=== PATIENT | female | born 1940 | race Caucasian/White ===

== ENCOUNTER → 2016-07-03 | Outpatient (CLI) | payer BC ==
[~2016-07-03] MED LIST: ASCO500T16 PO; ASPI81TA28 PO; CALC-393 PO; CHOL1000 PO; MAGN250T22 PO; METO50TA16 PO; MULT-190 PO; MULT-506 PO; ONDA4TAB10 SL; POTA99TA PO
[2016-07-03 09:39] LABS: BASO % 0.5 %; BASO ABS # 0.03 K/uL (0-0.2); COMPLETE YES; EOS % 2.6 %; HEMATOCRIT 35.8 % (37-47); LYMPH % 28.2 %; MEAN CELL VOLUME 92.3 fL (80-100); MEAN CORPUSCULAR HGB CONC 34.6 g/dl (32-36); MEAN PLATELET VOLUME 9.6 fL (7.4-10.4); NEUT % 56.7 %; PLATELET COUNT 217 K/uL (130-400); RED BLOOD COUNT 3.88 M/uL (4.2-5.4); WHITE BLOOD COUNT 5.67 K/uL (4.8-10.8)
[2016-07-03 09:55] LABS: ALT/SGPT 18 U/L (12-78); BLOOD UREA NITROGEN 19 mg/dl (7-18); BUN/CREATININE RATIO 21.6 (10-20); CARBON DIOXIDE 29 mmol/L (21-32); CHLORIDE 104 mmol/L (98-107); CHOLESTEROL 183 mg/dl (0-200); GLUCOSE 96 mg/dl (70-99); POTASSIUM 3.8 mmol/L (3.5-5.1); SODIUM 140 mmol/L (136-145)
[2016-07-03 10:05] LABS: ALB/GLOB RATIO 1.3 (0.9-2); ALKALINE PHOSPHATASE 69 U/L (45-117); AST/SGOT 24 U/L (15-37); CHOLESTEROL/HDL RATIO 2.7; HDL CHOLESTEROL 67 mg/dl; LDL CHOLESTEROL CALCULATED 98 mg/dl; TRIGLYCERIDES 91 mg/dl (0-150); VERY LOW DENSITY LIPOPROT CALC 18 mg/dl
== END | disposition home or self-care (01) ==
LOC: C.LAB1850 07:59
PROVIDERS: ATTEND Internal Medicine Pulmonary Disease
DX: I35.0 Nonrheumatic aortic (valve) stenosis (principal); K63.5 Polyp of colon; M25.539 Pain in unspecified wrist; Z00.00 Encounter for general adult medical examination without abnormal findings; I47.1 Supraventricular tachycardia

== ENCOUNTER 2016-07-12 05:55 | Emergency (ER) | payer BC ==
[~2016-07-12] VITALS: Ht 165.1 cm; Wt 54.2 kg
[2016-07-12 06:06] VITALS: TEMP 36.8; Ht 165.1 cm; Wt 54.2 kg
[2016-07-12] MEDS ORDERED: ONDANSETRON INJ 2 MG/ML 2 ML VIAL IV STA (06:09)
[2016-07-12] MEDS ORDERED: MoRPHine SULFATE 4 MG/ML 1 ML CARP\\VIAL IV STA (06:09)
[2016-07-12] MEDS ORDERED: SODIUM CHLORIDE 0.9% 500ML 500 ML IV STA ×2 (06:09→06:39)
--- NOTE | 2016-07-12 06:11 | EMERGENCY ROOM VISIT NOTE ---
History Report prepared by Willam: Leda Sparks Under the Supervision of: Dr. Ashish Caban M.D. First contact with patient: 06:03 Stated Complaint: N,V,D, History of Present Illness The patient is a 75 year old female who presents to the Emergency Room with complaints of a persistent illness that began last evening. The patient states that last evening she developed nausea, vomiting, and diarrhea. She additionally associates weakness and abdominal pain with her symptoms. The patient denies any melena or hematochezia. She denies any chest pain, shortness of breath, or leg swelling. The patient denies any sick contacts. She notes a history of atrial fibrillation, but denies being atrial fibrillation at all times. The patient states that she takes Metoprolol for her atrial fibrillation. Per EMS they gave her 1 liter of fluid prior to arrival. Source of History: patient Onset: last evening Position: other (global) Quality: other (illness) Timing: other (persistent) Associated Symptoms: + abdominal pain, + diarrhea, + nausea, + vomiting, + weakness, No SOB, No chest pain, No hematochezia, No melena Review of Systems See HPI for pertinent positives & negatives. A total of 10 systems reviewed and were otherwise negative. Past Medical & Surgical Medical Problems: (1) Atrial fibrillation Family History No pertinent family history Social History Smokeless Tobacco Use: No Alcohol Use: occasionally Marital Status: Housing Status: lives with significant other Occupation Status: retired Current/Historical Medications Scheduled Ascorbic Acid (Ascorbic Acid), 500 MG PO DAILY Aspirin (Aspirin Ec), 81 MG PO DAILY Calcium Carbonate (Calcium), 600 MG PO DAILY Cholecalciferol (Vitamin D3), 1,000 UNITS PO DAILY Magnesium Oxide (Magnesium), 250 MG PO DAILY Metoprolol Tartrate (Lopressor) (Lopressor), 50 MG PO BID Multivitamin (Multivitamin), 1 TAB PO DAILY Ocuvite Preservision (Ocuvite Preservision), 1 TAB PO DAILY Potassium (Potassium), 99 MG PO DAILY Allergies Coded Allergies: BEE STING (Verified Allergy, Intermediate, 07/13/10) Physical Exam Vital Signs Date Time Temp Pulse Resp B/P Pulse Ox O2 Delivery O2 Flow Rate FiO2 07/12/16 07:29 103 121/63 90 Room Air 07/12/16 07:03 99 07/12/16 06:17 99 07/12/16 06:06 36.8 81 18 162/63 98 Room Air Physical Exam GENERAL: Patient is uncomfortable appearing and in moderate distress. HEENT: No acute trauma, normocephalic atraumatic, mucous membranes moist, no nasal congestion, no scleral icterus. NECK: No stridor, no adenopathy, no meningismus, trachea is midline. LUNGS: No dyspnea. Clear to auscultation and equal bilaterally. No wheeze, no rhonchi. HEART: Regular rate and rhythm. No murmurs, rubs, gallops appreciated. ABDOMEN: Hyperactive bowel sounds with vague periumbilical tenderness. Soft, nontender, no masses appreciated, no peritonitis. BACK: No midline tenderness, no CVA tenderness EXTREMITIES: Normal motion all extremities, no cyanosis, no edema. NEUROLOGIC: Alert and oriented, no acute motor or sensory deficits, no focal weakness, cranial nerves grossly intact. SKIN: No rash, no jaundice, no diaphoresis. Medical Decision & Procedures Laboratory Results 07/12/16 06:00 Red Blood Count 4.25, Mean Corpuscular Volume 90.4, Mean Corpuscular Hemoglobin 31.5, Mean Corpuscular Hemoglobin Concent 34.9, Mean Platelet Volume 9.4, Neutrophils (%) (Auto) 95.9, Lymphocytes (%) (Auto) 2.2, Monocytes (%) (Auto) 1.6, Eosinophils (%) (Auto) 0.1, Basophils (%) (Auto) 0.0, Neutrophils # (Auto) 15.36, Lymphocytes # (Auto) 0.35, Monocytes # (Auto) 0.25, Eosinophils # (Auto) 0.01, Basophils # (Auto) 0.00 07/12/16 06:00 Test 07/12/16 06:00 White Blood Count 16.01 K/uL (4.8-10.8) Red Blood Count 4.25 M/uL (4.2-5.4) Hemoglobin 13.4 g/dL (12.0-16.0) Hematocrit 38.4 % (37-47) Mean Corpuscular Volume 90.4 fL (80-100) Mean Corpuscular Hemoglobin 31.5 pg (25-34) Mean Corpuscular Hemoglobin Concent 34.9 g/dl (32-36) Platelet Count 214 K/uL (130-400) Mean Platelet Volume 9.4 fL (7.4-10.4) Neutrophils (%) (Auto) 95.9 % Lymphocytes (%) (Auto) 2.2 % Monocytes (%) (Auto) 1.6 % Eosinophils (%) (Auto) 0.1 % Basophils (%) (Auto) 0.0 % Neutrophils # (Auto) 15.36 K/uL (1.4-6.5) Lymphocytes # (Auto) 0.35 K/uL (1.2-3.4) Monocytes # (Auto) 0.25 K/uL (0.11-0.59) Eosinophils # (Auto) 0.01 K/uL (0-0.5) Basophils # (Auto) 0.00 K/uL (0-0.2) RDW Standard Deviation 40.7 fL (36.4-46.3) RDW Coefficient of Variation 12.3 % (11.5-14.5) Immature Granulocyte % (Auto) 0.2 % Immature Granulocyte # (Auto) 0.04 K/uL (0.00-0.02) Anion Gap 9.0 mmol/L (3-11) Est Creatinine Clear Calc Drug Dose 49.3 ml/min Estimated GFR () 79.4 Estimated GFR (Non- 68.5 BUN/Creatinine Ratio 36.2 (10-20) Calcium Level 9.2 mg/dl (8.5-10.1) Phosphorus Level 1.9 mg/dl (2.5-4.9) Magnesium Level 1.9 mg/dl (1.8-2.4) Total Bilirubin 0.5 mg/dl (0.2-1) Direct Bilirubin 0.1 mg/dl (0-0.2) Aspartate Amino Transf (AST/SGOT) 20 U/L (15-37) Alanine Aminotransferase (ALT/SGPT) 20 U/L (12-78) Alkaline Phosphatase 77 U/L (45-117) Troponin I < 0.015 ng/ml (0-0.045) Total Protein 7.5 gm/dl (6.4-8.2) Albumin 4.2 gm/dl (3.4-5.0) Lipase 480 U/L (73-393) Laboratory results as reviewed by me. Medications Administered Medications (Trade) Dose Ordered Sig/Winifred Route Start Time Stop Time Status Last Admin Dose Admin Morphine Sulfate (MoRPHine SULFATE INJ) 4 mg NOW STAT IV 07/12/16 06:09 07/12/16 06:10 DC 07/12/16 06:15 4 MG Ondansetron HCl 4 mg 4 mg NOW STAT IV 07/12/16 06:09 07/12/16 06:10 DC 07/12/16 06:15 4 MG Sodium Chloride 500 ml @ 999 mls/hr Q31M STAT IV 07/12/16 06:09 07/12/16 06:39 DC 07/12/16 06:09 999 MLS/HR Sodium Chloride (Nss 500ml) 500 ml @ 999 mls/hr Q31M STAT IV 07/12/16 06:39 07/12/16 07:09 DC 07/12/16 06:39 999 MLS/HR ECG Indication: vomiting Rate (beats per minute): 102 Rhythm: sinus tachycardia Findings: nonspecific-ST abn, no acute ischemic change, no ectopy, other ( likely lead reversal) Comparison ECG Date: 07/13/10 Change: EKG Change: When compared to EKG done on 07/13/10, ST segments are abnormal and there is more evidence that this is lead reversal. Repeat EKG: Sinus Tachycardia 102, mild lateral ST depression, new from previous EKG, no STEMI, no ectopy ED Course 0604: The patient was evaluated in room B9. A complete history and physical exam was performed. 0609: Ordered Sodium Chloride 500 ml @ 999 mls/hr IV, Zofran Inj 4 mg IV, Morphine Sulfate 4 mg IV. 0639: The patient is feeling better, but is still mildly tachycardic. Ordered Sodium Chloride 500 ml @ 999 mls/hr IV. Medical Decision Differential: Gastroenteritis, Food Borne, Esophageal Perforation, , Electrolyte Abnormality, Dehydration, Intraabdominal Infection, UTI/ Pyelonephritis, Bowel Obstruction, Biliary Pathology, amongst other pathology entertained. 75 yr old female arrives for evaluation of nausea, vomiting, diarrhea and vague diffuse abdominal pain. WBC is a bit elevated and given this with mild lipase elevation felt that CT abdo/pelv necessary. After 1.5L NSS still mildly tachycardic though in no further distress. EKG looks OK with some mild lateral depressions. Trop is negative thus I do not feel after multiple hours symptoms this is ACS. Mild hypoxia on RA likely secondary to being so tired from long night of being awake and then small dose of Morphine on arrival. Plan is to gentle hydrate over next few hours and if no further symptoms, awake and off O2 to go home. Signed out to Dr Cervantes. Impression Primary Impression: Gastroenteritis Additional Impression: Dehydration Scribe Attestation The scribe's documentation has been prepared under my direction and personally reviewed by me in its entirety. I confirm that the note above accurately reflects all work, treatment, procedures, and medical decision making performed by me. Departure Information Dispostion Home / Self-Care Referrals Martinez Holcomb M.D. (PCP) Patient Instructions ED Gastroenteritis Viral, [facility] Problem Qualifiers
[2016-07-12 06:21] LABS: COMPLETE YES; EOS % 0.1 %; HEMATOCRIT 38.4 % (37-47); IG% 0.2 %; LYMPH % 2.2 %; LYMPH ABS # 0.35 K/uL (1.2-3.4); MEAN CELL VOLUME 90.4 fL (80-100); MEAN CORPUSCULAR HEMOGLOBIN 31.5 pg (25-34); MEAN CORPUSCULAR HGB CONC 34.9 g/dl (32-36); MEAN PLATELET VOLUME 9.4 fL (7.4-10.4); MONO % 1.6 %; NEUT % 95.9 %; PLATELET COUNT 214 K/uL (130-400); RED BLOOD COUNT 4.25 M/uL (4.2-5.4); WHITE BLOOD COUNT 16.01 K/uL (4.8-10.8)
[2016-07-12 06:28] LABS: ALT/SGPT 20 U/L (12-78); AST/SGOT 20 U/L (15-37); BLOOD UREA NITROGEN 30 mg/dl (7-18); BUN/CREATININE RATIO 36.2 (10-20); CALCIUM 9.2 mg/dl (8.5-10.1); CARBON DIOXIDE 27 mmol/L (21-32); CHLORIDE 102 mmol/L (98-107); CREATININE 0.83 mg/dl (0.60-1.20); GLUCOSE 145 mg/dl (70-99); MAGNESIUM 1.9 mg/dl (1.8-2.4); POTASSIUM 3.6 mmol/L (3.5-5.1); SODIUM 138 mmol/L (136-145)
[2016-07-12 06:32] LABS: ALKALINE PHOSPHATASE 77 U/L (45-117); PHOSPHORUS 1.9 mg/dl (2.5-4.9)
[2016-07-12] MEDS ORDERED: OPTIRAY 320 IV PRN (06:45)
[2016-07-12] MEDS ORDERED: CALC-393 PO (06:52)
[2016-07-12] MEDS ORDERED: MULT-506 PO (06:54)
[2016-07-12] MEDS ORDERED: CHOL1000 PO (06:54)
[2016-07-12] MEDS ORDERED: ASCO500T16 PO (06:55)
[2016-07-12] MEDS ORDERED: MULT-190 PO (06:56)
[2016-07-12] MEDS ORDERED: ASPI81TA28 PO (06:58)
[2016-07-12] MEDS ORDERED: MAGN250T22 PO (06:58)
[2016-07-12] MEDS ORDERED: POTA99TA PO (07:00)
[2016-07-12] MEDS ORDERED: METO50TA16 PO (07:01)
[2016-07-12] MEDS ORDERED: SODIUM CHLORIDE 0.9% 1000ML 1,000 ML IV STA (07:36)
--- NOTE | 2016-07-12 07:47 | DIAGNOSTIC IMAGING REPORT ---
CT OF THE ABDOMEN AND PELVIS WITH CONTRAST CLINICAL HISTORY: Diffuse abdominal pain. Elevated white blood cell count and lipase level. COMPARISON STUDY: CT of the chest abdomen and pelvis July 13, 2010 TECHNIQUE: Following IV administration of 93 mL of Optiray-320, axial images of the abdomen and pelvis were obtained from the lung bases to the proximal femurs. Images were reviewed in the axial, sagittal, and coronal planes. IV contrast was administered without complication. CT DOSE: 342.09 mGycm FINDINGS: Visualized portions of the lower chest demonstrate a pectus excavatum deformity. There is moderate cardiomegaly. Groundglass and linear opacities favor atelectasis. No pneumatosis, free air or portal venous gas is present. There may be mild periportal edema. The spleen, adrenal glands, kidneys and pancreas are unremarkable. There is no hydronephrosis. There is no peripancreatic infiltration. There is no evidence for a bowel obstruction. The appendix is not visualized. No lymphadenopathy is present. No suspicious skeletal lesions are identified. Mild apparent wall thickening of the left colon is likely due to underdistention. There is mild distention of the bladder. Mild mesenteric infiltration is of doubtful significance. IMPRESSION: 1. No acute process within the abdomen or pelvis. 2. Moderate cardiomegaly. Electronically signed by: Dakota Dai M.D. 07/12/2016 7:45 AM Dictated Date/Time: 07/12/2016 7:38 AM
--- NOTE | 2016-07-12 09:18 | EMERGENCY ROOM VISIT NOTE ---
ED Visit Note Received patient in signout at change of shift. History and physical verified by me. Patient is awaiting fluids. She has done much better and is requesting to be discharged. She is going to follow-up with her primary care physician.
[2016-07-12] MEDS ORDERED: ONDA4TAB10 SL (09:20)
[2016-07-12 09:38] VITALS: BP 103/52; PULSE 82; O2SAT 92
== END 2016-07-12 09:40 | disposition home or self-care (01) ==
LOC: EDBD 05:55 → C.EDB 05:56
DX: K52.9 Noninfective gastroenteritis and colitis, unspecified (principal); E86.0 Dehydration; I48.91 Unspecified atrial fibrillation; Z79.899 Other long term (current) drug therapy; Z79.82 Long term (current) use of aspirin

== ENCOUNTER → 2016-07-23 | Outpatient (CLI) | payer BC ==
--- NOTE | 2016-07-23 16:18 | MAMMOGRAPHY REPORT ---
BILATERAL DIGITAL SCREENING MAMMOGRAM WITH CAD: 07/23/2016 CLINICAL HISTORY: Routine screening. Patient has no complaints. TECHNIQUE: Bilateral CC and MLO 2-D digital mammograms were obtained. Current study was also evalu ated with a Computer Aided Detection (CAD) system. COMPARISON: Comparison is made to exams dated: 07/21/2015 mammogram, 07/19/2013 mammogram, 07/20/2014 mammogram, 07/16/2012 mammogram, 07/16/2011 mammogram, and 07/13/2010 mammogram - [facility]. BREAST COMPOSITION: The tissue of both breasts is extremely dense, which lowers the sensitivity of mammography. FINDINGS: There is a possible 6 x 11 mm mass in the far superior, far posterior right breast, proje cting over the pectoralis muscle on the MLO view. Although this could represent normal overlapping fibroglandular tissue and possibly a lymph node, additional spot compression tomosynthesis, exaggera deisi lateral CC tomosynthesis views and possibly ultrasound are recommended. There are mild vascular calcifications, round microcalcifications and benign coarse calcifications i n the breasts. Stable nodularity in the superior right breast, near the fatglandular interface. No other suspicious mass, architectural distortion or cluster of microcalcifications is seen. IMPRESSION: ACR BI-RADS CATEGORY 0: INCOMPLETE EVALUATION: NEED ADDITIONAL IMAGING EVALUATION The possible 6 x 11 mm mass in the right superior, posterior breast needs additional evaluation. The patient will be called to schedule an appointment. Approximately 10% of breast cancers are not detected with mammography. A negative mammographic repor t should not delay biopsy if a clinically suggestive mass is present. Zulma Feldman M.D. ay/:07/23/2016 15:30:21 Wood Car Builder: Allie HERNANDEZ(Cornelia)(M), [facility] letter sent: Addl Imaging 0 BI-RADS Code: ACR BI-RADS Category 0: Incomplete Evaluation: Need Additional Imaging Evaluation
== END | disposition home or self-care (01) ==
LOC: C.MAMM 08:40
PROVIDERS: ATTEND Internal Medicine Pulmonary Disease
DX: Z12.31 Encounter for screening mammogram for malignant neoplasm of breast (principal); R92.8 Other abnormal and inconclusive findings on diagnostic imaging of breast

== ENCOUNTER → 2016-07-31 | Outpatient (CLI) | payer BC ==
--- NOTE | 2016-07-31 12:47 | MAMMOGRAPHY REPORT ---
UNILATERAL RIGHT DIGITAL DIAGNOSTIC MAMMOGRAM TOMOSYNTHESIS WITH CAD AND TARGETED RIGHT ULTRASOUND: 07/31/2016 CLINICAL HISTORY: 75 year old woman called back from screening mammography for a possible new 10 mm mass versus asymmetry in the far superior and posterior right breast, only seen on the MLO view. TECHNIQUE: Breast tomosynthesis in addition to standard 2D mammography was performed. Current study was also evaluated with a Computer Aided Detection (CAD) system. COMPARISON: Comparison is made to exams dated: 07/23/2016 mammogram, 07/21/2015 mammogram, 07/20/2014 mammogram, 07/19/2013 mammogram, 07/16/2012 mammogram, and 07/16/2011 mammogram - [facility]. BREAST COMPOSITION: The tissue of the right breast is extremely dense, which lowers the sensitivity of mammography. FINDINGS: Right XCCL tomosynthesis images and standard 2-D views and spot compression MLO tomosynthe sis and 2-D views of the superior posterior right breast were obtained. There is partial effacement of the questionable 10 mm mass in the superior far posterior breast on the spot compression MLO vie ws. There is a morphologically normal 7 mm lymph node in the expected prior location of the asymmet ry. No spiculated or irregular mass, architectural distortion or cluster of suspicious microcalcifi cations are seen. There are benign coarse calcifications within the right breast. Further evaluati on with ultrasound was performed. Real-time high-resolution ultrasound was performed in the superior right breast. There is a benign anechoic simple cyst in the 11:00 right breast, 4 cm from the nipple, measuring 8.4 x 5.7 x 5.9 mm. Several morphologically normal lymph nodes are seen in the right axillary tail, and right 9:[address], 8 cm from the nipple. No suspicious spiculated or solid mass is seen. IMPRESSION: ACR-BI-RADS CATEGORY 3: PROBABLY BENIGN, TARGETED ULTRASOUND ACR-BI-RADS CATEGORY 3: RI OBABLY BENIGN There is effacement of the question will 10 mm mass in the superior and posterior right breast on th e MLO view, with a few morphologically normal lymph nodes and a benign cyst seen on ultrasound. Alt mayur these findings most likely represent benign fibrocystic changes, a short interval follow-up ri ght mammogram including tomosynthesis images and possible repeat ultrasound is recommended to ensure stability in 6 months. These results and recommendations were discussed with the patient at the time of the exam. Approximately 10% of breast cancers are not detected with mammography. A negative mammographic repor t should not delay biopsy if a clinically suggestive mass is present. Zulma Feldman M.D. ay/:07/31/2016 12:27:07 Spray Dyer: Elvia HERNANDEZ(Cornelia)(M), [facility] letter sent: Follow Up Recommended 3 BI-RADS Code: ACR-BI-RADS Category 3: Probably Benign Ultrasound BI-RADS: ACR-BI-RADS Category 3: P robably Benign
== END | disposition home or self-care (01) ==
LOC: C.MAMM 08:00
PROVIDERS: ATTEND Internal Medicine Pulmonary Disease
DX: N63 Unspecified lump in breast (principal)

== ENCOUNTER → 2016-08-03 | Outpatient (CLI) | payer BC | END | disposition home or self-care (01) | LOC: C.LABSPEC 10:48 | PROVIDERS: ATTEND Internal Medicine Pulmonary Disease | DX: E04.1 Nontoxic single thyroid nodule (principal); I35.0 Nonrheumatic aortic (valve) stenosis; I47.1 Supraventricular tachycardia; Z00.00 Encounter for general adult medical examination without abnormal findings ==

== ENCOUNTER → 2017-01-29 | Outpatient (CLI) | payer BC ==
[~2017-01-29] MED LIST changes: -ONDA4TAB10 SL
--- NOTE | 2017-01-29 13:43 | MAMMOGRAPHY REPORT ---
UNILATERAL RIGHT DIGITAL DIAGNOSTIC MAMMOGRAM TOMOSYNTHESIS WITH CAD AND TARGETED RIGHT ULTRASOUND: CLINICAL HISTORY: 76-year-old woman presents for follow-up in the right breast for a nodular asymmetr y versus mass in the superior posterior right breast only seen on the MLO view. TECHNIQUE: Right breast tomosynthesis in addition to standard 2D mammography was performed. Current jasson godinez was also evaluated with a Computer Aided Detection (CAD) system. COMPARISON: Comparison is made to exams dated: 07/31/2016 mammogram, 07/31/2016 ultrasound, 07/23/2016 ma mmogram, 07/21/2015 mammogram, 07/20/2014 mammogram, and 07/19/2013 mammogram - [facility]. BREAST COMPOSITION: The tissue of the right breast is extremely dense, which lowers the sensitivity of mammography. FINDINGS: The previously observed 10 mm mass versus nodular asymmetry in the superior posterior right breast, projecting over the pectoralis muscle on the MLO view is no longer seen. There is stable no dular asymmetry in the superior middle one third of the right breast which appears similar to all lamberto ilable prior mammograms. There are scattered benign coarse calcifications, round microcalcifications and mild vascular calcification in the right breast. No obvious mass or focal area of architectural distortion is seen on the corresponding tomosynthesis images. Targeted ultrasound was performed throughout the superior right breast. In the 10:00 to 11:00 axis, 4-5 cm from the nipple, there is a circumscribed anechoic benign simple cyst measuring 6.9 x 5.0 x 6. 4 mm. This has decreased comparing to the prior ultrasound. A morphologically normal lymph node is seen in the inferior right axilla/axillary tail. No suspicious solid mass is identified. IMPRESSION: ACR BI-RADS CATEGORY 2: BENIGN, TARGETED ULTRASOUND ACR BI-RADS CATEGORY 2: BENIGN The 10 mm mass versus nodular asymmetry in the superior posterior right breast on the MLO view is no longer seen, confirming benignity. There is no mammographic or targeted sonographic evidence of demetrio gnancy. Return to annual mammogram screening schedule is recommended. The patient has been verbally notified of the results. Approximately 10% of breast cancers are not detected with mammography. A negative mammographic report should not delay biopsy if a clinically suggestive mass is present. Zulma Feldman M.D. ay/:01/29/2017 09:24:48 Plumbing Hardware Assembler: Elvia HERNANDEZ(Cornelia)(M), [facility] letter sent: Normal 1/2 BI-RADS Code: ACR BI-RADS Category 2: Benign Ultrasound BI-RADS: ACR BI-RADS Category 2: Benign
== END | disposition home or self-care (01) ==
LOC: C.MAMM 08:47
PROVIDERS: ATTEND Internal Medicine Pulmonary Disease
DX: N63 Unspecified lump in breast (principal); R92.2 Inconclusive mammogram

== ENCOUNTER → 2017-07-04 | Outpatient (CLI) | payer BC ==
[2017-07-04 09:37] LABS: BASO % 0.3 %; BASO ABS # 0.02 K/uL (0-0.2); EOS % 2.4 %; EOS ABS # 0.15 K/uL (0-0.5); HEMATOCRIT 37.7 % (37-47); HEMOGLOBIN 12.7 g/dL (12.0-16.0); IG# 0.01 K/uL (0.00-0.02); LYMPH % 20.6 %; LYMPH ABS # 1.27 K/uL (1.2-3.4); MEAN CELL VOLUME 94.5 fL (80-100); MEAN CORPUSCULAR HEMOGLOBIN 31.8 pg (25-34); MEAN CORPUSCULAR HGB CONC 33.7 g/dl (32-36); MEAN PLATELET VOLUME 9.7 fL (7.4-10.4); MONO % 11.4 %; NEUT % 65.1 %; NEUT ABS # 4.01 K/uL (1.4-6.5); PLATELET COUNT 211 K/uL (130-400); RED CELL DISTRIBUTION WIDTH CV 12.5 % (11.5-14.5); RED CELL DISTRIBUTION WIDTH SD 43.2 fL (36.4-46.3); WHITE BLOOD COUNT 6.16 K/uL (4.8-10.8)
[2017-07-04 10:17] LABS: ALBUMIN 3.7 gm/dl (3.4-5.0); ALT/SGPT 33 U/L (12-78); AST/SGOT 30 U/L (15-37); BLOOD UREA NITROGEN 23 mg/dl (7-18); CALCIUM 8.9 mg/dl (8.5-10.1); CARBON DIOXIDE 29 mmol/L (21-32); CREATININE 0.97 mg/dl (0.60-1.20); GLUCOSE 92 mg/dl (70-99); SODIUM 137 mmol/L (136-145)
[2017-07-04 10:28] LABS: ALKALINE PHOSPHATASE 72 U/L (45-117); CHOLESTEROL 174 mg/dl (0-200); LDL CHOLESTEROL CALCULATED 90 mg/dl; TOTAL PROTEIN 7.1 gm/dl (6.4-8.2)
== END | disposition home or self-care (01) ==
LOC: C.LAB1850 08:11
PROVIDERS: ATTEND Internal Medicine Pulmonary Disease
DX: E78.5 Hyperlipidemia, unspecified (principal); I35.9 Nonrheumatic aortic valve disorder, unspecified; I70.90 Unspecified atherosclerosis; E04.1 Nontoxic single thyroid nodule

== ENCOUNTER → 2017-07-25 | Outpatient (CLI) | payer BC ==
--- NOTE | 2017-07-28 15:51 | MAMMOGRAPHY REPORT ---
BILATERAL DIGITAL SCREENING MAMMOGRAM TOMOSYNTHESIS WITH CAD: 07/25/2017 CLINICAL HISTORY: Routine screening. TECHNIQUE: Breast tomosynthesis in addition to standard 2D mammography was performed. Current study was also evaluated with a Computer Aided Detection (CAD) system. COMPARISON: Comparison is made to exams dated: 01/29/2017 mammogram, 07/31/2016 mammogram, 07/23/2016 gautam mogram, 07/21/2015 mammogram, 07/20/2014 mammogram, and 07/19/2013 mammogram - [facility]. BREAST COMPOSITION: The tissue of both breasts is extremely dense, which lowers the sensitivity of m ammography. FINDINGS: No suspicious masses, calcifications, or areas of architectural distortion are noted in ei ther breast. There has been no significant interval change compared to prior exams. Scattered bilater al benign-appearing calcifications are not significantly changed. Bilateral asymmetries are stable. IMPRESSION: ACR BI-RADS CATEGORY 2: BENIGN There is no mammographic evidence of malignancy. A 1 year screening mammogram is recommended. The pa tient will receive written notification of the results. Approximately 10% of breast cancers are not detected with mammography. A negative mammographic report should not delay biopsy if a clinically suggestive mass is present. Flor Morrison M.D. ah/:07/25/2017 14:04:19 Medical Records Tech: Frantz HERNANDEZ(Cornelia)(M), [facility] letter sent: Normal 1/2 BI-RADS Code: ACR BI-RADS Category 2: Benign
== END | disposition home or self-care (01) ==
LOC: C.MAMM 08:31
PROVIDERS: ATTEND Internal Medicine Pulmonary Disease
DX: Z12.31 Encounter for screening mammogram for malignant neoplasm of breast (principal)

== ENCOUNTER → 2017-08-28 | Outpatient (CLI) | payer BC ==
[2017-08-28 12:13] LABS: BASO % 0.3 %; BASO ABS # 0.02 K/uL (0-0.2); EOS % 0.7 %; EOS ABS # 0.05 K/uL (0-0.5); HEMATOCRIT 38.1 % (37-47); IG# 0.01 K/uL (0.00-0.02); LYMPH ABS # 1.18 K/uL (1.2-3.4); MEAN CELL VOLUME 93.8 fL (80-100); MEAN CORPUSCULAR HGB CONC 34.1 g/dl (32-36); MEAN PLATELET VOLUME 9.4 fL (7.4-10.4); MONO % 10.1 %; NEUT % 71.8 %; NEUT ABS # 4.99 K/uL (1.4-6.5); PLATELET COUNT 217 K/uL (130-400); RED CELL DISTRIBUTION WIDTH CV 12.5 % (11.5-14.5); RED CELL DISTRIBUTION WIDTH SD 42.7 fL (36.4-46.3); WHITE BLOOD COUNT 6.95 K/uL (4.8-10.8)
[2017-08-28 12:23] LABS: PTT PATIENT 26.6 SECONDS (21.0-31.0)
[2017-08-28 13:33] LABS: BLOOD UREA NITROGEN 20 mg/dl (7-18); CALCIUM 9.2 mg/dl (8.5-10.1); CARBON DIOXIDE 29 mmol/L (21-32); CREATININE 0.92 mg/dl (0.60-1.20); GLUCOSE 82 mg/dl (70-99); SODIUM 135 mmol/L (136-145)
== END | disposition home or self-care (01) ==
LOC: C.LAB1850 11:04
PROVIDERS: ATTEND Physician Assistant Medical
DX: I35.0 Nonrheumatic aortic (valve) stenosis (principal)

== ENCOUNTER 2017-12-11 20:50 | Inpatient (IN) | payer BC, OTHER ==
[~2017-12-11] VITALS: Ht 162.6 cm; Wt 49.9 kg
[~2017-12-11 20:50] MED LIST changes: -ASPI81TA28 PO; -CALC-393 PO; -CHOL1000 PO; -MAGN250T22 PO; -METO50TA16 PO; -POTA99TA PO
[2017-12-11] MEDS ORDERED: SODIUM CHLORIDE 0.9% 1000ML 1,000 ML IV STA (21:24)
[2017-12-11] MEDS ORDERED: PROMETHAZINE HCL INJ 25 MG in SODIUM CHLORIDE 0.9% 50ML 50 ML IV STA (21:24)
--- NOTE | 2017-12-11 21:28 | EMERGENCY ROOM VISIT NOTE ---
History Report prepared by Willam: Roberto Carlos Mejia Under the Supervision of: Dr. Sean Matamoros M.D. First contact with patient: 21:12 Chief Complaint: VOMITING Stated Complaint: VOMITING History of Present Illness The patient is a 77 year old white female with a past medical history of brain CA, lung CA, and a-fib who presents to the ED with a cc of persistent nausea beginning today. The patient states that she was receiving radiation therapy for her present brain cancer today. She reports that since the radiation she has been persistently nauseous and dry heaving. The patient states her oncologist is Dr. Mccain. Positive diarrhea, dry heave. Negative abdominal pain, vomiting, chest pain, SOB. Source of History: patient Onset: today Quality: other (nausea) Timing: constant Associated Symptoms: + diarrhea, No chest pain, No SOB, No vomiting, No abdominal pain Note: Associated symptoms: dry heaving Review of Systems See HPI for pertinent positives and negatives. A total of ten systems were reviewed and were otherwise negative. Past Medical & Surgical Medical Problems: (1) Atrial fibrillation Family History No pertinent family history Social History Smoking Status: Never Smoker Alcohol Use: occasionally Marital Status: Housing Status: lives with significant other Occupation Status: retired Current/Historical Medications Scheduled Ascorbic Acid (Ascorbic Acid), 500 MG PO DAILY Aspirin (Aspirin Ec), 81 MG PO DAILY Atorvastatin (Lipitor), 10 MG PO DAILY Magnesium Oxide (Magnesium), 250 MG PO DAILY Metoprolol Succ (Toprol Xl) (Toprol-Xl ), 100 MG PO DAILY Multivitamin (Multivitamin), 1 TAB PO DAILY Ocuvite Preservision (Ocuvite Preservision), 1 TAB PO DAILY Potassium (Potassium), 99 MG PO DAILY Allergies Coded Allergies: BEE STING (Verified Allergy, Intermediate, 12/11/17) Physical Exam Vital Signs Date Time Temp Pulse Resp B/P (MAP) Pulse Ox O2 Delivery O2 Flow Rate FiO2 12/12/17 00:15 96 12/12/17 00:15 100 24 170/84 93 Nasal Cannula 1.0 12/11/17 22:25 92 Nasal Cannula 2.5 12/11/17 21:04 36.7 81 25 170/83 97 Room Air 12/11/17 20:59 87 Physical Exam GENERAL: Awake, alert, obvious discomfort, tearful. HENT: Normocephalic, atraumatic. EYES: Normal conjunctiva. Sclera non-icteric. PERRL. No anisocoria. NECK: Supple. No nuchal rigidity. FROM. RESPIRATORY: CTAB, no rhonchi, wheezing, crackles CARDIAC: RRR, no MRG ABDOMEN: Soft, ND, mild epigastric discomfort, BS+. MSK: No chest wall TTP, no LE edema NEURO: GCS 15, CN 2-12 intact, moves all 4s on command SKIN: No rash or jaundice noted. Medical Decision & Procedures Laboratory Results 12/11/17 20:17 Red Blood Count 3.84, Mean Corpuscular Volume 91.4, Mean Corpuscular Hemoglobin 31.3, Mean Corpuscular Hemoglobin Concent 34.2, Mean Platelet Volume 8.9, Neutrophils (%) (Auto) 88.6, Lymphocytes (%) (Auto) 8.0, Monocytes (%) (Auto) 2.8, Eosinophils (%) (Auto) 0.2, Basophils (%) (Auto) 0.2, Neutrophils # (Auto) 10.70, Lymphocytes # (Auto) 0.97, Monocytes # (Auto) 0.34, Eosinophils # (Auto) 0.02, Basophils # (Auto) 0.02 12/11/17 20:17 Test 12/11/17 20:17 White Blood Count 12.08 K/uL (4.8-10.8) Red Blood Count 3.84 M/uL (4.2-5.4) Hemoglobin 12.0 g/dL (12.0-16.0) Hematocrit 35.1 % (37-47) Mean Corpuscular Volume 91.4 fL (80-100) Mean Corpuscular Hemoglobin 31.3 pg (25-34) Mean Corpuscular Hemoglobin Concent 34.2 g/dl (32-36) Platelet Count 261 K/uL (130-400) Mean Platelet Volume 8.9 fL (7.4-10.4) Neutrophils (%) (Auto) 88.6 % Lymphocytes (%) (Auto) 8.0 % Monocytes (%) (Auto) 2.8 % Eosinophils (%) (Auto) 0.2 % Basophils (%) (Auto) 0.2 % Neutrophils # (Auto) 10.70 K/uL (1.4-6.5) Lymphocytes # (Auto) 0.97 K/uL (1.2-3.4) Monocytes # (Auto) 0.34 K/uL (0.11-0.59) Eosinophils # (Auto) 0.02 K/uL (0-0.5) Basophils # (Auto) 0.02 K/uL (0-0.2) RDW Standard Deviation 41.8 fL (36.4-46.3) RDW Coefficient of Variation 12.5 % (11.5-14.5) Immature Granulocyte % (Auto) 0.2 % Immature Granulocyte # (Auto) 0.03 K/uL (0.00-0.02) Anion Gap 9.0 mmol/L (3-11) Est Creatinine Clear Calc Drug Dose 40.2 ml/min Estimated GFR () 71.0 Estimated GFR (Non- 61.2 BUN/Creatinine Ratio 20.8 (10-20) Calcium Level 9.1 mg/dl (8.5-10.1) Magnesium Level 2.1 mg/dl (1.8-2.4) Total Bilirubin 0.6 mg/dl (0.2-1) Direct Bilirubin 0.2 mg/dl (0-0.2) Aspartate Amino Transf (AST/SGOT) 36 U/L (15-37) Alanine Aminotransferase (ALT/SGPT) 22 U/L (12-78) Alkaline Phosphatase 96 U/L (45-117) Troponin I < 0.015 ng/ml (0-0.045) Total Protein 7.4 gm/dl (6.4-8.2) Albumin 3.8 gm/dl (3.4-5.0) Lipase 306 U/L (73-393) Laboratory results reviewed by me Medications Administered Medications (Trade) Dose Ordered Sig/Winifred Route Start Time Stop Time Status Last Admin Dose Admin Promethazine HCl 25 mg/Sodium Chloride 51 ml @ 204 mls/hr NOW STAT IV 12/11/17 21:24 12/11/17 21:38 DC 12/11/17 22:01 204 MLS/HR Sodium Chloride 1,000 ml @ 999 mls/hr Q1H1M STAT IV 12/11/17 21:24 12/11/17 22:24 DC 12/11/17 21:38 999 MLS/HR Metoclopramide HCl (Reglan Inj) 10 mg NOW STAT IV 12/11/17 23:52 12/11/17 23:53 DC 12/12/17 00:13 10 MG ECG Per My Interpretation Indication: nausea Rate (beats per minute): 100 Rhythm: normal sinus Findings: T-wave inversion (High Lateral), other (Normal intervals, Normal axis , lateral and high lateral T wave depressions) Comparison ECG Date: 07/12/16 Change: no significant change ED Course 2116: The patient was evaluated in room A02. A complete history and physical exam was performed. 2207: I reevaluated the patient and she is comfortably sleeping. 2254: I reevaluated the patient and she is able to take small sips. 0: Upon reexamination, the patient was resting comfortably. I discussed the test results and treatment plan with her. The patient will be evaluated for further management. 0018: I discussed the patients case with Dr. Easton, [facility] Hospitalist. He understands the patients condition and agrees to accept the patient. The patient will be further evaluated. Medical Decision Nursing notes reviewed. Ancillary studies and prior records reviewed. The patient is a 77 year old white female with a past medical history of brain CA, lung CA, and a-fib who presents to the ED with a cc of persistent nausea beginning today. The patient's presentation and history were concerning for etiologies such as gastroenteritis, food borne illness, infections, appendicitis, diverticulitis, inflammatory bowel disease, obstruction, GI bleed, biliary pathology, as well as others were entertained. Patient was seen and evaluated the bedside. Patient does have a history of primary line with brain metastases initially A. fib but is only on aspirin. The patient does take Toprol. Patient was complaining of nausea. The patient did receive radiation treatment today. Patient denies any chemotherapy. The patient has a nonfocal neurologic exam the patient does not complain of any headache chest pain or shortness of breath the patient just complains of nausea and some mild epigastric discomfort. Patient denies any fevers or chills. Patient did have blood work completed along with IV fluids and antiemetics. Upon reassessment the patient was mildly hypoxic so she was placed on oxygen. I believe this is likely related to the Phenergan. Upon reassessment thereafter the patient was not feeling improved was more awake and was not requiring oxygen. The patient had some hyponatremia. Otherwise unremarkable blood work. Patient did not have a CT scan of the brain as the patient was not complaining of any headache or neurologic symptoms and the patient had a nonfocal neurologic exam. Of note the patient did have an MRI completed of the brain approximately 1 week prior. This did show her metastatic lesions. The patient is not on steroids per med rec. The patient was given an additional antiemetic with this patient was still having nausea with vomiting. Given her hyponatremia and severe symptoms I did add a troponin and EKG. Patient's EKG does show some subtle depressions in the lateral as well as T-wave inversions in the high lateral leads. These do appear chronic. Troponin is not elevated. Less likely ACS or atypical chest pain. I did speak with the medicine service who agreed to further evaluate treat the patient. Medication Reconcilliation Current Medication List: was personally reviewed by me Blood Pressure Screening Patient's blood pressure: Elevated blood pressure Referred to Hospitalist Consults Time Called: 0018 Consulting Physician: Dr. Easton, [facility] Hospitalist Returned Call: 0018 I discussed the patients case with Dr. Easton, [facility] Hospitalist. He understands the patients condition and agrees to accept the patient. The patient will be further evaluated. Impression Primary Impression: Hyponatremia Additional Impressions: Nausea Vomiting Scribe Attestation The scribe's documentation has been prepared under my direction and personally reviewed by me in its entirety. I confirm that the note above accurately reflects all work, treatment, procedures, and medical decision making performed by me. Departure Information Dispostion Being Evaluated By Hospitalist Referrals Martinez Holcomb M.D. 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
[2017-12-11 21:36] LABS: BASO % 0.2 %; BASO ABS # 0.02 K/uL (0-0.2); EOS % 0.2 %; EOS ABS # 0.02 K/uL (0-0.5); HEMATOCRIT 35.1 % (37-47); IG# 0.03 K/uL (0.00-0.02); LYMPH ABS # 0.97 K/uL (1.2-3.4); MEAN CELL VOLUME 91.4 fL (80-100); MEAN CORPUSCULAR HEMOGLOBIN 31.3 pg (25-34); MEAN CORPUSCULAR HGB CONC 34.2 g/dl (32-36); MEAN PLATELET VOLUME 8.9 fL (7.4-10.4); MONO % 2.8 %; MONO ABS # 0.34 K/uL (0.11-0.59); NEUT % 88.6 %; PLATELET COUNT 261 K/uL (130-400); RED CELL DISTRIBUTION WIDTH CV 12.5 % (11.5-14.5); RED CELL DISTRIBUTION WIDTH SD 41.8 fL (36.4-46.3); WHITE BLOOD COUNT 12.08 K/uL (4.8-10.8)
[2017-12-11 21:46] LABS: ALBUMIN 3.8 gm/dl (3.4-5.0); ALKALINE PHOSPHATASE 96 U/L (45-117); ALT/SGPT 22 U/L (12-78); AST/SGOT 36 U/L (15-37); BLOOD UREA NITROGEN 19 mg/dl (7-18); CALCIUM 9.1 mg/dl (8.5-10.1); CARBON DIOXIDE 26 mmol/L (21-32); GLUCOSE 156 mg/dl (70-99); LIPASE 306 U/L (73-393); SODIUM 129 mmol/L (136-145); TOTAL PROTEIN 7.4 gm/dl (6.4-8.2)
[2017-12-11] MEDS ORDERED: ATOR10TA82 PO (21:52)
[2017-12-11] MEDS ORDERED: METOCLOPRAMIDE HCL INJ 5 MG/ML 2 ML VIAL IV STA (23:52)
[2017-12-12] MEDS ORDERED: ONDANSETRON INJ 2 MG/ML 2 ML VIAL IV STA (00:56)
[2017-12-12] MEDS ORDERED: SODIUM CHLORIDE 0.9% 1000ML 1,000 ML IV STA (00:56)
[2017-12-12] MEDS ORDERED: DEXAMETHASONE **PF** INJ 10 MG/ML VIAL IV ONE (01:00)
[2017-12-12] MEDS ORDERED: ONDANSETRON HOME PACK 4MG OD TAB PO ONE (02:15)
[2017-12-12] MEDS ORDERED: DXM/4 PO (02:17)
[2017-12-12] MEDS ORDERED: PANTOprazole INJ 40 MG in SYRINGE 0 ML IV ONE (02:30)
--- NOTE | 2017-12-12 03:04 | History and Physical ---
History & Physical Date & Time of Service: Dec 12, 2017 at 02:25 Chief Complaint: Vomiting Primary Care Physician: Martinez Holcomb M.D. History of Present Illness Source: patient, family 77F with a PMhx of brain CA, lung CA, severe , and A fib that presents to the ER with persistent vomiting. The vomit is non bilious and non bloody. It' s progressed to dry heaving. Patient is currently receiving radiation treatment for brain CA. Her oncologist is Dr. Mccain. Pt is scheduled to for another radiation treatment tomorrow. Patient on admission denies having a cough but she was found to be hypoxic and was given 2LNC. In the ER patient received promethazine, reglan and zofran and a 1L NSS bolus of fluids. This did not alleviate her nausea. She continued to require 2L. At this point Dr. Matamoros paged for admission and advised to give the patient IV Dexamethasone and we would reasses. Pt received 10mg IV of Dexamethasone at 2am and was assessed by hospitalist team at 2:15am and reported marked improvement in her symptoms. A second 1L bolus was hung at the time of assessment. Pt was not coughing but still required 2LNC. A chest portable was ordered. Chest showed diffuse fluffy infiltrates, no recent portables to compared it to, patient developed a severe cough around 2:45AM and ended up saturating in the low 70s. 40mg IV Lasix was ordered for concern for pulmonary edema with a superimposed HCAP. The decision to admit for acute hypoxic resp failure was made. PMHX: - Mild to moderate non-obstructive coronary artery disease - Severe aortic stenosis - Moderate mitral stenosis - Preserved cardiac output. Normal intracardiac filling pressures - Normal pulmonary arterial pressures - A fib. - Lung Ca with Mets to Brain. Family History No pertinent family history Social History Smoking Status: Never Smoker Smokeless Tobacco Use: No Alcohol Use: none Drug Use: none Marital Status: Housing status: lives with family Occupational Status: retired Immunizations History of Influenza Vaccine: Unknown History of Tetanus Vaccine?: Unknown History of Pneumococcal: Unknown History of Hepatitis B Vaccine: Unknown Allergies Coded Allergies: BEE STING (Verified Allergy, Intermediate, 12/11/17) Home Medications Scheduled Ascorbic Acid (Ascorbic Acid), 500 MG PO DAILY Aspirin (Aspirin Ec), 81 MG PO DAILY Atorvastatin (Lipitor), 10 MG PO DAILY Magnesium Oxide (Magnesium), 250 MG PO DAILY Metoprolol Succ (Toprol Xl) (Toprol-Xl ), 100 MG PO DAILY Multivitamin (Multivitamin), 1 TAB PO DAILY Ocuvite Preservision (Ocuvite Preservision), 1 TAB PO DAILY Potassium (Potassium), 99 MG PO DAILY Review of Systems Constitutional: + chills, No fever ENT: No hearing loss Respiratory: + cough, + shortness of breath, + dyspnea on exertion, No sputum, No wheezing Abdomen: + nausea, + vomiting, No pain, No diarrhea, No constipation Musculoskeletal: No joint pain Genitourinary - Female: No dysuria Integumentary: No rash Physical Exam Vital Signs Date Time Temp Pulse Resp B/P (MAP) Pulse Ox O2 Delivery O2 Flow Rate FiO2 12/12/17 02:15 86 23 148/58 93 12/12/17 02:10 86 24 92 12/12/17 02:05 85 21 88 12/12/17 02:00 85 21 88 12/12/17 01:55 86 20 90 12/12/17 01:50 88 21 88 12/12/17 01:45 85 22 91 12/12/17 01:40 86 22 90 12/12/17 01:35 86 20 90 12/12/17 01:30 87 22 94 12/12/17 01:25 85 33 95 12/12/17 01:20 90 21 93 12/12/17 00:50 91 19 95 12/12/17 00:20 101 19 93 12/12/17 00:15 96 12/12/17 00:15 100 24 170/84 93 Nasal Cannula 1.0 12/12/17 00:07 170/84 12/11/17 23:59 159/145 12/11/17 23:20 90 22 91 12/11/17 22:50 79 19 92 12/11/17 22:25 92 Nasal Cannula 2.5 12/11/17 22:20 82 18 87 12/11/17 21:50 78 19 96 12/11/17 21:20 83 21 96 12/11/17 21:04 36.7 81 25 170/83 97 Room Air 12/11/17 20:59 87 12/11/17 20:57 170/83 General Appearance: WD/WN, no apparent distress Head: normocephalic, atraumatic Eyes: normal inspection, PERRL ENT: normal ENT inspection, hearing grossly normal, TMs normal, pharynx normal Neck: supple Respiratory/Chest: + pertinent finding (rhonchorous lung sounds in ALL lung tapia posteriorly and anteriorly. 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, no motor/sensory deficits, alert, normal mood/affect, normal reflexes, oriented x 3 Skin: normal color Diagnostics Laboratory Results Results Past 24 Hours Test 12/11/17 20:17 Range/Units White Blood Count 12.08 4.8-10.8 K/uL Red Blood Count 3.84 4.2-5.4 M/uL Hemoglobin 12.0 12.0-16.0 g/dL Hematocrit 35.1 37-47 % Mean Corpuscular Volume 91.4 80-100 fL Mean Corpuscular Hemoglobin 31.3 25-34 pg Mean Corpuscular Hemoglobin Concent 34.2 32-36 g/dl Platelet Count 261 130-400 K/uL Mean Platelet Volume 8.9 7.4-10.4 fL Neutrophils (%) (Auto) 88.6 % Lymphocytes (%) (Auto) 8.0 % Monocytes (%) (Auto) 2.8 % Eosinophils (%) (Auto) 0.2 % Basophils (%) (Auto) 0.2 % Neutrophils # (Auto) 10.70 1.4-6.5 K/uL Lymphocytes # (Auto) 0.97 1.2-3.4 K/uL Monocytes # (Auto) 0.34 0.11-0.59 K/uL Eosinophils # (Auto) 0.02 0-0.5 K/uL Basophils # (Auto) 0.02 0-0.2 K/uL RDW Standard Deviation 41.8 36.4-46.3 fL RDW Coefficient of Variation 12.5 11.5-14.5 % Immature Granulocyte % (Auto) 0.2 % Immature Granulocyte # (Auto) 0.03 0.00-0.02 K/uL Sodium Level 129 136-145 mmol/L Potassium Level 4.0 3.5-5.1 mmol/L Chloride Level 94 98-107 mmol/L Carbon Dioxide Level 26 21-32 mmol/L Anion Gap 9.0 3-11 mmol/L Blood Urea Nitrogen 19 7-18 mg/dl Creatinine 0.90 0.60-1.20 mg/dl Est Creatinine Clear Calc Drug Dose 40.2 ml/min Estimated GFR () 71.0 Estimated GFR (Non- 61.2 BUN/Creatinine Ratio 20.8 10-20 Random Glucose 156 70-99 mg/dl Calcium Level 9.1 8.5-10.1 mg/dl Magnesium Level 2.1 1.8-2.4 mg/dl Total Bilirubin 0.6 0.2-1 mg/dl Direct Bilirubin 0.2 0-0.2 mg/dl Aspartate Amino Transf (AST/SGOT) 36 15-37 U/L Alanine Aminotransferase (ALT/SGPT) 22 12-78 U/L Alkaline Phosphatase 96 45-117 U/L Troponin I < 0.015 0-0.045 ng/ml Total Protein 7.4 6.4-8.2 gm/dl Albumin 3.8 3.4-5.0 gm/dl Lipase 306 73-393 U/L Diagnostic Radiology X-ray - diffuse pulm infiltrates account development representative of pulm vascular congestion. EKG Normal sinus rhythm Left atrial enlargement Anterior infarct (cited on or before 13-JUL-2010) ST & T wave abnormality, consider lateral ischemia Abnormal ECG When compared with ECG of 12-JUL-2016 06:41, No significant change was found Impression Assessment and Plan 77F with a PMhx of brain CA, lung CA, severe , and A fib that presents to the ER with persistent vomiting. The vomit is non bilious and non bloody. It' s progressed to dry heaving. Patient is currently receiving radiation treatment for brain CA. Acute Hypoxic Respiratory Failure 2/2 Pulm Edema vs HCAP in setting of severe and moderate MS. Came in hypoxic, got worse after 2L of fluid, given 40mg IV lasix in the ER. There may be an element of chronic pulm change due to underlying lung CA - unclear what pt's baseline is. (not on O2 at home) Per cardiology note in August 2017, severe and moderate MR in Jun. No echo in chart, will get echo to see if underlying MR or has worsened. ( discussed with Attending) Appreciate cardiology input. Reassess fluid status in AM and consider PO Lasix as needed thereafter. After discussing with Dr. Mckeon, we cannot exclude a preceding infectious process, will order a Procalcitonin, if positive, consider adding Vanc and Zosyn for HCAP. Chest Portable in the AM. HLD c/w Lipitor h/o AFib c/w Metoprolol 100mg daily c/w ASA daily N/V (resolved) If recurs Zofran PRN. Consider another dose of Dexamethasone PO/IV if zofran refractory. Lung CA with Brain Mets Scheduled for Radiation treatment today, will consult Dr. Mccain . Hyponatremia (129) No signs of AMS, will get BNP to rule out failure. She got 2L NSS in the ER, will recheck sodium level. DVT Proph: Hep SQ BID Diet: Heart Healthy. Dispo: Admit, tele. consider PT and OT - my thought is patient would like to go home, performs most ADLs with . FULL CODE Attending addendum: I have physically seen this patient, have supervised the medical residents activities, and agree with the H&P unless as otherwise noted. Assessment and Plan: Acute respiratory failure with hypoxia/pulmonary edema/pneumonia/lung cancer/ brain cancer /severe and moderate MS-- The patient presented to the emergency department with hypoxia, nausea and vomiting, presently receiving radiation therapy for brain cancer. She did receive a total lead II liters of normal saline for fluid resuscitation. Give Lasix 40 mg IV 1 in the ER now. She underwent cardiac catheterization in August 2017, which revealed severe aortic stenosis, moderate mitral stenosis, and need for valve replacement. Follow serial chest x-rays. Place on Lasix 40 mg IV every morning. Titrate oxygen to keep pulse ox greater than or equal to 92%. She was noted to be 68% on room air at the time of institution of diuresis in the ED. Consult Dr. Blanchard. Atrial fibrillation-- Continue metoprolol succinate 100 mg p.o. daily with hold parameters, and aspirin 81 mg daily. Nausea and vomiting associated with radiation therapy for brain cancer-- Continue with Decadron/Zofran combination. Consult Dr. Francis. Hyponatremia-- Sodium was 129 upon admission, likely associated with pre-existing volume overload. Follow BMP and magnesium levels in the a.m. Advanced Directives Existing Advance Directive: No Existing Living Will: No Existing Power of Movie Theater Usher: No Resuscitation Status VTE Prophylaxis Will order VTE Prophylaxis: Yes Social Service Consult Cancer Patient Under [place] Resident Involvement: Resident Care Provided Care Provided: Adult Hospital Medicine
[2017-12-12] MEDS ORDERED: FUROSEMIDE 40 MG/4 ML VIAL ONE (03:11)
[2017-12-12] MEDS ORDERED: FUROSEMIDE INJ 40 MG in SYRINGE 0 ML IV ONE ×2 (03:15→15:30)
[2017-12-12] MEDS ORDERED: ZOLPIDEM TARTRATE 5 MG TAB PO PRN (03:30)
[2017-12-12] MEDS ORDERED: ALUMINUM/MAGNESIUM/SIMETH (MAALOX MAX) 30 ML UDC PO PRN (03:30)
[2017-12-12] MEDS ORDERED: POLYETHYLENE (MIRALAX) 17 GM PACK PO PRN (03:30)
[2017-12-12] MEDS ORDERED: MAGNESIUM HYDROXIDE SUSP 30 ML UDC PO PRN (03:30)
[2017-12-12] MEDS ORDERED: ACETAMINOPHEN 325 MG TAB PO PRN (03:30)
[2017-12-12] MEDS ORDERED: ONDANSETRON INJ 2 MG/ML 2 ML VIAL IV PRN (03:30)
[2017-12-12 04:55] VITALS: BP 146/77; PULSE 86; TEMP 36.5; O2SAT 93; Ht 162.6 cm; Wt 49.9 kg
[2017-12-12 05:35] LABS: BASO % 0.1 %; BASO ABS # 0.01 K/uL (0-0.2); HEMATOCRIT 35.4 % (37-47); HEMOGLOBIN 12.4 g/dL (12.0-16.0); IG# 0.02 K/uL (0.00-0.02); LYMPH % 4.9 %; LYMPH ABS # 0.58 K/uL (1.2-3.4); MEAN CELL VOLUME 90.3 fL (80-100); MEAN CORPUSCULAR HEMOGLOBIN 31.6 pg (25-34); MEAN PLATELET VOLUME 8.4 fL (7.4-10.4); MONO % 0.8 %; MONO ABS # 0.09 K/uL (0.11-0.59); NEUT ABS # 11.14 K/uL (1.4-6.5); PLATELET COUNT 243 K/uL (130-400); RED CELL DISTRIBUTION WIDTH CV 12.5 % (11.5-14.5); RED CELL DISTRIBUTION WIDTH SD 40.9 fL (36.4-46.3); WHITE BLOOD COUNT 11.84 K/uL (4.8-10.8)
[2017-12-12 06:18] LABS: CALCIUM 8.1 mg/dl (8.5-10.1); CREATININE 0.87 mg/dl (0.60-1.20); POTASSIUM 3.4 mmol/L (3.5-5.1)
--- NOTE | 2017-12-12 06:50 | DIAGNOSTIC IMAGING REPORT ---
CHEST ONE VIEW PORTABLE HISTORY: 77 years-old Female hypoxia acute hypoxia COMPARISON: Chest CT 10/21/2017, PET CT 10/28/2017 TECHNIQUE: Portable AP view of the chest FINDINGS: Cardiac silhouette is mildly enlarged. There is biapical pleural-parenchymal scarring. Focal masslike opacity of the right upper lobe measures 2.6 x 3.4 cm. There is atherosclerosis of the aorta. There are bilateral mixed interstitial and alveolar opacities with trace effusions. Mild right hemidiaphragmatic elevation. Pulmonary vascular congestion. No pneumothorax. The lungs are hyperinflated. Degenerative changes about the shoulders and spine. IMPRESSION: 1. Cardiomegaly with bilateral mixed interstitial and alveolar opacities suggesting pulmonary edema with trace bilateral pleural effusions. 2. Focal masslike opacity of the right upper lobe measuring up to 3.4 cm likely correlates with hypermetabolic lesion seen on comparison PET CT. The above report was generated using voice recognition software. It may contain grammatical, syntax or spelling errors. Electronically signed by: Neville Meraz M.D. 12/12/2017 6:49 AM Dictated Date/Time: 12/12/2017 6:46 AM
--- NOTE | 2017-12-12 06:52 | DIAGNOSTIC IMAGING REPORT ---
KUB HISTORY: Acute nausea and vomiting nausea/ vomiting COMPARISON: PET CT 10/28/2017. FINDINGS: Mild right hemidiaphragmatic elevation. Enlargement of the cardiac silhouette. The bowel gas pattern is non-obstructive. There is no organomegaly. Calcifications of the pelvis suggest phleboliths. No renal calculi. No ureteral calculi. No pneumoperitoneum or pneumatosis. No fracture. Mild convex right curvature of the lumbar spine. IMPRESSION: Nonobstructive bowel gas pattern. Electronically signed by: Neville Meraz M.D. 12/12/2017 6:51 AM Dictated Date/Time: 12/12/2017 6:49 AM
[2017-12-12 07:05] VITALS: BP 130/69; PULSE 81; TEMP 36.3; O2SAT 95
--- NOTE | 2017-12-12 07:22 | DIAGNOSTIC IMAGING REPORT ---
CHEST ONE VIEW PORTABLE HISTORY: 77 years-old Female eval for pulm edema and vasc congestion. Acute shortness of breath COMPARISON: Chest radiograph of same day at 2:23 AM TECHNIQUE: Portable AP view of the chest FINDINGS: Cardiac silhouette is mildly enlarged. There is biapical pleural-parenchymal scarring. Focal masslike opacity of the right upper lobe measures 2.6 x 3.4 cm. There is atherosclerosis of the aorta. Lungs are hyperinflated. There is improved aeration about the bilateral lungs with mildly vascular congestion. No overt pulmonary edema. Trace bilateral pleural effusions with subsegmental bibasilar opacities. Degenerative changes about the shoulders and spine. IMPRESSION: 1. Cardiomegaly and pulmonary vascular congestion with improved aeration of the bilateral lungs. 2. Trace bilateral pleural effusions with subsegmental bibasilar opacities suggesting atelectasis. 3. Masslike opacity of the right upper lobe redemonstrated. The above report was generated using voice recognition software. It may contain grammatical, syntax or spelling errors. Electronically signed by: Neville Meraz M.D. 12/12/2017 7:20 AM Dictated Date/Time: 12/12/2017 7:18 AM
[2017-12-12] MEDS ORDERED: POTASSIUM CHLORIDE 20 MEQ TABCR PO STA (07:42)
--- NOTE | 2017-12-12 08:03 | Cardioversion ---
Electricial Cardioversion Rpt Date of Service: 12/12/2017 Electrical Cardioversion Rprt Procedure: Direct current cardioversion Indication: Atrial fibrillation Consent: Informed written consent was obtained. Sedation: Sedation was provided by anesthesiology, Dr. Michelle Johnson. Time-out: Time-out was performed. Procedural details: In a synchronized fashion, 150 joules were used to successfully convert atrial fibrillation to sinus rhythm. She was mildly hypotensive prior to the procedure, which is her baseline. She was more profoundly hypotensive following the procedure with systolic blood pressure in the 80s. Her heart rate was initially in the 30s but then increased to the 50s. ECG demonstrated sinus bradycardia. She was able to move all 4 extremities. There were no known complications. For hypotension, IV fluid was administrated. 5 mg of ephedrine was also given by Dr. Johnson for bradycardia and hypotension. Plan: 1. Discontinue metoprolol. 2. Continue amiodarone. 3. Continue anticoagulation therapy without interruption, especially for the next 4 weeks following cardioversion. Lifelong anticoagulation is indicated. This pt did not undergo the above procedure. This was documented under the incorrect chart.
[2017-12-12] MEDS: HEPARIN SOD 5000 UNIT/0.5 ML CARP SQ SCH ×2 (09:13→21:00)
--- NOTE | 2017-12-12 10:37 | ONCOLOGY CONSULTATION ---
DATE OF CONSULTATION: 12/12/2017 MEDICAL ONCOLOGY CONSULTATION REASON FOR CONSULTATION: Metastatic nonsmall cell lung cancer. HISTORY OF PRESENT ILLNESS: Belem Mathur is a pleasant unfortunate 77-year-old female well known to [facility], currently under Dr. Joseph Francis's care for recently diagnosed metastatic nonsmall cell lung cancer. Belem unfortunately recently developed multiple brain metastases and was beginning whole brain radiation. She received her first fraction yesterday about 1:00 p.m. and shortly thereafter developed profuse nausea and vomiting. Two days prior to admission, the patient had experienced frequent diarrhea. However, symptoms progressed post-radiation therapy to a nonbilious nausea and vomiting as well as persistent diarrhea. The patient was also found to be mildly hypoxic and is currently receiving oxygen via rebreather. Earlier this spring, Ms. Mathur was diagnosed with aortic and mitral valvulopathies and subsequently planning for replacement. Preop chest x-ray revealed a right upper lobe nodule. Subsequent CT scan performed in late September confirmed a mass in the right upper lobe with associated satellite nodules as well as a suspicious hepatic mass. PET redemonstrated all these lesions in addition to FDG avid left adrenal and bone metastatic disease. Belem subsequently underwent MRI of the brain on December 05 revealing 6 enhancing cerebral masses, the largest located in the right occipital lobe measuring 11 mm. Hence, the rationale to begin whole brain radiation. Belem was supposed to meet with Dr. Francis today to discuss salvage treatment options. I have also placed a call to radiation oncology alerting them to Belem's admission. PAST MEDICAL HISTORY: Again, significant for metastatic nonsmall cell lung cancer, aortic valve disease, osteoporosis, psoriasis, rosacea and a thyroid nodule. PAST SURGICAL HISTORY: Includes hysterectomy, tonsillectomy and appendectomy as well as cataract removal. MEDICATIONS: Prior to admission include vitamin C 500 mg p.o. daily, aspirin 81 mg p.o. daily, Lipitor 10 mg p.o. daily, mag oxide 250 mg p.o. daily, Toprol-XL 100 mg p.o. daily, multivitamin 1 p.o. daily, Ocuvite 1 tablet p.o. daily, potassium dose unclear. ALLERGIES: TO BEE STINGS. SOCIAL HISTORY: The patient is , lives with her family, is retired. She is a nonsmoker, nondrinker. FAMILY HISTORY: Noncontributory. REVIEW OF SYSTEMS: As per HPI most notably for nausea, vomiting and diarrhea. She does not report a fever; however, claims to have experienced a chill. She is not currently anorexic. SKIN: No rashes or lesions. No history of dermatosis. HEENT: No current headache, no lightheadedness or dizziness per se. No visual or hearing deficits. No sinus symptoms, sore throat or dysphagia presently. HEART: Positive for valvulopathy. No current angina or palpitations. PULMONARY: She is not short of breath, dyspneic or orthopneic. She was found to be hypoxic. No cough or hemoptysis reported. GASTROINTESTINAL: Positive for nausea, vomiting, and diarrhea. No abdominal pain. No hematochezia or melena reported. GENITOURINARY: No hematuria, dysuria, urinary incontinence. PSYCHIATRIC: Negative for anxiety, depression or psychosis. ENDOCRINE: Negative for thyroid disease or diabetes mellitus. NEUROLOGIC: Again, recent diagnosis of brain metastatic disease. No history of seizure disorder or migraine headaches otherwise. HEMATOLOGIC: Negative for anemia, thrombophilia or bleeding diathesis. PHYSICAL EXAMINATION: GENERAL: A very pleasant 77-year-old female patient in no acute distress. VITAL SIGNS: Temperature 36.3, pulse 81, respiratory rate 20, blood pressure 130/69. SKIN: Warm, dry, noncyanotic without petechia, rash or ecchymosis. HEAD: Atraumatic, normocephalic. EYES: PERRLA, EOMI. Nares are patent without rhinorrhea or discharge. Throat is clear. Tongue is midline. No buccal lesions or ulcerations. NECK: Supple. HEART: Regular rate and rhythm. Holosystolic murmur heard in the left precordium, quite loud, 3/6. PULMONARY: Lungs are clear to auscultation bilaterally. ABDOMEN: Soft, nontender, nondistended. Bowel sounds are hypoactive. No rigidity or guarding. No palpable hepatosplenomegaly. EXTREMITIES: Pulses and strength are equal in all 4 quadrants. NEUROLOGICAL: She is awake, alert and oriented. Cranial nerves are grossly intact. LABORATORY DATA: WBC count 11,840, hemoglobin 12.4, platelet count 243,000. Sodium 131, potassium 3.4, chloride 97, carbon dioxide 25, BUN 16, creatinine 0.87. BNP 5724. RADIOGRAPHIC DATA: Chest x-ray: Cardiomegaly, pulmonary vascular congestion with improved aeration of bilateral lungs, trace pleural effusions are noted as well. KUB, nonobstructive normal gas pattern. IMPRESSION: 1. Nausea and vomiting. 2. Intractable diarrhea. 3. Recent diagnosis of intracerebral brain metastatic disease. 4. Metastatic nonsmall cell lung cancer. PLAN: Belem was seen and examined at bedside today. She started whole brain radiation yesterday after the diagnosis of multiple brain metastatic lesions. The patient was to meet up with Dr. Francis today to discuss salvage treatment options. I will advise Dr. Francis of the patient's admission to hospital. From a medical standpoint, she is receiving IV fluids and antiemetics at this time. I briefly spoke to Dr. Winters from radiation oncology and he would like a consultation placed to continue care in Belem's regard. I agree with current medical management. I will continue to follow her periodically during hospital stay. We will make arrangements for Ms. Mathur to meet with Dr. Francis in the near future post-discharge. Thank you very much for allowing us to participate in her care. If you have any questions or concerns, feel free to consult us or contact us at any time.
[2017-12-12 11:01] VITALS: BP 149/67; PULSE 83; TEMP 36.5; O2SAT 93
--- NOTE | 2017-12-12 14:08 | Cardiology Consultation ---
Cardiology Consultation Date of Consultation: Dec 12, 2017. Attending Physician: Diandra Reason for Consultation: Valvular heart disease History of Present Illness Mrs. Mathur is a 77-year-old woman with severe aortic stenosis/moderate aortic regurgitation, moderate mitral stenosis, preserved LV function, mild nonobstructive coronary disease known to me from the outpatient setting and from recent cardiac catheterization recently diagnosed with metastatic, stage IV non-small cell lung cancer admitted with diarrhea and profuse vomiting beginning after 1st whole brain radiation treatment for metastatic lesions. Overnight patient became dyspneic/hypoxic after 2 liters of IV fluid. Chest x- ray confirmed pulmonary congestion. Received 1 dose of IV Lasix overnight with improved symptoms, chest x-ray findings this a.m.. Denies any associated chest pain, palpitations or presyncope. GI symptoms improved this morning after antiemetics, steroids and PPI. Past Medical/Surgical History 1. Severe aortic stenosis 2. Moderate aortic regurgitation 3. Moderate mitral stenosis, mild mitral regurgitation. 4. Stage IV metastatic non-small cell lung cancer 5. Paroxysmal SVT Family History No pertinent family history Social History Smoking Status: Never Smoker History of Alcohol Use: No Review of Systems 10 point review of systems was completed and was otherwise negative unless stated in HPI Allergies Coded Allergies: BEE STING (Verified Allergy, Intermediate, 12/11/17) Medications Current Inpatient Medications Medications (Trade) Dose Ordered Sig/Winifred Route Start Time Stop Time Status Last Admin Dose Admin Heparin Sodium (Porcine) (Heparin Sq 5000 Unit/0.5ml) 5,000 unit Q12 SQ 12/12/17 09:00 01/11/18 08:59 12/12/17 09:13 5,000 UNIT Acetaminophen (Tylenol Tab) 650 mg Q4H PRN PO 12/12/17 03:30 01/11/18 03:29 Al Hydrox/Mg Hydrox/Simethicone (Maalox Max Susp) 15 ml Q4H PRN PO 12/12/17 03:30 01/11/18 03:29 Magnesium Hydroxide (Milk Of Magnesia Susp) 30 ml Q12H PRN PO 12/12/17 03:30 01/11/18 03:29 Zolpidem Tartrate (Ambien Tab) 5 mg HSZ PRN PO 12/12/17 03:30 01/11/18 03:29 Ondansetron HCl (Zofran Inj) 4 mg Q6H PRN IV 6/15/18 03:30 01/11/18 03:29 Polyethylene (Miralax Powder Packet) 17 gm DAILY PRN PO 12/12/17 03:30 01/11/18 03:29 Physical Exam Vital Signs Past 12 Hours Date Time Temp Pulse Resp B/P (MAP) Pulse Ox O2 Delivery O2 Flow Rate FiO2 12/12/17 11:01 36.5 83 18 149/67 (94) 93 4.0 12/12/17 07:05 36.3 81 20 130/69 (89) 95 Oxymask 4.0 12/12/17 04:55 36.5 86 146/77 93 Mask 4.0 12/12/17 03:51 36.7 84 24 124/68 93 12/12/17 03:14 24 93 Oxymask 4.0 12/12/17 02:57 91 Nasal Cannula 4.0 12/12/17 02:53 113 24 148/58 68 Room Air 12/12/17 02:15 86 23 148/58 93 12/12/17 02:10 86 24 92 12/12/17 02:05 85 21 88 12/12/17 02:00 85 21 88 12/12/17 01:55 86 20 90 12/12/17 01:50 88 21 88 12/12/17 01:45 85 22 91 12/12/17 01:40 86 22 90 12/12/17 01:35 86 20 90 12/12/17 01:30 87 22 94 12/12/17 01:25 85 33 95 12/12/17 01:20 90 21 93 12/12/17 00:50 91 19 95 General: Comfortable, no acute distress Eyes: Sclerae anicteric, extraocular movements intact HENT: Oropharynx clear mucous membranes moist Neck: Normal carotid upstrokes, no bruits. No JVD. Lungs: Clear to auscultation bilaterally, few scant crackles at bases Cardiac: Regular rate and rhythm, 3/6 systolic ejection murmur heard best at the right upper sternal border, no rubs or gallops. Vascular: 2+ radial, DP and PT pulses. No varicosities. Abdomen: Soft, nontender, nondistended, positive bowel sounds. Extremities: Well perfused, no peripheral edema Skin: No rashes or lesions. Neuro: Nonfocal Psych: Alert orient x3, normal affect and mood Data Laboratory Results: Last 24 Hours Test 12/11/17 20:17 12/12/17 03:40 12/12/17 05:20 White Blood Count 12.08 K/uL 11.84 K/uL Red Blood Count 3.84 M/uL 3.92 M/uL Hemoglobin 12.0 g/dL 12.4 g/dL Hematocrit 35.1 % 35.4 % Mean Corpuscular Volume 91.4 fL 90.3 fL Mean Corpuscular Hemoglobin 31.3 pg 31.6 pg Mean Corpuscular Hemoglobin Concent 34.2 g/dl 35.0 g/dl Platelet Count 261 K/uL 243 K/uL Mean Platelet Volume 8.9 fL 8.4 fL Neutrophils (%) (Auto) 88.6 % 94.0 % Lymphocytes (%) (Auto) 8.0 % 4.9 % Monocytes (%) (Auto) 2.8 % 0.8 % Eosinophils (%) (Auto) 0.2 % 0.0 % Basophils (%) (Auto) 0.2 % 0.1 % Neutrophils # (Auto) 10.70 K/uL 11.14 K/uL Lymphocytes # (Auto) 0.97 K/uL 0.58 K/uL Monocytes # (Auto) 0.34 K/uL 0.09 K/uL Eosinophils # (Auto) 0.02 K/uL 0.00 K/uL Basophils # (Auto) 0.02 K/uL 0.01 K/uL RDW Standard Deviation 41.8 fL 40.9 fL RDW Coefficient of Variation 12.5 % 12.5 % Immature Granulocyte % (Auto) 0.2 % 0.2 % Immature Granulocyte # (Auto) 0.03 K/uL 0.02 K/uL Sodium Level 129 mmol/L 131 mmol/L Potassium Level 4.0 mmol/L 3.4 mmol/L Chloride Level 94 mmol/L 97 mmol/L Carbon Dioxide Level 26 mmol/L 25 mmol/L Anion Gap 9.0 mmol/L 9.0 mmol/L Blood Urea Nitrogen 19 mg/dl 16 mg/dl Creatinine 0.90 mg/dl 0.87 mg/dl Est Creatinine Clear Calc Drug Dose 40.2 ml/min 44.8 ml/min Estimated GFR () 71.0 74.0 Estimated GFR (Non- 61.2 63.8 BUN/Creatinine Ratio 20.8 17.8 Random Glucose 156 mg/dl 168 mg/dl Calcium Level 9.1 mg/dl 8.1 mg/dl Magnesium Level 2.1 mg/dl Total Bilirubin 0.6 mg/dl Direct Bilirubin 0.2 mg/dl Aspartate Amino Transf (AST/SGOT) 36 U/L Alanine Aminotransferase (ALT/SGPT) 22 U/L Alkaline Phosphatase 96 U/L Troponin I < 0.015 ng/ml Total Protein 7.4 gm/dl Albumin 3.8 gm/dl Lipase 306 U/L Bedside Glucose 174 mg/dl Prothrombin Time 10.5 SECONDS Prothromb Time International Ratio 1.0 Pro-B-Type Natriuretic Peptide 5724 pg/ml Procalcitonin < 0.05 ng/ml EKG:Sinus rhythm, ventricular rate of 100, lateral Twave depressions, unchanged from prior. Telemetry reviewed: Sinus rhythm, no arrhythmia CATHETERIZATION on 09/08/2017 which showed the following: -- LMCA -- Angiographically normal. -- LAD -- Tortuous vessel, Angiographically normal. -- LCx -- 20% to 30% Midvessel stenosis, luminal irregularities distally. -- RCA -- Dominant vessel. 30% to 40% Midvessel stenosis. No other disease. -- RA -- 3. -- RV -- 35 / 6. -- PA -- 36 / 10 (Mean 22). -- PAWP -- 12. -- LV -- 187 / 12. -- PA O2 Saturation -- 61%. -- Aortic O2 Saturation -- 86%. -- Jeb CO / CI = 4.5 / 2.8. -- Thermodilution CO / CI = 3.0 / 1.9. -- MV Mean Gradient = 11.7 mmHg, MVA = 1.41 cm2. -- AV Mean Gradient = 51.1 mmHg, TENZIN = 0.58 cm2. ECHOCARDIOGRAM (03/2016): Moderate LVH, normal LV function, EF 70%, severe aortic stenosis (mean gradient 47, calculated aortic valve area 0.9 cm2), moderate aortic insufficiency, mild mitral stenosis, mild mitral regurgitation Assessment & Plan 1. Perfuse vomiting, diarrhea 2. Stage IV non-small cell lung cancer post 1st treatment of whole-brain radiation 3. Acute diastolic heart failure 4. Severe valvular heart disease 5. Paroxysmal SVT Patient admitted with refractory GI symptoms improved with antiemetics, steroids overnight. In the setting of administered IV fluids developed pulmonary edema which responded appropriately to 1 dose of IV diuretics. This morning appears comfortable with minimal residual congestion. Patient not a cardiac surgery candidate at this time and with patient's symptomatic severe valvular heart disease will remain fluid sensitive. Recommend cautious/slow fluid repletion as needed to manage chemotherapy adverse effects. For now appears reasonably compensated on exam. P.r.n. additional diuretics as needed for dyspnea/hypoxia. Do not feel will need long-term maintenance diuretics. Resume home metoprolol as BP allows. Will continue to follow in the periphery. Please contact as new issues arise.
[2017-12-12 14:52] VITALS: BP 129/54; PULSE 86; TEMP 36.5; O2SAT 96
[2017-12-12] MEDS ORDERED: FUROSEMIDE INJ 80 MG in SYRINGE 0 ML IV ONE (15:45)
--- NOTE | 2017-12-12 15:46 | Family Medicine Progress Note ---
Progress Note Date of Service Dec 12, 2017. Subjective Pt evaluation today including: conversation w/ patient, conversation w/ family , physical exam, chart review, lab review Patient is breathing better this morning. No complaints, no acute events. Constitutional: No fever, No chills, No sweats, No weight loss Respiratory: + dyspnea on exertion, No cough, No sputum, No wheezing, No shortness of breath Cardiovascular: No chest pain, No palpitations Abdomen: No pain, No nausea, No vomiting, No diarrhea Medications Current Inpatient Medications Medications (Trade) Dose Ordered Sig/Winifred Route Start Time Stop Time Status Last Admin Dose Admin Heparin Sodium (Porcine) (Heparin Sq 5000 Unit/0.5ml) 5,000 unit Q12 SQ 12/12/17 09:00 01/11/18 08:59 12/12/17 09:13 5,000 UNIT Acetaminophen (Tylenol Tab) 650 mg Q4H PRN PO 12/12/17 03:30 01/11/18 03:29 Al Hydrox/Mg Hydrox/Simethicone (Maalox Max Susp) 15 ml Q4H PRN PO 12/12/17 03:30 01/11/18 03:29 Magnesium Hydroxide (Milk Of Magnesia Susp) 30 ml Q12H PRN PO 12/12/17 03:30 01/11/18 03:29 Zolpidem Tartrate (Ambien Tab) 5 mg HSZ PRN PO 12/12/17 03:30 01/11/18 03:29 Ondansetron HCl (Zofran Inj) 4 mg Q6H PRN IV 12/12/17 03:30 01/11/18 03:29 Polyethylene (Miralax Powder Packet) 17 gm DAILY PRN PO 12/12/17 03:30 01/11/18 03:29 Furosemide 80 mg/ Syringe 8 ml @ 4 mls/min ONE ONCE IV 12/12/17 15:30 12/12/17 15:31 UNV Objective Vital Signs Date Time Temp Pulse Resp B/P (MAP) Pulse Ox O2 Delivery O2 Flow Rate FiO2 12/12/17 14:52 36.5 86 20 129/54 (79) 96 Mask 4.0 12/12/17 11:01 36.5 83 18 149/67 (94) 93 4.0 12/12/17 07:05 36.3 81 20 130/69 (89) 95 Oxymask 4.0 12/12/17 04:55 36.5 86 146/77 93 Mask 4.0 12/12/17 03:51 36.7 84 24 124/68 93 12/12/17 03:14 24 93 Oxymask 4.0 12/12/17 02:57 91 Nasal Cannula 4.0 12/12/17 02:53 113 24 148/58 68 Room Air 12/12/17 02:15 86 23 148/58 93 12/12/17 02:10 86 24 92 12/12/17 02:05 85 21 88 12/12/17 02:00 85 21 88 12/12/17 01:55 86 20 90 12/12/17 01:50 88 21 88 12/12/17 01:45 85 22 91 12/12/17 01:40 86 22 90 12/12/17 01:35 86 20 90 12/12/17 01:30 87 22 94 12/12/17 01:25 85 33 95 12/12/17 01:20 90 21 93 12/12/17 00:50 91 19 95 12/12/17 00:20 101 19 93 12/12/17 00:15 96 12/12/17 00:15 100 24 170/84 93 Nasal Cannula 1.0 12/12/17 00:07 170/84 12/11/17 23:59 159/145 12/11/17 23:20 90 22 91 12/11/17 22:50 79 19 92 12/11/17 22:25 92 Nasal Cannula 2.5 12/11/17 22:20 82 18 87 12/11/17 21:50 78 19 96 12/11/17 21:20 83 21 96 12/11/17 21:04 36.7 81 25 170/83 97 Room Air 12/11/17 20:59 87 12/11/17 20:57 170/83 Physical Exam General Appearance: WD/WN, no apparent distress Neck: supple, no adenopathy, trachea midline Respiratory/Chest: normal breath sounds, no respiratory distress, no accessory muscle use, + rales (bilateral in the bases ) Cardiovascular: regular rate, rhythm, no edema, + systolic murmur Abdomen: non tender, soft, no organomegaly Extremities: non-tender, normal inspection, no calf tenderness Neurologic/Psychiatric: alert, normal mood/affect, oriented x 3 Skin: normal color, warm/dry, no rash Laboratory Results 12/12/17 05:20 Red Blood Count 3.92, Mean Corpuscular Volume 90.3, Mean Corpuscular Hemoglobin 31.6, Mean Corpuscular Hemoglobin Concent 35.0, Mean Platelet Volume 8.4, Neutrophils (%) (Auto) 94.0, Lymphocytes (%) (Auto) 4.9, Monocytes (%) (Auto) 0.8, Eosinophils (%) (Auto) 0.0, Basophils (%) (Auto) 0.1, Neutrophils # (Auto) 11.14, Lymphocytes # (Auto) 0.58, Monocytes # (Auto) 0.09, Eosinophils # (Auto) 0.00, Basophils # (Auto) 0.01 12/12/17 05:20 Test 12/11/17 20:17 12/12/17 03:40 12/12/17 05:20 Magnesium Level 2.1 mg/dl (1.8-2.4) Total Bilirubin 0.6 mg/dl (0.2-1) Direct Bilirubin 0.2 mg/dl (0-0.2) Aspartate Amino Transf (AST/SGOT) 36 U/L (15-37) Alanine Aminotransferase (ALT/SGPT) 22 U/L (12-78) Alkaline Phosphatase 96 U/L (45-117) Troponin I < 0.015 ng/ml (0-0.045) Total Protein 7.4 gm/dl (6.4-8.2) Albumin 3.8 gm/dl (3.4-5.0) Lipase 306 U/L (73-393) Bedside Glucose 174 mg/dl (70-90) White Blood Count 11.84 K/uL (4.8-10.8) Red Blood Count 3.92 M/uL (4.2-5.4) Hemoglobin 12.4 g/dL (12.0-16.0) Hematocrit 35.4 % (37-47) Mean Corpuscular Volume 90.3 fL (80-100) Mean Corpuscular Hemoglobin 31.6 pg (25-34) Mean Corpuscular Hemoglobin Concent 35.0 g/dl (32-36) Platelet Count 243 K/uL (130-400) Mean Platelet Volume 8.4 fL (7.4-10.4) Neutrophils (%) (Auto) 94.0 % Lymphocytes (%) (Auto) 4.9 % Monocytes (%) (Auto) 0.8 % Eosinophils (%) (Auto) 0.0 % Basophils (%) (Auto) 0.1 % Neutrophils # (Auto) 11.14 K/uL (1.4-6.5) Lymphocytes # (Auto) 0.58 K/uL (1.2-3.4) Monocytes # (Auto) 0.09 K/uL (0.11-0.59) Eosinophils # (Auto) 0.00 K/uL (0-0.5) Basophils # (Auto) 0.01 K/uL (0-0.2) RDW Standard Deviation 40.9 fL (36.4-46.3) RDW Coefficient of Variation 12.5 % (11.5-14.5) Immature Granulocyte % (Auto) 0.2 % Immature Granulocyte # (Auto) 0.02 K/uL (0.00-0.02) Prothrombin Time 10.5 SECONDS (9.0-12.0) Prothromb Time International Ratio 1.0 (0.9-1.1) Anion Gap 9.0 mmol/L (3-11) Est Creatinine Clear Calc Drug Dose 44.8 ml/min Estimated GFR () 74.0 Estimated GFR (Non- 63.8 BUN/Creatinine Ratio 17.8 (10-20) Calcium Level 8.1 mg/dl (8.5-10.1) Pro-B-Type Natriuretic Peptide 5724 pg/ml (0-1800) Procalcitonin < 0.05 ng/ml (0-0.5) Assessment and Plan 77F with a h/o of metastatic lung cancer, severe , and A fib that presents to the ER with persistent vomiting. Patient became SOB following fluid resuscitation in the ED. Acute Hypoxic Respiratory Failure 2/2 Pulm Edema in setting of severe and moderate MS. - Patient -800 output this afternoon, reassessed in the afternoon, still requiring 4 L of O2 - Diuresis this afternoon, give Lasix 80 mg IV - Cardiology consulted--severe , no interventions at this time, manage with Lasix, will unlikely need outpatient Lasix - Holding Metoprolol during diuresis--reassess and restart as BP allows. HLD - c/w Lipitor h/o AFib - holding Metoprolol 100mg daily, will restart following diuresis - c/w ASA daily N/V (resolved) - Zofran PRN. - Consider another dose of Dexamethasone PO/IV if zofran refractory. Lung CA with Brain Mets - Oncology made aware, following Hyponatremia - Mild, 134 corrected for glucose - Follow BMP DVT Proph: Hep SQ BID FULL CODE Resident Physician Supervision Note: I interviewed and examined the patient. Discussed with Dr. Wilson and agree with findings and plan as documented in the note. Any exceptions or clarifications are listed here: None Documented By: Niko Jim feeling better still needing O2 vitals noted nad oxymask @ 4L faint rales to 1/3 lung field acute on chronic diastolic CHF - improving, additional diuresis nausea/vomiting/diarrhea - resolved. ?viral vs XRT (seems less likely) improving
[2017-12-12 19:30] VITALS: BP 120/64; PULSE 77; TEMP 36.6; O2SAT 96
[2017-12-12 20:00] VITALS: O2SAT 96
[2017-12-13] VITALS: BP 116/61; TEMP 36.6; O2SAT 96
[2017-12-13 03:47] VITALS: BP 153/76; PULSE 76; TEMP 36.5; O2SAT 97
[2017-12-13 04:00] VITALS: O2SAT 97
[2017-12-13 07:31] VITALS: BP 147/70; PULSE 81; TEMP 36.5; O2SAT 96
[2017-12-13 07:38] LABS: HEMOGLOBIN 12.4 g/dL (12.0-16.0); MEAN CELL VOLUME 91.6 fL (80-100); MEAN CORPUSCULAR HEMOGLOBIN 31.6 pg (25-34); MEAN CORPUSCULAR HGB CONC 34.4 g/dl (32-36); MEAN PLATELET VOLUME 8.9 fL (7.4-10.4); PLATELET COUNT 257 K/uL (130-400); RED CELL DISTRIBUTION WIDTH CV 12.5 % (11.5-14.5); RED CELL DISTRIBUTION WIDTH SD 42.3 fL (36.4-46.3); WHITE BLOOD COUNT 14.42 K/uL (4.8-10.8)
[2017-12-13 08:19] LABS: CALCIUM 8.6 mg/dl (8.5-10.1); CREATININE 0.9 mg/dl (0.60-1.20); POTASSIUM 3.4 mmol/L (3.5-5.1)
[2017-12-13] MEDS: HEPARIN SOD 5000 UNIT/0.5 ML CARP SQ SCH (08:23)
--- NOTE | 2017-12-13 09:34 | Discharge Instructions ---
Discharge Instructions Date of Service Dec 13, 2017. Admission Reason for Admission: Acute Respiratory Failure With Hypoxia Discharge Discharge Diagnosis / Problem: fluid backed up into lungs related to tight aortic valve - now resolved Discharge Goals Goal(s): Diagnostic testing, Therapeutic intervention Activity Recommendations Activity Limitations: resume your previous activity . Instructions / Follow-Up Instructions / Follow-Up Call your Primary Care doctor if any of the following symptoms or problems start or get worse: * Shortness of breath or difficulty breathing * Wake up at night short of breath * Chest pain * Cough * Swelling of your hands, feet, or legs * More fatigued or tired with your normal activity * Palpitations - sudden fast heart beats WEIGHT * Weigh yourself every morning after using the bathroom. * Use the same scale. * Wear the same amount of clothing. * Write your weight down on a chart. * Call your Primary Care doctor if you gain more than 2-3 pounds in 1-2 days. MEDICATIONS * Use this discharge instruction sheet for medication instructions. * Take your medications at the time your doctor ordered. * Do not skip a dose of your medicines. * If you miss a dose of medicine, take it as soon as possible, but DO NOT DOUBLE A DOSE. * Read your medicine information when you get home. * Know all of the side effects of your medicine. If in doubt, ask your pharmacist * Call your Primary Care doctor's office if you have any side effects. * Be sure all of your doctors know what medicine and herbs you take (including cold, flu, and herbal medicine). Take the following with you to your follow-up doctor appointments: * Weight Chart * Medication List * List of questions Do not drink excessive alcohol, beer or wine. Current Hospital Diet Patient's current hospital diet: AHA Diet (Heart Healthy) Discharge Diet Recommended Diet: Low Sodium Diet (2gm Na) Pending Studies Studies pending at discharge: no Medical Emergencies . Who to Call and When: Call 911 or go to the Emergency Room if: * If at any time you feel your situation is an emergency * You have tightness or pain in your chest that does not go away with rest or Nitroglycerin * You are very short of breath even with rest . Non-Emergent Contact Non-Emergency issues call your: Primary Care Provider . . "Provider Documentation" section prepared by Niko Jim. .
[2017-12-13 10:35] VITALS: BP 147/70; PULSE 81; TEMP 36.5; O2SAT 96
--- NOTE | 2017-12-13 17:32 | Discharge Summary ---
Discharge Summary Date of Service Dec 13, 2017. Discharge Summary Admission Date: Dec 12, 2017 at 03:20 Discharge Date: Dec 13, 2017 Discharge Disposition: Home Principal Diagnosis: acute diastolic CHF Immunizations: Have You Had Influenza Vaccine: Unknown History of Tetanus Vaccine?: Unknown History of Pneumococcal: Unknown History of Hepatitis B Vaccine: Unknown Consultations: cardiology heme/onc Medication Reconciliation Continued Medications: Ascorbic Acid (Ascorbic Acid) 500 Mg Tab 500 MG PO DAILY, TAB Aspirin (Aspirin Ec) 81 Mg Tab 81 MG PO DAILY Atorvastatin (Lipitor) 10 Mg Tab 10 MG PO DAILY, TAB Magnesium Oxide (Magnesium) 250 Mg Tab 250 MG PO DAILY Metoprolol Succ (Toprol Xl) (Toprol-Xl ) 100 Mg Tabcr 100 MG PO DAILY, TAB Multivitamin (Multivitamin) Tab 1 TAB PO DAILY, TAB Ocuvite Preservision (Ocuvite Preservision) 1 Tab Tab 1 TAB PO DAILY, TAB Potassium (Potassium) 99 Mg Tab 99 MG PO DAILY Discharge Exam Physical Exam: General Appearance: no apparent distress Eyes: EOMI ENT: hearing grossly normal Neck: trachea midline Respiratory/Chest: no respiratory distress, no accessory muscle use, + rales (maybe very faint rales bibasilar but overall clear and markedly better than yesterday), + pertinent finding (98% on RA at rest, 98% on RA after ~100ft ambulation) Neurologic/Psychiatric: personnel generalist manager II-XII nml as tested, alert, normal mood/affect Skin: normal color, warm/dry Hospital Course 77F with a h/o of metastatic lung cancer, severe , and A fib that presents to the ER with persistent vomiting. Patient became SOB following fluid resuscitation in the ED. Acute Hypoxic Respiratory Failure 2/2 Pulm Edema in setting of severe and moderate MS causing acute diastolic CHF. - improved w diuresis -stable for home HLD - c/w Lipitor h/o AFib - home meds N/V (resolved) - nonspecific - since it also included diarrhea ?viral instead of treatment side effects. d/w pt quite nonspecific, but in a reassuring way. stable for home Lung CA with Brain Mets - Oncology made aware, following up as outpt Hyponatremia - outpt f/u DVT Proph: Hep SQ BID FULL CODE Total Time Spent: Less than 30 minutes This includes examination of the patient, discharge planning, medication reconciliation, and communication with other providers. Discharge Instructions Please refer to the electronic Patient Visit Report (Discharge Instructions) for additional information. Additional Copies To Martinez Holcomb M.D.
[2017-12-13] MEDS ORDERED: TRMO2580 TOP (21:28)
[2017-12-13] MEDS ORDERED: VITACAP26 (21:28)
[2017-12-13] MEDS ORDERED: KETOCONAZOLE SHAMPOO (21:28)
[2017-12-16] MEDS ORDERED: ZNT150 PO (14:58)
[2017-12-16] MEDS ORDERED: DXM4 PO (14:58)
[2017-12-16] MEDS ORDERED: PROC10TA PO (14:58)
[2017-12-16] MEDS ORDERED: ONDA4TAB65 PO (14:58)
[2017-12-16] MEDS ORDERED: PANT1TAB3 PO (14:58)
[2017-12-16] MEDS ORDERED: DIAZ2TAB PO ×2 (14:58→15:43)
[2018-01-15] MEDS ORDERED: MAGN250T22 PO (06:58)
[2018-01-15] MEDS ORDERED: ASPI81TA28 PO (06:58)
[2018-01-15] MEDS ORDERED: POTA99TA PO (07:00)
[2018-01-15] MEDS ORDERED: METO100T44 PO (10:38)
[2018-01-15] MEDS ORDERED: RANI150T85 PO (21:20)
[2018-01-15] MEDS ORDERED: ROSU5TAB PO (21:20)
[2018-01-15] MEDS ORDERED: PANT40TA PO (21:20)
[2018-01-15] MEDS ORDERED: PROC10TA PO (21:20)
[2018-01-15] MEDS ORDERED: OSIM80TA PO (21:20)
[2018-01-15] MEDS ORDERED: ONDA4TAB46 PO (21:20)
[2018-01-15] MEDS ORDERED: MULTTAB PO (21:24)
[2018-01-15] MEDS ORDERED: MULTCAP33 PO (21:24)
[2018-01-15] MEDS ORDERED: CHOL1000 PO (21:28)
[2018-01-22] MEDS ORDERED: DOXY100C76 PO (14:56)
== END 2017-12-13 10:58 | disposition home or self-care (01) | DRG 291 ==
LOC: EDBD 20:50 → C.EDA 20:52 → C.2T 12-12 03:20 → EDBEDREQ 12-12 03:22 → ENRESERV 12-12 03:26
PROVIDERS: ADMIT Hospitalist; ATTEND Family Medicine
DX: I50.31 Acute diastolic (congestive) heart failure (principal); J96.01 Acute respiratory failure with hypoxia; C79.31 Secondary malignant neoplasm of brain; C34.90 Malignant neoplasm of unspecified part of unspecified bronchus or lung; E87.1 Hypo-osmolality and hyponatremia; I08.0 Rheumatic disorders of both mitral and aortic valves; R11.2 Nausea with vomiting, unspecified; R19.7 Diarrhea, unspecified; B34.9 Viral infection, unspecified; I48.91 Unspecified atrial fibrillation; I25.10 Atherosclerotic heart disease of native coronary artery without angina pectoris; Z51.81 Encounter for therapeutic drug level monitoring; Z79.899 Other long term (current) drug therapy; Z79.82 Long term (current) use of aspirin; Z91.030 Bee allergy status

== ENCOUNTER → 2018-01-15 | Outpatient (CLI) | payer BC ==
[~2018-01-15] MED LIST changes: +ASPI81TA28 PO; +ATOR10TA82 PO; +CHOL1000 PO; +DIAZ2TAB PO; +DOXY100C76 PO; +DXM4 PO; +KETOCONAZOLE SHAMPOO; +MAGN250T22 PO; +METO100T44 PO; +MULTCAP33 PO; +MULTTAB PO; +ONDA4TAB46 PO; +OSIM80TA PO; +PANT1TAB3 PO; +PANT40TA PO; +POTA99TA PO; +PROC10TA PO; +RANI150T85 PO; +ROSU5TAB PO; +TRMCR515 TOP; +TRMO2580 TOP; +VITACAP26; +ZNT150 PO
== END | disposition home or self-care (01) ==
LOC: C.CPL 14:24
PROVIDERS: ATTEND Internal Medicine Hematology & Oncology
DX: C34.11 Malignant neoplasm of upper lobe, right bronchus or lung (principal)

== ENCOUNTER → 2018-01-15 | Outpatient (CLI) | payer BC ==
--- NOTE | 2018-01-15 17:46 | ECHOCARDIOGRAM REPORT ---
*NOTICE TO RECEIVING LIBERTARIAN AGENCY This information is strictly Confidential and protected under [place] law. [place] law prohibits you from making any further disclosure of this information unless further disclosure is expressly permitted by the written consent of the person to whom it pertains or is authorized by law. A general authorization for the release of medical or other information is not sufficient for this purpose. Hospital accepts no responsibility if the information is made available to any other person, INCLUDING THE PATIENT. Interpretation Summary * Name: KYLEE MENA Study Date: 01/15/2018 02:48 PM BP: 170/80 mmHg * Patient Location: [facility] HR: 72 * : 1940 (M/d/yyyy) Gender: Female Height: 64 in * Age: 77 yrs Ethnicity: CA Weight: 110 lb * Performed By: Leda Martinez RDCS * * Reason For Study: LUNG CA * BSA: 1.5 m2 * -- Conclusions -- * 1. Normal LV size. Moderate concentric LVH. * 2. Hyperdynamic LV. LVEF > 70%. No regional wall motion abnormalities. * 3. Normal RV size and funciton. * 4. Severe aortic stenosis (PV 4.6 m/s, mean PG 48, TENZIN 1.0). Mild aortic regurgitation. * 5. Moderate mitral stenosis (mean PG 10 mmHg). Mild mitral regurgiation. * 6. Severe left atrial enlargement. * 7. Moderate pulmonary hypertension. Est PASP 55-60 mmHg. Normal CVP. * 7. Compared with prior study on 12/14/2017: No significant changes. Procedure Details * A complete two-dimensional transthoracic echocardiogram was performed (2D, M-mode, Doppler and color flow Doppler). Left Ventricle * The left ventricle is grossly normal size. * There is moderate concentric left ventricular hypertrophy. * Ejection Fraction = >70 %. Right Ventricle * The right ventricle is grossly normal size. * The right ventricular systolic function is normal as assessed by tricuspid annular plane systolic excursion (TAPSE) (normal >1.5 cm). Atria * The left atrium is severely dilated. * The right atrium is mildly dilated. * No ASD detected; PFO is not assessed. Mitral Valve * There is severe mitral annular calcification. * There is moderate mitral stenosis. * There is mild mitral regurgitation. Tricuspid Valve * There is moderate tricuspid regurgitation. * Right ventricular systolic pressure is elevated at 50-60mmHg. Aortic Valve * Calcified, thickned, restricted * Severe valvular aortic stenosis. * Mild aortic regurgitation. Pulmonic Valve * The pulmonary valve is inadequately visualized, but the Doppler data is adequate for interpretation. * There is no pulmonic valvular stenosis. * Mild pulmonic valvular regurgitation. Great Vessels * The aortic root and proximal ascending aorta are normal sized. Pericardium/Pleural * There is no pericardial effusion. Great Vessels * Normal inferior vena cava size and collapsability with sniff indicates a normal right atrial pressure of 3 mmHg MMode 2D Measurements and Calculations IVSd 1.4 cm IVSs 1.8 cm LVIDd 3.0 cm LVIDs 2.0 cm LVPWd 1.7 cm LVPWs 1.9 cm IVS/LVPW 0.82 FS 35.5 % EDV(Teich) 35.9 ml ESV(Teich) 12.0 ml EF(Teich) 66.5 % EDV(cubed) 27.9 ml ESV(cubed) 7.5 ml EF(cubed) 73.1 % % IVS thick 31.0 % % LVPW thick 10.9 % LV mass(C)d 164.9 grams LV mass(C)dI 108.7 grams/m\S\2 LV mass(C)s 142.0 grams LV mass(C)sI 93.6 grams/m\S\2 SV(Teich) 23.9 ml SI(Teich) 15.7 ml/m\S\2 SV(cubed) 20.4 ml SI(cubed) 13.4 ml/m\S\2 Ao root diam 2.8 cm Ao root area 6.0 cm\S\2 LA dimension 3.4 cm LA/Ao 1.2 LVOT diam 1.9 cm LVOT area 2.9 cm\S\2 LVAd ap4 18.5 cm\S\2 LVLd ap4 7.5 cm EDV(MOD-sp4) 37.6 ml EDV(sp4-el) 38.6 ml LVAs ap4 9.8 cm\S\2 LVLs ap4 6.2 cm ESV(MOD-sp4) 14.0 ml ESV(sp4-el) 13.2 ml EF(MOD-sp4) 62.7 % EF(sp4-el) 65.7 % LVAd ap2 16.5 cm\S\2 LVLd ap2 7.5 cm EDV(MOD-sp2) 30.4 ml EDV(sp2-el) 30.7 ml LVAs ap2 9.3 cm\S\2 LVLs ap2 6.4 cm ESV(MOD-sp2) 13.6 ml ESV(sp2-el) 11.6 ml EF(MOD-sp2) 55.4 % EF(sp2-el) 62.3 % LVLd %diff -0.28 % EDV(MOD-bp) 34.0 ml LVLs %diff 2.4 % ESV(MOD-bp) 13.7 ml EF(MOD-bp) 59.7 % SV(MOD-sp4) 23.6 ml SI(MOD-sp4) 15.5 ml/m\S\2 SV(MOD-sp2) 16.9 ml SI(MOD-sp2) 11.1 ml/m\S\2 SV(MOD-bp) 20.3 ml SI(MOD-bp) 13.4 ml/m\S\2 SV(sp4-el) 25.3 ml SI(sp4-el) 16.7 ml/m\S\2 SV(sp2-el) 19.1 ml SI(sp2-el) 12.6 ml/m\S\2 Doppler Measurements and Calculations MV E max slime 206.0 cm/sec MV A max slime 174.2 cm/sec MV E/A 1.2 MV P1/2t max slime 220.1 cm/sec MV P1/2t 106.0 msec MVA(P1/2t) 2.1 cm\S\2 MV dec slope 608.2 cm/sec\S\2 MV dec time 0.30 sec Ao V2 max 455.8 cm/sec Ao max PG 83.1 mmHg Ao max PG (full) 73.2 mmHg Ao V2 mean 320.0 cm/sec Ao mean PG 47.7 mmHg Ao mean PG (full) 42.3 mmHg Ao V2 VTI 105.6 cm TENZIN(I,A) 1.0 cm\S\2 TENZIN(I,D) 1.0 cm\S\2 TENZIN(V,A) 0.99 cm\S\2 TENZIN(V,D) 0.99 cm\S\2 AI max slime 421.6 cm/sec AI max PG 71.1 mmHg AI dec slope 294.5 cm/sec\S\2 AI P1/2t 419.3 msec LV V1 max PG 9.9 mmHg LV V1 mean PG 5.4 mmHg LV V1 max 157.5 cm/sec LV V1 mean 107.4 cm/sec LV V1 VTI 38.1 cm SV(Ao) 634.2 ml SI(Ao) 418.1 ml/m\S\2 SV(LVOT) 109.3 ml SI(LVOT) 72.0 ml/m\S\2 TR max slime 313.3 cm/sec
== END | disposition home or self-care (01) ==
LOC: C.CPL 15:19
PROVIDERS: ATTEND Internal Medicine Hematology & Oncology
DX: C34.11 Malignant neoplasm of upper lobe, right bronchus or lung (principal)

== ENCOUNTER → 2018-01-22 | Outpatient (CLI) | payer BC ==
[~2018-01-22] MED LIST changes: -ASCO500T16 PO; -ATOR10TA82 PO; -DIAZ2TAB PO; -DXM4 PO; -KETOCONAZOLE SHAMPOO; -MULT-190 PO; -MULT-506 PO; +ONDA4TAB65 PO; -PANT1TAB3 PO; -TRMO2580 TOP; -VITACAP26; -ZNT150 PO
[2018-01-22 14:42] VITALS: BP 113/61; PULSE 82; TEMP 36.7; O2SAT 94
--- NOTE | 2018-01-22 15:50 | Radiation Oncology Follow-Up ---
Radiation Oncology Follow-Up Date of Visit Jan 22, 2018. Reason For Visit One-month follow-up Radiation Completion Date finished 12-24-2017 Diagnosis (1) Lung cancer metastatic to brain Status: Acute Onset Date: 11/06/2017 Stage: IV Permanent Comment: Incidental finding of a right upper lobe lung mass on preoperative chest x-ray Staging evaluation and finding of liver, bone, and brain metastasis Status post liver biopsy November 06, 2017 Adenocarcinoma Referral for palliative brain radiation therapy Status post completion of palliative radiation therapy December 24, 2017. She received 3000 cGy. Last Edited By: Renetta Brooks on Jan 01, 2018 10:09 History of Present Illness We are seeing Ms. Mathur in consultation at the request of Dr. Francis. The patient's friend and was also present during the consultation. ECOG PS: 0 Ms. Mathur was being worked up for a surgical procedure and had a chest x-ray which revealed a right upper lobe nodule. 10/21/2017 --- CT of chest --- impression: Large lobulated/spiculated right upper lobe pulmonary nodule, concerning for pulmonary malignancy with new right hepatic lesion concerning for metastatic disease. Surrounding satellite nodules concerning for disease involvement. Asymmetric enlargement of the right hilum incompletely characterized without IV contrast but is suspicious for right hilar adenopathy 10/28/2017 --- PET/CT scan --- impression: Findings consistent with neoplasm involving intensely FDG avid right upper lobe lung mass, and multiple adjacent satellite lung nodules. Mild to moderate nonspecific FDG avidity and other small bilateral lung nodules, and moderate FDG avidity in small bilateral hilar lymph nodes. Additional foci of metastasis involving these regions cannot be excluded. Findings suggestive of intensely FDG avid hepatic metastasis, left adrenal metastasis, osseous metastasis involving right acetabulum and left ilium. 11/06/2017 --- CT-guided biopsy of liver --- liver, needle biopsy: Metastatic adenocarcinoma, moderately differentiated, consistent with pulmonary origin. 11/21/2017 --- medical oncology consultation with Dr. Joseph Francis --- Dr. Maritza Rosa recommended completion of the staging workup including an MRI of the brain. He has recommended consideration of either immunotherapy or systemic therapy pending completion of genetic marker analysis of the CT-guided biopsy of the liver. 12/05/2017 --- MRI brain --- there are 6 enhancing cerebral masses, the largest of which is located within the right occipital lobe measuring 11 mm. Given a history of lung carcinoma, the should be presumed to represent metastatic disease unless otherwise proven. We are now seeing the patient in urgent consultation given the new diagnosis of metastatic disease to the brain. Currently, the patient is doing relatively well overall. She is asymptomatic. She denies any headaches or focal neurologic deficits. 12/24/2017---status post completion of palliative radiation therapy to the brain. She received 3000 cGy. Treatment was completed December 24, 2017. Interim History Since completion of her treatment she has noted decreased hearing. This seems to be worse on the right than on the left. She states she has difficulty hearing the television. She has noticed some ear wax and some mild itching. She has seen some flaky wax. She states that it feels like there is water in her ear. She denies headaches. She has had no change in vision. There is been no change of strength of the upper and lower extremities. She did not have any issues with nausea or vomiting following discharge from the hospital. Allergies Coded Allergies: BEE STING (Verified Allergy, Intermediate, 01/24/18) Home Medications Scheduled Aspirin (Aspirin Ec), 81 MG PO DAILY Cholecalciferol (Vitamin D3), 1,000 INTER.UNIT PO DAILY Doxycycline Monohydrate (Monodox), 100 MG PO DAILY Magnesium Oxide (Magnesium), 250 MG PO DAILY Metoprolol Succ (Toprol Xl) (Toprol-Xl ), 100 MG PO DAILY Multiple Vitamins W/ Minerals (Preservision Areds), 1 CAP PO DAILY Multivitamins/Minerals (Mvi With Minerals), 1 TAB PO DAILY Osimertinib Mesylate (Tagrisso), 80 MG PO DAILY Potassium (Potassium), 99 MG PO DAILY Prochlorperazine Maleate (Compazine), 1 TAB PO Q6H Rosuvastatin Calcium (Crestor), 2.5 MG PO DAILY Scheduled PRN Ondansetron Hcl (Zofran), 4 MG PO Q4H PRN for Nausea Triamcinolone Acet (Triamcinolone Acetonide), 1 APPLN TOP UD PRN for RASH Review of Systems Gastrointestinal: Symptoms: Nausea GI Comments: occ nausea , occ diarrhea Oral: Symptoms: Scant Saliva/Dry Mouth Respiratory: Symptoms: Dry Cough Urinary: Symptoms: Nocturia Comments: nocturia times 3 Skin: Symptoms: No Problems Additional Notes: She completed a distress management report and answered "no" to all questions other than her concerned about her hearing. Physical Exam Vital Signs Date Time Temp Pulse Resp B/P (MAP) Pulse Ox O2 Delivery O2 Flow Rate FiO2 01/22/18 14:42 36.7 82 16 113/61 94 ECOG Performance Status: 1 General Appearance: no apparent distress Eyes: normal inspection, EOMI ENT: + pertinent finding (Examination of the auditory canal reveals cerumen bilaterally. This is mild and is greater on the right than on the left. The tympanic membranes are not injected. She does not feel relief of pressure with opening and closing the mouth.) Neck: no adenopathy, thyroid normal Respiratory/Chest: lungs clear, no respiratory distress, no accessory muscle use Cardiovascular: regular rate, rhythm, no gallop, no murmur Extremities: no pedal edema Neurologic/Psychiatric: lidder II-XII nml as tested, no motor/sensory deficits, alert, normal mood/affect Skin: warm/dry Pain Management Patient Reports Pain: No Side: Bilateral Patient Preferred Pain Scale: 0 - 10 Initial Pain Intensity: 0.0 Pain Management Plan She denies pain therefore requires no pain management. Laboratory Laboratory Results: not applicable Pathology Pathology Results: were reviewed, and pertinent findings noted in HPI Imaging Imaging Studies: not applicable Assessment & Plan Plan: She was seen and examined by Dr. Winters. We will schedule her for recheck MRI of the brain following SRS protocol in 2 months. She will be given a follow -up appointment afterward. We will refer her to ENT for evaluation of her hearing and removal of cerumen. This may also be in eustachian tube dysfunction. She may call our office if she has any questions or concerns in the interim. Assessment & Plan (Attending) I agree with note created by Renetta Brooks PA-C. I reviewed the patient's chart and information with her. I have examined and evaluated the patient. I reviewed relevant clinical information and answered the patient's and/or family' s questions. PARLOR CHAPERONE Total Time In Follow-Up I spent 20 minutes speaking to the patient in performing examination. I spent 15 minutes reviewing information and completing this note. AK Total Time (Attending) In Follow-Up I spent 15 minutes examining and counseling the patient. PARLOR CHAPERONE Copy To Selvin Concepcion MD; Jayden Blanchard MD; Joseph Francis MD; Sanjay Knapp M.D.; Martinez Holcomb M.D.
== END | disposition home or self-care (01) ==
LOC: C.ONC 14:33
PROVIDERS: ATTEND Physician Assistant Medical
DX: Z08 Encounter for follow-up examination after completed treatment for malignant neoplasm (principal); Z92.3 Personal history of irradiation; Z85.118 Personal history of other malignant neoplasm of bronchus and lung; Z85.841 Personal history of malignant neoplasm of brain

== ENCOUNTER 2018-01-24 12:50 | Emergency (ER) | payer BC ==
[~2018-01-24] VITALS: Ht 162.6 cm; Wt 51.4 kg
[~2018-01-24 12:50] MED LIST changes: +ASCO500T16 PO; +ATOR10TA82 PO; +DIAZ2TAB PO; +DXM4 PO; +KETOCONAZOLE SHAMPOO; +MULT-190 PO; +MULT-506 PO; -ONDA4TAB65 PO; +PANT1TAB3 PO; -TRMCR515 TOP; +TRMO2580 TOP; +VITACAP26; +ZNT150 PO
[2018-01-24 12:52] VITALS: TEMP 36.6; Ht 162.6 cm; Wt 51.4 kg
[2018-01-24] MEDS ORDERED: SODIUM CHLORIDE 0.9% 1000ML 1,000 ML IV STA (13:14)
[2018-01-24] MEDS ORDERED: ONDANSETRON INJ 2 MG/ML 2 ML VIAL IV STA (13:14)
--- NOTE | 2018-01-24 13:23 | EMERGENCY ROOM VISIT NOTE ---
ED Visit Note First contact with patient: 13:04 The patient was seen and examined with Gretta Padilla NP. I agree with the history, physical and findings. Please see the note for disposition and details. .
[2018-01-24 13:27] LABS: BASO % 0.3 %; BASO ABS # 0.02 K/uL (0-0.2); EOS % 0.8 %; EOS ABS # 0.05 K/uL (0-0.5); HEMATOCRIT 34.4 % (37-47); HEMOGLOBIN 11.9 g/dL (12.0-16.0); IG# 0.02 K/uL (0.00-0.02); LYMPH % 9.4 %; MEAN CORPUSCULAR HEMOGLOBIN 31.5 pg (25-34); MEAN CORPUSCULAR HGB CONC 34.6 g/dl (32-36); MEAN PLATELET VOLUME 9.1 fL (7.4-10.4); MONO % 9.1 %; MONO ABS # 0.58 K/uL (0.11-0.59); NEUT % 80.1 %; NEUT ABS # 5.13 K/uL (1.4-6.5); PLATELET COUNT 209 K/uL (130-400); RED CELL DISTRIBUTION WIDTH CV 12.7 % (11.5-14.5)
--- NOTE | 2018-01-24 13:28 | EMERGENCY ROOM VISIT NOTE ---
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 Patient states that she has had dry heaves, but denies any vomiting. She has also had associated loose stools, but denies watery diarrhea. She denies any bloody or black stools. She denies any fevers or chills. She denies any abdominal pain. She states that she has frequent bouts of severe nausea and loose stools, which she believes are associated with her cancer medications and have required her to come to the emergency department and be evaluated in the past. She states she has been taking her prescribed Zofran once a day, but this has not been helping. She takes a chemotherapy pill and is getting brain radiation for brain metastases. She denies any recent sick contacts, unusual or undercooked food, recent travel. She denies any headaches, vision changes, neck pain or stiffness, chest pain, shortness of breath, abdominal pain, back pain, urinary symptoms, or unusual rash. REVIEW OF SYSTEMS: A complete 10 point review of systems was reviewed with the patient with pertinent positives and negatives as per history of present illness. All else were negative. PAST MEDICAL HISTORY: Reviewed in chart, see problem list below. SOCIAL HISTORY: Lives at home with her . She denies tobacco use. ALLERGIES: No known medication allergies PHYSICAL EXAM: CONSTITUTIONAL: Pleasant and cooperative. No acute distress, but appears uncomfortable. Pale and mildly dehydrated. HEENT: Normocephalic, atraumatic. Pupils equal, round and reactive to light, EOMI. TMs normal. Pharynx normal. Tacky mucous membranes. NECK: Supple, full active range of motion without discomfort. No cervical adenopathy. RESPIRATORY: Clear to auscultation bilaterally with no wheezing, crackles, rhonchi or stridor. Equal expansion bilaterally. CARDIOVASCULAR: Regular rate and rhythm with no murmurs, rubs or gallops. Normal peripheral perfusion. No edema. GASTROINTESTINAL: Soft, nontender, nondistended. No palpable masses or HSM. Bowel sounds present in all quadrants. MUSCULOSKELETAL: Full range of motion of all joints without discomfort. INTEGUMENTARY: No rash or other significant dermatologic conditions noted. NEUROLOGIC: Alert and oriented X 4 with normal affect. Cranial nerves II-XII grossly intact, no facial droop. No pronator drift. No focal neurologic deficits noted. Normal strength and sensation in all 4 extremities. Normal speech. Normal gait observed. [id number] testing normal, negative Romberg. ED COURSE AND MEDICAL DECISION MAKING: CC: Patient presenting with complaint of intractable nausea DIFFERENTIAL DIAGNOSIS: Includes, but not limited to medication side effect, dehydration, electrolyte abnormality, anemia, gastroenteritis, gastritis, peptic ulcer disease, cholecystitis/cholelithiasis, pancreatitis, worsening metastatic disease, acute coronary syndrome, among others. INTERPRETATION OF LABS: No leukocytosis, no anemia, normal platelets, hyponatremia and hypochloremia (not significantly changed from baseline), no other significant electrolyte abnormalities, normal renal function, normal liver enzymes and lipase. Negative troponin. UA negative. EKG: Shows normal sinus rhythm with a rate of 64 bpm, left ventricular hypertrophy, T-wave inversion in V2, no other ST/T-wave abnormalities, no ectopy , no significant changes when compared to previous EKG of 01/15/2018 by my interpretation. MEDICATION RECONCILIATION: I attest that I have personally reviewed the patient 's current medication list. INITIAL VITAL SIGNS REVIEW: I reviewed the patient's initial vital signs and interpret them as follows: T: Afebrile; BP: Hypertensive; HR: Within normal limits; RR: Within normal limit; Pulse Ox: Within normal limits on room air. Blood pressure screening: The patient was found to have an elevated blood pressure and was referred to their primary doctor for recheck and further treatment. SUMMARY: Patient was evaluated at bedside, history and physical exam performed. Patient is alert and oriented, in no acute distress, but does appear uncomfortable, resting calmly in the stretcher. The abdomen is soft and nontender with normal bowel sounds. Patient does appear to be mildly dehydrated on exam. She is not tachycardic or febrile. Neurologic exam is completely normal with no focal deficits. Patient denies any headaches, vision changes, or balance issues. EKG reviewed at bedside, noting normal sinus rhythm with no acute ischemic changes. Orders were placed at bedside for labs, UA, IV fluids for hydration, IV Zofran for nausea. Patient discussed with Dr. Matamoros, who agrees with my assessment and plan. Labs reviewed as above, no acute abnormalities noted. Given the patient's history of similar symptoms related to her medication, and lack of headache or neurologic symptoms, I do not feel that CT imaging of her brain is necessary today. Patient reassessed multiple times throughout ED stay, she is remained stable, her nausea is resolved with IV Zofran, and she is now tolerating crackers and water. She states she feels much better after receiving IV fluids as well. Patient was updated on all results and plan for discharge, she was encouraged to follow closely with her PCP. Patient did request something additional for nausea at home, as the Zofran does not always seem to help. Rx for Compazine was sent to pharmacy as she has been on this before and tolerated it well, she was educated regarding this medication. Patient was also given strict return precautions should her symptoms worsen, she verbalized understanding. Patient was discharged home in stable condition and ambulatory. Problem List Medical Problems: (1) Atrial fibrillation Status: Resolved Current/Historical Medications Scheduled Aspirin (Aspirin Ec), 81 MG PO DAILY Cholecalciferol (Vitamin D3), 1,000 INTER.UNIT PO DAILY Doxycycline Monohydrate (Monodox), 100 MG PO DAILY Magnesium Oxide (Magnesium), 250 MG PO DAILY Metoprolol Succ (Toprol Xl) (Toprol-Xl ), 100 MG PO DAILY Multiple Vitamins W/ Minerals (Preservision Areds), 1 CAP PO DAILY Multivitamins/Minerals (Mvi With Minerals), 1 TAB PO DAILY Osimertinib Mesylate (Tagrisso), 80 MG PO DAILY Potassium (Potassium), 99 MG PO DAILY Prochlorperazine Maleate (Compazine), 1 TAB PO Q6H Rosuvastatin Calcium (Crestor), 2.5 MG PO DAILY Scheduled PRN Ondansetron Hcl (Zofran), 4 MG PO Q4H PRN for Nausea Triamcinolone Acet (Triamcinolone Acetonide), 1 APPLN TOP UD PRN for RASH Allergies Coded Allergies: BEE STING (Verified Allergy, Intermediate, 01/24/18) Vital Signs Date Time Temp Pulse Resp B/P (MAP) Pulse Ox O2 Delivery O2 Flow Rate FiO2 01/24/18 16:19 68 18 156/71 95 Room Air 01/24/18 15:12 68 18 158/60 94 Room Air 01/24/18 14:25 66 16 165/64 94 Room Air 01/24/18 13:31 64 18 163/65 91 Room Air 01/24/18 13:07 67 01/24/18 12:52 36.6 74 18 186/83 96 Room Air Laboratory Results 01/24/18 13:00 Red Blood Count 3.78, Mean Corpuscular Volume 91.0, Mean Corpuscular Hemoglobin 31.5, Mean Corpuscular Hemoglobin Concent 34.6, Mean Platelet Volume 9.1, Neutrophils (%) (Auto) 80.1, Lymphocytes (%) (Auto) 9.4, Monocytes (%) (Auto) 9.1, Eosinophils (%) (Auto) 0.8, Basophils (%) (Auto) 0.3, Neutrophils # (Auto) 5.13, Lymphocytes # (Auto) 0.60, Monocytes # (Auto) 0.58, Eosinophils # (Auto) 0.05, Basophils # (Auto) 0.02 01/24/18 13:00 Test 01/24/18 13:00 01/24/18 14:43 White Blood Count 6.40 K/uL (4.8-10.8) Red Blood Count 3.78 M/uL (4.2-5.4) Hemoglobin 11.9 g/dL (12.0-16.0) Hematocrit 34.4 % (37-47) Mean Corpuscular Volume 91.0 fL (80-100) Mean Corpuscular Hemoglobin 31.5 pg (25-34) Mean Corpuscular Hemoglobin Concent 34.6 g/dl (32-36) Platelet Count 209 K/uL (130-400) Mean Platelet Volume 9.1 fL (7.4-10.4) Neutrophils (%) (Auto) 80.1 % Lymphocytes (%) (Auto) 9.4 % Monocytes (%) (Auto) 9.1 % Eosinophils (%) (Auto) 0.8 % Basophils (%) (Auto) 0.3 % Neutrophils # (Auto) 5.13 K/uL (1.4-6.5) Lymphocytes # (Auto) 0.60 K/uL (1.2-3.4) Monocytes # (Auto) 0.58 K/uL (0.11-0.59) Eosinophils # (Auto) 0.05 K/uL (0-0.5) Basophils # (Auto) 0.02 K/uL (0-0.2) RDW Standard Deviation 42.0 fL (36.4-46.3) RDW Coefficient of Variation 12.7 % (11.5-14.5) Immature Granulocyte % (Auto) 0.3 % Immature Granulocyte # (Auto) 0.02 K/uL (0.00-0.02) Anion Gap 7.0 mmol/L (3-11) Est Creatinine Clear Calc Drug Dose 35.5 ml/min Estimated GFR () 58.2 Estimated GFR (Non- 50.3 BUN/Creatinine Ratio 14.2 (10-20) Calcium Level 8.2 mg/dl (8.5-10.1) Total Bilirubin 0.3 mg/dl (0.2-1) Direct Bilirubin 0.1 mg/dl (0-0.2) Aspartate Amino Transf (AST/SGOT) 18 U/L (15-37) Alanine Aminotransferase (ALT/SGPT) 20 U/L (12-78) Alkaline Phosphatase 78 U/L (45-117) Troponin I < 0.015 ng/ml (0-0.045) Total Protein 6.6 gm/dl (6.4-8.2) Albumin 3.2 gm/dl (3.4-5.0) Lipase 193 U/L (73-393) Urine Color YELLOW Urine Appearance CLEAR (CLEAR) Urine pH 8.0 (4.5-7.5) Urine Specific [place] 1.008 (1.000-1.030) Urine Protein NEG (NEG) Urine Glucose (UA) NEG (NEG) Urine Ketones NEG (NEG) Urine Occult Blood NEG (NEG) Urine Nitrite NEG (NEG) Urine Bilirubin NEG (NEG) Urine Urobilinogen NEG (NEG) Urine Leukocyte Esterase NEG (NEG) Medications Administered Medications (Trade) Dose Ordered Sig/Winifred Route Start Time Stop Time Status Last Admin Dose Admin Sodium Chloride 1,000 ml @ 999 mls/hr Q1H1M STAT IV 01/24/18 13:14 01/24/18 14:14 DC 01/24/18 13:14 999 MLS/HR Ondansetron HCl (Zofran Inj) 4 mg NOW STAT IV 01/24/18 13:14 01/24/18 13:16 DC 01/24/18 13:28 4 MG Departure Information Impression Primary Impression: Nausea Additional Impression: Dehydration with hyponatremia Dispostion Home / Self-Care Condition GOOD Prescriptions Prochlorperazine Maleate (COMPAZINE) 10 Mg Tab 1 TAB PO Q6H for Nausea or Vomiting for 7 Days, #6 TAB 0 Refills Prov: Gretta Padilla CRNP 01/24/18 Referrals Martinez Holcomb M.D. (PCP) Patient Instructions ED Dehydration, ED Diet [place], ED Nausea Vomiting, My [facility] Additional Instructions You have been treated in the Emergency Department today for your nausea and dehydration. Laboratory results have ruled out any emergent reasons for further evaluation or admission. Continue your prescribed Zofran (ondansetron) 1 tablet every 6-8 hours as needed for severe nausea and/or vomiting. It is ESSENTIAL that you maintain adequate hydration with oral fluids! Some suggestions include: - Water is the IDEAL replacement for lost fluids. You should initially sip at the water to help facilitate increased intestinal absorption rate and to decrease the possibility of nausea/vomiting. - Carbohydrate/Electrolyte-Containing Drinks (i.e. Gatorade, Powerade, Pedialyte). All of these are good choices, but it is important to remember that all of these drinks contain a high concentration of sugar. - Popsicles, ice chips, and fruit juices are all other options. - My FAVORITE dehydration remedy is to mix a 1:1 solution of bottled Gatorade with bottled water. This dilution allows for a palatable flavor with added benefit of a reduction in the amount of sugar consumption. Keep your scheduled appointment with your primary care provider on Friday for follow-up of your symptoms. Please return to the emergency department for any worsening symptoms, including severe worsening nausea or vomiting and unable to keep down fluids, abdominal pain, chest pain, difficulty breathing, severe dizziness or passing out, headaches, confusion, weakness, if you develop fevers or chills, or for any other concerns. Problem Qualifiers
[2018-01-24 13:40] LABS: ALBUMIN 3.2 gm/dl (3.4-5.0); ALKALINE PHOSPHATASE 78 U/L (45-117); ALT/SGPT 20 U/L (12-78); AST/SGOT 18 U/L (15-37); BLOOD UREA NITROGEN 15 mg/dl (7-18); CALCIUM 8.2 mg/dl (8.5-10.1); CARBON DIOXIDE 26 mmol/L (21-32); CREATININE 1.06 mg/dl (0.60-1.20); GLUCOSE 146 mg/dl (70-99); LIPASE 193 U/L (73-393); POTASSIUM 3.7 mmol/L (3.5-5.1); SODIUM 127 mmol/L (136-145); TOTAL PROTEIN 6.6 gm/dl (6.4-8.2)
[2018-01-24] MEDS ORDERED: TRMCR515 TOP (13:54)
[2018-01-24 16:19] VITALS: BP 156/71; PULSE 68; O2SAT 95
[2018-01-24] MEDS ORDERED: PROC10TA PO (16:22)
== END 2018-01-24 16:30 | disposition home or self-care (01) ==
LOC: C.EDB 12:50 → C.EDC 16:30
DX: R11.0 Nausea (principal); E86.0 Dehydration; E87.1 Hypo-osmolality and hyponatremia; C34.90 Malignant neoplasm of unspecified part of unspecified bronchus or lung; C79.31 Secondary malignant neoplasm of brain; C78.7 Secondary malignant neoplasm of liver and intrahepatic bile duct; I48.91 Unspecified atrial fibrillation; Z79.899 Other long term (current) drug therapy; Z79.82 Long term (current) use of aspirin; Z91.030 Bee allergy status

== ENCOUNTER 2018-02-02 17:31 | Emergency (ER) | payer BC ==
[~2018-02-02] VITALS: Ht 162.6 cm; Wt 52.8 kg
[~2018-02-02 17:31] MED LIST changes: -ASCO500T16 PO; -ATOR10TA82 PO; -DIAZ2TAB PO; -DXM4 PO; -KETOCONAZOLE SHAMPOO; -MULT-190 PO; -MULT-506 PO; -PANT1TAB3 PO; -PANT40TA PO; -RANI150T85 PO; +TRMCR515 TOP; -TRMO2580 TOP; -VITACAP26; -ZNT150 PO
[2018-02-02 17:33] VITALS: Ht 162.6 cm; Wt 52.8 kg
[2018-02-02] MEDS ORDERED: SODIUM CHLORIDE 0.9% 1000ML 2,000 ML IV STA (17:59)
[2018-02-02] MEDS ORDERED: ONDANSETRON INJ 2 MG/ML 2 ML VIAL IV STA (17:59)
[2018-02-02] MEDS ORDERED: OPTIRAY 320 IV PRN (18:15)
[2018-02-02 18:22] LABS: BASO % 0.9 %; BASO ABS # 0.06 K/uL (0-0.2); EOS % 1.5 %; HEMATOCRIT 33.7 % (37-47); HEMOGLOBIN 11.6 g/dL (12.0-16.0); IG# 0.01 K/uL (0.00-0.02); LYMPH % 12.1 %; LYMPH ABS # 0.81 K/uL (1.2-3.4); MEAN CELL VOLUME 92.3 fL (80-100); MEAN CORPUSCULAR HEMOGLOBIN 31.8 pg (25-34); MEAN CORPUSCULAR HGB CONC 34.4 g/dl (32-36); MEAN PLATELET VOLUME 9.4 fL (7.4-10.4); MONO % 8.8 %; MONO ABS # 0.59 K/uL (0.11-0.59); NEUT % 76.6 %; NEUT ABS # 5.13 K/uL (1.4-6.5); PLATELET COUNT 187 K/uL (130-400); RED CELL DISTRIBUTION WIDTH CV 12.9 % (11.5-14.5); RED CELL DISTRIBUTION WIDTH SD 43.9 fL (36.4-46.3)
[2018-02-02 18:44] LABS: ALBUMIN 3.5 gm/dl (3.4-5.0); CALCIUM 8.9 mg/dl (8.5-10.1); CREATININE 0.95 mg/dl (0.60-1.20); TOTAL PROTEIN 6.7 gm/dl (6.4-8.2)
[2018-02-02 19:10] VITALS: TEMP 36.8
[2018-02-02] MEDS ORDERED: LORAZEPAM 2 MG/ML 1 ML VIAL IV STA (19:18)
--- NOTE | 2018-02-02 20:04 | DIAGNOSTIC IMAGING REPORT ---
ABD/PELVIS IV CONTRAST ONLY CLINICAL HISTORY: 77 years-old Female presenting with abd pain, nausea, diarrhea, history of lung cancer. TECHNIQUE: Multidetector CT of the abdomen and pelvis was performed after the administration of intravenous contrast. IV contrast: 92 mL of Optiray 320. A dose lowering technique was used consistent with the principles of ALARA (as low as reasonably achievable). COMPARISON: 01/15/2018. CT DOSE (mGy.cm): The estimated cumulative dose is 246.75 mGy.cm. FINDINGS: X[employer] Machine Mechanic topogram: Unremarkable. Lung bases: Mosaic attenuation and bandlike opacities at the lung bases. Mild bronchial wall thickening. Dependent groundglass opacity. Volume loss in the right lower lobe secondary to passive atelectasis due to the small right pleural effusion. Biatrial enlargement of the heart. Aortic valve and mitral annular calcification. No pericardial effusion. Liver: Redemonstration of the suspicious hypodense mass in segment 8 measuring approximately 3 cm with ill-defined margins. This is grossly unchanged allowing for differences in technique. Focal hypodensity along the fissure for the falciform ligament (series 3 image 160), indeterminant but possibly perfusional variation or focal fat. Patent hepatic vasculature. Biliary: Mild intrahepatic biliary ductal prominence diffusely possibly with superimposed periportal edema. No extrahepatic biliary ductal dilatation. Normal gallbladder. Pancreas: Normal. Spleen: Normal. Adrenal glands: Normal. Kidneys and ureters: Normal. No hydronephrosis. Bladder: Normal. Pelvic organs: Uterus surgically absent. No adnexal masses. Bowel: Normal. No bowel obstruction. Peritoneal cavity: No free fluid or intraperitoneal gas. Lymph nodes: Scattered subcentimeter retroperitoneal lymph nodes unchanged from prior. Vasculature: Atherosclerosis of the normal caliber abdominal aorta. IVC patent. Abdominal wall: Normal. Musculoskeletal: Heterogeneous sclerosis in the left ilium is new since 2017 though unchanged since prior exams in 2018. This is nonspecific and may relate to degenerative change, developing Paget's disease, or an underlying osseous lesion. IMPRESSION: 1. No acute intra-abdominal pathology. 2. No change in the suspicious hepatic lesions compatible with a metastatic focus. No additional convincing evidence of metastases in the abdomen or pelvis. 3. Stable heterogeneous sclerosis in the left ilium, nonspecific and possibly related to degenerative change, developing Paget's disease, or an underlying osseous lesion. This is new since 2017. Attention on follow-up. 4. Small right pleural effusion with basilar atelectasis. 5. Biatrial enlargement of the heart. Electronically signed by: Reji Seth M.D. 02/02/2018 8:03 PM Dictated Date/Time: 02/02/2018 7:51 PM
[2018-02-02] MEDS ORDERED: PROC10TA PO (20:14)
[2018-02-02] MEDS ORDERED: ONDA4TAB65 PO (20:42)
[2018-02-02 20:50] VITALS: BP 151/71; PULSE 60; O2SAT 95
--- NOTE | 2018-02-03 00:09 | EMERGENCY ROOM VISIT NOTE ---
History Report prepared by Willam: Edelmira Nava Under the Supervision of: Dr. Niko Frye D.O. First contact with patient: 17:55 Chief Complaint: DIARRHEA Stated Complaint: NAUSEA DIARRHEA History of Present Illness The patient is a 77 year old female who presents to the Emergency Room with complaints of persistent diarrhea beginning this morning. She reports she has gone to the bathroom at least 8 times today, and that her stools have been very watery and loose. She notes she is nauseous. The patient reports she has lung cancer that has metastasized, and currently takes oral chemo medications. She denies any chest pain, shortness of breath, vomiting, pain with urination, and melena. The patient also denies any recent antibiotic use. She has no other complaints at this time. No exacerbating or remitting factors. Source of History: patient Onset: this morning Position: abdomen Quality: other (diarrhea) Timing: other (persistent) Associated Symptoms: + nausea, No chest pain, No SOB, No vomiting, No melena , No urinary symptoms Review of Systems See HPI for pertinent positives & negatives. A total of 10 systems reviewed and were otherwise negative. Past Medical & Surgical Medical Problems: (1) Acute respiratory failure with hypoxia (2) Atrial fibrillation (3) Brain cancer Family History No pertinent family history Social History Smoking Status: Never Smoker Alcohol Use: occasionally Drug Use: none Marital Status: Housing Status: lives with family Occupation Status: retired Current/Historical Medications Scheduled Aspirin (Aspirin Ec), 81 MG PO DAILY Cholecalciferol (Vitamin D3), 1,000 INTER.UNIT PO DAILY Doxycycline Monohydrate (Monodox), 100 MG PO DAILY Magnesium Oxide (Magnesium), 250 MG PO DAILY Metoprolol Succ (Toprol Xl) (Toprol-Xl ), 100 MG PO DAILY Multiple Vitamins W/ Minerals (Preservision Areds), 1 CAP PO DAILY Multivitamins/Minerals (Mvi With Minerals), 1 TAB PO DAILY Ondansetron Hcl (Zofran), 4 MG PO PRN Osimertinib Mesylate (Tagrisso), 80 MG PO DAILY Potassium (Potassium), 99 MG PO DAILY Rosuvastatin Calcium (Crestor), 2.5 MG PO DAILY Scheduled PRN Ondansetron Hcl (Zofran), 4 MG PO Q4H PRN for Nausea Prochlorperazine Maleate (Compazine), 10 MG PO Q6H PRN for Nausea or Vomiting Triamcinolone Acet (Triamcinolone Acetonide), 1 APPLN TOP UD PRN for RASH Allergies Coded Allergies: BEE STING (Verified Allergy, Intermediate, 02/02/18) Physical Exam Vital Signs Date Time Temp Pulse Resp B/P (MAP) Pulse Ox O2 Delivery O2 Flow Rate FiO2 02/02/18 20:50 60 18 151/71 95 02/02/18 19:10 36.8 69 18 197/75 97 Room Air 02/02/18 18:11 66 02/02/18 17:33 36.7 83 18 218/94 93 Room Air Physical Exam GENERAL: Sitting up in bed, alert, chronically ill-appearing, malnourished, disheveled. EYE EXAM: normal conjunctiva. OROPHARYNX: no exudate, no erythema, lips, buccal mucosa, and tongue normal and mucous membranes are dry. NECK: supple, no nuchal rigidity, no adenopathy, non-tender LUNGS: Clear to auscultation. Normal chest wall mechanics HEART: Systolic ejection murmur. S1 normal and S2 normal ABDOMEN: abdomen soft, non-tender, normo-active bowel sounds, no masses, no rebound or guarding. BACK: Back is symmetrical on inspection and there is no deformity, no midline tenderness, no CVA tenderness. SKIN: No rashes or bruising, UPPER EXTREMITIES: upper extremities are grossly normal. LOWER EXTREMITIES: No pitting edema. NEURO EXAM: Normal sensorium, cranial nerves II-XII grossly intact, normal speech, no gross weakness of arms, no gross weakness of legs. Medical Decision & Procedures ER Provider Diagnostic Interpretation: Radiology results as stated below per my review and the radiologist's interpretation: ABD/PELVIS IV CONTRAST ONLY CLINICAL HISTORY: 77 years-old Female presenting with abd pain, nausea, diarrhea, history of lung cancer. TECHNIQUE: Multidetector CT of the abdomen and pelvis was performed after the administration of intravenous contrast. IV contrast: 92 mL of Optiray 320. A dose lowering technique was used consistent with the principles of ALARA (as low as reasonably achievable). COMPARISON: 01/15/2018. CT DOSE (mGy.cm): The estimated cumulative dose is 246.75 mGy.cm. FINDINGS: Clinical Trials Systems Administrator topogram: Unremarkable. Lung bases: Mosaic attenuation and bandlike opacities at the lung bases. Mild bronchial wall thickening. Dependent groundglass opacity. Volume loss in the right lower lobe secondary to passive atelectasis due to the small right pleural effusion. Biatrial enlargement of the heart. Aortic valve and mitral annular calcification. No pericardial effusion. Liver: Redemonstration of the suspicious hypodense mass in segment 8 measuring approximately 3 cm with ill-defined margins. This is grossly unchanged allowing for differences in technique. Focal hypodensity along the fissure for the falciform ligament (series 3 image 160), indeterminant but possibly perfusional variation or focal fat. Patent hepatic vasculature. Biliary: Mild intrahepatic biliary ductal prominence diffusely possibly with superimposed periportal edema. No extrahepatic biliary ductal dilatation. Normal gallbladder. Pancreas: Normal. Spleen: Normal. Adrenal glands: Normal. Kidneys and ureters: Normal. No hydronephrosis. Bladder: Normal. Pelvic organs: Uterus surgically absent. No adnexal masses. Bowel: Normal. No bowel obstruction. Peritoneal cavity: No free fluid or intraperitoneal gas. Lymph nodes: Scattered subcentimeter retroperitoneal lymph nodes unchanged from prior. Vasculature: Atherosclerosis of the normal caliber abdominal aorta. IVC patent. Abdominal wall: Normal. Musculoskeletal: Heterogeneous sclerosis in the left ilium is new since 2017 though unchanged since prior exams in 2018. This is nonspecific and may relate to degenerative change, developing Paget's disease, or an underlying osseous lesion. IMPRESSION: 1. No acute intra-abdominal pathology. 2. No change in the suspicious hepatic lesions compatible with a metastatic focus. No additional convincing evidence of metastases in the abdomen or pelvis. 3. Stable heterogeneous sclerosis in the left ilium, nonspecific and possibly related to degenerative change, developing Paget's disease, or an underlying osseous lesion. This is new since 2017. Attention on follow-up. 4. Small right pleural effusion with basilar atelectasis. 5. Biatrial enlargement of the heart. Electronically signed by: Reji Seth M.D. 02/02/2018 8:03 PM Dictated Date/Time: 02/02/2018 7:51 PM Laboratory Results 02/02/18 18:05 Red Blood Count 3.65, Mean Corpuscular Volume 92.3, Mean Corpuscular Hemoglobin 31.8, Mean Corpuscular Hemoglobin Concent 34.4, Mean Platelet Volume 9.4, Neutrophils (%) (Auto) 76.6, Lymphocytes (%) (Auto) 12.1, Monocytes (%) (Auto) 8.8, Eosinophils (%) (Auto) 1.5, Basophils (%) (Auto) 0.9, Neutrophils # (Auto) 5.13, Lymphocytes # (Auto) 0.81, Monocytes # (Auto) 0.59, Eosinophils # (Auto) 0.10, Basophils # (Auto) 0.06 02/02/18 18:05 Test 02/02/18 18:05 02/02/18 18:30 White Blood Count 6.70 K/uL (4.8-10.8) Red Blood Count 3.65 M/uL (4.2-5.4) Hemoglobin 11.6 g/dL (12.0-16.0) Hematocrit 33.7 % (37-47) Mean Corpuscular Volume 92.3 fL (80-100) Mean Corpuscular Hemoglobin 31.8 pg (25-34) Mean Corpuscular Hemoglobin Concent 34.4 g/dl (32-36) Platelet Count 187 K/uL (130-400) Mean Platelet Volume 9.4 fL (7.4-10.4) Neutrophils (%) (Auto) 76.6 % Lymphocytes (%) (Auto) 12.1 % Monocytes (%) (Auto) 8.8 % Eosinophils (%) (Auto) 1.5 % Basophils (%) (Auto) 0.9 % Neutrophils # (Auto) 5.13 K/uL (1.4-6.5) Lymphocytes # (Auto) 0.81 K/uL (1.2-3.4) Monocytes # (Auto) 0.59 K/uL (0.11-0.59) Eosinophils # (Auto) 0.10 K/uL (0-0.5) Basophils # (Auto) 0.06 K/uL (0-0.2) RDW Standard Deviation 43.9 fL (36.4-46.3) RDW Coefficient of Variation 12.9 % (11.5-14.5) Immature Granulocyte % (Auto) 0.1 % Immature Granulocyte # (Auto) 0.01 K/uL (0.00-0.02) Anion Gap 7.0 mmol/L (3-11) Est Creatinine Clear Calc Drug Dose 40.7 ml/min Estimated GFR () 66.5 Estimated GFR (Non- 57.4 BUN/Creatinine Ratio 14.0 (10-20) Calcium Level 8.9 mg/dl (8.5-10.1) Total Bilirubin 0.4 mg/dl (0.2-1) Direct Bilirubin 0.1 mg/dl (0-0.2) Aspartate Amino Transf (AST/SGOT) 21 U/L (15-37) Alanine Aminotransferase (ALT/SGPT) 21 U/L (12-78) Alkaline Phosphatase 67 U/L (45-117) Total Protein 6.7 gm/dl (6.4-8.2) Albumin 3.5 gm/dl (3.4-5.0) Lipase 149 U/L (73-393) Urine Color YELLOW Urine Appearance CLEAR (CLEAR) Urine pH 8.0 (4.5-7.5) Urine Specific [place] 1.005 (1.000-1.030) Urine Protein NEG (NEG) Urine Glucose (UA) NEG (NEG) Urine Ketones NEG (NEG) Urine Occult Blood NEG (NEG) Urine Nitrite NEG (NEG) Urine Bilirubin NEG (NEG) Urine Urobilinogen NEG (NEG) Urine Leukocyte Esterase NEG (NEG) Urine WBC (Auto) 0 /hpf (0-5) Urine RBC (Auto) 0-4 /hpf (0-4) Urine Hyaline Casts (Auto) 0 /lpf (0-5) Urine Epithelial Cells (Auto) 0-5 /lpf (0-5) Urine Bacteria (Auto) NEG (NEG) Laboratory results per my review. Medications Administered Medications (Trade) Dose Ordered Sig/Winifred Route Start Time Stop Time Status Last Admin Dose Admin Sodium Chloride 2,000 ml @ 999 mls/hr Q2H1M STAT IV 02/02/18 17:59 02/02/18 19:59 DC 18 18:15 999 MLS/HR Ondansetron HCl (Zofran Inj) 4 mg NOW STAT IV 02/02/18 17:59 18 18:01 DC 18 18:15 4 MG Lorazepam (Ativan Inj) 0.25 mg NOW STAT IV 02/02/18 19:18 18 19:19 DC 02/02/18 19:34 0.25 MG ED Course ED COURSE: Vital signs were reviewed and showed hypertension. The patients medical record was reviewed The above diagnostic studies were performed and reviewed. ED treatments and interventions as stated above. 1754: The patient was evaluated in room A2. A complete history and physical examination was performed. 1758: Ordered Zofran Inj 4mg IV, Sodium Chloride 2000 ml @ 999 mls/hr IV. 1814: Ordered Ioversol 100 ml IV. 1826: I reevaluated and updated the patient. 1900: I reevaluated the patient. 1917: Ordered Ativan Inj 0.25mg IV. 2037: Upon reevaluation, the patient is resting. I discussed my findings with the patient and she understands and agrees with the treatment plan. Based on the patients age, coexisting illnesses, exam and lab findings the decision to treat as an outpatient was made. The patient remained stable while under my care. The patient appeared well at the time of discharge. Medical Decision Differential diagnoses includes but is not limited to gastritis, peptic ulcer disease, GERD, gallbladder disease, pancreatitis, small bowel obstruction, acute coronary syndrome, pericarditis, ischemic bowel, irritable bowel disease, irritable bowel syndrome, appendicitis, diverticulitis, malignancy, hernia, urinary tract infection, torsion, /ectopic (if female), perforation, trauma, infectious. Patient is a 77-year-old female with metastatic lung cancer that presents the ER for nausea associated with diarrhea. She has had the loose bowel movements today. No other complaints. Labs were obtained and CBC along with BMP was remarkable for a sodium of 129. Bilirubin, LFTs and lipase was normal. UA was negative. CT abdomen pelvis showed no acute pathology. Attempted to obtain stool cultures but was unsuccessful for over 3 hours as she did remain in the ER without a bowel movement. She was given fluids and did feel significantly better. Patient was given Zofran and was discharged follow-up with PCP as an outpatient for stool cultures if diarrhea continues. Discussed with Pt concerning signs and symptoms to watch out for. Pt was instructed to follow up with their PCP and discussed with the patient their option to return to the ED at anytime for persistent or worsening symptoms. The appropriate anticipatory guidance and out-patient management, including indications for return to the emergency department, were explained at length to the patient and understood. Medication Reconcilliation Current Medication List: was personally reviewed by me Blood Pressure Screening Patient's blood pressure: Elevated blood pressure Blood pressure disposition: Referred to PCP Impression Primary Impression: Diarrhea Additional Impressions: Hypertension Nausea Scribe Attestation The scribe's documentation has been prepared under my direction and personally reviewed by me in its entirety. I confirm that the note above accurately reflects all work, treatment, procedures, and medical decision making performed by me. Departure Information Dispostion Home / Self-Care Prescriptions Ondansetron Hcl (ZOFRAN) 4 Mg Tab 4 MG PO PRN for Nausea, #30 TAB Prov: Niko Frye, DO 02/02/18 Referrals Martinez Holcomb M.D. (PCP) Forms HOME CARE DOCUMENTATION FORM, IMPORTANT VISIT INFORMATION, WORK / SCHOOL INSTRUCTIONS Patient Instructions My [facility] Additional Instructions Please follow up with your primary care doctor with in the next 24 hours. Any worsening of your symptoms, please return to the ED immediately. This includes any fevers greater than 100.4, worsening pain, chest pain, shortness breath, persistent nausea, vomiting, unable to eat or drink, or any other concerning signs or symptoms from your standpoint. Please take Zofran as needed for nausea. Please try to remain as hydrated as possible. You will likely benefit from following up with your PCP or oncologist in obtaining a stool sample if the diarrhea continues. Problem Qualifiers Primary Impression: Diarrhea Diarrhea type: unspecified type Qualified Codes: R19.7 - Diarrhea, unspecified Additional Impressions: Hypertension Hypertension type: unspecified Qualified Codes: I10 - Essential (primary) hypertension
== END 2018-02-02 20:50 | disposition home or self-care (01) ==
LOC: C.EDB 17:32 → C.EDA 20:50
DX: R19.7 Diarrhea, unspecified (principal); I10 Essential (primary) hypertension; R11.0 Nausea; C34.90 Malignant neoplasm of unspecified part of unspecified bronchus or lung; C79.31 Secondary malignant neoplasm of brain; I48.91 Unspecified atrial fibrillation; Z79.82 Long term (current) use of aspirin; Z79.899 Other long term (current) drug therapy; Z91.030 Bee allergy status

== ENCOUNTER 2018-02-05 13:32 | Inpatient (IN) | payer BC, OTHER ==
[~2018-02-05] VITALS: Ht 162.6 cm; Wt 48.5 kg
[~2018-02-05 13:32] MED LIST changes: +ONDA4TAB65 PO
[2018-02-05] MEDS ORDERED: ONDANSETRON INJ 2 MG/ML 2 ML VIAL IV STA (13:55)
[2018-02-05] MEDS ORDERED: SODIUM CHLORIDE 0.9% 1000ML 1,000 ML IV STA (13:55)
[2018-02-05] MEDS ORDERED: HALOPERIDOL LACTATE 5 MG/ML 1 ML VIAL IV STA (13:57)
[2018-02-05 14:03] LABS: BASO % 0.1 %; BASO ABS # 0.01 K/uL (0-0.2); EOS % 0.1 %; EOS ABS # 0.01 K/uL (0-0.5); HEMATOCRIT 33.9 % (37-47); HEMOGLOBIN 11.9 g/dL (12.0-16.0); IG# 0.02 K/uL (0.00-0.02); LYMPH % 4.3 %; LYMPH ABS # 0.48 K/uL (1.2-3.4); MEAN CELL VOLUME 89.7 fL (80-100); MEAN CORPUSCULAR HEMOGLOBIN 31.5 pg (25-34); MEAN CORPUSCULAR HGB CONC 35.1 g/dl (32-36); MEAN PLATELET VOLUME 9.3 fL (7.4-10.4); MONO % 1.7 %; MONO ABS # 0.19 K/uL (0.11-0.59); NEUT % 93.6 %; NEUT ABS # 10.38 K/uL (1.4-6.5); PLATELET COUNT 212 K/uL (130-400); RED CELL DISTRIBUTION WIDTH CV 12.6 % (11.5-14.5); RED CELL DISTRIBUTION WIDTH SD 40.9 fL (36.4-46.3); WHITE BLOOD COUNT 11.09 K/uL (4.8-10.8)
--- NOTE | 2018-02-05 14:09 | EMERGENCY ROOM VISIT NOTE ---
History Report prepared by Willam: Zachary Box Under the Supervision of: Dr. Samson Yee D.O. First contact with patient: 13:45 Chief Complaint: VOMITING Stated Complaint: VOMITTING,WEAKNESS,UPSET STOMACH History of Present Illness The patient is a 77 year old female who presents to the Emergency Room with complaints of worsening nausea that began this morning after she took her chemo pill. Patient adds she has had been weak with intermittent shakes and vomiting. Patient has a history of lung cancer which she states has spread to her liver and brain. Patient states she was started on her chemo pill on the January 19. She adds she has received radiation as well. Patient states she is seen by Dr.O Susan Rosa who she states she has not talked to today. Patient adds she takes prochlorperazine and Zofran for her nausea. She adds she feels nauseas "20/01". Patient denies coming to the ER every time she takes her chemo pill. Patient adds she was prescribed Prednisone for "fluid in her ears" by [employer]. Patient denies fevers or headaches. Patient is present with her . Source of History: patient, spouse/significant other () Onset: This morning Position: head Timing: worsening Modifying Factors (Worsening): other (Chemo pill) Modifying Factors (Relieving): other (None) Associated Symptoms: + vomiting, + weakness, No fevers, No headache Note: Positive shakes. Review of Systems See HPI for pertinent positives & negatives. A total of 10 systems reviewed and were otherwise negative. Past Medical & Surgical Medical Problems: (1) Acute respiratory failure with hypoxia (2) Atrial fibrillation (3) Brain cancer Family History No pertinent family history Social History Smoking Status: Never Smoker Alcohol Use: occasionally Drug Use: none Marital Status: Housing Status: lives with family Occupation Status: retired Current/Historical Medications Scheduled Aspirin (Aspirin Ec), 81 MG PO DAILY Cholecalciferol (Vitamin D3), 1,000 INTER.UNIT PO DAILY Doxycycline Monohydrate (Monodox), 100 MG PO DAILY Magnesium Oxide (Magnesium), 250 MG PO DAILY Metoprolol Succ (Toprol Xl) (Toprol-Xl ), 100 MG PO DAILY Multiple Vitamins W/ Minerals (Preservision Areds), 1 CAP PO DAILY Multivitamins/Minerals (Mvi With Minerals), 1 TAB PO DAILY Osimertinib Mesylate (Tagrisso), 80 MG PO DAILY Potassium (Potassium), 99 MG PO DAILY Prednisone (Prednisone), 20 MG PO DAILY Rosuvastatin Calcium (Crestor), 2.5 MG PO DAILY Scheduled PRN Ondansetron Hcl (Zofran), 4 MG PO Q4H PRN for Nausea Prochlorperazine Maleate (Compazine), 10 MG PO Q6H PRN for Nausea or Vomiting Triamcinolone Acet (Triamcinolone Acetonide), 1 APPLN TOP UD PRN for RASH Allergies Coded Allergies: BEE STING (Verified Allergy, Intermediate, 02/05/18) Physical Exam Vital Signs Date Time Temp Pulse Resp B/P (MAP) Pulse Ox O2 Delivery O2 Flow Rate FiO2 02/05/18 17:12 82 19 94 02/05/18 16:56 94 Nasal Cannula 2.0 02/05/18 16:12 81 23 95 02/05/18 16:07 87 95 02/05/18 15:37 69 19 91 02/05/18 15:32 67 17 90 02/05/18 15:02 89 24 188/90 84 02/05/18 14:32 83 26 88 02/05/18 14:04 91 Nasal Cannula 2.0 02/05/18 14:04 90 Nasal Cannula 2.0 02/05/18 14:02 78 30 90 02/05/18 14:01 77 02/05/18 13:34 36.4 82 20 179/51 95 Room Air Physical Exam GENERAL: Patient is awake, listless, and in no acute distress. Patient is resting comfortably, responding to verbal commands, appears weak, and showing no signs of anxiety. EYES: The conjunctivae are clear. The pupils are round and reactive. EARS, NOSE, MOUTH AND THROAT: The nose is without any evidence of any deformity. Mucous membranes are dry. Tongue is midline NECK: The neck is nontender and supple. RESPIRATORY: Normal respiratory effort is noted. There is no evidence of wheezing rhonchi or rales to auscultation. CARDIOVASCULAR: Regular rate and rhythm noted to auscultation. Systolic murmur suggested. There are no rubs or gallops normal S1 normal S2 GASTROINTESTINAL: The abdomen is soft. Bowel sounds are present in all quadrants. Abdomen is nontender. MUSCULOSKELETAL/EXTREMITIES: There is no evidence of gross deformity. Full range of motion is noted in the hips and shoulders. SKIN: There is no obvious evidence of any rash. There are no petechiae, pallor or cyanosis noted. NEUROLOGIC: Patient is awake alert and oriented x3. Medical Decision & Procedures ER Provider Diagnostic Interpretation: Radiology results as stated below per my review and radiologist interpretation: CHEST ONE VIEW PORTABLE CLINICAL HISTORY: EVALUATE ALTERED MENTAL STATUS/WEAKNESS dyspnea COMPARISON STUDY: 12/13/2017 FINDINGS: Developing diffuse interstitial change versus early pulmonary edema. No focal infiltrates. Mild stable cardiomegaly. IMPRESSION: Findings consistent with developing pulmonary edema versus interstitial congestive failure The above report was generated using voice recognition software. It may contain grammatical, syntax or spelling errors. Electronically signed by: Mihir Oliveira M.D. 02/05/2018 2:24 PM Laboratory Results 02/05/18 13:48 Red Blood Count 3.78, Mean Corpuscular Volume 89.7, Mean Corpuscular Hemoglobin 31.5, Mean Corpuscular Hemoglobin Concent 35.1, Mean Platelet Volume 9.3, Neutrophils (%) (Auto) 93.6, Lymphocytes (%) (Auto) 4.3, Monocytes (%) (Auto) 1.7, Eosinophils (%) (Auto) 0.1, Basophils (%) (Auto) 0.1, Neutrophils # (Auto) 10.38, Lymphocytes # (Auto) 0.48, Monocytes # (Auto) 0.19, Eosinophils # (Auto) 0.01, Basophils # (Auto) 0.01 02/05/18 17:01 Test 02/05/18 13:48 02/05/18 14:15 02/05/18 17:01 White Blood Count 11.09 K/uL (4.8-10.8) Red Blood Count 3.78 M/uL (4.2-5.4) Hemoglobin 11.9 g/dL (12.0-16.0) Hematocrit 33.9 % (37-47) Mean Corpuscular Volume 89.7 fL (80-100) Mean Corpuscular Hemoglobin 31.5 pg (25-34) Mean Corpuscular Hemoglobin Concent 35.1 g/dl (32-36) Platelet Count 212 K/uL (130-400) Mean Platelet Volume 9.3 fL (7.4-10.4) Neutrophils (%) (Auto) 93.6 % Lymphocytes (%) (Auto) 4.3 % Monocytes (%) (Auto) 1.7 % Eosinophils (%) (Auto) 0.1 % Basophils (%) (Auto) 0.1 % Neutrophils # (Auto) 10.38 K/uL (1.4-6.5) Lymphocytes # (Auto) 0.48 K/uL (1.2-3.4) Monocytes # (Auto) 0.19 K/uL (0.11-0.59) Eosinophils # (Auto) 0.01 K/uL (0-0.5) Basophils # (Auto) 0.01 K/uL (0-0.2) RDW Standard Deviation 40.9 fL (36.4-46.3) RDW Coefficient of Variation 12.6 % (11.5-14.5) Immature Granulocyte % (Auto) 0.2 % Immature Granulocyte # (Auto) 0.02 K/uL (0.00-0.02) Prothrombin Time 10.9 SECONDS (9.0-12.0) Prothromb Time International Ratio 1.0 (0.9-1.1) Activated Partial Thromboplast Time 26.0 SECONDS (21.0-31.0) Partial Thromboplastin Ratio 1.0 Magnesium Level 2.1 mg/dl (1.8-2.4) Total Bilirubin 0.7 mg/dl (0.2-1) Direct Bilirubin 0.2 mg/dl (0-0.2) Aspartate Amino Transf (AST/SGOT) 33 U/L (15-37) Alanine Aminotransferase (ALT/SGPT) 30 U/L (12-78) Alkaline Phosphatase 71 U/L (45-117) Troponin I < 0.015 ng/ml (0-0.045) Total Protein 7.2 gm/dl (6.4-8.2) Albumin 3.7 gm/dl (3.4-5.0) Lipase 109 U/L (73-393) Thyroid Stimulating Hormone (TSH) 1.050 uIu/ml (0.300-4.500) Urine Color YELLOW Urine Appearance CLEAR (CLEAR) Urine pH 7.5 (4.5-7.5) Urine Specific [place] 1.008 (1.000-1.030) Urine Protein NEG (NEG) Urine Glucose (UA) NEG (NEG) Urine Ketones TRACE (NEG) Urine Occult Blood NEG (NEG) Urine Nitrite NEG (NEG) Urine Bilirubin NEG (NEG) Urine Urobilinogen NEG (NEG) Urine Leukocyte Esterase NEG (NEG) Anion Gap 11.0 mmol/L (3-11) Est Creatinine Clear Calc Drug Dose 40.4 ml/min Estimated GFR () 64.0 Estimated GFR (Non- 55.3 BUN/Creatinine Ratio 11.9 (10-20) Calcium Level 8.0 mg/dl (8.5-10.1) Laboratory results per my review. Medications Administered Medications (Trade) Dose Ordered Sig/Winifred Route Start Time Stop Time Status Last Admin Dose Admin Ondansetron HCl (Zofran Inj) 4 mg NOW STAT IV 02/05/18 13:55 02/05/18 13:57 DC 02/05/18 13:55 4 MG Sodium Chloride 1,000 ml @ 999 mls/hr Q1H1M STAT IV 02/05/18 13:55 02/05/18 14:55 DC 02/05/18 14:01 999 MLS/HR Haloperidol Lactate (Haldol Inj) 2.5 mg NOW STAT IV 02/05/18 13:57 02/05/18 13:59 DC 02/05/18 14:01 2.5 MG Diphenhydramine HCl (Benadryl Inj) 25 mg NOW STAT IV 02/05/18 14:59 02/05/18 15:00 DC 02/05/18 15:17 25 MG Furosemide (Lasix Inj) 40 mg NOW STAT IV 02/05/18 15:10 02/05/18 15:11 DC 02/05/18 15:17 40 MG ECG Per My Interpretation Indication: nausea Rate (beats per minute): 78 Rhythm: normal sinus Findings: no ectopy, other (Peaked T-waves noted; Lateral ST depression noted) Comparison ECG Date: 01/24/2018 Change: no significant change ED Course 1350: The patient was evaluated in room A10. A complete history and physical examination were performed. 1355: NSS 1,000 ml @ 999 mls/hr IV and Zofran Inj 4mg IV 1357: Haldol Inj 2.5mg IV 1459: Benadryl Inj 25mg IV 1504: I reevaluated the patient and updated her on her findings. 1510: Lasix Inj 40mg IV 1539: Upon reevaluation, the patient will be further evaluated. I discussed results and treatment plan with her. She verbalizes agreement and understanding. I spoke with Dr. Macias of the [facility]. The patient will be evaluated for further management and care. Medical Decision Prior records/ancillary studies reviewed and summarized above. Nursing notes reviewed. Differential diagnosis: Etiologies such as metabolic, infection, hypo/hyperglycemia, electrolyte abnormalities, cardiac sources, intracerebral event, toxicologic, neurologic, as well as others were entertained. The patient is a 77-year-old female who has a history of cancer who presented to the emergency department for an evaluation of nausea vomiting. The patient also had generalized weakness. She was treated with IV fluids. She was also treated with anti-medics. On subsequent reevaluation she was somewhat improved but started to have oxygen requirement. Repeat exam revealed some signs of pulmonary edema. The patient was treated with Lasix in the emergency department. I discussed patient's laboratory and radiographic studies with her. I also discussed her case with the on-call [facility] hospitalist group. They have agreed to evaluate patient in the emergency department for further management and disposition. Medication Reconcilliation Current Medication List: was personally reviewed by me Blood Pressure Screening Patient's blood pressure: Elevated blood pressure Referred to hospitalist. Consults Time Called: 1523 Consulting Physician: Dr. Macias - [facility] Returned Call: 1525 I discussed the patient's case with Dr. Macias. The patient will be evaluated for further management. Impression Primary Impression: Nausea Additional Impressions: Vomiting Weakness Hyponatremia Pulmonary edema Hypoxia Scribe Attestation The scribe's documentation has been prepared under my direction and personally reviewed by me in its entirety. I confirm that the note above accurately reflects all work, treatment, procedures, and medical decision making performed by me. Departure Information Dispostion Being Evaluated By Hospitalist Referrals Martinez Holcomb M.D. (PCP) Forms HOME CARE DOCUMENTATION FORM, IMPORTANT VISIT INFORMATION Patient Instructions My [facility] Health Problem Qualifiers Additional Impressions: Vomiting Vomiting type: unspecified Vomiting Intractability: non-intractable Nausea presence: with nausea Qualified Codes: R11.2 - Nausea with vomiting, unspecified Pulmonary edema Chronicity: acute Qualified Codes: J81.0 - Acute pulmonary edema
[2018-02-05] MEDS ORDERED: PRED20TA PO (14:22)
--- NOTE | 2018-02-05 14:25 | DIAGNOSTIC IMAGING REPORT ---
CHEST ONE VIEW PORTABLE CLINICAL HISTORY: EVALUATE ALTERED MENTAL STATUS/WEAKNESS dyspnea COMPARISON STUDY: 12/13/2017 FINDINGS: Developing diffuse interstitial change versus early pulmonary edema. No focal infiltrates. Mild stable cardiomegaly. IMPRESSION: Findings consistent with developing pulmonary edema versus interstitial congestive failure The above report was generated using voice recognition software. It may contain grammatical, syntax or spelling errors. Electronically signed by: Mihir Oliveira M.D. 02/05/2018 2:24 PM Dictated Date/Time: 02/05/2018 2:21 PM
[2018-02-05 14:55] LABS: ALBUMIN 3.7 gm/dl (3.4-5.0); ALKALINE PHOSPHATASE 71 U/L (45-117); ALT/SGPT 30 U/L (12-78); AST/SGOT 33 U/L (15-37); BLOOD UREA NITROGEN 14 mg/dl (7-18); CALCIUM 8.7 mg/dl (8.5-10.1); CARBON DIOXIDE 23 mmol/L (21-32); GLUCOSE 169 mg/dl (70-99); LIPASE 109 U/L (73-393); POTASSIUM 4.1 mmol/L (3.5-5.1); SODIUM 118 mmol/L (136-145); TOTAL PROTEIN 7.2 gm/dl (6.4-8.2)
[2018-02-05] MEDS ORDERED: DiphenhydrAMINE HCL 50 MG/ML VIAL IV STA (14:59)
[2018-02-05] MEDS ORDERED: FUROSEMIDE 40 MG/4 ML VIAL IV STA (15:10)
[2018-02-05] MEDS ORDERED: FUROSEMIDE 40 MG/4 ML VIAL ONE (15:10)
[2018-02-05 17:45] VITALS: O2SAT 94; Ht 162.6 cm; Wt 48.5 kg
[2018-02-05 17:55] LABS: CREATININE 0.98 mg/dl (0.60-1.20); POTASSIUM 3.7 mmol/L (3.5-5.1)
[2018-02-05] MEDS ORDERED: ALUMINUM/MAGNESIUM/SIMETH (MAALOX MAX) 30 ML UDC PO PRN (18:15)
[2018-02-05] MEDS ORDERED: POLYETHYLENE (MIRALAX) 17 GM PACK PO PRN (18:15)
[2018-02-05] MEDS ORDERED: ACETAMINOPHEN 325 MG TAB PO PRN (18:15)
[2018-02-05] MEDS ORDERED: ONDANSETRON INJ 2 MG/ML 2 ML VIAL IV SCH (18:15)
[2018-02-05] MEDS ORDERED: MAGNESIUM HYDROXIDE SUSP 30 ML UDC PO PRN (18:15)
[2018-02-05 18:44] VITALS: O2SAT 94
[2018-02-05 20:04] VITALS: BP 145/72; PULSE 82; TEMP 36.4; O2SAT 94
[2018-02-05] MEDS: ONDANSETRON INJ 8 MG in DEXTROSE 5% 50ML 50 ML IV SCH (20:04)
[2018-02-05] MEDS: RANITIDINE IV 50 MG in DEXTROSE 5% 100ML 100 ML IV SCH (20:04)
[2018-02-05] MEDS: ENOXAPARIN 40 MG/0.4 ML SYR SQ SCH ×2 (20:06→20:16)
--- NOTE | 2018-02-05 21:17 | History and Physical ---
History & Physical Date & Time of Service: Feb 05, 2018 at 20:59 Chief Complaint: Hyponatremia Primary Care Physician: Martinez Holcomb M.D. History of Present Illness Source: patient Belem Mathur is 77 year old woman with a past medical history significant for lung cancer with brain and liver metastases and severe aortic stenosis and mitral regurgitation. She presented today for extreme nausea. She states that since she started a new chemotherapy agent, Tagrisso, she has been experiencing more and more severe nausea and food aversion. She has not thrown up, but feels she might and has many protracted episodes of dry heaves. She says that life has been miserable and she just hit her breaking point today and came into the emergency department. She has no pain, shortness of breath, change in bowel or urination habits or any other complaints at the moment besides this severe nausea. Upon arrival to the emergency department she was discovered to have a sodium level of 118. She was given 1 liter of IV fluid but became fluid overloaded and had some mild pulmonary edema. She was then given lasix and O2 cannula. She has been admitted to medicine for correction of the hyponatremia. 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[employer] who lives with her at home in [place], [place] Smoking Status: Never Smoker Smokeless Tobacco Use: No Drug Use: none Marital Status: Housing status: lives with family Occupational Status: retired Immunizations History of Influenza Vaccine: Unknown History of Tetanus Vaccine?: Unknown History of Pneumococcal: Unknown History of Hepatitis B Vaccine: Unknown Allergies Coded Allergies: BEE STING (Verified Allergy, Intermediate, 02/05/18) Home Medications Scheduled Aspirin (Aspirin Ec), 81 MG PO DAILY Cholecalciferol (Vitamin D3), 1,000 INTER.UNIT PO DAILY Doxycycline Monohydrate (Monodox), 100 MG PO DAILY Magnesium Oxide (Magnesium), 250 MG PO DAILY Metoprolol Succ (Toprol Xl) (Toprol-Xl ), 100 MG PO DAILY Multiple Vitamins W/ Minerals (Preservision Areds), 1 CAP PO DAILY Multivitamins/Minerals (Mvi With Minerals), 1 TAB PO DAILY Osimertinib Mesylate (Tagrisso), 80 MG PO DAILY Potassium (Potassium), 99 MG PO DAILY Prednisone (Prednisone), 20 MG PO DAILY Ranitidine HCl (Ranitidine HCl), 150 MG PO BID Rosuvastatin Calcium (Crestor), 2.5 MG PO DAILY Scheduled PRN Ondansetron Hcl (Zofran), 8 MG PO BID PRN for Nausea Prochlorperazine Maleate (Compazine), 10 MG PO Q6H PRN for Nausea or Vomiting Triamcinolone Acet (Triamcinolone Acetonide), 1 APPLN TOP UD PRN for RASH Review of Systems Constitutional: + weakness, No fever, No chills, No sweats Respiratory: No cough, No sputum, No wheezing, No shortness of breath, No dyspnea on exertion, No dyspnea at rest, No hemoptysis Cardiovascular: + edema, No chest pain, No orthopnea Abdomen: + nausea, No pain, No vomiting Psychiatric: + depression symptoms (Feels hopeless) Physical Exam Vital Signs Date Time Temp Pulse Resp B/P (MAP) Pulse Ox O2 Delivery O2 Flow Rate FiO2 02/05/18 20:04 36.4 82 18 145/72 (96) 94 Nasal Cannula 2.0 02/05/18 18:44 36.4 82 19 155/86 94 02/05/18 17:45 94 Nasal Cannula 2.0 02/05/18 17:38 155/86 02/05/18 17:12 82 19 94 02/05/18 16:56 94 Nasal Cannula 2.0 02/05/18 16:12 81 23 95 02/05/18 16:07 87 95 02/05/18 15:37 69 19 91 02/05/18 15:32 67 17 90 02/05/18 15:02 89 24 188/90 84 02/05/18 14:32 83 26 88 02/05/18 14:04 91 Nasal Cannula 2.0 02/05/18 14:04 90 Nasal Cannula 2.0 02/05/18 14:02 78 30 90 02/05/18 14:01 77 02/05/18 13:34 36.4 82 20 179/51 95 Room Air General Appearance: + mild distress, + cachetic Neck: + JVD Respiratory/Chest: chest non-tender, lungs clear, normal breath sounds, no respiratory distress, no accessory muscle use Cardiovascular: no murmur, normal peripheral pulses Abdomen/GI: normal bowel sounds, non tender, soft, no organomegaly Extremities/Musculoskelatal: no calf tenderness, normal capillary refill, non- tender, + pedal edema Neurologic/Psych: no motor/sensory deficits, alert, oriented x 3, + depressed affect Diagnostics Laboratory Results Results Past 24 Hours Test 02/05/18 13:48 02/05/18 14:15 02/05/18 17:01 Range/Units White Blood Count 11.09 4.8-10.8 K/uL Red Blood Count 3.78 4.2-5.4 M/uL Hemoglobin 11.9 12.0-16.0 g/dL Hematocrit 33.9 37-47 % Mean Corpuscular Volume 89.7 80-100 fL Mean Corpuscular Hemoglobin 31.5 25-34 pg Mean Corpuscular Hemoglobin Concent 35.1 32-36 g/dl Platelet Count 212 130-400 K/uL Mean Platelet Volume 9.3 7.4-10.4 fL Neutrophils (%) (Auto) 93.6 % Lymphocytes (%) (Auto) 4.3 % Monocytes (%) (Auto) 1.7 % Eosinophils (%) (Auto) 0.1 % Basophils (%) (Auto) 0.1 % Neutrophils # (Auto) 10.38 1.4-6.5 K/uL Lymphocytes # (Auto) 0.48 1.2-3.4 K/uL Monocytes # (Auto) 0.19 0.11-0.59 K/uL Eosinophils # (Auto) 0.01 0-0.5 K/uL Basophils # (Auto) 0.01 0-0.2 K/uL RDW Standard Deviation 40.9 36.4-46.3 fL RDW Coefficient of Variation 12.6 11.5-14.5 % Immature Granulocyte % (Auto) 0.2 % Immature Granulocyte # (Auto) 0.02 0.00-0.02 K/uL Prothrombin Time 10.9 9.0-12.0 SECONDS Prothromb Time International Ratio 1.0 0.9-1.1 Activated Partial Thromboplast Time 26.0 21.0-31.0 SECONDS Partial Thromboplastin Ratio 1.0 Sodium Level 118 121 136-145 mmol/L Potassium Level 4.1 3.7 3.5-5.1 mmol/L Chloride Level 84 87 98-107 mmol/L Carbon Dioxide Level 23 23 21-32 mmol/L Anion Gap 11.0 11.0 3-11 mmol/L Blood Urea Nitrogen 14 12 7-18 mg/dl Creatinine 1.00 0.98 0.60-1.20 mg/dl Est Creatinine Clear Calc Drug Dose 39.6 40.4 ml/min Estimated GFR () 62.5 64.0 Estimated GFR (Non- 53.9 55.3 BUN/Creatinine Ratio 13.7 11.9 10-20 Random Glucose 169 164 70-99 mg/dl Calcium Level 8.7 8.0 8.5-10.1 mg/dl Magnesium Level 2.1 1.8-2.4 mg/dl Total Bilirubin 0.7 0.2-1 mg/dl Direct Bilirubin 0.2 0-0.2 mg/dl Aspartate Amino Transf (AST/SGOT) 33 15-37 U/L Alanine Aminotransferase (ALT/SGPT) 30 12-78 U/L Alkaline Phosphatase 71 45-117 U/L Troponin I < 0.015 0-0.045 ng/ml Total Protein 7.2 6.4-8.2 gm/dl Albumin 3.7 3.4-5.0 gm/dl Lipase 109 73-393 U/L Thyroid Stimulating Hormone (TSH) 1.050 0.300-4.500 uIu/ml Urine Color YELLOW Urine Appearance CLEAR CLEAR Urine pH 7.5 4.5-7.5 Urine Specific [place] 1.008 1.000-1.030 Urine Protein NEG NEG Urine Glucose (UA) NEG NEG Urine Ketones TRACE NEG Urine Occult Blood NEG NEG Urine Nitrite NEG NEG Urine Bilirubin NEG NEG Urine Urobilinogen NEG NEG Urine Leukocyte Esterase NEG NEG Diagnostic Radiology CHEST ONE VIEW PORTABLE CLINICAL HISTORY: EVALUATE ALTERED MENTAL STATUS/WEAKNESS dyspnea COMPARISON STUDY: 12/13/2017 FINDINGS: Developing diffuse interstitial change versus early pulmonary edema. No focal infiltrates. Mild stable cardiomegaly. IMPRESSION: Findings consistent with developing pulmonary edema versus interstitial congestive failure No change from prior EKG Impression Assessment and Plan Hyponatremia -Hypervolemic -Treating via fluid restriction to 1.5 L -Monitoring BMP's q4h looking for slow change <12 per day improvement or <2 per BMP Nausea -Trying zofran IV 8mg q6h -ranitidine 50mg q8h IV HTN -Continuing home dose of metoprolol xl -Hypertensive on admission DVT Ppx -Lovenox Resident Physician Supervision Note: I interviewed and examined the patient. Discussed with Dr. Lock and agree with findings and plan as documented in the note. Any exceptions or clarifications are listed here: None Documented By: Niko Jim intractable nausea/vomiting vitlas noted, fatigued, breathing unlabored. mucous membranes sl dry but (+) pulmonary edema earlier hyponatremia - likely mixed picture - definitely hypervolemia given that fluids precipitated acute pulmonary edema, but also appears has baseline (prob SiADH w cancer) and also poor solute intake intractable nausea/vomiting - zofran scheduled, IV H2, follow otherwise as above Advanced Directives Existing Living Will: No Existing Power of Assurance Senior Manager Insurance: No Resuscitation Status VTE Prophylaxis Will order VTE Prophylaxis: Yes Note Total Time: Critical Care 30 - 74 minutes Resident Tracking Resident Involvement: Resident Care Provided Care Provided: Adult Hospital Medicine
[2018-02-05 23:53] VITALS: BP 106/65; PULSE 72; TEMP 37; O2SAT 96
[2018-02-06 00:39] LABS: CALCIUM 8.2 mg/dl (8.5-10.1); CREATININE 0.93 mg/dl (0.60-1.20); POTASSIUM 3.5 mmol/L (3.5-5.1)
[2018-02-06] MEDS: ONDANSETRON INJ 8 MG in DEXTROSE 5% 50ML 50 ML IV SCH ×2 (02:48→08:00)
[2018-02-06] MEDS: RANITIDINE IV 50 MG in DEXTROSE 5% 100ML 100 ML IV SCH (02:53)
[2018-02-06 03:54] VITALS: BP 144/71; PULSE 74; TEMP 36.4; O2SAT 95
[2018-02-06 04:28] LABS: CREATININE 1.01 mg/dl (0.60-1.20); POTASSIUM 3.5 mmol/L (3.5-5.1)
[2018-02-06 07:25] VITALS: BP 147/71; PULSE 72; TEMP 36.2; O2SAT 96
--- NOTE | 2018-02-06 07:40 | Clinical Documentation Query ---
HE Loco : CLINICAL DOCUMENTATION QUERY ER provider documentation includes the following: "The patient is a 77-year-old female who has a history of cancer who presented to the emergency department for an evaluation of nausea vomiting. The patient also had generalized weakness. She was treated with IV fluids. She was also treated with anti-medics. On subsequent reevaluation she was somewhat improved but started to have oxygen requirement. Repeat exam revealed some signs of pulmonary edema. The patient was treated with Lasix in the emergency department". In your clinical opinion is this patient being managed for: ( x ) Acute pulmonary edema, treated with IV Lasix, resolved. ( ) Not Agree ( ) Other explanation of clinical findings (No explanation is considered a No Response) ( ) Unable to determine ( ) Need to Discuss (Phone CDS or qliq) (No discussion is considered a No Response) The medical record reflects the following clinical findings, treatment, and risk factors. Clinical Indicators: As above; oxygen requirement, chest radiograph findings, SOB, rales, BNP Treatment: IV Lasix, discontinuation of IVF Risk Factors: Age, severe , IVF Please clarify and document your clinical opinion in the progress notes and discharge summary. Terms such as "probable", "suspected", "likely", "questionable", "possible", or "still to be ruled out" are acceptable. IF IN AGREEMENT, YOU MUST DOCUMENT ABOVE DIAGNOSTIC STATEMENT IN DAILY PROGRESS NOTES AND DISCHARGE SUMMARY. This document is not part of the patient's record. Thank You, Tobin Chua RN [phone]
[2018-02-06] MEDS ORDERED: METOPROLOL SUCC 50MG EXT REL TAB PO SCH (08:00)
[2018-02-06 08:32] LABS: CALCIUM 8.6 mg/dl (8.5-10.1); CREATININE 1.04 mg/dl (0.60-1.20); POTASSIUM 3.5 mmol/L (3.5-5.1)
[2018-02-06] MEDS ORDERED: NURSING VERBAL MED ORDER ONE (10:45)
[2018-02-06 11:14] VITALS: BP 147/71; PULSE 72; TEMP 36.2; O2SAT 96
[2018-02-06 11:34] VITALS: BP 148/72; PULSE 75; TEMP 36.4; O2SAT 94
[2018-02-06 13:08] LABS: CALCIUM 8.8 mg/dl (8.5-10.1); CREATININE 1.13 mg/dl (0.60-1.20); POTASSIUM 3.8 mmol/L (3.5-5.1)
[2018-02-06] MEDS ORDERED: ZNT150 PO (13:09)
[2018-02-06] MEDS ORDERED: ONDA-170 PO (13:10)
--- NOTE | 2018-02-06 13:30 | Discharge Instructions ---
Discharge Instructions Date of Service Feb 06, 2018. Admission Reason for Admission: Hyponatremia Discharge Discharge Diagnosis / Problem: Hyponatremia and Nausea Discharge Goals Goal(s): Decrease discomfort Activity Recommendations Activity Limitations: resume your previous activity . Instructions / Follow-Up Instructions / Follow-Up alok Martinez are being discharged from your hospital stay for hyponatremia and nausea. Your hyponatremia has been corrected and your nausea seems much better controlled. There are two reasons I think this could be the case, we have increased your zofran to 8mg two times per day and added zantac, but we have also held your chemo pill for one day. I suggest attempting to resume your chemo while taking this new nausea regimen and if the nausea becomes too much to bear than I suggest holding off on the chemotherapy and urgently trying to meet with Dr. Francis as quickly as possible. I also suggest you speak to your primary care doctor about getting periodic ECG's to monitor the Q-T interval on this higher dose of zofran. If you have any palpitations or fainting /loss of consciousness seek medical help urgently. Current Hospital Diet Patient's current hospital diet: Regular Diet Discharge Diet Recommended Diet: Regular Diet Pending Studies Studies pending at discharge: no Medical Emergencies . Who to Call and When: Medical Emergencies: If at any time you feel your situation is an emergency, please call 911 immediately. . Non-Emergent Contact Non-Emergency issues call your: Primary Care Provider . Past History Medical & Surgical History: (1) Hyponatremia (2) Lung cancer metastatic to brain . "Provider Documentation" section prepared by Tan Lock. . Resident Tracking Resident Involvement: Resident Care Provided Care Provided: Adult Hospital Medicine
--- NOTE | 2018-02-06 17:05 | Discharge Summary ---
Discharge Summary Date of Service Feb 06, 2018. Discharge Summary Admission Date: Feb 05, 2018 at 17:30 Discharge Date: Feb 06, 2018 Discharge Disposition: Home Principal Diagnosis: hyponatremia, intractable nausea/vomiting Immunizations: Have You Had Influenza Vaccine: Unknown History of Tetanus Vaccine?: Unknown History of Pneumococcal: Unknown History of Hepatitis B Vaccine: Unknown Procedures: CHEST ONE VIEW PORTABLE CLINICAL HISTORY: EVALUATE ALTERED MENTAL STATUS/WEAKNESS dyspnea COMPARISON STUDY: 12/13/2017 FINDINGS: Developing diffuse interstitial change versus early pulmonary edema. No focal infiltrates. Mild stable cardiomegaly. IMPRESSION: Findings consistent with developing pulmonary edema versus interstitial congestive failure The above report was generated using voice recognition software. It may contain grammatical, syntax or spelling errors. Electronically signed by: Mihir Oliveira M.D. 02/05/2018 2:24 PM Last 24 Hours Test 02/05/18 17:01 02/05/18 23:49 02/06/18 03:55 02/06/18 07:42 Sodium Level 121 mmol/L 128 mmol/L 129 mmol/L 127 mmol/L Potassium Level 3.7 mmol/L 3.5 mmol/L 3.5 mmol/L 3.5 mmol/L Chloride Level 87 mmol/L 92 mmol/L 93 mmol/L 92 mmol/L Carbon Dioxide Level 23 mmol/L 29 mmol/L 28 mmol/L 29 mmol/L Anion Gap 11.0 mmol/L 7.0 mmol/L 8.0 mmol/L 7.0 mmol/L Blood Urea Nitrogen 12 mg/dl 12 mg/dl 12 mg/dl 13 mg/dl Creatinine 0.98 mg/dl 0.93 mg/dl 1.01 mg/dl 1.04 mg/dl Est Creatinine Clear Calc Drug Dose 40.4 ml/min 42.6 ml/min 39.2 ml/min 34.1 ml/min Estimated GFR () 64.0 68.2 61.7 59.6 Estimated GFR (Non- 55.3 58.9 53.3 51.4 BUN/Creatinine Ratio 11.9 13.2 11.8 12.5 Random Glucose 164 mg/dl 103 mg/dl 90 mg/dl 91 mg/dl Calcium Level 8.0 mg/dl 8.2 mg/dl 8.0 mg/dl 8.6 mg/dl Test 02/06/18 12:11 Sodium Level 128 mmol/L Potassium Level 3.8 mmol/L Chloride Level 91 mmol/L Carbon Dioxide Level 31 mmol/L Anion Gap 6.0 mmol/L Blood Urea Nitrogen 16 mg/dl Creatinine 1.13 mg/dl Est Creatinine Clear Calc Drug Dose 31.4 ml/min Estimated GFR () 53.9 Estimated GFR (Non- 46.5 BUN/Creatinine Ratio 13.9 Random Glucose 92 mg/dl Calcium Level 8.8 mg/dl Medication Reconciliation New Medications: Ondansetron Hcl (Zofran) 8 Mg Tab 8 MG PO BID PRN for Nausea for 30 Days, #60 TABS Ranitidine HCl (Ranitidine HCl) 150 Mg Tab 150 MG PO BID for 30 Days, #60 TAB Continued Medications: Aspirin (Aspirin Ec) 81 Mg Tab 81 MG PO DAILY Cholecalciferol (Vitamin D3) 1,000 Unit Tab 1000 INTER.UNIT PO DAILY, TAB Doxycycline Monohydrate (Monodox) 100 Mg Cap 100 MG PO DAILY, CAP Magnesium Oxide (Magnesium) 250 Mg Tab 250 MG PO DAILY Metoprolol Succ (Toprol Xl) (Toprol-Xl ) 100 Mg Tabcr 100 MG PO DAILY, TAB Multiple Vitamins W/ Minerals (Preservision Areds) 1 Cap Cap 1 CAP PO DAILY Multivitamins/Minerals (Mvi With Minerals) Tab 1 TAB PO DAILY, TAB Osimertinib Mesylate (Tagrisso) 80 Mg Tab 80 MG PO DAILY Potassium (Potassium) 99 Mg Tab 99 MG PO DAILY Prednisone (Prednisone) 20 Mg Tab 20 MG PO DAILY Prochlorperazine Maleate (Compazine) 10 Mg Tab 10 MG PO Q6H PRN for Nausea or Vomiting, TAB Rosuvastatin Calcium (Crestor) 5 Mg Tab 2.5 MG PO DAILY, TAB Triamcinolone Acet (Triamcinolone Acetonide) 45 Appln/15 Gm Cr 1 APPLN TOP UD PRN for RASH for 30 Days, #30 GM Discontinued Medications: Ondansetron Hcl (Zofran) 4 Mg Tab 4 MG PO Q4H PRN for Nausea, TAB Discharge Exam Physical Exam: General Appearance: no apparent distress Eyes: EOMI ENT: hearing grossly normal Neck: trachea midline Respiratory/Chest: no respiratory distress, no accessory muscle use Extremities: normal inspection Neurologic/Psychiatric: kaitara taraka II-XII nml as tested, alert, normal mood/affect Skin: normal color, warm/dry Hospital Course hyponatremia - resolved. probably mixed picture w hypervolemia (lasix, fluid restriction) and poor solute intake (nausea/vomiting) intractable nausea/vomiting - resolved w scheduled zofran and zantac. almost certainly chemo related. question is if increased med regimen will keep symptoms in line vs if resuming chemo will worsen again - for now assuming that zofran + zantac will help - to resume chemo as outpt. if nausea returns, hold, and call hematology on 02/09 for further instructions. -frankly discussed risks/benefits of scheduled zofran in regards to very small but real risk of long QT and it's implications (fatal arrhythmia) - she is understanding and accepting of this - f/u EKG as outpt periodically. stable for home Total Time Spent: Less than 30 minutes This includes examination of the patient, discharge planning, medication reconciliation, and communication with other providers. Discharge Instructions Please refer to the electronic Patient Visit Report (Discharge Instructions) for additional information. Additional Copies To Joseph Francis MD; Martinez Holcomb M.D.
[2018-02-06] MEDS ORDERED: ONDANSETRON INJ 8 MG in DEXTROSE 5% 50ML 50 ML IV PRN (20:00)
[2018-02-06] MEDS ORDERED: RANITIDINE HCL 150 MG TAB PO SCH (20:00)
[2018-02-06] MEDS ORDERED: HEPARIN SOD 5000 UNIT/0.5 ML CARP SQ SCH (21:00)
== END 2018-02-06 14:33 | disposition home or self-care (01) | DRG 640 ==
LOC: C.EDB 13:34 → C.4E 17:30 → ENRESERV 18:13
PROVIDERS: ADMIT Family Medicine; ATTEND Family Medicine
DX: E87.1 Hypo-osmolality and hyponatremia (principal); J81.0 Acute pulmonary edema; R11.2 Nausea with vomiting, unspecified; T45.1X5A Adverse effect of antineoplastic and immunosuppressive drugs, initial encounter; C34.90 Malignant neoplasm of unspecified part of unspecified bronchus or lung; C79.31 Secondary malignant neoplasm of brain; C78.7 Secondary malignant neoplasm of liver and intrahepatic bile duct; I10 Essential (primary) hypertension; I48.91 Unspecified atrial fibrillation; Y92.019 Unspecified place in single-family (private) house as the place of occurrence of the external cause

== ENCOUNTER 2018-02-12 18:00 | Inpatient (IN) | payer BC, OTHER ==
[~2018-02-12] VITALS: Ht 162.6 cm; Wt 49.3 kg
[~2018-02-12 18:00] MED LIST changes: -AMIO0.1T PO; -CHOL1000 PO; -ELQ25 PO; -MULTCAP33 PO; -MULTTAB PO; -OSIM80TA PO; -PROC10TA PO; -ROSU5TAB PO
[2018-02-12] MEDS ORDERED: DILTIAZEM HCL 5 MG/ML 5 ML VIAL IV STA (18:31)
[2018-02-12] MEDS ORDERED: SODIUM CHLORIDE 0.9% 500ML 500 ML IV STA (18:42)
--- NOTE | 2018-02-12 18:46 | DIAGNOSTIC IMAGING REPORT ---
SINGLE VIEW CHEST CLINICAL HISTORY: Fever. Sepsis. FINDINGS: An AP, portable, upright chest radiograph is compared to study dated 02/05/2018 and correlated with chest CT dated 07/13/2010. The examination is degraded by portable technique and patient rotation. The heart is enlarged and there is atherosclerotic calcification of the thoracic aorta. The pulmonary vasculature is noncongested. Chronic interstitial thickening is similar to previous. Bibasilar atelectasis is noted. There is no airspace consolidation or large pleural effusion. No pneumothorax is seen. The skeletal structures are osteopenic. The bony thorax is grossly intact. IMPRESSION: Cardiomegaly with no acute cardiopulmonary abnormality. Electronically signed by: Raheel Buckley M.D. 02/12/2018 6:45 PM Dictated Date/Time: 02/12/2018 6:43 PM
[2018-02-12 18:52] LABS: BASO % 0.1 %; BASO ABS # 0.01 K/uL (0-0.2); EOS % 0.1 %; EOS ABS # 0.01 K/uL (0-0.5); HEMATOCRIT 33.9 % (37-47); HEMOGLOBIN 11.7 g/dL (12.0-16.0); IG# 0.04 K/uL (0.00-0.02); LYMPH % 11.1 %; LYMPH ABS # 1.06 K/uL (1.2-3.4); MEAN CELL VOLUME 90.6 fL (80-100); MEAN CORPUSCULAR HEMOGLOBIN 31.3 pg (25-34); MEAN CORPUSCULAR HGB CONC 34.5 g/dl (32-36); MEAN PLATELET VOLUME 9.5 fL (7.4-10.4); MONO % 5.4 %; MONO ABS # 0.51 K/uL (0.11-0.59); NEUT % 82.9 %; NEUT ABS # 7.88 K/uL (1.4-6.5); PLATELET COUNT 261 K/uL (130-400); RED CELL DISTRIBUTION WIDTH CV 13.1 % (11.5-14.5); RED CELL DISTRIBUTION WIDTH SD 43.4 fL (36.4-46.3); WHITE BLOOD COUNT 9.51 K/uL (4.8-10.8)
[2018-02-12 19:04] LABS: INR 1.1 (0.9-1.1)
[2018-02-12 19:19] LABS: ALBUMIN 3.6 gm/dl (3.4-5.0); ALKALINE PHOSPHATASE 60 U/L (45-117); ALT/SGPT 41 U/L (12-78); AST/SGOT 38 U/L (15-37); BLOOD UREA NITROGEN 21 mg/dl (7-18); CALCIUM 8.6 mg/dl (8.5-10.1); CARBON DIOXIDE 26 mmol/L (21-32); CKMB 4.1 ng/ml (0.5-3.6); CREATININE 1.17 mg/dl (0.60-1.20); GLUCOSE 146 mg/dl (70-99); LIPASE 200 U/L (73-393); POTASSIUM 4.4 mmol/L (3.5-5.1); SODIUM 126 mmol/L (136-145); TOTAL PROTEIN 6.7 gm/dl (6.4-8.2)
[2018-02-12] MEDS ORDERED: METOPROLOL TARTRATE 1 MG/ML VIAL IV PRN (20:00)
[2018-02-12] MEDS ORDERED: ONDANSETRON INJ 2 MG/ML 2 ML VIAL IV PRN (20:00)
[2018-02-12] MEDS ORDERED: ACETAMINOPHEN 325 MG TAB PO PRN (20:00)
[2018-02-12] MEDS ORDERED: PROC10TA PO (20:14)
--- NOTE | 2018-02-12 20:23 | History and Physical ---
History & Physical Date & Time of Service: Feb 12, 2018 at 20:17 Chief Complaint: Irregular Heartbeat Primary Care Physician: Martinez Holcomb M.D. History of Present Illness Source: patient Mrs. 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 Patient states that she noticed an irregular heartbeat and palpitations at approximately 1500 today. She was having some GI distress at the time, gas/bloating and constipation. As she was using the restroom she noticed her palpitations. She denies chest pain , shortness of breath, dizziness or presyncope. No diaphoresis. Palpitations persisted throughout the day which prompted her to come to the ER. While in the ER she was found to have a heart rate of 163bpm. She was administered 20mg Diltiazem IV which improved her heart rate to 64bpm. She presently feels well with no complaints. ER Course: Diltiazem 20mg IV Past Medical/Surgical History Medical Problems: Paroxysmal SVT Non-small cell lung cancer - Stage IV - mets to brain and liver - s/p WBRT presently on Chemo with Tagrisso Anemia Severe Aortic regurgitation Mild MS Mild nonobstructive CAD GERD Hyponatremia Past Surgical History: Hysterectomy Tonsils Appendectomy Family History No pertinent family history Social History Smoking Status: Never Smoker Smokeless Tobacco Use: No Alcohol Use: none Drug Use: none Marital Status: Housing status: lives with family Occupational Status: retired Immunizations History of Influenza Vaccine: Unknown History of Tetanus Vaccine?: Unknown History of Pneumococcal: Unknown History of Hepatitis B Vaccine: Unknown Allergies Coded Allergies: BEE STING (Verified Allergy, Intermediate, 02/05/18) Home Medications Scheduled Aspirin (Aspirin Ec), 81 MG PO HS Cholecalciferol (Vitamin D3), 1,000 INTER.UNIT PO DAILY Magnesium Oxide (Magnesium), 250 MG PO DAILY Metoprolol Succ (Toprol Xl) (Toprol-Xl ), 100 MG PO DAILY Multiple Vitamins W/ Minerals (Preservision Areds), 1 CAP PO DAILY Multivitamins/Minerals (Mvi With Minerals), 1 TAB PO DAILY Osimertinib Mesylate (Tagrisso), 80 MG PO DAILY Potassium (Potassium), 99 MG PO DAILY Prednisone (Prednisone), 20 MG PO DAILY Ranitidine HCl (Ranitidine HCl), 150 MG PO BID Rosuvastatin Calcium (Crestor), 2.5 MG PO DAILY Scheduled PRN Ondansetron Hcl (Zofran), 8 MG PO BID PRN for Nausea Prochlorperazine Maleate (Compazine), 10 MG PO Q6H PRN for Nausea or Vomiting Triamcinolone Acet (Triamcinolone Acetonide), 1 APPLN TOP UD PRN for RASH Review of Systems Constitutional: No fever, No chills, No sweats, No fatigue Eyes: No worsening of vision ENT: + hearing loss, No sore throat Respiratory: No cough, No sputum, No wheezing, No shortness of breath, No dyspnea on exertion Cardiovascular: + palpitations, No chest pain, No orthopnea, No edema, No claudication Abdomen: + diarrhea, + constipation (reports diarrhea and constipation on occasion), No pain, No nausea, No vomiting Genitourinary - Female: No dysuria, No urinary frequency, No urinary urgency Neurologic: No paralysis, No weakness Psychiatric: No depression symptoms Endocrine: No fatigue Hematologic / Lymphatic: No abnormal bleeding/bruising, No clotting problems Integumentary: No rash Physical Exam Vital Signs Date Time Temp Pulse Resp B/P (MAP) Pulse Ox O2 Delivery O2 Flow Rate FiO2 02/12/18 19:30 85 21 122/70 97 02/12/18 19:15 76 30 97 02/12/18 19:00 64 29 96 02/12/18 18:45 70 21 95 02/12/18 18:42 163 19 101/79 94 Room Air 02/12/18 18:42 101/79 02/12/18 18:30 148 18 95 02/12/18 18:22 98 Room Air 02/12/18 18:15 156 15 02/12/18 18:13 145 02/12/18 18:09 98 Room Air 02/12/18 18:08 126/103 02/12/18 18:06 36.8 141 20 126/103 98 Room Air General: thin female, patient resting comfortably in bed, NAD, AA&O x 4 Skin: warm, dry, intact, no rashes or lesions HEENT: NC/AT, PERRL, EOMI, anicteric sclera, conjunctiva without injection, nares patent, moist mucus membranes, no oropharyngeal lesions, neck supple, trachea midline, no thyromegaly, no LAD Heart: +S1/S2, irregularly irregular, 3/6 IZAIAH at LSB with radiation across the precordium and to bilateral carotids, 2/6 diastolic murmur heart at LSB Lungs: equal air entry bilaterally, no rales/rhonchi/wheezes Abdomen: soft, NT/ND, no masses/organomegaly/ascites Extremities: warm, well perfused, no clubbing/cyanosis, trace pitting edema bilaterally, 2+ palpable pulses in UE/LE bilaterally Neuro: grossly nonfocal Diagnostics Laboratory Results Results Past 24 Hours Test 02/12/18 18:18 02/12/18 19:59 Range/Units White Blood Count 9.51 4.8-10.8 K/uL Red Blood Count 3.74 4.2-5.4 M/uL Hemoglobin 11.7 12.0-16.0 g/dL Hematocrit 33.9 37-47 % Mean Corpuscular Volume 90.6 80-100 fL Mean Corpuscular Hemoglobin 31.3 25-34 pg Mean Corpuscular Hemoglobin Concent 34.5 32-36 g/dl Platelet Count 261 130-400 K/uL Mean Platelet Volume 9.5 7.4-10.4 fL Neutrophils (%) (Auto) 82.9 % Lymphocytes (%) (Auto) 11.1 % Monocytes (%) (Auto) 5.4 % Eosinophils (%) (Auto) 0.1 % Basophils (%) (Auto) 0.1 % Neutrophils # (Auto) 7.88 1.4-6.5 K/uL Lymphocytes # (Auto) 1.06 1.2-3.4 K/uL Monocytes # (Auto) 0.51 0.11-0.59 K/uL Eosinophils # (Auto) 0.01 0-0.5 K/uL Basophils # (Auto) 0.01 0-0.2 K/uL RDW Standard Deviation 43.4 36.4-46.3 fL RDW Coefficient of Variation 13.1 11.5-14.5 % Immature Granulocyte % (Auto) 0.4 % Immature Granulocyte # (Auto) 0.04 0.00-0.02 K/uL Prothrombin Time 11.1 9.0-12.0 SECONDS Prothromb Time International Ratio 1.1 0.9-1.1 Activated Partial Thromboplast Time 24.0 21.0-31.0 SECONDS Partial Thromboplastin Ratio 0.9 Sodium Level 126 136-145 mmol/L Potassium Level 4.4 3.5-5.1 mmol/L Chloride Level 92 98-107 mmol/L Carbon Dioxide Level 26 21-32 mmol/L Anion Gap 8.0 3-11 mmol/L Blood Urea Nitrogen 21 7-18 mg/dl Creatinine 1.17 0.60-1.20 mg/dl Est Creatinine Clear Calc Drug Dose 32.2 ml/min Estimated GFR () 51.7 Estimated GFR (Non- 44.6 BUN/Creatinine Ratio 17.9 10-20 Random Glucose 146 70-99 mg/dl Calcium Level 8.6 8.5-10.1 mg/dl Total Bilirubin 0.3 0.2-1 mg/dl Direct Bilirubin 0.1 0-0.2 mg/dl Aspartate Amino Transf (AST/SGOT) 38 15-37 U/L Alanine Aminotransferase (ALT/SGPT) 41 12-78 U/L Alkaline Phosphatase 60 45-117 U/L Total Creatine Kinase 229 26-192 U/L Creatine Kinase MB 4.1 0.5-3.6 ng/ml Creatine Kinase MB Ratio 1.8 0-3.0 Troponin I < 0.015 0-0.045 ng/ml Total Protein 6.7 6.4-8.2 gm/dl Albumin 3.6 3.4-5.0 gm/dl Lipase 200 73-393 U/L Thyroid Stimulating Hormone (TSH) 1.030 0.300-4.500 uIu/ml Diagnostic Radiology SINGLE VIEW CHEST CLINICAL HISTORY: Fever. Sepsis. FINDINGS: An AP, portable, upright chest radiograph is compared to study dated 02/05/2018 and correlated with chest CT dated 07/13/2010. The examination is degraded by portable technique and patient rotation. The heart is enlarged and there is atherosclerotic calcification of the thoracic aorta. The pulmonary vasculature is noncongested. Chronic interstitial thickening is similar to previous. Bibasilar atelectasis is noted. There is no airspace consolidation or large pleural effusion. No pneumothorax is seen. The skeletal structures are osteopenic. The bony thorax is grossly intact. IMPRESSION: Cardiomegaly with no acute cardiopulmonary abnormality. EKG The study shows atrial fibrillation at 175bpm, left axis deviation, QRS=70, QtC= 491, no evidence of acute ischemia Impression Assessment and Plan 77yo female presenting in atrial fibrillation with rapid ventricular response 1. Atrial fibrillation with RVR - patient with history of paroxysmal SVT. She is on Toprol XL 100mg po daily. Patient's Chads2-Vasc score is 4 ( stroke risk of 4.8% per year, points for age > 75, female and history of vascular disease). HASBLED score is 2, associated with moderate risk for major bleeding (4.1% risk for bleeding, points for age >65 and patient on ASA) -Admit to telemetry -TSH WNL, check Mg and PO4 x 1 -Will increase Toprol XL to 150mg po daily for rate control -Metoprolol 5mg IV q 4 hours as needed for heart rate > 120bpm -Anticoagulation with Lovenox 1mg/kg BID for now, possible transition to NOAC for anticoagulation. Concern for bleeding risk given patient's age and concomitant ASA use in patient with brain metastases, will warrant further discussion with the patient -Cardiology consultation - patient is known to Dr. Blanchard 2. Metastatic lung CA - stage IV -Continue Tagrisso daily -Continue Prednisone 20mg po daily 3. CAD - patient without chest pain, no evidence of acute ischemia on EKG -Continue ASA -Continue Crestor 4. GERD - chronic -Continue Ranitidine 150mg po BID 5. F/E/N - Heplock. Monitor electrolytes and replete as needed. Hyponatremia chronic - patient is near baseline Na level. Continue PO magnesium supplement. AHA diet as tolerated 6. Ppx - Lovenox BID, Ranitidine BID 7. Code - DNR per discussion with patient 8. Dispo - admit to telemetry Resuscitation Status DNR VTE Prophylaxis Will order VTE Prophylaxis: Yes
--- NOTE | 2018-02-12 20:34 | EMERGENCY ROOM VISIT NOTE ---
History Report prepared by Willam: Brian Gross Under the Supervision of: Dr. Salty Peralta D.O. First contact with patient: 18:14 Chief Complaint: IRREGULAR HEARTBEAT Stated Complaint: IRREGULAR HEARTBEAT Nursing Triage Summary: Pt reports it feels like her heart is beating fast. History of this before but nothing diagnosed. Was on metoprolol. Currently getting chemo. History of Present Illness The patient is a 77 year old female who presents to the Emergency Room with complaints of an irregular heartbeat caused by intermittent pressure in her abdomen that started today at around 1600, 2 and a half hours ago. The patient states that the pressure started following eating ice cream and that pressure made her heart go out of rhythm. She reports that she has a history of irregular heartbeat spells like this, but they do not usually last this long. She notes that she could not move her bowels or burp until she drank a lot of fluids which allowed her to move her bowels. She was referred to come here from her PCP due to her history of atrial fibrillation spells, as well as liver, lung , and brain cancer. The patient denies taking any blood thinning medications. Source of History: patient Onset: 1600 today, 2.5 hours ago Position: chest Quality: pressure, other (Irregular heartbeat) Timing: intermittent Associated Symptoms: + abdominal pain Review of Systems See HPI for pertinent positives & negatives. A total of 10 systems reviewed and were otherwise negative. Past Medical & Surgical Medical Problems: (1) Acute respiratory failure with hypoxia (2) Atrial fibrillation (3) Atrial fibrillation (4) Brain cancer (5) GERD (gastroesophageal reflux disease) Family History No pertinent family history Social History Smoking Status: Never Smoker Alcohol Use: occasionally Drug Use: none Marital Status: Housing Status: lives with family Occupation Status: retired Current/Historical Medications Scheduled Aspirin (Aspirin Ec), 81 MG PO HS Cholecalciferol (Vitamin D3), 1,000 INTER.UNIT PO DAILY Magnesium Oxide (Magnesium), 250 MG PO DAILY Metoprolol Succ (Toprol Xl) (Toprol-Xl ), 100 MG PO DAILY Multiple Vitamins W/ Minerals (Preservision Areds), 1 CAP PO DAILY Multivitamins/Minerals (Mvi With Minerals), 1 TAB PO DAILY Osimertinib Mesylate (Tagrisso), 80 MG PO DAILY Potassium (Potassium), 99 MG PO DAILY Prednisone (Prednisone), 20 MG PO DAILY Ranitidine HCl (Ranitidine HCl), 150 MG PO BID Rosuvastatin Calcium (Crestor), 2.5 MG PO DAILY Scheduled PRN Ondansetron Hcl (Zofran), 8 MG PO BID PRN for Nausea Prochlorperazine Maleate (Compazine), 10 MG PO Q6H PRN for Nausea or Vomiting Triamcinolone Acet (Triamcinolone Acetonide), 1 APPLN TOP UD PRN for RASH Allergies Coded Allergies: BEE STING (Verified Allergy, Intermediate, 02/05/18) Physical Exam Vital Signs Date Time Temp Pulse Resp B/P (MAP) Pulse Ox O2 Delivery O2 Flow Rate FiO2 02/12/18 19:30 85 21 122/70 97 02/12/18 19:15 76 30 97 02/12/18 19:00 64 29 96 02/12/18 18:45 70 21 95 02/12/18 18:42 163 19 101/79 94 Room Air 02/12/18 18:42 101/79 02/12/18 18:30 148 18 95 02/12/18 18:22 98 Room Air 02/12/18 18:15 156 15 02/12/18 18:13 145 02/12/18 18:09 98 Room Air 02/12/18 18:08 126/103 02/12/18 18:06 36.8 141 20 126/103 98 Room Air Physical Exam CONSTITUTIONAL/VITAL SIGNS: Reviewed / noted above. GENERAL: Non-toxic in appearance. INTEGUMENTARY: Warm, dry, and Priddy. HEAD: Normocephalic. EYES: without scleral icterus or trauma. ENT/OROPHARYNX: clear and moist. LYMPHADENOPATHY/NECK: Is supple without lymphadenopathy or meningismus. RESPIRATORY: Lungs clear and equal. CARDIOVASCULAR: Rapid heart rate and irregular rhythm GI/ABDOMEN: Soft and nontender. No organomegaly or pulsatile mass. No rebound or guarding. Normal bowel sounds. EXTREMITIES: Warm and well perfused. BACK: No CVA tenderness. NEUROLOGICAL: Intact without focal deficits. PSYCHIATRIC: normal affect. MUSCULOSKELETAL: Normally developed with good muscle tone. Medical Decision & Procedures ER Provider Diagnostic Interpretation: Radiology results as stated below per my review and radiologist interpretation: SINGLE VIEW CHEST CLINICAL HISTORY: Fever. Sepsis. FINDINGS: An AP, portable, upright chest radiograph is compared to study dated 02/05/2018 and correlated with chest CT dated 07/13/2010. The examination is degraded by portable technique and patient rotation. The heart is enlarged and there is atherosclerotic calcification of the thoracic aorta. The pulmonary vasculature is noncongested. Chronic interstitial thickening is similar to previous. Bibasilar atelectasis is noted. There is no airspace consolidation or large pleural effusion. No pneumothorax is seen. The skeletal structures are osteopenic. The bony thorax is grossly intact. IMPRESSION: Cardiomegaly with no acute cardiopulmonary abnormality. Electronically signed by: Raheel Buckley M.D. 02/12/2018 6:45 PM Dictated Date/Time: 02/12/2018 6:43 PM Laboratory Results 02/12/18 18:18 Red Blood Count 3.74, Mean Corpuscular Volume 90.6, Mean Corpuscular Hemoglobin 31.3, Mean Corpuscular Hemoglobin Concent 34.5, Mean Platelet Volume 9.5, Neutrophils (%) (Auto) 82.9, Lymphocytes (%) (Auto) 11.1, Monocytes (%) (Auto) 5.4, Eosinophils (%) (Auto) 0.1, Basophils (%) (Auto) 0.1, Neutrophils # (Auto) 7.88, Lymphocytes # (Auto) 1.06, Monocytes # (Auto) 0.51, Eosinophils # (Auto) 0.01, Basophils # (Auto) 0.01 02/12/18 18:18 Test 02/12/18 18:18 02/12/18 19:59 White Blood Count 9.51 K/uL (4.8-10.8) Red Blood Count 3.74 M/uL (4.2-5.4) Hemoglobin 11.7 g/dL (12.0-16.0) Hematocrit 33.9 % (37-47) Mean Corpuscular Volume 90.6 fL (80-100) Mean Corpuscular Hemoglobin 31.3 pg (25-34) Mean Corpuscular Hemoglobin Concent 34.5 g/dl (32-36) Platelet Count 261 K/uL (130-400) Mean Platelet Volume 9.5 fL (7.4-10.4) Neutrophils (%) (Auto) 82.9 % Lymphocytes (%) (Auto) 11.1 % Monocytes (%) (Auto) 5.4 % Eosinophils (%) (Auto) 0.1 % Basophils (%) (Auto) 0.1 % Neutrophils # (Auto) 7.88 K/uL (1.4-6.5) Lymphocytes # (Auto) 1.06 K/uL (1.2-3.4) Monocytes # (Auto) 0.51 K/uL (0.11-0.59) Eosinophils # (Auto) 0.01 K/uL (0-0.5) Basophils # (Auto) 0.01 K/uL (0-0.2) RDW Standard Deviation 43.4 fL (36.4-46.3) RDW Coefficient of Variation 13.1 % (11.5-14.5) Immature Granulocyte % (Auto) 0.4 % Immature Granulocyte # (Auto) 0.04 K/uL (0.00-0.02) Prothrombin Time 11.1 SECONDS (9.0-12.0) Prothromb Time International Ratio 1.1 (0.9-1.1) Activated Partial Thromboplast Time 24.0 SECONDS (21.0-31.0) Partial Thromboplastin Ratio 0.9 Anion Gap 8.0 mmol/L (3-11) Est Creatinine Clear Calc Drug Dose 32.2 ml/min Estimated GFR () 51.7 Estimated GFR (Non- 44.6 BUN/Creatinine Ratio 17.9 (10-20) Calcium Level 8.6 mg/dl (8.5-10.1) Total Bilirubin 0.3 mg/dl (0.2-1) Direct Bilirubin 0.1 mg/dl (0-0.2) Aspartate Amino Transf (AST/SGOT) 38 U/L (15-37) Alanine Aminotransferase (ALT/SGPT) 41 U/L (12-78) Alkaline Phosphatase 60 U/L (45-117) Total Creatine Kinase 229 U/L (26-192) Creatine Kinase MB 4.1 ng/ml (0.5-3.6) Creatine Kinase MB Ratio 1.8 (0-3.0) Troponin I < 0.015 ng/ml (0-0.045) Total Protein 6.7 gm/dl (6.4-8.2) Albumin 3.6 gm/dl (3.4-5.0) Lipase 200 U/L (73-393) Thyroid Stimulating Hormone (TSH) 1.030 uIu/ml (0.300-4.500) Laboratory results as stated above per my review. Medications Administered Medications (Trade) Dose Ordered Sig/Winifred Route Start Time Stop Time Status Last Admin Dose Admin Diltiazem HCl (Cardizem Inj) 20 mg NOW STAT IV 02/12/18 18:31 02/12/18 18:33 DC 02/12/18 18:41 20 MG Sodium Chloride 500 ml @ 999 mls/hr Q31M STAT IV 02/12/18 18:42 02/12/18 19:12 DC 02/12/18 18:42 999 MLS/HR ECG Per My Interpretation Indication: other (Irregular Heartbeat) Rate (beats per minute): 175 Rhythm: atrial fibrillation Findings: no ectopy, other (No ST elevation) ED Course 1825: Previous medical records were reviewed. The patient was evaluated in room B10. A complete history and physical examination was performed. 1830: Cardizem 20mg IV 1841: Sodium Chloride 500ml @ 999mls/hr IV 1914: I spoke with Dr. Palma - [facility] Hospitalist and he is accepting the patient. 1934: On reevaluation, the patient is resting in bed. I discussed the results and findings with the patient. She verbalized agreement of the treatment plan. I spoke with Dr. Palma of the [facility] Hospitalist Service. The patient will be evaluated for further management and care. Medical Decision the differential was considered includes acute myocardial infarction, acute coronary syndrome, myocarditis, pericarditis, pericardial effusions /tamponad, esophageal perforation, thoracic aortic dissection, pulmonary embolism, pneumonia, pneumothorax, pancreatitis, shingles, acute cholecystitis, perforated abdominal viscus. This is a 69-year-old female who presents to the ED with a chief complaint of palpitations. The patient has a history of atrial fibrillation although she states that she normally is in a normal rhythm. She may have periodic episodes of A. fib that resolved within a minute or 2. Today she had onset of symptoms around 4:00. She states that the symptoms have persisted and she came in for evaluation. The patient does have a history of liver, lung and had cancer. She is currently taking chemotherapy medications for this. Her initial heart rate was elevated in the 150s-160s. She was found to be in A. fib with RVR. She had no ischemic changes. Her CBC is unremarkable, sodium is 126, chloride was 92. BUN and creatinine were unremarkable. Glucose is 146. Troponin TSH were normal. The patient was given IV Cardizem. Heart rate improved in the 70s. Because her A. fib persisted and she is not on anticoagulation, she will be seen by the hospitalist for further inpatient evaluation and care. Medication Reconcilliation Current Medication List: was personally reviewed by me Consults Time Called: 1912 Consulting Physician: Dr. Louie Bradford [facility] Hospitalist Returned Call: 1914 Discussed the patient's case with Dr. Louie Bradford [facility] Hospitalist . The patient will be evaluated for further treatment and disposition by her. Impression Primary Impression: Atrial fibrillation Additional Impression: Atrial fibrillation with RVR Scribe Attestation The scribe's documentation has been prepared under my direction and personally reviewed by me in its entirety. I confirm that the note above accurately reflects all work, treatment, procedures, and medical decision making performed by me. Departure Information Dispostion Being Evaluated By Hospitalist Referrals Martinez Holcomb M.D. (PCP) Patient Instructions My [facility] Problem Qualifiers
[2018-02-12 20:59] LABS: PHOSPHORUS 4.2 mg/dl (2.5-4.9)
[2018-02-12] MEDS ORDERED: OSIM80TA PO (21:20)
[2018-02-12] MEDS ORDERED: ROSU5TAB PO (21:20)
[2018-02-12] MEDS ORDERED: MULTCAP33 PO (21:24)
[2018-02-12] MEDS ORDERED: MULTTAB PO (21:24)
[2018-02-12] MEDS ORDERED: CHOL1000 PO (21:28)
[2018-02-12 21:30] VITALS: BP 112/72; PULSE 120; TEMP 36.7; O2SAT 96; BMI 18.8
[2018-02-12] MEDS ORDERED: DIAZEPAM 2MG TAB PO PRN (21:30)
[2018-02-12] MEDS ORDERED: METOPROLOL TARTRATE 1 MG/ML VIAL ONE (21:34)
[2018-02-12 23:09] VITALS: BP 96/66; PULSE 89; TEMP 36.5; O2SAT 96
[2018-02-12] MEDS: RANITIDINE HCL 150 MG TAB PO SCH (23:09)
[2018-02-12] MEDS: ASPIRIN 81 MG ECTAB PO SCH (23:10)
[2018-02-12] MEDS: ENOXAPARIN 60 MG/0.6 ML SYR SQ SCH (23:11)
[2018-02-12 23:59] VITALS: O2SAT 96
[2018-02-13] VITALS (13 sets, daily range): BP systolic 112–138; BP diastolic 51–87; PULSE 67–108; TEMP 36.3–37; O2SAT 94–96; Ht 162.6 cm; Wt 49.3 kg
[2018-02-13 07:00] LABS: BASO % 0.4 %; BASO ABS # 0.03 K/uL (0-0.2); EOS % 1.5 %; EOS ABS # 0.11 K/uL (0-0.5); HEMOGLOBIN 10.8 g/dL (12.0-16.0); IG# 0.02 K/uL (0.00-0.02); LYMPH ABS # 1.05 K/uL (1.2-3.4); MEAN CELL VOLUME 91.7 fL (80-100); MEAN CORPUSCULAR HEMOGLOBIN 30.9 pg (25-34); MEAN CORPUSCULAR HGB CONC 33.8 g/dl (32-36); MEAN PLATELET VOLUME 9.4 fL (7.4-10.4); MONO % 14.4 %; MONO ABS # 1.08 K/uL (0.11-0.59); NEUT % 69.4 %; PLATELET COUNT 238 K/uL (130-400); RED CELL DISTRIBUTION WIDTH CV 13.3 % (11.5-14.5); RED CELL DISTRIBUTION WIDTH SD 44.3 fL (36.4-46.3); WHITE BLOOD COUNT 7.49 K/uL (4.8-10.8)
[2018-02-13 07:07] LABS: INR 1.1 (0.9-1.1)
[2018-02-13 07:37] LABS: CKMB 1.8 ng/ml (0.5-3.6)
[2018-02-13] MEDS: METOPROLOL SUCC 50MG EXT REL TAB PO SCH (07:57)
[2018-02-13] MEDS: ROSUVASTATIN CALCIUM 5 MG TAB PO SCH (07:57)
[2018-02-13] MEDS: RANITIDINE HCL 150 MG TAB PO SCH ×3 (07:58→21:00)
[2018-02-13] MEDS: MAGNESIUM OXIDE 400 MG TAB PO SCH (07:58)
[2018-02-13] MEDS ORDERED: DOXYCYCLINE HYCLATE 100 MG CAP PO SCH (09:00)
[2018-02-13] MEDS ORDERED: NURSING VERBAL MED ORDER ONE ×2 (11:15→17:45)
[2018-02-13] MEDS: ENOXAPARIN 60 MG/0.6 ML SYR SQ SCH ×2 (11:35→21:19)
[2018-02-13] MEDS: ONDANSETRON 8 MG TAB PO SCH ×3 (12:11→21:17)
[2018-02-13] MEDS ORDERED: AMIODARONE IV BOLUS / DRIP IV STA (13:20)
--- NOTE | 2018-02-13 13:20 | Cardiology Consultation ---
Cardiology Consultation Date of Consultation: Feb 13, 2018. Requesting Physician: Leda Palma Reason for Consultation: Atrial fibrillation Pt evaluation today including: conversation w/ patient, physical exam, lab review, review of studies, review of inpatient medication list History of Present Illness This is a very pleasant 77-year-old woman who has a history of metastatic lung cancer as well as a long history of progressive aortic stenosis and mitral stenosis. She also has a history of arrhythmias starting in 2013 when she developed palpitations, on September 09, 2013 she developed a fluttering sensation in her chest on a trip to [place]. An emergency room visit at [facility] reported atrial fibrillation, however on review of those records I did not see clear evidence of atrial fibrillation. 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 We discontinue the amiodarone and started diltiazem, that was fairly effective although we did have to increase the dose for recurrent symptoms. She also required metoprolol but on a combination of metoprolol and diltiazem she had good control of this arrhythmia. She presented to the hospital on February 12, 2018 with an irregular heart rate and palpitations starting at around 3 PM. She was having difficulty with her bowels as well as some eating difficulty and felt that this was related. She notes that this feels quite different than the episode she had in the past which we felt were due to reentrant SVT. In the emergency room she was noted to be in atrial fibrillation with a rapid heart rate, intravenous diltiazem was administered with improvement in her heart rate. She is clear that this episode started at around 3 PM yesterday. She does not recall a feeling quite like this before. Past Medical/Surgical History (1) Lung cancer metastatic to brain Family History No pertinent family history Social History Smoking Status: Never Smoker History of Alcohol Use: No Review of Systems Constitutional: No fever, No weight loss, No weakness Respiratory: + dyspnea on exertion Cardiac: + see HPI, + palpitations, No chest pain, No orthopnea, No PND, No edema Abdomen: No pain, No nausea, No vomiting, No diarrhea, No GI bleeding Female : No problem reported Neurologic: No paralysis, No weakness, No numbness/tingling, No balance problems Heme: No abnormal bleeding/bruising, No clotting problems Endo: No fatigue Skin: No problem reported All Other Systems: Reviewed and Negative Allergies Coded Allergies: BEE STING (Verified Allergy, Intermediate, 02/05/18) Medications Current Inpatient Medications Medications (Trade) Dose Ordered Sig/Winifred Route Start Time Stop Time Status Last Admin Dose Admin Acetaminophen (Tylenol Tab) 650 mg Q4H PRN PO 02/12/18 20:00 03/14/18 19:59 Ondansetron HCl (Zofran Inj) 4 mg Q6H PRN IV 02/12/18 20:00 03/14/18 19:59 Enoxaparin Sodium (Lovenox Inj) 50 mg Q12H SQ 02/12/18 22:00 03/14/18 21:59 02/13/18 11:35 50 MG Aspirin (Ecotrin Tab) 81 mg HS PO 02/12/18 21:00 03/14/18 20:59 02/12/18 23:10 81 MG Metoprolol Succinate (Toprol Xl Tab) 150 mg DAILY PO 02/13/18 09:00 03/15/18 08:59 02/13/18 07:57 150 MG Ranitidine HCl (zANTac TAB) 150 mg BID PO 02/12/18 21:00 03/14/18 20:59 02/12/18 23:09 150 MG Rosuvastatin Calcium (Crestor Tab) 2.5 mg DAILY PO 02/13/18 09:00 03/15/18 08:59 02/13/18 07:57 2.5 MG Magnesium Oxide (Mag-Ox Tab) 400 mg DAILY PO 02/13/18 09:00 03/15/18 08:59 02/13/18 07:58 400 MG Metoprolol Tartrate (Lopressor Iv) 5 mg Q4 PRN IV 02/12/18 20:00 03/14/18 19:59 Diazepam (Valium Tab) 2 mg BID PRN PO 02/12/18 21:30 03/14/18 21:29 Ondansetron HCl (Zofran Tab) 8 mg Q4HWA PO 02/13/18 12:00 03/15/18 11:59 02/13/18 12:11 8 MG Osimertinib (Tagrisso) 80 mg DAILY PO 02/14/18 09:00 03/16/18 08:59 Physical Exam Vital Signs Past 12 Hours Date Time Temp Pulse Resp B/P (MAP) Pulse Ox O2 Delivery O2 Flow Rate FiO2 02/13/18 11:14 36.3 108 16 127/73 (91) 94 Room Air 02/13/18 08:00 Room Air 02/13/18 06:51 36.3 85 22 127/73 (91) 96 Room Air 02/13/18 03:31 36.6 94 18 128/51 (76) 95 Room Air Constitutional: General Apperance: heathly-appearing Level of Distress: NAD Psychiatric: Mental Status: active & alert Head: normocephalic Eyes: EOM: EOMI ENMT: normal ENT inspection, hearing grossly normal Neck: supple, no masses Lungs: Respiratory effort: no dyspnea, good air movement Auscultation: breath sounds normal, no wheezing Cardiovascular: Heart Auscultation: no rubs, no gallops, II/ IZAIAH, irregular rate rhythm Peripheral Pulses: Bruits: none appreciated Abdomen: Bowel Sounds: normal Inspection & Palpation: soft, no tenderness, guarding & rebound, no masses Musculoskeletal: normal strength (5/5 throughout) Extremities: no edema Neurologic: Cranial Nerves: grossly intact Sensation: grossly intact Data Laboratory Results: Last 24 Hours Test 02/12/18 18:18 02/13/18 06:34 White Blood Count 9.51 K/uL 7.49 K/uL Red Blood Count 3.74 M/uL 3.49 M/uL Hemoglobin 11.7 g/dL 10.8 g/dL Hematocrit 33.9 % 32.0 % Mean Corpuscular Volume 90.6 fL 91.7 fL Mean Corpuscular Hemoglobin 31.3 pg 30.9 pg Mean Corpuscular Hemoglobin Concent 34.5 g/dl 33.8 g/dl Platelet Count 261 K/uL 238 K/uL Mean Platelet Volume 9.5 fL 9.4 fL Neutrophils (%) (Auto) 82.9 % 69.4 % Lymphocytes (%) (Auto) 11.1 % 14.0 % Monocytes (%) (Auto) 5.4 % 14.4 % Eosinophils (%) (Auto) 0.1 % 1.5 % Basophils (%) (Auto) 0.1 % 0.4 % Neutrophils # (Auto) 7.88 K/uL 5.20 K/uL Lymphocytes # (Auto) 1.06 K/uL 1.05 K/uL Monocytes # (Auto) 0.51 K/uL 1.08 K/uL Eosinophils # (Auto) 0.01 K/uL 0.11 K/uL Basophils # (Auto) 0.01 K/uL 0.03 K/uL RDW Standard Deviation 43.4 fL 44.3 fL RDW Coefficient of Variation 13.1 % 13.3 % Immature Granulocyte % (Auto) 0.4 % 0.3 % Immature Granulocyte # (Auto) 0.04 K/uL 0.02 K/uL Prothrombin Time 11.1 SECONDS 11.8 SECONDS Prothromb Time International Ratio 1.1 1.1 Activated Partial Thromboplast Time 24.0 SECONDS Partial Thromboplastin Ratio 0.9 Sodium Level 126 mmol/L Potassium Level 4.4 mmol/L Chloride Level 92 mmol/L Carbon Dioxide Level 26 mmol/L Anion Gap 8.0 mmol/L Blood Urea Nitrogen 21 mg/dl Creatinine 1.17 mg/dl Est Creatinine Clear Calc Drug Dose 32.2 ml/min Estimated GFR () 51.7 Estimated GFR (Non- 44.6 BUN/Creatinine Ratio 17.9 Random Glucose 146 mg/dl Calcium Level 8.6 mg/dl Phosphorus Level 4.2 mg/dl Magnesium Level 2.6 mg/dl Total Bilirubin 0.3 mg/dl Direct Bilirubin 0.1 mg/dl Aspartate Amino Transf (AST/SGOT) 38 U/L Alanine Aminotransferase (ALT/SGPT) 41 U/L Alkaline Phosphatase 60 U/L Total Creatine Kinase 229 U/L 101 U/L Creatine Kinase MB 4.1 ng/ml 1.8 ng/ml Creatine Kinase MB Ratio 1.8 1.8 Troponin I < 0.015 ng/ml < 0.015 ng/ml Total Protein 6.7 gm/dl Albumin 3.6 gm/dl Lipase 200 U/L Thyroid Stimulating Hormone (TSH) 1.030 uIu/ml Imaging: Chest x-ray is generally unremarkable EKG: Her admission electrocardiogram shows atrial fibrillation with a heart rate of what is reported as 175 bpm, I believe it is more like 150 however. Left ventricular hypertrophy with ST-T abnormalities. Telemetry reviewed: She has remained in atrial fibrillation, initially her heart rate was very rapid but with treatment with intravenous diltiazem her heart rate dropped to below 100. He has remained so. Assessment & Plan 1. Atrial fibrillation: She seems to have new onset atrial fibrillation, in the past she has been reported as having atrial fibrillation but we could never find documentation of it and she does not seem to recall having symptoms similar to this. We did find recordings of SVT which appear to be reentrant in the past, possibly that could initiate atrial fibrillation but this seems as though it is a new arrhythmia. Unless there is a contraindication I would add anticoagulation. I think it would be worth trying to get her out of this rhythm since it recently started and I am going to start her on intravenous amiodarone. I think we should get an echocardiogram to make sure she does not have metastatic spread to her pericardium before we start anticoagulation. 2. SVT: Historically she had SVT however has not had much difficulty with it lately on medical therapy. She was on metoprolol succinate based on her admission medication list, however in the past we have had her on both metoprolol succinate and diltiazem. Currently she received diltiazem for control of her atrial fibrillation I am going to start that as well although the amiodarone may help control her heart rate and she may not need all 3. 3. Aortic stenosis: She has known progressive aortic stenosis but decision has been made in the past not to pursue further treatment. This does not appear to be symptomatic at the moment. Thank you for allowing me to participate in her care.
[2018-02-13] MEDS ORDERED: 0.2 MICRON FILTER SET 1 EA IV SCH (13:30)
[2018-02-13] MEDS ORDERED: AMIODARONE / D5W 100 ML IV SCH (13:30)
[2018-02-13] MEDS ORDERED: AMIODARONE / D5W 200 ML IV SCH (13:40)
--- NOTE | 2018-02-13 16:04 | ECHOCARDIOGRAM REPORT ---
*NOTICE TO RECEIVING DEMOCRAT AGENCY This information is strictly Confidential and protected under [place] law. [place] law prohibits you from making any further disclosure of this information unless further disclosure is expressly permitted by the written consent of the person to whom it pertains or is authorized by law. A general authorization for the release of medical or other information is not sufficient for this purpose. Hospital accepts no responsibility if the information is made available to any other person, INCLUDING THE PATIENT. Interpretation Summary * Name: KYLEE MENA Study Date: 02/13/2018 02:50 PM BP: 127/73 mmHg * Patient Location: C.2T\S\S240\S\2 HR: 90 * : 1940 (M/d/yyyy) Gender: Female Height: 64 in * Age: 77 yrs Ethnicity: CA Weight: 110 lb * Ordering Physician: Dru Singh * Referring Physician: Self, Referred * Performed By: Osman Moran RCS * * Reason For Study: A-FIB, Eval for Pericardial Effusion \T\ Mass * BSA: 1.5 m2 * -- Conclusions -- * 1. Normal LV size, moderate concentric LVH. * 2. LVEF 65-70%. No regional wall motion abnormalities. * 3. Normal RV size and function. * 4. Calcified, thickened, restricted aortic valve. * 5. Severe left atrial enlargement. * 6. No pericardial effusion or maasses noted. * 7. Compared with prior study on 01/15/2018: No significant changes. Procedure Details * A two-dimensional transthoracic echocardiogram was performed. Left Ventricle * The left ventricle is grossly normal size. * There is moderate concentric left ventricular hypertrophy. * Ejection Fraction = 65-70%. * No regional wall motion abnormalities noted. Right Ventricle * The right ventricle is grossly normal size. * The right ventricular systolic function is normal as assessed by tricuspid annular plane systolic excursion (TAPSE) (normal >1.5 cm). Atria * The left atrium is severely dilated. * The right atrium is moderate to severely dilated. * No ASD detected; PFO is not assessed. Mitral Valve * There is severe mitral annular calcification. Aortic Valve * Calcified, thickened, restricted * Severe valvular aortic stenosis. Pulmonic Valve * The pulmonic valve is not well visualized. Great Vessels * The aortic root and proximal ascending aorta are normal sized. Pericardium/Pleural * There is no pericardial effusion. Great Vessels * Normal inferior vena cava size and collapsability with sniff indicates a normal right atrial pressure of 3 mmHg
[2018-02-13] MEDS ORDERED: OSIMERTINIB MESYLATE 80 MG PO SCH (17:00)
[2018-02-13] MEDS: AMIODARONE / D5W 200 ML IV SCH (19:48)
[2018-02-13] MEDS: ASPIRIN 81 MG ECTAB PO SCH (21:17)
--- NOTE | 2018-02-13 22:46 | Progress Note ---
Subjective Date of Service: Feb 13, 2018. Subjective Pt evaluation today including: conversation w/ patient, physical exam 77 yo female reports feeling well. She reports no chest pain, nausea, vomiting. Problem List Medical Problems: (1) Anemia Status: Acute (2) Atrial fibrillation with RVR Status: Acute (3) Dehydration Status: Acute (4) Dehydration with hyponatremia Status: Acute (5) Diarrhea Status: Acute (6) Diarrhea Status: Acute (7) Gastroenteritis Status: Acute (8) Hypertension Status: Acute (9) Hyponatremia Status: Acute (10) Hyponatremia Status: Acute (11) Hypoxia Status: Acute (12) Nausea Status: Acute (13) Nausea Status: Acute (14) Nausea Status: Acute (15) Nausea Status: Acute (16) Pulmonary edema Status: Acute (17) Vomiting Status: Acute (18) Vomiting Status: Acute (19) Vomiting Status: Acute (20) Weakness Status: Acute Review of Systems Constitutional: No fever, No chills, No sweats, No fatigue Eyes: No worsening of vision ENT: + hearing loss, No sore throat Respiratory: No cough, No sputum, No wheezing, No shortness of breath, No dyspnea on exertion Cardiovascular: + palpitations, No chest pain, No orthopnea, No edema, No claudication Abdomen: + diarrhea, + constipation (reports diarrhea and constipation on occasion), No pain, No nausea, No vomiting Genitourinary - Female: No dysuria, No urinary frequency, No urinary urgency Neurologic: No paralysis, No weakness Psychiatric: No depression symptoms Endocrine: No fatigue Hematologic / Lymphatic: No abnormal bleeding/bruising, No clotting problems Integumentary: No rash Objective Vital Signs Date Time Temp Pulse Resp B/P (MAP) Pulse Ox O2 Delivery O2 Flow Rate FiO2 02/13/18 20:30 Room Air 02/13/18 19:33 36.4 78 18 127/87 (100) 96 Nasal Cannula 02/13/18 16:15 76 114/68 (83) 02/13/18 16:01 37.0 88 18 127/74 (91) 95 02/13/18 15:30 67 118/77 (91) 02/13/18 14:45 69 134/71 (92) 02/13/18 14:29 77 115/70 (85) 02/13/18 14:23 75 112/66 (81) 02/13/18 14:18 80 121/65 (83) 02/13/18 14:13 71 138/76 (96) 02/13/18 11:14 36.3 108 16 127/73 (91) 94 Room Air 02/13/18 08:00 Room Air 02/13/18 06:51 36.3 85 22 127/73 (91) 96 Room Air 02/13/18 03:31 36.6 94 18 128/51 (76) 95 Room Air 02/12/18 23:59 96 Room Air 02/12/18 23:09 36.5 89 96/66 (76) 96 Room Air Physical Exam General Appearance: WD/WN, no apparent distress, + pertinent finding (thin female) Eyes: normal inspection ENT: normal ENT inspection Neck: supple, no adenopathy Respiratory/Chest: chest non-tender, lungs clear, normal breath sounds Cardiovascular: no gallop, + irregularly irregular (Heart: +S1/S2, irregularly irregular, 3/6 IZAIAH at LSB with radiation across the precordium and to bilateral carotids, 2/6 diastolic murmur heart at LSB) Abdomen: normal bowel sounds, non tender Extremities: normal range of motion Neurologic/Psychiatric: alert, oriented x 3 Skin: normal color Lymphatic: no adenopathy Laboratory Results Last 24 Hours Test 02/13/18 06:34 White Blood Count 7.49 K/uL Red Blood Count 3.49 M/uL Hemoglobin 10.8 g/dL Hematocrit 32.0 % Mean Corpuscular Volume 91.7 fL Mean Corpuscular Hemoglobin 30.9 pg Mean Corpuscular Hemoglobin Concent 33.8 g/dl Platelet Count 238 K/uL Mean Platelet Volume 9.4 fL Neutrophils (%) (Auto) 69.4 % Lymphocytes (%) (Auto) 14.0 % Monocytes (%) (Auto) 14.4 % Eosinophils (%) (Auto) 1.5 % Basophils (%) (Auto) 0.4 % Neutrophils # (Auto) 5.20 K/uL Lymphocytes # (Auto) 1.05 K/uL Monocytes # (Auto) 1.08 K/uL Eosinophils # (Auto) 0.11 K/uL Basophils # (Auto) 0.03 K/uL RDW Standard Deviation 44.3 fL RDW Coefficient of Variation 13.3 % Immature Granulocyte % (Auto) 0.3 % Immature Granulocyte # (Auto) 0.02 K/uL Prothrombin Time 11.8 SECONDS Prothromb Time International Ratio 1.1 Total Creatine Kinase 101 U/L Creatine Kinase MB 1.8 ng/ml Creatine Kinase MB Ratio 1.8 Troponin I < 0.015 ng/ml Assessment and Plan 77yo female presenting in atrial fibrillation with rapid ventricular response 1. Atrial fibrillation with RVR - patient with history of paroxysmal SVT. She is on Toprol XL 100mg po daily. Patient's Chads2-Vasc score is 4 ( stroke risk of 4.8% per year, points for age > 75, female and history of vascular disease). HASBLED score is 2, associated with moderate risk for major bleeding (4.1% risk for bleeding, points for age >65 and patient on ASA) -Admitted to telemetry -TSH WNL, check Mg and PO4 x 1 -On Toprol XL to 150mg po daily for rate control -Metoprolol 5mg IV q 4 hours as needed for heart rate > 120bpm -Added amiodarone drip. -rate is now better controlled. -Anticoagulation with Lovenox 1mg/kg BID for now, possible transition to NOAC for anticoagulation. Concern for bleeding risk given patient's age and concomitant ASA use in patient with brain metastases, will warrant further discussion with the patient -Cardiology consultation - patient is known to Dr. Blanchard 2. Metastatic lung CA - stage IV -Continue Tagrisso daily -Continue Prednisone 20mg po daily 3. CAD - patient without chest pain, no evidence of acute ischemia on EKG -Continue ASA -Continue Crestor 4. GERD - chronic -Continue Ranitidine 150mg po BID 5. F/E/N - Heplock. Monitor electrolytes and replete as needed. Hyponatremia chronic - patient is near baseline Na level. Continue PO magnesium supplement. AHA diet as tolerated 6. Ppx - Lovenox BID, Ranitidine BID 7. Code - DNR per discussion with patient spent 35 minutes manageing patient, chart review, and discussing with consultants.
[2018-02-14 03:41] VITALS: BP 122/62; PULSE 100; TEMP 36.6; O2SAT 98
[2018-02-14 06:39] LABS: BASO % 0.4 %; BASO ABS # 0.03 K/uL (0-0.2); EOS % 1.3 %; EOS ABS # 0.11 K/uL (0-0.5); HEMATOCRIT 32.3 % (37-47); HEMOGLOBIN 11.1 g/dL (12.0-16.0); IG# 0.01 K/uL (0.00-0.02); LYMPH % 16.2 %; LYMPH ABS # 1.32 K/uL (1.2-3.4); MEAN CELL VOLUME 90.5 fL (80-100); MEAN CORPUSCULAR HEMOGLOBIN 31.1 pg (25-34); MEAN CORPUSCULAR HGB CONC 34.4 g/dl (32-36); MEAN PLATELET VOLUME 9.2 fL (7.4-10.4); MONO % 11.7 %; MONO ABS # 0.95 K/uL (0.11-0.59); NEUT % 70.3 %; NEUT ABS # 5.73 K/uL (1.4-6.5); PLATELET COUNT 236 K/uL (130-400); RED CELL DISTRIBUTION WIDTH SD 43.1 fL (36.4-46.3); WHITE BLOOD COUNT 8.15 K/uL (4.8-10.8)
[2018-02-14 06:50] LABS: INR 1.1 (0.9-1.1)
[2018-02-14 06:59] VITALS: BP 122/85; PULSE 99; TEMP 36.7; O2SAT 95
[2018-02-14] MEDS: AMIODARONE / D5W 200 ML IV SCH (07:36)
[2018-02-14] MEDS: ONDANSETRON 8 MG TAB PO SCH ×2 (07:38→12:11)
[2018-02-14] MEDS: METOPROLOL SUCC 50MG EXT REL TAB PO SCH (07:38)
[2018-02-14] MEDS: RANITIDINE HCL 150 MG TAB PO SCH (07:39)
[2018-02-14] MEDS: MAGNESIUM OXIDE 400 MG TAB PO SCH (07:39)
[2018-02-14] MEDS: ROSUVASTATIN CALCIUM 5 MG TAB PO SCH (07:39)
[2018-02-14] MEDS ORDERED: OSIMERTINIB MESYLATE 80 MG PO SCH (09:00)
[2018-02-14] MEDS: ENOXAPARIN 60 MG/0.6 ML SYR SQ SCH (10:00)
[2018-02-14] MEDS ORDERED: APIXABAN 2.5 MG TAB PO ONE (10:07)
[2018-02-14] MEDS ORDERED: AMIODARONE 200 MG TAB PO ONE (10:30)
[2018-02-14] MEDS ORDERED: ELQ25 PO (10:38)
[2018-02-14] MEDS ORDERED: AMIO0.1T PO (10:43)
--- NOTE | 2018-02-14 10:44 | Discharge Instructions ---
Discharge Instructions Date of Service Feb 14, 2018. Admission Reason for Admission: Atrial Fibrillation Discharge Discharge Diagnosis / Problem: Atrial Fibrillation Discharge Goals Goal(s): Decrease discomfort, Improve function Activity Recommendations Activity Limitations: resume your previous activity . Instructions / Follow-Up Instructions / Follow-Up Followup with Cardiology in 1-2 weeks Followup with PCP in 1-2 weeks Current Hospital Diet Patient's current hospital diet: Regular Diet Discharge Diet Recommended Diet: Regular Diet Pending Studies Studies pending at discharge: no Medical Emergencies . Who to Call and When: Medical Emergencies: If at any time you feel your situation is an emergency, please call 911 immediately. . Non-Emergent Contact Non-Emergency issues call your: Primary Care Provider Call Non-Emergent contact if: you have any medication questions . . "Provider Documentation" section prepared by Du Edwards. .
--- NOTE | 2018-02-14 10:52 | Discharge Summary ---
Discharge Summary Date of Service Feb 14, 2018. Discharge Summary Admission Date: Feb 12, 2018 at 20:14 Discharge Date: Feb 14, 2018 Immunizations: Have You Had Influenza Vaccine: Unknown History of Tetanus Vaccine?: Unknown History of Pneumococcal: Unknown History of Hepatitis B Vaccine: Unknown Hospital Course 77yo female presenting in atrial fibrillation with rapid ventricular response 1. Atrial fibrillation with RVR - patient with history of paroxysmal SVT. She is on Toprol XL 100mg po daily. Patient's Chads2-Vasc score is 4 ( stroke risk of 4.8% per year, points for age > 75, female and history of vascular disease). HASBLED score is 2, associated with moderate risk for major bleeding (4.1% risk for bleeding, points for age >65 and patient on ASA) -Admitted to telemetry -TSH WNL, check Mg and PO4 x 1 -On Toprol XL to 150mg po daily for rate control -Metoprolol 5mg IV q 4 hours as needed for heart rate > 120bpm -Added amiodarone drip. -rate is now better controlled. -Anticoagulation with Lovenox 1mg/kg BID for now, possible transition to NOAC for anticoagulation. Concern for bleeding risk given patient's age and concomitant ASA use in patient with brain metastases, will warrant further discussion with the patient -Cardiology consultation - patient is known to Dr. Blanchard 2. Metastatic lung CA - stage IV -Continue Tagrisso daily -Continue Prednisone 20mg po daily 3. CAD - patient without chest pain, no evidence of acute ischemia on EKG -Continue ASA -Continue Crestor 4. GERD - chronic -Continue Ranitidine 150mg po BID 5. F/E/N - Heplock. Monitor electrolytes and replete as needed. Hyponatremia chronic - patient is near baseline Na level. Continue PO magnesium supplement. AHA diet as tolerated 6. Ppx - Lovenox BID, Ranitidine BID 7. Code - DNR per discussion with patient spent 35 minutes manageing patient, chart review, and discussing with consultants. This includes examination of the patient, discharge planning, medication reconciliation, and communication with other providers. Discharge Instructions Please refer to the electronic Patient Visit Report (Discharge Instructions) for additional information.
[2018-02-14 10:55] VITALS: BP 153/75; PULSE 69; TEMP 36.7; O2SAT 99
[2018-02-14 13:09] VITALS: BP 153/75; PULSE 69; TEMP 36.7; O2SAT 99
[2018-02-14] MEDS ORDERED: APIXABAN 2.5 MG TAB PO SCH (21:00)
[2018-02-20] MEDS ORDERED: RANI150T85 PO (10:12)
== END 2018-02-14 14:17 | disposition home or self-care (01) | DRG 309 ==
LOC: C.EDB 18:01 → C.2T 20:14 → EEVIPCON 20:14 → ENRESERV 20:28
PROVIDERS: ADMIT Internal Medicine; ATTEND Internal Medicine Sports Medicine
DX: I48.91 Unspecified atrial fibrillation (principal); C79.31 Secondary malignant neoplasm of brain; C34.90 Malignant neoplasm of unspecified part of unspecified bronchus or lung; E87.1 Hypo-osmolality and hyponatremia; I47.1 Supraventricular tachycardia; K21.9 Gastro-esophageal reflux disease without esophagitis; I08.0 Rheumatic disorders of both mitral and aortic valves; I25.10 Atherosclerotic heart disease of native coronary artery without angina pectoris

== ENCOUNTER → 2018-02-12 | Outpatient (CLI) | payer BC ==
[~2018-02-12] MED LIST changes: +AMIO0.1T PO; +ELQ25 PO; +ONDA-170 PO; -ONDA4TAB46 PO; -ONDA4TAB65 PO; +PRED20TA PO; +ZNT150 PO
[2018-02-12 16:50] LABS: BLOOD UREA NITROGEN 21 mg/dl (7-18); CALCIUM 8.9 mg/dl (8.5-10.1); CARBON DIOXIDE 26 mmol/L (21-32); CREATININE 1.22 mg/dl (0.60-1.20); GLUCOSE 120 mg/dl (70-99); POTASSIUM 4.6 mmol/L (3.5-5.1); SODIUM 127 mmol/L (136-145)
== END | disposition home or self-care (01) ==
LOC: C.LAB1850 14:08
PROVIDERS: ATTEND Physician Assistant Medical
DX: E87.1 Hypo-osmolality and hyponatremia (principal)

== ENCOUNTER 2019-05-28 10:36 | Inpatient (IN) ==
[2019-05-28 11:42] LABS: Basophils # (auto) 0.02 K/uL (0-0.2); Basophils % (auto) 0.2 %; Eosinophils # (auto) 0.25 K/uL (0-0.5); Eosinophils % (auto) 2.2 %; Hematocrit (blood only) 28.1 % (37-47); Hemoglobin 9.6 g/dL (12.0-16.0); Immature Granulocytes # (auto) 0.02 K/uL (0.00-0.02); Immature Granulocytes % (auto) 0.2 %; Lymphocytes # (auto) 0.49 K/uL (1.2-3.4); Lymphocytes % (auto) 4.4 %; Mean Corpuscular Hemoglobin 31.5 pg (25-34); Mean Corpuscular Hgb Conc 34.2 g/dL (32-36); Mean Corpuscular Volume 92.1 fL (80-100); Mean Platelet Volume 8.6 fL (7.4-10.4); Monocytes % (auto) 11.6 %; Neutrophils # (auto) 9.13 K/uL (1.4-6.5); Neutrophils % (auto) 81.4 %; Platelet Count 236 K/uL (130-400); RDW Coefficient of Variation 13.5 % (11.5-14.5); Red Blood Count 3.05 M/uL (4.2-5.4); White Blood Count 11.21 K/uL (4.8-10.8)
[2019-05-28 11:56] LABS: Albumin Level 2.8 gm/dl (3.4-5.0); BUN Creatinine Ratio 28.3 (10-20); Calcium 8.5 mg/dl (8.5-10.1); Est GFR (African American) 90.8; Est GFR (Non-African American) 78.3; Potassium 3.8 mmol/L (3.5-5.1)
[2019-05-28 11:58] LABS: INR 1.2 (0.9-1.1); Partial Thromboplastin Ratio 1.3
[2019-05-28 12:01] LABS: Albumin Globulin Ratio 0.8 (0.9-2); Bilirubin,Total 0.7 mg/dl (0.2-1); Globulin 3.4 gm/dl (2.5-4.0); Total Protein 6.2 gm/dl (6.4-8.2)
--- NOTE | 2019-05-28 12:48 | XRay Report ---
XR chest 1V portable CLINICAL HISTORY: Sepsis dyspnea COMPARISON STUDY: 04/04/2018 FINDINGS: Interval development of pulmonary edema versus diffuse bilateral parenchymal infiltrative c hange. Mild cardiomegaly. Prominent pulmonary vasculature. IMPRESSION: Pulmonary edema versus diffuse bibasilar parenchymal infiltrates. The above report was generated using voice recognition software. It may contain grammatical, syntax or spelling errors. Electronically signed by: Mihir Oliveira M.D. 05/28/2019 12:46 PM
[2019-05-28] MEDS ORDERED: CEFEPIME 2,000 MG/20 ML VIAL IV STA (13:16)
[2019-05-28] MEDS ORDERED: FUROSEMIDE 40 MG/4 ML VIAL IV STA (13:24)
[2019-05-28 13:53] LABS: Troponin I < 0.015 ng/ml (0-0.045)
--- NOTE | 2019-05-28 14:14 | Emergency Department Note ---
Entered by Asha Brown acting as a scribe for Tobin Rolle MD History of Present Illness General Chief complaint: Shortness of Breath/Dyspnea Time Seen by Provider: 05/28/19 11:21 Source: patient and family (son) History of Present Illness Provider complaint: cough Onset (ago): day(s) 2 Location: chest Severity: similar to prior episodes Quality: + other (shortness of breath) Associated symptoms: + other (Negative black stool; Negative bloody stool; Negative trauma); no chest pain, no cough (no production) and no fever/chills The patient, who is a 78 year old female with a medical history of osteoarthritis, hyperlipidemia, osteoporosis, presents to the Emergency Room with complaints of shortness of breath that started 2 days ago. The patient's son states that the patient has had this cough until she is out of breath. The patient denies fever, chest pain, black stool, bloody stool, diarrhea, weakness or recent trauma. The patient notes that her cancer has traveled to her liver and head. The patient state that she has had no recent transfusions but she is scheduled for head radiation in three days. The patient states that this radiation is due to multiple spots that were seen on her scans. The patient's son states that last month the patient was on a 5-day bus trip and when she returned she had fluid in her lungs. The patient's son reports that the patient had steroids and improved after treatment. The patient denies that she is on blood thinners. The patient verbally confirms DNR status. Home Medications Home Medications Medication Instructions Recorded Confirmed Type cholecalciferol (vitamin D3) 1,000 unit PO DAILY 04/11/18 05/28/19 History [Vitamin D3] metoprolol succinate 100 mg PO DAILY 04/11/18 05/28/19 History mirtazapine 7.5 mg PO HS 04/11/18 05/28/19 History multivitamin 1 tab PO DAILY 04/11/18 05/28/19 History sodium chloride 1,000 mg PO BID 04/11/18 05/28/19 History ascorbate calcium (vitamin C) 500 500 mg PO DAILY 11/04/18 05/28/19 History mg tablet amiodarone 200 mg tablet 100 mg PO DAILY tab 02/17/19 05/28/19 History apixaban 2.5 mg tablet 2.5 mg PO BID #60 tab 03/29/19 05/28/19 Rx rosuvastatin 5 mg tablet 2.5 mg PO DAILY tab 05/04/19 05/28/19 History vit C-vit Y-npshdz-crol ox-lutein 1 cap PO DAILY cap 05/04/19 05/28/19 History 226 mg-200 unit-5 mg-0.8 mg capsule ipratropium bromide 0.03 % nasal 2 sprays INTNAS DAILY ml 05/07/19 05/28/19 History spray ondansetron 8 mg disintegrating 8 mg PO Q8H 05/24/19 05/28/19 History tablet osimertinib 40 mg tablet 40 mg PO DAILY 05/24/19 05/28/19 History Allergies Allergy/AdvReac Type Severity Reaction Status Date / Time bee venom protein (honey bee) Allergy Intermediate Verified 05/28/19 12:25 latex Allergy Unknown Verified 05/28/19 12:25 No Known Drug Allergies Allergy Verified 05/28/19 12:25 adhesive tape AdvReac Intermediate Verified 05/28/19 12:25 Past Med/Surg History Medical History Atrial fibrillation DX 2012 - ORAL MEDS ONLY - FOLLOWS W/ DR. NEWTON AND DR. HOLDER AV reentrant tachycardia Chronic otitis media with effusion, bilateral (Resolved) Surgical History History of appendectomy (Resolved) History of cardiac cath (Resolved) 09/2017 - WENT TO [facility] ER W/ RAPID HR - NO STENTS/ANGIOPLASTY - FOLLOWS W/ DR. NEWTON AND DR. HOLDER History of cataract surgery (Resolved) History of colonoscopy (Resolved) History of placement of ear tubes History of total abdominal hysterectomy and bilateral salpingo-oophorectomy (Resolved) Hx of tonsillectomy (Resolved) Family History Unknown Sinusitis Valvular heart disease Other No family history of bleeding disorder Social History Preferred Language: Serbian Communication Ability: Effective Press Tender Smoke Signal Required: No Beliefs That Will Affect Care: None marital status: current occupational status: retired Feels Safe at Home: Yes Smoking Status: Never smoker Second Hand Exposure: No ; Hx Alcohol Use: No Hx Substance Use: No Review of Systems See HPI for pertinent positives & negatives. and A total of 10 systems reviewed and were otherwise negative Physical Exam Vital Signs Vital Signs - 24 hr 05/28/19 11:01 05/28/19 11:12 05/28/19 11:17 Temperature 36.4 C L Temperature Source Oral Pulse Rate 79 76 Pulse Rate [Left] Respiratory Rate 20 22 Respiratory Effort / Characteristics Labored Respiratory Depth Normal Respiratory Pattern Regular Blood Pressure 180/76 H Blood Pressure [Left Arm] Blood Pressure Mean 110 Blood Pressure Mean [Left Arm] Blood Pressure Position Sitting Blood Pressure Position [Left Arm] Pulse Oximetry 87 L 85 L Oxygen Delivery Method Room Air Room Air Room Air Oxygen Flow Rate 3 Sepsis Recent Fever Within 48 Hours No Sepsis Action Taken by Nursing No Action Required 05/28/19 12:36 05/28/19 13:47 05/28/19 14:45 Temperature Temperature Source Pulse Rate 69 Pulse Rate [Left] 68 68 65 Respiratory Rate 20 20 22 Respiratory Effort / Characteristics Spontaneous Spontaneous Spontaneous Respiratory Depth Respiratory Pattern Blood Pressure Blood Pressure [Left Arm] 182/68 H 163/69 H 165/72 H Blood Pressure Mean Blood Pressure Mean [Left Arm] 106 100 103 Blood Pressure Position Blood Pressure Position [Left Arm] Lying Lying Lying Pulse Oximetry 94 94 94 Oxygen Delivery Method Nasal Cannula Nasal Cannula Nasal Cannula Oxygen Flow Rate 3 3 3 Sepsis Recent Fever Within 48 Hours Sepsis Action Taken by Nursing General: Chronically-ill appearing pale older female in no acute distress. HEENT: Normal cephalic atraumatic. Pupils are equal round and reactive to light. Extraocular movements are intact. Oropharynx is pink with moist mucous membranes. No swelling of the mouth lips or tongue. Neck: Supple with a midline trachea. No meningeal signs or stiffness, no JVD or bruits. No Stridor. Chest: Clear to auscultation bilaterally. No wheezes or rhonchi. No increased work of breathing. Heart: regular rate and rhythm. Abdomen: Soft nontender, nondistended without rebound guarding or rigidity. Extremities: No cyanosis clubbing or edema. No calf tenderness or asymmetry Spine/Back. Non tender to palpation. No CVA tenderness Skin: Good turgor without rashes. Neurologic exam: Cranial nerves two through 12 are intact. Motor and sensation are intact and symmetrical throughout. Course Course 1123: Past medical records reviewed. The patient was evaluated in room C2. A complete history and physical exam was performed. 1204: I reassessed the patient who is resting comfortably 1321: I reassessed the patient and ordered antibiotics to be administered. I have determined that the patient needs to come in for further evaluation. 1322: I reviewed the patient's case with Dr. Francis, Oncologist. He agrees to antibiotic treatments and thinks it is mostly relate to her heart. 1329: I reviewed the patient's case with Dr. Preston, [facility] Hospitalist. He will evaluate the patient for further management. Consultations Consultation #1: I reviewed the patient's case with Dr. Francis, Oncologist. He agrees to antibiotic treatments and thinks it is mostly relate to her heart. Time: 13:22 Consultation #2: I reviewed the patient's case with Dr. Preston, [facility] Hospitalist. He will evaluate the patient for further management. Time: 13:29 Administered Medications Discontinued Medications Furosemide (Lasix) 20 mg IV NOW STA Stop: 05/28/19 13:25 Last Admin: 05/28/19 14:47 Dose: Not Given Documented by: [id number] Cefepime HCl (Maxipime) 2,000 mg in 20 mls @ 5 mls/min IV NOW STA Stop: 05/28/19 13:19 Last Admin: 05/28/19 13:26 Dose: 5 mls/min Documented by: [id number] Critical Care Time Critical Care Time: Yes Total Critical Care Time: 35 I have personally spent greater than 35 minutes of critical care time in the direct management of this patient. This includes bedside care, interpretation of diagnostic studies, and testing, discussion with consultants, patient, and family members, and other required patient management activities. This 35 minutes is in excess of all separately billable procedures. Medical Decision Making Differential Diagnosis Differential diagnosis includes: congestive heart failure, sepsis, chronic obstructive pulmonary disease, cancer compliations, cardiac disease, as well as others were entertained. Medical Records Attestation: I reviewed the patient's medical records. Home Medications Current Medication List: was personally reviewed by me Laboratory Data Attestation: I reviewed the patient's lab results. Result diagrams: 05/28/19 11:23 05/28/19 11:23 Lab Results 11/05/28/19 05/28/19 Range/Units 11:23 11:23 11:23 WBC 11.21 H (4.8-10.8) K/uL RBC 3.05 L (4.2-5.4) M/uL Hgb 9.6 L (12.0-16.0) g/dL Hct 28.1 L (37-47) % MCV 92.1 (80-100) fL MCH 31.5 (25-34) pg MCHC 34.2 (32-36) g/dL RDW Std Deviation 45.0 (36.4-46.3) fL RDW Coeff of Andreas 13.5 (11.5-14.5) % Plt Count 236 (130-400) K/uL MPV 8.6 (7.4-10.4) fL Immature Gran % (Auto) 0.2 % Neut % (Auto) 81.4 % Lymph % (Auto) 4.4 % [place] % (Auto) 11.6 % Eos % (Auto) 2.2 % Baso % (Auto) 0.2 % Immature Gran # (Auto) 0.02 (0.00-0.02) K/uL Neut # (Auto) 9.13 H (1.4-6.5) K/uL Lymph # (Auto) 0.49 L (1.2-3.4) K/uL [place] # (Auto) 1.30 H (0.11-0.59) K/uL Eos # (Auto) 0.25 (0-0.5) K/uL Baso # (Auto) 0.02 (0-0.2) K/uL PT 12.0 (9.0-12.0) Seconds INR 1.2 H (0.9-1.1) APTT 34.0 H (21.0-31.0) Seconds PTT Ratio 1.3 Sodium 126 L (136-145) mmol/L Potassium 3.8 (3.5-5.1) mmol/L Chloride 94 L (98-107) mmol/L Carbon Dioxide 24 (21-32) mmol/L Anion Gap 8.0 (3-11) BUN 21 H (7-18) mg/dl Creatinine 0.73 (0.6-1.2) mg/dl Est Cr Clr Drug Dosing 54.0 ml/min Est GFR ( Amer) 90.8 Est GFR (Non-Af Amer) 78.3 BUN/Creatinine Ratio 28.3 H (10-20) Glucose 95 (70-99) mg/dl Lactate (0.4-2.0) mmol/L Calcium 8.5 (8.5-10.1) mg/dl Total Bilirubin 0.7 (0.2-1) mg/dl AST 24 (15-37) U/L ALT 27 (12-78) U/L Alkaline Phosphatase 79 (45-117) U/L Troponin I (0-0.045) ng/ml NT-Pro-B Natriuret Pep 8833 H (0-1800) pg/ml Total Protein 6.2 L (6.4-8.2) gm/dl Albumin 2.8 L (3.4-5.0) gm/dl Globulin 3.4 (2.5-4.0) gm/dl Albumin/Globulin Ratio 0.8 L (0.9-2) Blood Type Antibody Screen 05/28/19 05/28/19 05/28/19 Range/Units 11:23 12:01 12:01 WBC (4.8-10.8) K/uL RBC (4.2-5.4) M/uL Hgb (12.0-16.0) g/dL Hct (37-47) % MCV (80-100) fL MCH (25-34) pg MCHC (32-36) g/dL RDW Std Deviation (36.4-46.3) fL RDW Coeff of Andreas (11.5-14.5) % Plt Count (130-400) K/uL MPV (7.4-10.4) fL Immature Gran % (Auto) % Neut % (Auto) % Lymph % (Auto) % [place] % (Auto) % Eos % (Auto) % Baso % (Auto) % Immature Gran # (Auto) (0.00-0.02) K/uL Neut # (Auto) (1.4-6.5) K/uL Lymph # (Auto) (1.2-3.4) K/uL [place] # (Auto) (0.11-0.59) K/uL Eos # (Auto) (0-0.5) K/uL Baso # (Auto) (0-0.2) K/uL PT (9.0-12.0) Seconds INR (0.9-1.1) APTT (21.0-31.0) Seconds PTT Ratio Sodium (136-145) mmol/L Potassium (3.5-5.1) mmol/L Chloride (98-107) mmol/L Carbon Dioxide (21-32) mmol/L Anion Gap (3-11) BUN (7-18) mg/dl Creatinine (0.6-1.2) mg/dl Est Cr Clr Drug Dosing ml/min Est GFR ( Amer) Est GFR (Non-Af Amer) BUN/Creatinine Ratio (10-20) Glucose (70-99) mg/dl Lactate 0.6 (0.4-2.0) mmol/L Calcium (8.5-10.1) mg/dl Total Bilirubin (0.2-1) mg/dl AST (15-37) U/L ALT (12-78) U/L Alkaline Phosphatase (45-117) U/L Troponin I < 0.015 (0-0.045) ng/ml NT-Pro-B Natriuret Pep (0-1800) pg/ml Total Protein (6.4-8.2) gm/dl Albumin (3.4-5.0) gm/dl Globulin (2.5-4.0) gm/dl Albumin/Globulin Ratio (0.9-2) Blood Type A Positive Antibody Screen NEGATIVE Imaging Data Radiologist's Impression: Radiology results as stated below per my review and the radiologist's interpretation: XR chest 1V portable CLINICAL HISTORY: Sepsis dyspnea COMPARISON STUDY: 04/04/2018 FINDINGS: Interval development of pulmonary edema versus diffuse bilateral parenchymal infiltrative change. Mild cardiomegaly. Prominent pulmonary vasculature. IMPRESSION: Pulmonary edema versus diffuse bibasilar parenchymal infiltrates. The above report was generated using voice recognition software. It may contain grammatical, syntax or spelling errors. Electronically signed by: Mihir Oliveira M.D. 05/28/2019 12:46 PM ECG Data Attestation: I personally reviewed and interpreted this ECG as follows: Indication: + SOB/dyspnea Rate (beats per minute): 76 Rhythm: + normal sinus ECG ST segments: + Normal ST segments (Non-specific ST abnormality) Comparison ECG Date: from (04/11/2018) Change: no significant change Blood Pressure Blood Pressure Findings: Elevated blood pressure Blood Pressure Disposition: further management by hospitalist MDM Narrative This patient comes in as described above. She was placed in room C2. she is having shortness of breath. She was significantly hypoxemic in triage with an O2 sat of 85%. She was placed on oxygen and now she appears comfortable in the low to mid 90s. Her lungs sound crackly bilaterally. She does have history of aortic stenosis and valvular heart disease. This is also complicated by the fact that she has lung cancer and is also on a chemotherapeutic agent.she had a similar episode about a month ago and had stopped her chemo and it was restarted about a week ago. The working diagnosis is this is most likely related to her heart. It could also be related to infection and she was covered with IV cefepime 2 g. Her lactic acid is not elevated and white count is not significantly elevated. Her chest x-ray does show bilateral infiltrates which is congestive heart failure versus pneumonia versus inflammatory. I did discuss the case with her oncologist who feels is most likely related to heart rather than side effect from the medication. I do think she needs to be admitted/observe for further inpatient treatment and evaluation she may need diuresis or further evaluation from a cardiac standpoint. I did consult Dr. Gipson to see her in the ER for these measures. Impression & Plan Hypoxemia, Congestive heart failure (CHF), Lung cancer, SOB (shortness of breath) Discharge Plan Visit Data Chief Complaint: Shortness of Breath/Dyspnea ED Provider: Tobin Rolle Discharge Problem: Hypoxemia, Congestive heart failure (CHF), Lung cancer, SOB (shortness of breath) Patient Disposition: Being Evaluated by Hospitalist Forms Stand Alone Forms: My [facility], Important Visit Information Prescriptions Prescriptions: No Action ascorbate calcium (vitamin C) 500 mg tablet 500 mg PO DAILY RF: 0 amiodarone 200 mg tablet 100 mg PO DAILY RF: 0 Eliquis 2.5 mg tablet 2.5 mg PO BID Qty: 60 RF: 5 Tagrisso 40 mg tablet 40 mg PO DAILY RF: 0 ondansetron 8 mg tablet,disintegrating 8 mg PO Q8H RF: 0 ipratropium bromide 0.03 % spray,non-aerosol 2 sprays INTNAS DAILY RF: 0 rosuvastatin 5 mg tablet 2.5 mg PO DAILY RF: 0 multivitamin Tablet 1 tab PO DAILY RF: 0 metoprolol succinate 100 mg tablet extended release 24 hr 100 mg PO DAILY RF: 0 sodium chloride 1 gram Tablet 1,000 mg PO BID RF: 0 mirtazapine 15 mg Tablet 7.5 mg PO HS RF: 0 cholecalciferol (vitamin D3) [Vitamin D3] 1,000 unit Tablet 1,000 unit PO DAILY RF: 0 PreserVision Lutein 226 mg-200 unit -5 mg-0.8 mg capsule 1 cap PO DAILY RF: 0 Referrals Referrals: Martinez Holcomb MD [Primary Care Provider] - Discharge Problem: Congestive heart failure (CHF) Qualifiers: Heart failure type: unspecified Heart failure chronicity: unspecified Qualified Code(s): I50.9 - Heart failure, unspecified Lung cancer Qualifiers: Laterality: unspecified laterality Lung location: unspecified part of lung Qualified Code(s): C34.90 - Malignant neoplasm of unspecified part of unspecified bronchus or lung The scribe's documentation has been prepared under my direction and personally reviewed by me in its entirety. I confirm that the note above accurately reflects all work, treatment, procedures, and medical decision making performed by me.
--- NOTE | 2019-05-28 15:01 | History & Physical Report ---
Date of Service May 28, 2019 Assessment & Plan (1) Acute respiratory failure: Admit to PCU on telemetry Vital signs every 4 hours Continue cefepime 2 g IV every 12 hours and added doxycycline 100 mg IV every 12 hours empirically. For pulmonary edema patient is started on furosemide 20 mg IV twice daily. For high blood pressure started hydralazine 10 mg p.o. 4 times daily as needed. Continue with apixaban 2.5 mg p.o. twice daily for A. fib's and DVT prophylaxis. Started no DuoNeb every 4 hours as needed for shortness of breath. Started Symbicort 2 puffs twice daily. Patient is a DNR/DNI Present on Admission?: Yes (2) Hypoxemia: As discussed above Present on Admission?: Yes (3) Congestive heart failure (CHF): TTE pending Patient has pulmonary edema Started furosemide 20 mg IV twice daily. Monitor strict in and out Daily weight We water restriction p.o. to 1200 cc daily. Present on Admission?: Yes (4) Lung cancer: Consult Dr. Lezama oncologist. Present on Admission?: Yes (5) Atrial fibrillation: Continue apixaban 2.5 mg p.o. Present on Admission?: Yes (6) Aortic diastolic murmur: Stable, patient supposed to have a procedure for the valve replacement in 2018, but exactly at that time when she was preoperative it was discovered that patient has a lung cancer so procedure was aborted. Present on Admission?: Yes (7) CAD (coronary artery disease): Stable, continue home medicine: Amiodarone 200 mg p.o. daily, apixaban 2.5 p.o. twice daily, metoprolol succinate 100 mg p.o. daily. Present on Admission?: Yes (8) Hyponatremia: Sodium is 126, continue monitoring, continue sodium chloride 1 g p.o. twice daily. Present on Admission?: Yes (9) Lung cancer metastatic to brain: Continue osimertinib 40 mg p.o. daily. Patient supposed to have radiation therapy of her brain for brain metastases in 3 days. If patient condition improves she should be able to attend the procedure. Please discuss with Dr. Michael Rosa and Dr. Winters. Present on Admission?: Yes (10) Hypertension: Continue home medicine: Amiodarone 200 mg p.o. daily, apixaban 2.5 mg p.o. twice daily, metoprolol succinate 100 mg p.o. daily, apixaban 2.5 mg p.o. daily. 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 nightly. Present on Admission?: Yes History of Present Illness Chief Complaint: Shortness of breath Primary Care Provider: Martinez Holcomb MD Patient is a 78 years old female with a past medical history of hypertension, congestive heart failure, coronary artery disease, aortic stenosis, hyponatremia, SVTs, hearing loss, osteoporosis, on anticoagulation, mitral stenosis, hyperlipidemia, aortic diastolic murmur, atrial fibrillation, metastatic lung ridyav-ljz-favkt cell carcinoma. Who was brought to the emergency room by her son with a complaint of shortness of breath that started 2 days ago. Patient son who is next at the bedside states that patient had persistent cough and she is out of breath. Patient reports that she has metastasis of the cancer to the liver and her head. She is followed by Dr. Francis who is her legal operations manager oncologist. Patient is on a apixaban 2.5 mg p.o. twice daily for anticoagulation for A. fib's and she also takes osimertinib 40 mg p.o. daily (Tagrisso)for metastatic lung cancer. Patient was off of medicine from March 31 to May 12 and then she was restarted again after the May 12. She is scheduled to have continuation of radiation therapy in 3 days. Her last radiation therapy was completed on December 24, 2017. Patient has a cancer since September 2017. Patient did have MRI of the brain completed on 05/10/2019 with a new lesion involving the right temporal lobe. Patient is asymptomatic in regards of lesions in her brain. Patient denies fever, chills, headache, chest pain, abdominal pain, frequency, urgency. Labs are reviewed: WBCs 11.21, hemoglobin 9.6, hematocrit 28.1, platelets 236, PT 12, INR 1.2, APTT 34. Sodium 126, potassium 3.8, chloride 94, BUN 21, GFR 78.3, lactate 0.6, AST 24, ALT 27, BNP 8833, troponin 0 0.015 neg, TSH 2.36. Chest x-ray show pulmonary edema versus diffuse bibasilar parenchymal infiltrates. Mild cardiomegaly. Prominent pulmonary vasculature. Decision was made to admit patient to PCU on telemetry for pulmonary edema and metastatic lung cancernon- small cell carcinoma and possibly pneumonia. In the emergency room patient needed supplemental oxygen, which she usually does not use at home. In the ER she was given cefepime 2 g stat. Allergies Allergy/AdvReac Type Severity Reaction Status Date / Time bee venom protein (honey bee) Allergy Intermediate Verified 05/28/19 12:25 latex Allergy Unknown Verified 05/28/19 12:25 No Known Drug Allergies Allergy Verified 05/28/19 12:25 adhesive tape AdvReac Intermediate Verified 05/28/19 12:25 Home Medications Home Medications Medication Instructions Recorded Confirmed Type cholecalciferol (vitamin D3) 1,000 unit PO DAILY 04/11/18 05/28/19 History [Vitamin D3] metoprolol succinate 100 mg PO DAILY 04/11/18 05/28/19 History mirtazapine 7.5 mg PO HS 04/11/18 05/28/19 History multivitamin 1 tab PO DAILY 04/11/18 05/28/19 History sodium chloride 1,000 mg PO BID 04/11/18 05/28/19 History ascorbate calcium (vitamin C) 500 500 mg PO DAILY 11/04/18 05/28/19 History mg tablet amiodarone 200 mg tablet 100 mg PO DAILY tab 02/17/19 05/28/19 History apixaban 2.5 mg tablet 2.5 mg PO BID #60 tab 03/29/19 05/28/19 Rx rosuvastatin 5 mg tablet 2.5 mg PO DAILY tab 05/04/19 05/28/19 History vit C-vit P-jaknep-krgb ox-lutein 1 cap PO DAILY cap 05/04/19 05/28/19 History 226 mg-200 unit-5 mg-0.8 mg capsule ipratropium bromide 0.03 % nasal 2 sprays INTNAS DAILY ml 05/07/19 05/28/19 History spray ondansetron 8 mg disintegrating 8 mg PO Q8H 05/24/19 05/28/19 History tablet osimertinib 40 mg tablet 40 mg PO DAILY 05/24/19 05/28/19 History Past Med/Surg History Medical History Atrial fibrillation DX 2012 - ORAL MEDS ONLY - FOLLOWS W/ DR. NEWTON AND DR. HOLDER AV reentrant tachycardia Chronic otitis media with effusion, bilateral (Resolved) Surgical History History of appendectomy (Resolved) History of cardiac cath (Resolved) 09/2017 - WENT TO [facility] ER W/ RAPID HR - NO STENTS/ANGIOPLASTY - FOLLOWS W/ DR. NEWTON AND DR. HOLDER History of cataract surgery (Resolved) History of colonoscopy (Resolved) History of placement of ear tubes History of total abdominal hysterectomy and bilateral salpingo-oophorectomy (Resolved) Hx of tonsillectomy (Resolved) Family History Unknown Sinusitis Valvular heart disease Other No family history of bleeding disorder Social History Preferred Language: Tamazight Communication Ability: Effective Book Author Required: No Beliefs That Will Affect Care: None marital status: Current Living Situation: Alone current occupational status: retired Other Information That Helps Us Care for You: No Feels Safe at Home: Yes Safety Concerns: Feels Safe At This Time Smoking Status: Never smoker Second Hand Exposure: No ; Hx Alcohol Use: No Hx Substance Use: Yes substance use type: does not use Review of Systems Review of Systems: All systems reviewed & are unremarkable except as noted in HPI & below Physical Exam Constitutional: WD/WN, vitals as above well developed and + cachectic Eyes: PERRL, conjunctivae normal, anicteric sclerae ENMT: external ear and nose normal, oropharynx normal Neck: trachea midline, no thyromegaly Respiratory: + respiratory distress Auscultation: + wheezes, + bronchovesicular breath sounds and + egophony Cardiovascular: Heart Sounds: normal S1, normal S2 and + murmur Palpation: + palpable S3 Vessels: dorsalis pedis pulses present Extremities: + pedal edema Musculoskeletal: no cyanosis or clubbing, extremities motor strength 5/5 Skin: no rashes, warm and dry Neurologic: patellar DTR's 2+ bilat, sensation intact Psychiatric: A+Ox3, euthymic affect Lymphatic: no cervical or axillary lymphadenopathy Results & Data Vital Signs (Past 12 Hours) Vital Signs Temp Pulse Pulse Resp BP BP Pulse Ox 05/28/19 14:45 65 22 165/72 H 94 05/28/19 13:47 68 20 163/69 H 94 05/28/19 12:36 69 68 20 182/68 H 94 05/28/19 11:12 76 22 85 L 05/28/19 11:01 36.4 C L 79 20 180/76 H 87 L Code Status & VTE Plan Code Status Full code VTE Prophylaxis Plan VTE Prophylaxis will be ordered: Yes PG Care Time/CCT Total # of Minutes Spent Total Time Spent with Patient: Total time spent is greater than 50% in coordination of care (as documented) at patient's floor/unit and/or counseling patient: (1) Congestive heart failure (CHF) Heart failure chronicity: unspecified Heart failure type: unspecified Qualified Code(s): I50.9 - Heart failure, unspecified (2) Lung cancer Laterality: unspecified laterality Lung location: unspecified part of lung Qualified Code(s): C34.90 - Malignant neoplasm of unspecified part of unspecified bronchus or lung
[2019-05-28] MEDS ORDERED: MAGNESIUM HYDROXIDE SUSP 30 ML UDC PO PRN (15:59)
[2019-05-28] MEDS ORDERED: ACETAMINOPHEN 325 MG TAB PO PRN (15:59)
[2019-05-28] MEDS ORDERED: ALUMINUM/MAGNESIUM SUSP 30 ML UDC PO PRN (15:59)
[2019-05-28] MEDS ORDERED: ALBUT/IPRATROP 3MG/0.5MG NEB 3 ML VIAL NEB PRN (15:59)
[2019-05-28] MEDS ORDERED: ZOLPIDEM TARTRATE 5 MG TAB PO PRN (15:59)
[2019-05-28] MEDS ORDERED: ONDANSETRON 8MG OD TAB PO PRN (15:59)
[2019-05-28] MEDS ORDERED: ONDANSETRON INJ 2 MG/ML 2 ML VIAL IV PRN (15:59)
[2019-05-28] MEDS ORDERED: POLYETHYLENE (MIRALAX) 17 GM PACK PO PRN (15:59)
[2019-05-28] MEDS: DOXYCYCLINE HYCLATE 100 MG in DEXTROSE 5% 100 ML IV SCH (18:18)
[2019-05-28] MEDS ORDERED: Nursing to Pharmacy Communication ONE (19:03)
[2019-05-28] MEDS ORDERED: FUROSEMIDE 40 MG/4 ML VIAL IV ONE (20:17)
[2019-05-28] MEDS: FUROSEMIDE 20 MG in SYRINGE 0 ML IV SCH (20:29)
[2019-05-28] MEDS: MIRTAZAPINE TAB 15 MG TAB PO SCH (20:29)
[2019-05-28] MEDS: APIXABAN 2.5 MG TAB PO SCH (20:30)
[2019-05-28] MEDS: SODIUM CHLORIDE 1 GM TABLET PO SCH (20:30)
[2019-05-28] MEDS ORDERED: HydrALAZINE 10 MG TAB PO PRN (21:00)
[2019-05-28] MEDS ORDERED: HydrALAZINE 10 MG TAB PO SCH (21:00)
[2019-05-29] MEDS: BUDESONIDE/FORMOTEROL FUMARATE 160/4.5 60 PUFFS/INHALER INH SCH ×3 (00:09→21:12)
[2019-05-29] MEDS: CEFEPIME 2,000 MG in SYRINGE 7.5 ML IV SCH ×2 (00:09→12:21)
[2019-05-29] MEDS ORDERED: FUROSEMIDE 20 MG in SYRINGE 0 ML IV ONE ×2 (03:57→11:30)
[2019-05-29] MEDS: DOXYCYCLINE HYCLATE 100 MG in DEXTROSE 5% 100 ML IV SCH ×2 (05:19→17:17)
[2019-05-29 06:18] LABS: Basophils # (auto) 0.03 K/uL (0-0.2); Basophils % (auto) 0.3 %; Eosinophils # (auto) 0.44 K/uL (0-0.5); Eosinophils % (auto) 4.4 %; Hematocrit (blood only) 29.2 % (37-47); Hemoglobin 10.2 g/dL (12.0-16.0); Immature Granulocytes # (auto) 0.01 K/uL (0.00-0.02); Immature Granulocytes % (auto) 0.1 %; Lymphocytes # (auto) 0.45 K/uL (1.2-3.4); Lymphocytes % (auto) 4.5 %; Mean Corpuscular Hemoglobin 31.8 pg (25-34); Mean Corpuscular Hgb Conc 34.9 g/dL (32-36); Mean Platelet Volume 8.6 fL (7.4-10.4); Monocytes % (auto) 9.9 %; Neutrophils # (auto) 8.16 K/uL (1.4-6.5); Neutrophils % (auto) 80.8 %; Platelet Count 235 K/uL (130-400); RDW Coefficient of Variation 13.3 % (11.5-14.5); Red Blood Count 3.21 M/uL (4.2-5.4); White Blood Count 10.09 K/uL (4.8-10.8)
[2019-05-29 07:11] LABS: Albumin Globulin Ratio 0.8 (0.9-2); Albumin Level 2.8 gm/dl (3.4-5.0); BUN Creatinine Ratio 19.5 (10-20); Calcium 8.6 mg/dl (8.5-10.1); Creatinine Clr Calc Pharmacy 42.5 ml/min; Est GFR (African American) 80.1; Est GFR (Non-African American) 69.1; Globulin 3.4 gm/dl (2.5-4.0); Potassium 3.1 mmol/L (3.5-5.1); Total Protein 6.2 gm/dl (6.4-8.2)
[2019-05-29 07:30] LABS: Estimated Average Glucose 103 mg/dl; Hemoglobin A1C 5.2 % (4.5-5.6)
[2019-05-29] MEDS ORDERED: POTASSIUM CHLORIDE 20 MEQ TABCR PO STA ×2 (07:33→07:38)
[2019-05-29] MEDS: FUROSEMIDE 20 MG in SYRINGE 0 ML IV SCH (07:52)
[2019-05-29] MEDS: ASCORBIC ACID 500 MG TAB PO SCH (07:53)
[2019-05-29] MEDS: CHOLECALCIFEROL 1,000 UNITS TAB PO SCH (07:53)
[2019-05-29] MEDS: METOPROLOL SUCC 50MG EXT REL TAB PO SCH (07:53)
[2019-05-29] MEDS: AMIODARONE 200 MG TAB PO SCH (07:53)
[2019-05-29] MEDS: MULTIVITAMIN TAB PO SCH (07:53)
[2019-05-29] MEDS: ROSUVASTATIN CALCIUM 5 MG TAB PO SCH (07:54)
[2019-05-29] MEDS: APIXABAN 2.5 MG TAB PO SCH ×2 (07:54→21:12)
[2019-05-29] MEDS: CEROVITE ADV FORMULA TAB PO SCH (07:54)
[2019-05-29] MEDS: SODIUM CHLORIDE 1 GM TABLET PO SCH ×2 (07:54→21:12)
--- NOTE | 2019-05-29 07:59 | Hospitalist Progress Note ---
Date of Service May 29, 2019 Assessment & Plan (1) Acute respiratory failure: Pt is a 78yo with a PMHx significant for metastatic lung cancer, chronic hyponatremia, aortic stenosis, atrial fibrillation (on Amiodarone and low dose apixaban), HTN, HLD who presented in acute hypoxic respiratory failure. Acute hypoxic Respiratory failure -Pt presented with hypoxia, O2 sats in the high 80s. -No home oxygen requirement, however requiring oxymask at 5L -Chest XR- shows more likely pleural effusions vs. pneumonitis -BNP elevated >9000, mildly elevated WBC, procal negative, no systemic symptoms -consistent with a CHF exacerbation picture secondary to recent thanksgiving meal and Hx of severe aortic stenosis vs. chemotherapy sideeffect -continue IV Lasix at 40mg BID; additional 1 time IV Lasix 20mg dose given. -MRSA nares pending -continue abx-will transition to narrower drug regimen to start in the AM to cover for possible infection -continue scheduled symbicort, PRN duonebs -will continue to monitor Chronic Hyponatremia -Pt with hyponatremia, takes home sodium -will continue home sodium 1g BID despite concern for fluid overload as above Metastatic lung cancer -Hx of metastatic non-small cell carcinoma -discontinue home chemotherapy osimertinib 40mg -there was some concern of a possible cause of chronic cough and CHF presentation -consult placed to Dr. Francis while hospitalized-appreciate recs -continue home calcium, Vit D, multivitamin -zofran as needed Aortic Stenosis -severe, stable -Follows with cardiology Atrial Fibrillation -EKG 05/28 with NSR; qtc 470 -continue amiodarone -continue Apixaban 2.5mg BID HTN -continue home metoprolol succ 100mg HLD -continue home rosuvastatin 2.5mg daily Insomnia -continue home remeron Diet: Low sodium, Heart healthy DVT prophylaxis: Home Eliquis CODE STATUS: DNR/DNI Dispo: D/c pending improvement in dyspnea Supervising Physician Co-Signing Physician Notes I personally examined the patient and verified all mott points of history and exam, discussed case, and agree with decision making with Dr Courtney. Feeling better and breathing better. Less short of breath. No fevers chills sweats or body aches. Cough was nonproductive. Maybe gained a pound or 2. Did feel significantly worse over the last day or so (after ). In general she is awake and alert pleasant no distress. HEENT normocephalic atraumatic mucous membranes are moist. Lungs show diffuse rales throughout no rhonchi no wheezes good effort no accessory muscle use. Vitals noted. Hypoxiaseems to be predominantly due to CHF (see below) also question of und erlying infection, but certainly carries a very low risk for nosocomial pathogens and will de-escalate antibiotics today, with a low threshold to discontinue entirely. Acute on chronic diastolic CHF mediated by severe aortic stenosisstart clear how much physiologic stress from any type of respiratory infection may have played a role, as well as how much if any her chemotherapy played a role, but certainly with common things being common in An being right around whenever she suddenly started to worsen, it appears that sodium intake above her normal level did play a role. Hyponatremiaacute seems to be due to volume overload, chronic less clear. She does note that she is on salt tabs routinely, which obviously would be somewhat concerning with her CHF, except for the fact that she is been on them for quite a while without any fluid overload related specifically to that. Otherwise as above Subjective Ms. Mathur seen this AM. States she feels better from yesterday. Denies any SOB currently but has oxymask on. States she has some swelling in her ankles that is chronic. No official dx of CHF per patient but significant aortic stenosis. Denies any headache, changes to vision, dizziness, weakness, chest pain, palpitations, abdominal pain, diarrhea or constipation or numbness or tingling anywhere. Review of Systems Review of Systems: All systems reviewed & are unremarkable except as noted in HPI & below Physical Exam Physical Exam: General: Alert, oriented. No acute distress, sitting up in bed. Skin: No noted rashes or bruises Psych: Appropriate mood and affect Neuro: No gross deficits HEENT: NC/AT Chest: Nontender to palpation. CV: regular rate and rhythm. BLOWING murmur appreciated Resp: Breath sounds with diffuse rales. Abdomen: Soft, nontender, nondistended. No guarding. No organomegaly appreciated. Extremities: Trace edema in lower extremities bilaterally. Results & Data Vital Signs (Past 12 Hours) Vital Signs Temp Pulse Pulse Resp BP BP Pulse Ox 05/29/19 06:57 36.7 C 67 19 163/69 H 95 05/29/19 04:10 28 H 94 05/29/19 03:15 92 05/29/19 03:08 36.7 C 77 18 155/63 H 88 L 05/29/19 00:00 72 05/28/19 23:03 36.6 C 79 20 124/62 91 05/28/19 20:15 169/71 H Laboratory Results Laboratory Results - last 24 hr 05/28/19 05/28/19 05/29/19 11:23 12:01 05:34 WBC 10.09 RBC 3.21 L Hgb 10.2 L Hct 29.2 L MCV 91.0 MCH 31.8 MCHC 34.9 RDW Std Deviation 44.0 RDW Coeff of Andreas 13.3 Plt Count 235 MPV 8.6 Immature Gran % (Auto) 0.1 Neut % (Auto) 80.8 Lymph % (Auto) 4.5 Monona % (Auto) 9.9 Eos % (Auto) 4.4 Baso % (Auto) 0.3 Immature Gran # (Auto) 0.01 Neut # (Auto) 8.16 H Lymph # (Auto) 0.45 L Monona # (Auto) 1.00 H Eos # (Auto) 0.44 Baso # (Auto) 0.03 Sodium Potassium Chloride Carbon Dioxide Anion Gap BUN Creatinine Est Cr Clr Drug Dosing Est GFR ( Amer) Est GFR (Non-Af Amer) BUN/Creatinine Ratio Glucose Estimat Average Glucose Hemoglobin A1c Calcium Total Bilirubin AST ALT Alkaline Phosphatase Troponin I < 0.015 C-Reactive Protein NT-Pro-B Natriuret Pep Total Protein Albumin Globulin Albumin/Globulin Ratio Triglycerides Cholesterol LDL Cholesterol, Calc VLDL Cholesterol, Calc HDL Cholesterol Cholesterol/HDL Ratio Procalcitonin TSH 2.360 Nasal Screen MRSA (PCR) Blood Type A Positive Antibody Screen NEGATIVE 05/29/19 05/29/19 05/29/19 05:34 05:34 08:26 WBC RBC Hgb Hct MCV MCH MCHC RDW Std Deviation RDW Coeff of Andreas Plt Count MPV Immature Gran % (Auto) Neut % (Auto) Lymph % (Auto) Monona % (Auto) Eos % (Auto) Baso % (Auto) Immature Gran # (Auto) Neut # (Auto) Lymph # (Auto) Monona # (Auto) Eos # (Auto) Baso # (Auto) Sodium 127 L Potassium 3.1 L D Chloride 90 L Carbon Dioxide 27 Anion Gap 9.0 BUN 16 Creatinine 0.81 Est Cr Clr Drug Dosing 42.5 Est GFR ( Amer) 80.1 Est GFR (Non-Af Amer) 69.1 BUN/Creatinine Ratio 19.5 Glucose 95 Estimat Average Glucose 103 Hemoglobin A1c 5.2 Calcium 8.6 Total Bilirubin 1.0 AST 22 ALT 22 Alkaline Phosphatase 77 Troponin I C-Reactive Protein 10.10 H NT-Pro-B Natriuret Pep 9868 H Total Protein 6.2 L Albumin 2.8 L Globulin 3.4 Albumin/Globulin Ratio 0.8 L Triglycerides 58 Cholesterol 125 LDL Cholesterol, Calc 66 VLDL Cholesterol, Calc 12 HDL Cholesterol 47 Cholesterol/HDL Ratio 3 Procalcitonin TSH Nasal Screen MRSA (PCR) Blood Type Antibody Screen 05/29/19 05/29/19 08:26 12:10 WBC RBC Hgb Hct MCV MCH MCHC RDW Std Deviation RDW Coeff of Andreas Plt Count MPV Immature Gran % (Auto) Neut % (Auto) Lymph % (Auto) Monona % (Auto) Eos % (Auto) Baso % (Auto) Immature Gran # (Auto) Neut # (Auto) Lymph # (Auto) Monona # (Auto) Eos # (Auto) Baso # (Auto) Sodium Potassium Chloride Carbon Dioxide Anion Gap BUN Creatinine Est Cr Clr Drug Dosing Est GFR ( Amer) Est GFR (Non-Af Amer) BUN/Creatinine Ratio Glucose Estimat Average Glucose Hemoglobin A1c Calcium Total Bilirubin AST ALT Alkaline Phosphatase Troponin I C-Reactive Protein NT-Pro-B Natriuret Pep Total Protein Albumin Globulin Albumin/Globulin Ratio Triglycerides Cholesterol LDL Cholesterol, Calc VLDL Cholesterol, Calc HDL Cholesterol Cholesterol/HDL Ratio Procalcitonin 0.12 TSH Nasal Screen MRSA (PCR) Pending Blood Type Antibody Screen Medications Administered Home Medications cholecalciferol (vitamin D3) [Vitamin D3] 1,000 unit PO DAILY 04/11/18 [History Confirmed 05/28/19] metoprolol succinate 100 mg PO DAILY 04/11/18 [History Confirmed 05/28/19] mirtazapine 7.5 mg PO HS 04/11/18 [History Confirmed 05/28/19] multivitamin 1 tab PO DAILY 04/11/18 [History Confirmed 05/28/19] sodium chloride 1,000 mg PO BID 04/11/18 [History Confirmed 05/28/19] ascorbate calcium (vitamin C) 500 mg tablet 500 mg PO DAILY 11/04/18 [History Confirmed 05/28/19] amiodarone 200 mg tablet 100 mg PO DAILY tab 02/17/19 [History Confirmed 05/28/19] apixaban 2.5 mg tablet 2.5 mg PO BID #60 tab 03/29/19 [Rx Confirmed 05/28/19] rosuvastatin 5 mg tablet 2.5 mg PO DAILY tab 05/04/19 [History Confirmed 05/28/19] vit C-vit H-ayhucj-ehet ox-lutein 226 mg-200 unit-5 mg-0.8 mg capsule 1 cap PO DAILY cap 05/04/19 [History Confirmed 05/28/19] ipratropium bromide 0.03 % nasal spray 2 sprays INTNAS DAILY ml 05/07/19 [History Confirmed 05/28/19] ondansetron 8 mg disintegrating tablet 8 mg PO Q8H 05/24/19 [History Confirmed 05/28/19] osimertinib 40 mg tablet 40 mg PO DAILY 05/24/19 [History Confirmed 05/28/19] Active Medications Acetaminophen (Tylenol) 650 mg PO Q4H PRN PRN Reason: Pain or Fever Stop: 06/27/19 15:58 Al Hydrox/Mg Hydrox/Simethicone (Maalox) 15 ml PO Q4H PRN PRN Reason: Dyspepsia Stop: 06/27/19 15:58 Albuterol (Duoneb) 3 ml NEB Q4R PRN PRN Reason: shortness of breath Stop: 06/27/19 15:58 Amiodarone HCl (Cordarone) 100 mg PO DAILY [facility] Stop: 06/28/19 08:59 Last Admin: 05/29/19 07:53 Dose: 100 mg Documented by: Apixaban (Eliquis) 2.5 mg PO BID SONIDO Stop: 06/27/19 20:59 Last Admin: 05/29/19 07:54 Dose: 2.5 mg Documented by: Ascorbic Acid (Vitamin C) 500 mg PO DAILY SONIDO Stop: 06/28/19 08:59 Last Admin: 05/29/19 07:53 Dose: 500 mg Documented by: Budesonide/Formoterol Fumarate (Symbicort 160mcg/4.5mcg) 2 puffs INH BID SONIDO Stop: 06/27/19 23:14 Last Admin: 05/29/19 07:52 Dose: 2 puffs Documented by: Hydralazine HCl (Apresoline) 10 mg PO QID PRN PRN Reason: HYPERTENSION Stop: 06/27/19 20:59 Cefepime HCl 2,000 mg/ Syringe 20 mls @ 5.5 mls/min IV Q12H SONIDO; Protocol Stop: 06/05/19 00:59 Last Admin: 05/29/19 12:21 Dose: 5.5 mls/min Documented by: Doxycycline Hyclate 100 mg/ (Dextrose) 110 mls @ 50 mls/hr IV Q12H SONIDO Stop: 06/04/19 20:59 Last Infusion: 05/29/19 07:35 Dose: Infused Documented by: Furosemide 40 mg/ Syringe 4 mls @ 4 mls/min IV [id number] SONIDO Stop: 06/28/19 16:59 Magnesium Hydroxide (Milk Of Magnesia) 30 ml PO Q12H PRN PRN Reason: Constipation Stop: 06/27/19 15:58 Metoprolol Succinate (Toprol Xl) 100 mg PO DAILY SONIDO Stop: 06/28/19 08:59 Last Admin: 05/29/19 07:53 Dose: 100 mg Documented by: Mirtazapine (Remeron) 7.5 mg PO HS SONIDO Stop: 06/27/19 20:59 Last Admin: 05/28/19 20:29 Dose: 7.5 mg Documented by: Miscellaneous (Order Awaiting Action) 1 ea N/A QS SONIDO Stop: 06/28/19 00:00 Last Admin: 05/29/19 07:54 Dose: Not Given Documented by: Miscellaneous (Order Awaiting Action) 1 ea N/A QS SONIDO Stop: 06/28/19 00:00 Multivitamins (Multivitamin Tab) 1 tab PO DAILY SONIDO Stop: 06/28/19 08:59 Last Admin: 05/29/19 07:53 Dose: 1 tab Documented by: Multivitamins/Minerals (Multivitamin W/ Minerals Tab) 1 tab PO DAILY SONIDO Stop: 06/28/19 08:59 Last Admin: 05/29/19 07:54 Dose: 1 tab Documented by: Ondansetron HCl (Zofran Odt) 8 mg PO Q8H PRN PRN Reason: NAUSEA/VOMITTING Stop: 06/27/19 15:58 Ondansetron HCl (Zofran) 4 mg IV Q6H PRN PRN Reason: Nausea Stop: 06/27/19 15:58 Polyethylene Glycol (Miralax Powder Packet) 17 gm PO DAILY PRN PRN Reason: Constipation Stop: 06/27/19 15:58 Potassium Chloride (Klor-Con M20) 20 meq PO BID SONIDO Stop: 06/28/19 08:59 Last Admin: 05/29/19 08:08 Dose: 20 meq Documented by: Rosuvastatin Calcium (Crestor) 2.5 mg PO DAILY SONIDO Stop: 06/28/19 08:59 Last Admin: 05/29/19 07:54 Dose: 2.5 mg Documented by: Sodium Chloride (Sodium Chloride) 1 gm PO BID SONIDO Stop: 06/27/19 20:59 Last Admin: 05/29/19 07:54 Dose: 1 gm Documented by: Vitamin D (Vitamin D3) 1,000 units PO DAILY SONIDO Stop: 06/28/19 08:59 Last Admin: 05/29/19 07:53 Dose: 1,000 units Documented by: Zolpidem Tartrate (Ambien) 2.5 mg PO HS PRN PRN Reason: Sleep Stop: 06/27/19 15:58 Resident Activity Tracking Resident Involvement: Resident Care Provided Care Provided: Adult Hospital Medicine
[2019-05-29] MEDS: POTASSIUM CHLORIDE 20 MEQ TABCR PO SCH ×2 (08:08→21:12)
--- NOTE | 2019-05-29 13:31 | Oncology Consultation ---
Date of Consultation May 29, 2019 Assessment & Plan (1) SOB (shortness of breath): She appears to be experiencing pulmonary edema. She has and in conversation with her cardiologists, this is likely at least part of the issue. Tagrisso can cause cardiac complications and may be exacerbating the problem, particularly given the timing of this bout. For now, I would continue to hold the Tagrisso. I would consult cardiology or else discuss with her outpatient weight loss consultant any further intervention that might be necessary for her valvular disease. Tagrisso can cause a drug-induced pneumonitis, but the clinical pattern here, particularly the dramatic symptomatic improvement with diuresis both times, argues against pneumonitis. She also does not appear to be infected. Present on Admission?: Yes (2) Lung cancer: As noted above, we will hold her Tagrisso for now. She also had a questionable new PROFESSOR OF BIOLOGY lesion. Radiation Oncology is planning to treat this site. If she is still here on Friday, I would at least contact their office to discuss when they were thinking of starting her RT. Present on Admission?: Yes History of Present Illness Reason for Consultation: Non-small cell lung cancer Shortness of breath Attending Physician: Niko Jim, DO History of Present Illness Ms. Mathur is a 78 year old woman with a history of paroxysmal SVT, , mitral stenosis, and metastatic non-small cell lung cancer with an EGFR mutation. She has been on treatment with Tagrisso, an anti-EGFR TKI since December of 2017. CTs in mid-March revealed bilateral airspace opacities concerning for pulmonary edema versus pneumonitis, along with some questionable disease progression. We held her Tagrisso, which can cause cardiac events and rarely pneumonitis, and referred her to her weight loss consultant. They obtained an echo and felt her changes were likely related to CHF from her severe . Her symptoms improved with diuresis and in consultation with Dr. Holder, we agreed to another trial of the Tagrisso, which she started about a week ago. She presented yesterday with worsening shortness of breath and cough. She had a chest x-ray that revealed pulmonary edema versus diffuse bibasilar parenchymal infiltrates with prominent pulmonary vasculature. She also had a proBNP of >8000. She was hypoxic in the ER so was started on high-flow O2 by facemask. She was diuresed overnight and is already feeling better this morning. She denies any chest pain, fevers, purulent sputum, or pedal edema. She also denies any new back or bone pain, nausea, diarrhea, abnormal bleeding, or urinary changes. Allergies Allergy/AdvReac Type Severity Reaction Status Date / Time bee venom protein (honey bee) Allergy Intermediate Verified 05/28/19 12:25 latex Allergy Unknown Verified 05/28/19 12:25 No Known Drug Allergies Allergy Verified 05/28/19 12:25 adhesive tape AdvReac Intermediate Verified 05/28/19 12:25 Home Medications Home Medications Medication Instructions Recorded Confirmed Type cholecalciferol (vitamin D3) 1,000 unit PO DAILY 04/11/18 05/28/19 History [Vitamin D3] metoprolol succinate 100 mg PO DAILY 04/11/18 05/28/19 History mirtazapine 7.5 mg PO HS 04/11/18 05/28/19 History multivitamin 1 tab PO DAILY 04/11/18 05/28/19 History sodium chloride 1,000 mg PO BID 04/11/18 05/28/19 History ascorbate calcium (vitamin C) 500 500 mg PO DAILY 11/04/18 05/28/19 History mg tablet amiodarone 200 mg tablet 100 mg PO DAILY tab 02/17/19 05/28/19 History apixaban 2.5 mg tablet 2.5 mg PO BID #60 tab 03/29/19 05/28/19 Rx rosuvastatin 5 mg tablet 2.5 mg PO DAILY tab 05/04/19 05/28/19 History vit C-vit P-hqovpk-gkym ox-lutein 1 cap PO DAILY cap 05/04/19 05/28/19 History 226 mg-200 unit-5 mg-0.8 mg capsule ipratropium bromide 0.03 % nasal 2 sprays INTNAS DAILY ml 05/07/19 05/28/19 History spray ondansetron 8 mg disintegrating 8 mg PO Q8H 05/24/19 05/28/19 History tablet osimertinib 40 mg tablet 40 mg PO DAILY 05/24/19 05/28/19 History Patient History Medical History Atrial fibrillation DX 2012 - ORAL MEDS ONLY - FOLLOWS W/ DR. NEWTON AND DR. HOLDER AV reentrant tachycardia Chronic otitis media with effusion, bilateral (Resolved) Surgical History History of appendectomy (Resolved) History of cardiac cath (Resolved) 09/2017 - WENT TO [facility] ER W/ RAPID HR - NO STENTS/ANGIOPLASTY - FOLLOWS W/ DR. NEWTON AND DR. HOLDER History of cataract surgery (Resolved) History of colonoscopy (Resolved) History of placement of ear tubes History of total abdominal hysterectomy and bilateral salpingo-oophorectomy (Resolved) Hx of tonsillectomy (Resolved) Family History Unknown Sinusitis Valvular heart disease Other No family history of bleeding disorder Social History Preferred Language: [place] Communication Ability: Effective Vamp Throater Required: No Beliefs That Will Affect Care: None marital status: Current Living Situation: Alone current occupational status: retired Other Information That Helps Us Care for You: No Feels Safe at Home: Yes Safety Concerns: Feels Safe At This Time Smoking Status: Never smoker Second Hand Exposure: No ; Hx Alcohol Use: No Hx Substance Use: Yes substance use type: does not use Review of Systems Review of Systems: All systems reviewed & are unremarkable except as noted in HPI & below Physical Exam Constitutional: + ill appearing (chronically) and comfortable; no acute distress ENMT: external ear and nose normal, oropharynx normal Respiratory: normal respiratory effort Auscultation: + rales (in all tapia) Cardiovascular: Rate/Rhythm: regular rate Heart Sounds: + murmur Extremities: no edema Gastrointestinal (Abdomen): Inspection/Auscultation: normal bowel sounds; abdomen not distended Percussion/Palpation: abdomen soft; abdomen nontender Psychiatric: A+Ox3, euthymic affect Lymphatic: no cervical or axillary lymphadenopathy Results & Data Vital Signs (Past 12 Hours) Vital Signs Temp Pulse Resp BP Pulse Ox 05/29/19 11:52 36.7 C 73 19 128/72 98 05/29/19 06:57 36.7 C 67 19 163/69 H 95 05/29/19 04:10 28 H 94 05/29/19 03:15 92 05/29/19 03:08 36.7 C 77 18 155/63 H 88 L Laboratory Results Abnormal lab results 05/29/19 05/29/19 05/29/19 Range/Units 05:34 05:34 08:26 RBC 3.21 L (4.2-5.4) M/uL Hgb 10.2 L (12.0-16.0) g/dL Hct 29.2 L (37-47) % Neut # (Auto) 8.16 H (1.4-6.5) K/uL Lymph # (Auto) 0.45 L (1.2-3.4) K/uL [place] # (Auto) 1.00 H (0.11-0.59) K/uL Sodium 127 L (136-145) mmol/L Potassium 3.1 L D (3.5-5.1) mmol/L Chloride 90 L (98-107) mmol/L C-Reactive Protein 10.10 H (0-0.29) mg/dl NT-Pro-B Natriuret Pep 9868 H (0-1800) pg/ml Total Protein 6.2 L (6.4-8.2) gm/dl Albumin 2.8 L (3.4-5.0) gm/dl Albumin/Globulin Ratio 0.8 L (0.9-2) (1) Lung cancer Laterality: unspecified laterality Lung location: unspecified part of lung Qualified Code(s): C34.90 - Malignant neoplasm of unspecified part of unspecified bronchus or lung
--- NOTE | 2019-05-29 16:21 | Billing Data ---
Coding Level of Care Code 44996 Subseq Hosp Care Lvl 3
[2019-05-29] MEDS: FUROSEMIDE 40 MG in SYRINGE 0 ML IV SCH (17:15)
[2019-05-29] MEDS: MIRTAZAPINE TAB 15 MG TAB PO SCH (21:12)
[2019-05-30] MEDS: CEFEPIME 2,000 MG in SYRINGE 7.5 ML IV SCH (00:05)
[2019-05-30] MEDS: DOXYCYCLINE HYCLATE 100 MG in DEXTROSE 5% 100 ML IV SCH (05:06)
--- NOTE | 2019-05-30 06:45 | Discharge Summary ---
Date of Service May 30, 2019 Admission HPI Per Admitting Provider Patient is a 78 years old female with a past medical history of hypertension, congestive heart failure, coronary artery disease, aortic stenosis, hyponatremia, SVTs, hearing loss, osteoporosis, on anticoagulation, mitral stenosis, hyperlipidemia, aortic diastolic murmur, atrial fibrillation, metastatic lung orjxkg-zag-ltumh cell carcinoma. Who was brought to the emergency room by her son with a complaint of shortness of breath that started 2 days ago. Patient son who is next at the bedside states that patient had persistent cough and she is out of breath. Patient reports that she has metastasis of the cancer to the liver and her head. She is followed by Dr. Francis who is her shift superintendent oncologist. Patient is on a apixaban 2.5 mg p.o. twice daily for anticoagulation for A. fib's and she also takes osimertinib 40 mg p.o. daily (Tagrisso)for metastatic lung cancer. Patient was off of medicine from March 31 to May 12 and then she was restarted again after the May 12. She is scheduled to have continuation of radiation therapy in 3 days. Her last radiation therapy was completed on December 24, 2017. Patient has a cancer since September 2017. Patient did have MRI of the brain completed on 05/10/2019 with a new lesion involving the right temporal lobe. Patient is asymptomatic in regards of lesions in her brain. Patient denies fever, chills, headache, chest pain, abdominal pain, frequency, urgency. Labs are reviewed: WBCs 11.21, hemoglobin 9.6, hematocrit 28.1, platelets 236, PT 12, INR 1.2, APTT 34. Sodium 126, potassium 3.8, chloride 94, BUN 21, GFR 78.3, lactate 0.6, AST 24, ALT 27, BNP 8833, troponin 0 0.015 neg, TSH 2.36. Chest x-ray show pulmonary edema versus diffuse bibasilar parenchymal infiltrates. Mild cardiomegaly. Prominent pulmonary vasculature. Decision was made to admit patient to PCU on telemetry for pulmonary edema and metastatic lung cancernon- small cell carcinoma and possibly pneumonia. In the emergency room patient needed supplemental oxygen, which she usually does not use at home. In the ER she was given cefepime 2 g stat. Admission Exam Per Admitting Provider Constitutional: WD/WN, vitals as above well developed and + cachectic Eyes: PERRL, conjunctivae normal, anicteric sclerae ENMT: external ear and nose normal, oropharynx normal Neck: trachea midline, no thyromegaly Respiratory: + respiratory distress Auscultation: + wheezes, + bronchovesicular breath sounds and + egophony Cardiovascular: Heart Sounds: normal S1, normal S2 and + murmur Palpation: + palpable S3 Vessels: dorsalis pedis pulses present Extremities: + pedal edema Musculoskeletal: no cyanosis or clubbing, extremities motor strength 5/5 Skin: no rashes, warm and dry Neurologic: patellar DTR's 2+ bilat, sensation intact Psychiatric: A+Ox3, euthymic affect Lymphatic: no cervical or axillary lymphadenopathy Principal Diagnosis CHF Exacerbation Discharge Exam General: Alert, oriented. No acute distress, sitting up in bed. Skin: No noted rashes or bruises Psych: Appropriate mood and affect Neuro: No gross deficits HEENT: NC/AT, No oxygen on face Chest: Nontender to palpation. CV: regular rate and rhythm. BLOWING murmur appreciated Resp: Breath sounds with diffuse rales. Abdomen: Soft, nontender, nondistended. No guarding. No organomegaly appreciated. Extremities: Trace edema in lower extremities bilaterally. Discharge Data Allergies Allergy/AdvReac Type Severity Reaction Status Date / Time bee venom protein (honey bee) Allergy Intermediate Verified 05/28/19 12:25 latex Allergy Unknown Verified 05/28/19 12:25 No Known Drug Allergies Allergy Verified 05/28/19 12:25 adhesive tape AdvReac Intermediate Verified 05/28/19 12:25 Consultations 05/28/19 13:25 ED Decision to Admit Stat 05/28/19 23:03 Consult Oncology Routine Hospital Course (1) Acute respiratory failure: Pt is a 78yo with a PMHx significant for metastatic lung cancer, chronic hyponatremia, aortic stenosis, atrial fibrillation (on Amiodarone and low dose apixaban), HTN, HLD who presented in acute hypoxic respiratory failure. Pt was admitted on May 28 and discharged on May 30, 2019. Acute hypoxic Respiratory failure -Pt presented with hypoxia, O2 sats in the high 80s. -No home oxygen requirement, however requiring oxymask at 5L at highest. -On day of discharge was >92 on room air, did not qualify for home oxygen. -Chest XR on admission, showed more likely pleural effusions vs. pneumonitis, repeat on day of discharge showed significant improvement of pulmonary edema. -BNP elevated >9000, mildly elevated WBC, procal negative, no systemic symptoms on admission -Overall picture consistent with a CHF exacerbation likely secondary to recent thanksgiving meal and Hx of severe aortic stenosis vs. chemotherapy sideeffect (osimertinib discontinued during hospitalization per recs of her oncologist) -Treated with IV Lasix at 40mg BID; additional 1 time IV Lasix 20mg dose given. Discharged with PO Lasix 40mg daily, with script for BMP to be drawn on FriJun 02 after discharge for continued potassium and kidney function monitoring. -MRSA nares negative- empiric doxycycline and cefepime discontinued after 2 days when clinical picture more consistent with CHF exacerbation vs pneumonia/ -pcp followup recommended Chronic Hyponatremia -Pt with hyponatremia, takes home sodium -continue home sodium 1g BID despite concern for fluid overload as above Metastatic lung cancer -Hx of metastatic non-small cell carcinoma -discontinued home chemotherapy osimertinib 40mg as potential cause of fluid overload -consult placed to Dr. Francis while hospitalized-recommended discontinuing. -continue home calcium, Vit D, multivitamin -zofran as needed Aortic Stenosis -severe, stable -Follows with cardiology Atrial Fibrillation -EKG 05/28 with NSR; qtc 470 -continue amiodarone -continue low dose Apixaban 2.5mg BID HTN -continue home metoprolol succ 100mg HLD -continue home rosuvastatin 2.5mg daily Insomnia -continue home remeron Total Time Total Time Spent Total Time Spent (In Minutes): >30 Discharge Plan Discharge Items Patient Disposition: Home - Self-Care Reason For Visit: PULMONARY EDEMA,METASTATIC LUNG CANCER Discharge Diagnosis: Congestive Heart Failure Activity: Per Instructions section Non-emergency contact: Primary Care Provider, Biodiesel Processing Technician and Oncologist Call non-emergency contact if: your symptoms worsen and you have a fever Follow-up/Referrals: Martinez Holcomb MD [Primary Care Provider] - Diet: Heart Healthy and Low Sodium (2gm) Addtl Attending Provider Instructions: Congestive Heart Failure: Discharge Instructions Congestive Heart Failure essentially means your heart is able to have a "traffic jam" of fluid that backs up into your lungs. Fluid in lungs then blocks up breathing space making you feel short of breath. In the hospital, our job is to get the fluid off so that you are able to breathe better, and then get you back on track with medication and lifestyle adjustments to keep the traffic jam from happening again. Salt (Sodium) The vast majority of people admitted to the hospital with fluid back up into the lungs get there because of too much salt in their diet. The way our kidneys work: when you take a small amount of sodium, your kidneys hold onto a small amount of water. When you take a large amount of sodium, your kidneys hold onto a large amount of water. When this happens, your blood vessels get flooded, your heart gets overfilled, and the fluid backs up into your lungs. Most people know to avoid the salt shaker, but sodium is in almost anything prepackaged/prepared, as a preservative or as a flavoring agent. Most of the people we take care of who are here with congestive heart failure caused by too much sodium do not use a salt shaker at all. Get into the habit of looking at food labels, so you can see how much sodium is in the foods you eat. The most important number to look at is how much sodium is in each serving. But also notice the size of a serving. [employer] will frequently make a serving size so tiny that it does not look like there is much sodium per serving, but a normal person might eat 3 or 4 servings of the food and take in a lot more sodium than they realized. Keep a "budget" of how much sodium you take in in each day. Most people stay out of trouble and stay out of the hospital as long as they stay "under budget". The majority of congestive heart failure patients do well if they take less than 2000 mg of sodium a day. Because our kidneys retain water based on how much sodium they are seeing in any given moment, it is also important to stay at less than about 500 mg in any given meal. This is because even if you stayed at less than 2000 mg of sodium, but ate it all at once, your kidneys would retain fluid at a rate as though you are taking in much more sodium than you actually are. Occasionally your doctor may specifically recommend restricting even further (such as less than 1500mg per day) so if you have been told to be even stricter with sodium, please follow that advice. -Following How You Are Doing (Wet Versus Dry) Because managing congestive heart failure is an ongoing process, it is very important to learn how to follow your signs and symptoms and track how you are doing at home. This will allow you to catch problems before they become a big deal. In general, as your health care team, we look at managing congestive heart failure chronically as a balance of being "wet" (flooded with fluid) ve rsus being "dry" (dehydrated from treatment). Wet - signs of fluid retention that would warrant further evaluation: Check your weight daily. If your weight goes up by more than 2 pounds in 1 day, it is almost certainly fluid related. This should warrant further thought, and/or a call to your doctor Follow your breathingmost of the time, early on when fluid backs up into your lungs, you will first start to notice shortness of breath when walking, or when lying flat. If you notice either of these, this should warrant further thought, and/or a call to your doctor If you notice both an increase in weight and worsening breathing, that definitely warrants getting seen as soon as possible "Dry"while the goal of managing the disease is to keep you from getting "wet, the medications can sometimes cause a degree of dehydration. Most people with congestive heart failure need frequent lab work (basic metabolic panel). Generally when there has been a change in diuretic dosing (a change in the water pill) or any other major changes, lab work should be followed closely and more frequently afterwards. This is because lab work will frequently show early signs of dehydration before you start to feel bad. Frequent symptoms of being dehydrated include: feeling weak and lightheaded, having lower blood pressures, making less urine than usual, or having a very dry mouth. If you notice any of these signs/symptoms, and you are not due for lab work, it would be quite reasonable to call your doctor to see if lab work or a visit could be arranged. Heart Failure Management Checklist: Limit Salt (Sodium) Intake to 2000mg (2g) per day and 500mg (0.5g) per meal Check weight daily (in same clothes, without shoes) every morning Use the provided chart to enter your weight and salt intake for the day Are you too wet? If you gained 2lb or more - make sure to take your water pill If your breathing is not good (you are more short of breath than usual) call your doctor regardless of weight change If you gained 2lb or more and you are short of breath, see your doctor or come to the emergency room Are you too dry? If you feel weak or lightheaded, have lower blood pressures, make less urine than usual, or have a very dry mouth. Call your doctor Addtl Collection Manager Provider Instructions: Also, -continue taking the water pill furosemide 40mg once a day to help with keeping you "dry" -continue taking the potassium pills we prescribed as when you are on the water pill, your potassium can be low. -Please have some bloodwork done on May 03 to check your kidney function and potassium levels. -STOP taking your chemotherapy medication as told by Dr. Francis as he felt it might have contributed to your congestive heart failure. He will decide when you can start back on it again. -If your symptoms return or worsen, please go to the nearest emergency room once more. It was a pleasure taking care of you during your stay here! Pending Studies at Discharge: No Stand-Alone Forms: My [facility] [employer], Smoking Cessation Medications and DC Order Prescriptions: New potassium chloride [Klor-Con M20] 20 mEq Tablet,Er Particles/Crystals 20 meq PO BID Qty: 60 RF: 0 furosemide 40 mg tablet 40 mg PO DAILY Qty: 30 RF: 0 Continued ascorbate calcium (vitamin C) 500 mg tablet 500 mg PO DAILY RF: 0 amiodarone 200 mg tablet 100 mg PO DAILY RF: 0 Eliquis 2.5 mg tablet 2.5 mg PO BID Qty: 60 RF: 5 ondansetron 8 mg tablet,disintegrating 8 mg PO Q8H RF: 0 ipratropium bromide 0.03 % spray,non-aerosol 2 sprays INTNAS DAILY RF: 0 rosuvastatin 5 mg tablet 2.5 mg PO DAILY RF: 0 multivitamin Tablet 1 tab PO DAILY RF: 0 metoprolol succinate 100 mg tablet extended release 24 hr 100 mg PO DAILY RF: 0 sodium chloride 1 gram Tablet 1,000 mg PO BID RF: 0 mirtazapine 15 mg Tablet 7.5 mg PO HS RF: 0 cholecalciferol (vitamin D3) [Vitamin D3] 1,000 unit Tablet 1,000 unit PO DAILY RF: 0 PreserVision Lutein 226 mg-200 unit -5 mg-0.8 mg capsule 1 cap PO DAILY RF: 0 Discontinued Tagrisso 40 mg tablet 40 mg PO DAILY RF: 0 Discharge Orders: Discharge Order (Routine); Ordered 05/30/19 Ordered By: Kat Emerson/Other Patient Handouts: Edema Pulmonary Admission Data Admit Date/Time: 05/28/19 14:56 Attending Provider: Niko Jim Admit Provider: Reanna Preston Primary Care Provider: Martinez Holcomb Other Providers: Reanna Preston ; Joseph Francis Other Interventions: Discharge Summary Assessment (RN) Last Done: 05/30/19 13:45 DC Date/Time DO NOT enter until pt leaves facility: 05/30/19 14:17 Supervising Physician Co-Signing Physician Notes I personally examined the patient and verified all mott points of history and exam, discussed case, and agree with decision making with Dr Courtney. overall feeling better and would like to go home. no problems walking w FACTORY EXPERT - and fortunately actually did not need home O2. extensive discussions on self- management, close f/u and monitoring, as well as meds. all questions answered to the best of my ability. Hypoxiaseems to be predominantly due to CHF (see below) - iniitally question of concomitant pneumonia, but low procal, CXR clearing c/w CHF both reassuring (small area on LLL noted on current film, but seems clinically far more c/w atelectasis given no SIRS/improved so quickly, low procal, nondescript elevation of CRP, etc) Acute on chronic diastolic CHF mediated by severe aortic stenosisimproved on lasix. home on lasix, BMP this coming week. educated on self management/monitoring and Na restriction Hyponatremiaacute seems to be due to volume overload, chronic less clear. She does note that she is on salt tabs routinely, which obviously would be somewhat concerning with her CHF, except for the fact that she is been on them for quite a while without any fluid overload related specifically to that - therefore suspect current flare up more likely related to sodium from thanksgiving/diet preceding, and maybe possibly effects from cancer treatments. Otherwise as above Resident Activity Tracking Resident Involvement: Resident Care Provided Care Provided: Adult Hospital Medicine
[2019-05-30 07:02] LABS: Basophils # (auto) 0.02 K/uL (0-0.2); Basophils % (auto) 0.3 %; Eosinophils # (auto) 0.56 K/uL (0-0.5); Hematocrit (blood only) 30.3 % (37-47); Hemoglobin 10.6 g/dL (12.0-16.0); Immature Granulocytes # (auto) 0.01 K/uL (0.00-0.02); Immature Granulocytes % (auto) 0.1 %; Lymphocytes # (auto) 0.37 K/uL (1.2-3.4); Lymphocytes % (auto) 4.6 %; Mean Corpuscular Hemoglobin 31.7 pg (25-34); Mean Corpuscular Volume 90.7 fL (80-100); Mean Platelet Volume 8.6 fL (7.4-10.4); Monocytes # (auto) 1.02 K/uL (0.11-0.59); Monocytes % (auto) 12.8 %; Neutrophils # (auto) 5.98 K/uL (1.4-6.5); Neutrophils % (auto) 75.2 %; Platelet Count 223 K/uL (130-400); RDW Coefficient of Variation 13.2 % (11.5-14.5); RDW Standard Deviation 43.4 fL (36.4-46.3); Red Blood Count 3.34 M/uL (4.2-5.4); White Blood Count 7.96 K/uL (4.8-10.8)
[2019-05-30 07:09] VITALS: TEMP 97.9
[2019-05-30 07:31] LABS: BUN Creatinine Ratio 25.5 (10-20); Calcium 8.6 mg/dl (8.5-10.1); Creatinine Clr Calc Pharmacy 35.6 ml/min; Est GFR (African American) 66.9; Est GFR (Non-African American) 57.7; Potassium 3.8 mmol/L (3.5-5.1)
[2019-05-30] MEDS: CEROVITE ADV FORMULA TAB PO SCH (08:13)
[2019-05-30] MEDS: CHOLECALCIFEROL 1,000 UNITS TAB PO SCH (08:13)
[2019-05-30] MEDS: METOPROLOL SUCC 50MG EXT REL TAB PO SCH (08:13)
[2019-05-30] MEDS: AMIODARONE 200 MG TAB PO SCH (08:13)
[2019-05-30] MEDS: POTASSIUM CHLORIDE 20 MEQ TABCR PO SCH (08:14)
[2019-05-30] MEDS: ROSUVASTATIN CALCIUM 5 MG TAB PO SCH (08:14)
[2019-05-30] MEDS: SODIUM CHLORIDE 1 GM TABLET PO SCH (08:14)
[2019-05-30] MEDS: BUDESONIDE/FORMOTEROL FUMARATE 160/4.5 60 PUFFS/INHALER INH SCH (08:14)
[2019-05-30] MEDS: APIXABAN 2.5 MG TAB PO SCH (08:14)
[2019-05-30] MEDS: ASCORBIC ACID 500 MG TAB PO SCH (08:14)
[2019-05-30] MEDS: MULTIVITAMIN TAB PO SCH (08:15)
[2019-05-30] MEDS: FUROSEMIDE 40 MG in SYRINGE 0 ML IV SCH (08:15)
--- NOTE | 2019-05-30 11:13 | XRay Report ---
XR chest 2V PA/lateral CLINICAL HISTORY: dyspnea, congestive heart failure COMPARISON STUDY: 05/28/2019 FINDINGS: The patient is hyperinflated. There is resolving congestive failure. There are persistent b ilateral pleural effusions. There is left lower lobe atelectasis/consolidation with air bronchograms. There is a nonspecific parenchymal opacity within the right middle lung apex. This is visualized on the prior CT scan dated 04/19/2019. IMPRESSION: 1. Resolving congestive failure 2. Bilateral pleural effusions 3. Left lower lobe atelectasis/consolidation with air bronchograms Electronically signed by: Paul Redd M.D. 05/30/2019 11:12 AM
[2019-05-30 13:49] VITALS: BP 124/62; PULSE 79; O2SAT 96
--- NOTE | 2019-05-30 16:37 | Billing Data ---
Coding Level of Care Code D/C Day Management >30 mins
== END 2019-05-30 14:17 | disposition home or self-care (01) | DRG 189 ==
LOC: ED 10:36 → 2S 14:56 → SUATTDRO 14:56 → 2S 15:16
DX: E87.1 Hypo-osmolality and hyponatremia; I11.0 Hypertensive heart disease with heart failure; I47.1 Supraventricular tachycardia; G47.00 Insomnia, unspecified; E78.5 Hyperlipidemia, unspecified; J96.01 Acute respiratory failure with hypoxia; C79.31 Secondary malignant neoplasm of brain; I50.9 Heart failure, unspecified; I48.91 Unspecified atrial fibrillation; C34.90 Malignant neoplasm of unspecified part of unspecified bronchus or lung

== ENCOUNTER 2020-04-16 10:30 | Inpatient (IN) ==
--- NOTE | 2020-04-16 10:37 | Emergency Department Note ---
Impression & Plan Acute respiratory failure with hypoxemia, CHF (congestive heart failure), Bony metastasis, Bony pelvic pain ED Provider Note NAME: KYLEE MENA AGE: 79 SEX: F : 1940 ARRIVES VIA: Ambulance INFORMANT: Patient, ED PROVIDER(S): Sean Matamoros MD Chief Complaint: Leg pain HPI: Upon presentation to the room nursing administrator did state the patient had dropped to 80% on room air. Patient does not wear oxygen at home and does not complain of shortness of breath or chest pains. 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 The patient is on Eliquis and amiodarone for history of A. fib. Patient states that she primarily complains of some left-sided pubic bone pain. Patient states it is sharp and worse with movement or standing as well as with ambulation. Patient is not taking anything for pain at home exception of some Tylenol. Patient denies any narcotics use prior to arrival. Patient denies fevers, chills. Patient has had some associated diarrhea and nausea but without vomiting. The patient has had decreased p.o. intake. Patient's primary concern for presenting today is for her leg pain and associated diarrheal symptoms. The patient denies any antibiotic use, stream or well water, or change in diet other than not eating or drinking as much. No recent falls. ROS: See HPI for pertinent positives and negatives. A total of 10 systems were reviewed and otherwise negative. Past medical history: See below Surgical history: See below Social history: See below Physical Exam: GENERAL: Mildly ill in appearance, wearing glasses, oxy-mask in place. EYE EXAM: Normal conjunctiva. PERRL, no anisocoria and EOM's grossly intact w/o pain. OROPHARYNX: Dry mucous membranes. Grossly normal dentition. NECK: Supple, no nuchal rigidity, no adenopathy, non-tender. No signs of meningismus. LUNGS: Clear to auscultation. Normal chest wall mechanics. HEART: Tachycardic and regular, no MRG. ABDOMEN: Abdomen soft, non-tender, normo-active bowel sounds, no masses, no rebound or guarding. BACK: No CVA TTP. SKIN: No rashes and no bruising. UPPER EXTREMITIES: Upper extremities are grossly normal. LOWER EXTREMITIES: 2-3+ symmetrical bilateral lower extremity edema without calf pain or erythema. Reproducible left-sided pubic bone pain without obvious deformity. NEURO EXAM: A&O x3, cranial nerves II-XII grossly intact, normal speech, moves all 4 extremities on command w/o issue. Differential diagnoses: Reactive airway disease, pneumonia, pneumothorax, COPD, CHF, infections, cardiac ischemia, pulmonary embolism, musculoskeletal, gastrointestinal, as well as other pathologies. Fracture, subluxation, dislocation, contusion, ligamentous injury, neurovascular, compartment syndrome, rhabdomyolysis, as well as other pathologies. Course: Patient was seen and evaluated the bedside. Full history physical exam was performed. EKG: Indication: Hypoxia, history of A. fib Normal sinus rhythm, rate of 61, normal intervals, normal axis, T wave inversion in aVL slight depressions in the lateral leads. No significant change from comparison EKG May 28, 2019. Imaging Studies: Radiology results as stated below per my review in the radiologist's interpretation: SINGLE VIEW PELVIS; 2 VIEWS LEFT HIP CLINICAL HISTORY: Left hip pain. Metastatic bone disease. FINDINGS: An AP view of the pelvis with AP and frog-leg views of the left hip are compared to study dated 04/03/2020. Correlation is made with PET/CT dated 12/20/2019. The skeletal structures are osteopenic. No fracture is seen involving the hips or bony pelvis. A large sclerotic metastasis in the left ilium is unchanged. Mild degenerative joint space narrowing is seen in both hips, right greater than left. There is degenerative sclerosis of the sacroiliac joints. Lumbosacral spondylosis is partially imaged. Mild soft tissue edema overlies the left hip. Atherosclerotic calcification is present in the femoral arteries. IMPRESSION: 1. No acute bony abnormality is seen involving the hips or pelvis. 2. A large sclerotic metastasis is again seen in the left ilium. 3. Soft tissue edema overlies the left hip. Electronically signed by: Raheel Buckley M.D. 04/16/2020 11:14 AM Dictated: 04/16/20 1111 Transcribed: 04/16/20 1111 SINGLE VIEW CHEST CLINICAL HISTORY: Dyspnea. FINDINGS: An AP, portable, upright chest radiograph is compared to study dated 02/23/2020 and correlated with chest CT dated 11/26/2019. The heart is enlarged noting atherosclerotic calcification of the thoracic aorta. There is pulmonary vascular congestion. Emphysema and chronic interstitial thickening is similar to previous. There are small pleural effusions with bibasilar consolidation. Fluid is noted along the fissures. Pulmonary nodules were better assessed on prior chest CT scans. No pneumothorax is seen. The skeletal structures are osteopenic. The bony thorax is grossly intact. IMPRESSION: 1. Cardiomegaly and emphysema with evidence of congestive failure. 2. Small pleural effusions with bibasilar consolidation ACT 112: Negative or not required by law. Electronically signed by: Raheel Buckley M.D. 04/16/2020 11:17 AM Dictated: 04/16/20 1115 Transcribed: 04/16/[address] ANGIOGRAM OF THE CHEST CLINICAL HISTORY: Dyspnea. COMPARISON STUDY: Chest x-ray dated 04/16/2020. Chest CT scans dated 11/26/2019 and 04/09/2018. TECHNIQUE: Following the IV administration of 120 cc of Optiray 320, CT angiogram of the chest was performed from the upper abdomen to the thoracic inlet utilizing the pulmonary embolus protocol. Images are reviewed in the axial, sagittal, and coronal planes. 3-D MIPS images are created and assessed. IV contrast was administered without complication. A dose lowering technique was utilized adhering to the principles of ALARA. The examination is significantly compromised by motion artifact. CT DOSE: 245.85 mGy.cm FINDINGS: Thyroid: Imaged portions of the thyroid gland are normal in size and attenuation. 1.7 cm low-attenuation nodule is again seen in the right lobe. Thoracic aorta: There is atherosclerotic calcification of the thoracic aorta. There is mild ectasia of the ascending thoracic aorta which measures up to 3.6 cm in diameter. The remainder of the thoracic aorta Is normal in caliber and the arch demonstrates standard 3-vessel anatomy. The thoracic aorta is not well opacified. Pulmonary vasculature: The main pulmonary arteries are dilated suggesting pulmonary artery hypertension. There are no filling defects identified in main, lobar, or proximal segmental pulmonary branches to suggest pulmonary embolus. Evaluation of the segmental and subsegmental branches is significantly degraded by motion artifact. Heart: The heart is enlarged and without pericardial effusion. The coronary efe adele and mitral annulus are densely calcified. Lungs and pleural spaces: Evaluation of the lung parenchyma is compromised by motion artifact. A 1.3 cm nodule at the left lung base has increased in size as compared to 11/26/2019 (previously measuring 0.9 cm). A 0.7 cm adjacent nodule seen on image #40 is new from previous. There are also likely additional new pulmonary lesion as compared to previous. A 2.6 cm nodular opacity at the right apex on image #225 is similar to previous. There is right apical scarring and calcification. There are small left and moderate right pleural effusions with associated bibasilar consolidation. The trachea and central airways are clear. Intralobular septal thickening is suggested. Lower neck: There is supraclavicular lymphadenopathy. A right supraclavicular node on image #270 measures 2.3 x 1.6 cm. Mediastinum: There are enlarged superior mediastinal lymph nodes. A michael aggregate in the left superior mediastinal image #259 measures 1.9 x 1.9 cm. Leticia: There is bilateral hilar adenopathy. A left hilar node on image #190 measures 2.4 x 2.0 cm. Axillae: There is no axillary lymphadenopathy. Upper abdomen: Partially visualized upper abdominal viscera is within normal limits. Skeletal structures: The skeletal structures are osteopenic. Degenerative change is noted in the shoulders and thoracic spine. No lytic or blastic bony lesions are seen. IMPRESSION: 1. Motion compromised examination. 2. There is no evidence of central pulmonary embolus in the main, lobar, or proximal segmental pulmonary arteries. Evaluation of the segmental and subs egmental branches is severely compromised by motion artifact. 3. Cardiomegaly with evidence of congestive failure. 4. Moderate right and small left pleural effusions with associated bibasilar consolidation. This could represent atelectasis and/or pneumonia and clinical correlation will be required. 5. There is progressive mediastinal, hilar, and right supraclavicular adenopathy as compared to 11/26/2019. 6. A left lower lobe pulmonary lesion has increased in size from 11/26/2019. There are also new pulmonary metastases as compared to previous. 7. A right apical nodule has not appreciably changed from previous. 8. Additional findings as above. ACT 112: Negative or not required by law. Electronically signed by: Raheel Buckley M.D. 04/16/2020 12:26 PM Dictated: 04/16/20 1214 Transcribed: 04/16/20 121 Cardiac monitoring: An order was placed for continuous cardiac monitoring. The monitor shows a rate of 122 with irregularly irregular rhythm. MDM: Patient did present with concern for leg pain and diarrheal symptoms. The patient was ordered some IV fluids in addition to pain medication blood work chest x-ray VBG given associated hypoxia along with a CT angiography of the chest. Patient's blood work normal white count mild anemia at 8. Platelet count is normal. VBG is normal. Patient does have a an elevated troponin and BNP with associated hyponatremia likely secondary to volume overload. Initially given the patient's diarrheal symptoms the patient was ordered some IV fluids but given the elevated BNP congestion seen on chest x-ray and confirmed on CT an giography of the chest and oxygen requirement the patient was admitted to the medicine service and IV Lasix was ordered. The patient was maintained on oxygen. Blood gas does not show evidence of hypercarbia or CO2 retention. I did speak with the on-call hospitalist Dr. Cuca MD and the patient was admitted to the medicine service. Critical Care: I have personally spent 77 minutes of critical care time in direct management of this patient. This includes bedside care, interpretation of diagnostic studies, and testing, discussion with consultants, patient, and family members, and other require inpatient management activities. This 77 minutes is in excess of all separately billable procedures. Past Med/Surg History Medical History Atrial fibrillation DX 2012 - [facility] ONLY - FOLLOWS W/ DR. NEWTON AND DR. HOLDER AV reentrant tachycardia Basal cell carcinoma (BCC) Chronic otitis media with effusion, bilateral Mixed hearing loss, bilateral Surgical History History of appendectomy History of cardiac cath 09/2017 - WENT TO [facility] ER W/ RAPID HR - NO STENTS/ANGIOPLASTY - FOLLOWS W/ DR. NEWTON AND DR. HOLDER History of cataract surgery History of colonoscopy (~2011) History of placement of ear tubes History of total abdominal hysterectomy and bilateral salpingo-oophorectomy Hx of tonsillectomy Family History Unknown Sinusitis Valvular heart disease Other No family history of bleeding disorder Social History Smoking Status: Never smoker Second Hand Exposure: No; Hx Alcohol Use: No Hx Substance Use: Yes Preferred Language: Yoruba Communication Ability: Effective Visitor Information Assistant Required: No Beliefs That Will Affect Care: None marital status: / Current Living Situation: Alone current occupational status: retired Feels Safe at Home: Yes Assistive Devices: None Allergies Allergies Allergy/AdvReac Type Severity Reaction Status Date / Time bee venom protein (honey bee) Allergy Intermediate Verified 04/16/20 13:22 latex Allergy Unknown Verified 04/16/20 13:22 No Known Drug Allergies Allergy Verified 04/16/20 13:22 adhesive tape AdvReac Intermediate Verified 04/16/20 13:22 Home Meds Home Medications Medication Instructions Recorded Confirmed cholecalciferol (vitamin D3) 1,000 unit PO DAILY 04/11/18 04/16/20 [Vitamin D3] multivitamin 1 tab PO DAILY 04/11/18 04/16/20 ipratropium bromide 0.03 % nasal 1 sprays INTNAS DAILY ml 06/09/19 04/16/20 spray ondansetron HCl 8 mg tablet 8 mg PO DAILY PRN tab 08/11/19 04/16/20 osimertinib 40 mg tablet 40 mg PO DAILY 08/11/19 04/16/20 vitamin A-vit C-vit E-zinc-Cu 2 tab PO BID 04/14/20 04/16/20 tablet duloxetine [Cymbalta] 30 mg PO DIRECTED 04/16/20 04/16/20 mirtazapine 15 mg PO DIRECTED 04/16/20 04/16/20 ropinirole 0.5 mg PO DIRECTED 04/16/20 04/16/20 tapentadol [Nucynta] 50 mg PO Q4 04/16/20 04/16/20 Previous Rx's Medication Instructions Recorded potassium chloride [Klor-Con M20] 20 meq PO BID #60 tab 05/30/19 furosemide 40 mg tablet 40 mg PO DAILY #45 tab 06/29/19 rosuvastatin 5 mg tablet 2.5 mg PO DAILY #30 tab 06/29/19 apixaban 2.5 mg tablet 2.5 mg PO BID #180 tab 10/04/19 metoprolol succinate 100 mg 100 mg PO DAILY #90 tab 11/24/19 tablet,extended release 24 hr amiodarone 200 mg tablet 100 mg PO DAILY #90 tab 12/06/19 Results & Data (ED) Vital Signs Vital Signs - 24 hr 04/16/20 10:37 04/16/20 10:40 04/16/20 10:49 Temperature 36.8 C Temperature Source Oral Pulse Rate 127 H 126 H 61 Pulse Rate from SpO2 Sensor 64 Respiratory Rate 29 H 32 H 32 H Blood Pressure 103/69 103/69 Blood Pressure Mean 93 80 Pulse Oximetry 80 L 80 L Oxygen Delivery Method Room Air Oxygen Flow Rate Sepsis Recent Fever Within 48 Hours No Sepsis New/Unexplained Change in Mental Status N/A Sepsis Action Taken by Nursing No Action Required 04/16/20 10:54 04/16/20 11:00 04/16/20 11:01 Temperature Temperature Source Pulse Rate 61 62 Pulse Rate from SpO2 Sensor 61 61 Respiratory Rate 28 H 25 H Blood Pressure 128/69 Blood Pressure Mean 91 Pulse Oximetry 95 96 95 Oxygen Delivery Method Oxymask Oxymask Oxygen Flow Rate 4 4 Sepsis Recent Fever Within 48 Hours Sepsis New/Unexplained Change in Mental Status Sepsis Action Taken by Nursing 04/16/20 12:00 04/16/20 12:30 04/16/20 13:01 Temperature Temperature Source Pulse Rate 66 65 67 Pulse Rate from SpO2 Sensor 65 65 67 Respiratory Rate 27 H 24 30 H Blood Pressure 142/55 H 123/65 156/54 H Blood Pressure Mean 61 78 72 Pulse Oximetry 89 L 90 94 Oxygen Delivery Method Oxymask Oxymask Oxymask Oxygen Flow Rate 4 4 4 Sepsis Recent Fever Within 48 Hours Sepsis New/Unexplained Change in Mental Status Sepsis Action Taken by Nursing 04/16/20 13:31 04/16/20 13:40 04/16/20 14:00 Temperature Temperature Source Pulse Rate 65 62 Pulse Rate from SpO2 Sensor 65 63 Respiratory Rate 28 H 24 Blood Pressure 145/61 H 157/53 H Blood Pressure Mean 79 86 Pulse Oximetry 95 93 96 Oxygen Delivery Method Oxymask Oxymask Oxygen Flow Rate 4 4 Sepsis Recent Fever Within 48 Hours Sepsis New/Unexplained Change in Mental Status Sepsis Action Taken by Nursing 04/16/20 14:31 Temperature Temperature Source Pulse Rate 65 Pulse Rate from SpO2 Sensor 64 Respiratory Rate 27 H Blood Pressure 144/41 H Blood Pressure Mean 76 Pulse Oximetry 94 Oxygen Delivery Method Oxygen Flow Rate Sepsis Recent Fever Within 48 Hours Sepsis New/Unexplained Change in Mental Status Sepsis Action Taken by Long Term Medications Current Medication List: was personally reviewed by ok Laboratory Data Attestation: I reviewed the patient's lab results. Result diagrams: 04/16/20 11:00 04/16/20 11:00 Lab Results 04/16/20 04/16/20 04/16/20 Range/Units 11:00 11:00 11:00 WBC 10.52 (4.8-10.8) K/uL RBC 2.81 L (4.2-5.4) M/uL Hgb 8.0 L (12.0-16.0) g/dL Hct 24.4 L (37-47) % MCV 86.8 (80-100) fL MCH 28.5 (25-34) pg MCHC 32.8 (32-36) g/dL RDW Std Deviation 48.8 H (36.4-46.3) fL RDW Coeff of Andreas 15.6 H (11.5-14.5) % Plt Count 142 (130-400) K/uL MPV 9.0 (7.4-10.4) fL Immature Gran % (Auto) 0.2 % Neut % (Auto) 91.1 % Lymph % (Auto) 4.8 % Glynn % (Auto) 3.6 % Eos % (Auto) 0.2 % Baso % (Auto) 0.1 % Neut # (Auto) 9.58 H (1.4-6.5) K/uL Lymph # (Auto) 0.51 L (1.2-3.4) K/uL Glynn # (Auto) 0.38 (0.11-0.59) K/uL Eos # (Auto) 0.02 (0-0.5) K/uL Baso # (Auto) 0.01 (0-0.2) K/uL Immature Gran # (Auto) 0.02 (0.00-0.02) K/uL PT 13.4 H (9.0-12.0) Seconds INR 1.3 H (0.9-1.1) APTT 34.2 H (21.0-31.0) Seconds PTT Ratio 1.2 VBG pH (7.36-7.41) VBG pCO2 (38-50) mmHg VBG pO2 mmHg VBG HCO3 mmol/L VBG O2 Saturation % VBG Base Excess mEq/L Barometric Pressure mm/Hg Sodium 127 L (136-145) mmol/L Potassium 4.3 (3.5-5.1) mmol/L Chloride 89 L (98-107) mmol/L Carbon Dioxide 29 (21-32) mmol/L Anion Gap 9.0 (3-11) BUN 23 H (7-18) mg/dl Creatinine 1.09 (0.6-1.2) mg/dl Est Cr Clr Drug Dosing 34.3 ml/min Est GFR ( Amer) 55.5 Est GFR (Non-Af Amer) 47.9 BUN/Creatinine Ratio 21.3 H (10-20) Glucose 108 H (70-99) mg/dl Calcium 8.7 (8.5-10.1) mg/dl Total Bilirubin 0.6 (0.2-1) mg/dl AST 35 (15-37) U/L ALT 17 (12-78) U/L Alkaline Phosphatase 90 (45-117) U/L Troponin I 0.048 H* (0-0.045) ng/ml NT-Pro-B Natriuret Pep 8759 H (0-1800) pg/ml Total Protein 6.1 L (6.4-8.2) gm/dl Albumin 2.9 L (3.4-5.0) gm/dl Globulin 3.2 (2.5-4.0) gm/dl Albumin/Globulin Ratio 0.9 (0.9-2) COVID-19 Eval Order COVID-19 PCR (Negative) 04/16/20 04/16/20 04/16/20 Range/Units 11:27 13:40 13:40 WBC (4.8-10.8) K/uL RBC (4.2-5.4) M/uL Hgb (12.0-16.0) g/dL Hct (37-47) % MCV (80-100) fL MCH (25-34) pg MCHC (32-36) g/dL RDW Std Deviation (36.4-46.3) fL RDW Coeff of Andreas (11.5-14.5) % Plt Count (130-400) K/uL MPV (7.4-10.4) fL Immature Gran % (Auto) % Neut % (Auto) % Lymph % (Auto) % Glynn % (Auto) % Eos % (Auto) % Baso % (Auto) % Neut # (Auto) (1.4-6.5) K/uL Lymph # (Auto) (1.2-3.4) K/uL Glynn # (Auto) (0.11-0.59) K/uL Eos # (Auto) (0-0.5) K/uL Baso # (Auto) (0-0.2) K/uL Immature Gran # (Auto) (0.00-0.02) K/uL PT (9.0-12.0) Seconds INR (0.9-1.1) APTT (21.0-31.0) Seconds PTT Ratio VBG pH 7.44 H (7.36-7.41) VBG pCO2 44 (38-50) mmHg VBG pO2 26 mmHg VBG HCO3 29 mmol/L VBG O2 Saturation < 60.0 % VBG Base Excess 4.7 mEq/L Barometric Pressure 740.8 mm/Hg Sodium (136-145) mmol/L Potassium (3.5-5.1) mmol/L Chloride (98-107) mmol/L Carbon Dioxide (21-32) mmol/L Anion Gap (3-11) BUN (7-18) mg/dl Creatinine (0.6-1.2) mg/dl Est Cr Clr Drug Dosing ml/min Est GFR ( Amer) Est GFR (Non-Af Amer) BUN/Creatinine Ratio (10-20) Glucose (70-99) mg/dl Calcium (8.5-10.1) mg/dl Total Bilirubin (0.2-1) mg/dl AST (15-37) U/L ALT (12-78) U/L Alkaline Phosphatase (45-117) U/L Troponin I (0-0.045) ng/ml NT-Pro-B Natriuret Pep (0-1800) pg/ml Total Protein (6.4-8.2) gm/dl Albumin (3.4-5.0) gm/dl Globulin (2.5-4.0) gm/dl Albumin/Globulin Ratio (0.9-2) COVID-19 Eval Order Covid19 Done at [facility] COVID-19 PCR NEGATIVE (Negative) Administered Medications Discontinued Medications Fentanyl Citrate (Fentanyl Citrate 100 Mcg/2 Ml Vial) 25 mcg IV NOW STA Stop: 04/16/20 10:45 Last Admin: 04/16/20 11:12 Dose: 25 mcg Documented by: [id number] Furosemide (Furosemide 40 Mg/4 Ml Vial) 40 mg IV NOW STA Stop: 04/16/20 12:31 Last Admin: 04/16/20 12:50 Dose: 40 mg Documented by: [id number] Sodium Chloride (Nss) 500 mls @ 999 mls/hr IV .Q31M SONIDO Stop: 04/16/20 11:15 Last Infusion: 04/16/20 11:58 Dose: 0 mls/hr Documented by: [id number] Admin: 04/16/20 11:12 Dose: 999 mls/hr Documented by: [id number] Ioversol (Optiray 320 125ml) 120 ml IV ONCE ONE Stop: 04/16/20 11:38 Last Admin: 04/16/20 11:38 Dose: 120 ml Documented by: [id number] Discharge Plan Visit Data Chief Complaint: Lower Extremity Injury/Pain ED Provider: Sean Matamoros Discharge Problem: Acute respiratory failure with hypoxemia, CHF (congestive heart failure), Bony metastasis, Bony pelvic pain Forms Stand Alone Forms: [facility] Prescriptions Prescriptions: No Action vitamin A-vit C-vit E-zinc-Cu Tablet 2 tab PO BID RF: 0 Eliquis 2.5 mg tablet 2.5 mg PO BID Qty: 180 RF: 3 metoprolol succinate 100 mg tablet extended release 24 hr 100 mg PO DAILY Qty: 90 RF: 3 amiodarone 200 mg tablet 100 mg PO DAILY Qty: 90 RF: 3 rosuvastatin 5 mg tablet 2.5 mg PO DAILY Qty: 30 RF: 11 furosemide 40 mg tablet 40 mg PO DAILY Qty: 45 RF: 11 ipratropium bromide 0.03 % spray,non-aerosol 1 sprays INTNAS DAILY RF: 0 Tagrisso 40 mg tablet 40 mg PO DAILY RF: 0 ondansetron HCl 8 mg tablet 8 mg PO DAILY PRN (Reason: Nausea) RF: 0 Nucynta 50 mg tablet 50 mg PO Q4 RF: 0 ropinirole 0.5 mg tablet 0.5 mg PO DIRECTED RF: 0 mirtazapine 15 mg tablet 15 mg PO DIRECTED RF: 0 duloxetine [Cymbalta] 30 mg capsule,delayed release(DR/EC) 30 mg PO DIRECTED RF: 0 multivitamin Tablet 1 tab PO DAILY RF: 0 cholecalciferol (vitamin D3) [Vitamin D3] 1,000 unit Tablet 1,000 unit PO DAILY RF: 0 potassium chloride [Klor-Con M20] 20 mEq Tablet,Er Particles/Crystals 20 meq PO BID Qty: 60 RF: 0 Discharge Problem: CHF (congestive heart failure) Qualifiers: Heart failure type: unspecified Heart failure chronicity: acute on chronic Qualified Code(s): I50.9 - Heart failure, unspecified
[2020-04-16] MEDS ORDERED: fentaNYL citrate 100 MCG/2 ML VIAL IV STA (10:44)
[2020-04-16] MEDS ORDERED: SODIUM CHLORIDE 0.9% 500 ML IV SCH (10:45)
[2020-04-16 11:09] LABS: Basophils # (auto) 0.01 K/uL (0-0.2); Basophils % (auto) 0.1 %; Eosinophils # (auto) 0.02 K/uL (0-0.5); Eosinophils % (auto) 0.2 %; Hematocrit (blood only) 24.4 % (37-47); Immature Granulocytes # (auto) 0.02 K/uL (0.00-0.02); Immature Granulocytes % (auto) 0.2 %; Lymphocytes # (auto) 0.51 K/uL (1.2-3.4); Lymphocytes % (auto) 4.8 %; Mean Corpuscular Hemoglobin 28.5 pg (25-34); Mean Corpuscular Hgb Conc 32.8 g/dL (32-36); Mean Corpuscular Volume 86.8 fL (80-100); Monocytes # (auto) 0.38 K/uL (0.11-0.59); Monocytes % (auto) 3.6 %; Neutrophils # (auto) 9.58 K/uL (1.4-6.5); Neutrophils % (auto) 91.1 %; Platelet Count 142 K/uL (130-400); RDW Coefficient of Variation 15.6 % (11.5-14.5); RDW Standard Deviation 48.8 fL (36.4-46.3); Red Blood Count 2.81 M/uL (4.2-5.4); White Blood Count 10.52 K/uL (4.8-10.8)
--- NOTE | 2020-04-16 11:16 | XRay Report ---
SINGLE VIEW PELVIS; 2 VIEWS LEFT HIP CLINICAL HISTORY: Left hip pain. Metastatic bone disease. FINDINGS: An AP view of the pelvis with AP and frog-leg views of the left hip are compared to study d ated 04/03/2020. Correlation is made with PET/CT dated 12/20/2019. The skeletal structures are osteopen ic. No fracture is seen involving the hips or bony pelvis. A large sclerotic metastasis in the left i lium is unchanged. Mild degenerative joint space narrowing is seen in both hips, right greater than l eft. There is degenerative sclerosis of the sacroiliac joints. Lumbosacral spondylosis is partially i vannessa. Mild soft tissue edema overlies the left hip. Atherosclerotic calcification is present in the femoral arteries. IMPRESSION: 1. No acute bony abnormality is seen involving the hips or pelvis. 2. A large sclerotic metastasis is again seen in the left ilium. 3. Soft tissue edema overlies the left hip. Electronically signed by: Raheel Buckley M.D. 04/16/2020 11:14 AM
--- NOTE | 2020-04-16 11:18 | XRay Report ---
SINGLE VIEW CHEST CLINICAL HISTORY: Dyspnea. FINDINGS: An AP, portable, upright chest radiograph is compared to study dated 02/23/2020 and correlat ed with chest CT dated 11/26/2019. The heart is enlarged noting atherosclerotic calcification of the t horacic aorta. There is pulmonary vascular congestion. Emphysema and chronic interstitial thickening is similar to previous. There are small pleural effusions with bibasilar consolidation. Fluid is note d along the fissures. Pulmonary nodules were better assessed on prior chest CT scans. No pneumothorax is seen. The skeletal structures are osteopenic. The bony thorax is grossly intact. IMPRESSION: 1. Cardiomegaly and emphysema with evidence of congestive failure. 2. Small pleural effusions with bibasilar consolidation ACT 112: Negative or not required by law. Electronically signed by: Raheel Buckley M.D. 04/16/2020 11:17 AM
[2020-04-16 11:26] LABS: Albumin Level 2.9 gm/dl (3.4-5.0); BUN Creatinine Ratio 21.3 (10-20); Calcium 8.7 mg/dl (8.5-10.1); Creatinine Clr Calc Pharmacy 34.3 ml/min; Est GFR (African American) 55.5; Est GFR (Non-African American) 47.9; Potassium 4.3 mmol/L (3.5-5.1)
[2020-04-16 11:31] LABS: INR 1.3 (0.9-1.1); Partial Thromboplastin Ratio 1.2; Partial Thromboplastin Time 34.2 Seconds (21.0-31.0); Prothrombin Time 13.4 Seconds (9.0-12.0)
[2020-04-16] MEDS ORDERED: OPTIRAY 320 125ml IV ONE (11:37)
[2020-04-16 11:39] LABS: Base Excess VBG 4.7 mEq/L; HCO3 VBG 29 mmol/L; PCO2 VBG 44 mmHg (38-50); PO2 VBG 26 mmHg; pH VBG 7.44 (7.36-7.41)
[2020-04-16 11:40] LABS: Oxygen Saturation VBG < 60.0 %
[2020-04-16 11:54] LABS: Albumin Globulin Ratio 0.9 (0.9-2); Bilirubin,Total 0.6 mg/dl (0.2-1); Globulin 3.2 gm/dl (2.5-4.0); Total Protein 6.1 gm/dl (6.4-8.2); Troponin I 0.048 ng/ml (0-0.045)
--- NOTE | 2020-04-16 12:28 | CT Scan Report ---
CT ANGIOGRAM OF THE CHEST CLINICAL HISTORY: Dyspnea. COMPARISON STUDY: Chest x-ray dated 04/16/2020. Chest CT scans dated 11/26/2019 and 04/09/2018. TECHNIQUE: Following the IV administration of 120 cc of Optiray 320, CT angiogram of the chest was pe rformed from the upper abdomen to the thoracic inlet utilizing the pulmonary embolus protocol. Images are reviewed in the axial, sagittal, and coronal planes. 3-D MIPS images are created and assessed. I V contrast was administered without complication. A dose lowering technique was utilized adhering to the principles of ALARA. The examination is significantly compromised by motion artifact. CT DOSE: 245.85 mGy.cm FINDINGS: Thyroid: Imaged portions of the thyroid gland are normal in size and attenuation. 1.7 cm low-attenuat ion nodule is again seen in the right lobe. Thoracic aorta: There is atherosclerotic calcification of the thoracic aorta. There is mild ectasia o f the ascending thoracic aorta which measures up to 3.6 cm in diameter. The remainder of the thoracic aorta Is normal in caliber and the arch demonstrates standard 3-vessel anatomy. The thoracic aorta i s not well opacified. Pulmonary vasculature: The main pulmonary arteries are dilated suggesting pulmonary artery hypertensi on. There are no filling defects identified in main, lobar, or proximal segmental pulmonary branches to suggest pulmonary embolus. Evaluation of the segmental and subsegmental branches is significantly degraded by motion artifact. Heart: The heart is enlarged and without pericardial effusion. The coronary arteries and mitral annul us are densely calcified. Lungs and pleural spaces: Evaluation of the lung parenchyma is compromised by motion artifact. A 1.3 cm nodule at the left lung base has increased in size as compared to 11/26/2019 (previously measuring 0.9 cm). A 0.7 cm adjacent nodule seen on image #40 is new from previous. There are also likely addit ional new pulmonary lesion as compared to previous. A 2.6 cm nodular opacity at the right apex on [place] ge #225 is similar to previous. There is right apical scarring and calcification. There are small lef t and moderate right pleural effusions with associated bibasilar consolidation. The trachea and centr al airways are clear. Intralobular septal thickening is suggested. Lower neck: There is supraclavicular lymphadenopathy. A right supraclavicular node on image #270 christina ures 2.3 x 1.6 cm. Mediastinum: There are enlarged superior mediastinal lymph nodes. A michael aggregate in the left super ior mediastinal image #259 measures 1.9 x 1.9 cm. Leticia: There is bilateral hilar adenopathy. A left hilar node on image #190 measures 2.4 x 2.0 cm. Axillae: There is no axillary lymphadenopathy. Upper abdomen: Partially visualized upper abdominal viscera is within normal limits. Skeletal structures: The skeletal structures are osteopenic. Degenerative change is noted in the shou lders and thoracic spine. No lytic or blastic bony lesions are seen. IMPRESSION: 1. Motion compromised examination. 2. There is no evidence of central pulmonary embolus in the main, lobar, or proximal segmental pulmon jose f arteries. Evaluation of the segmental and subsegmental branches is severely compromised by motion artifact. 3. Cardiomegaly with evidence of congestive failure. 4. Moderate right and small left pleural effusions with associated bibasilar consolidation. This coul d represent atelectasis and/or pneumonia and clinical correlation will be required. 5. There is progressive mediastinal, hilar, and right supraclavicular adenopathy as compared to 2019. 6. A left lower lobe pulmonary lesion has increased in size from 11/26/2019. There are also new pulmon jose f metastases as compared to previous. 7. A right apical nodule has not appreciably changed from previous. 8. Additional findings as above. ACT 112: Negative or not required by law. Electronically signed by: Raheel Buckley M.D. 04/16/2020 12:26 PM
[2020-04-16] MEDS ORDERED: FUROSEMIDE 40 MG/4 ML VIAL IV STA (12:30)
--- NOTE | 2020-04-16 14:29 | History & Physical Report ---
Date of Service April 16, 2020 Assessment & Plan (1) Goals of care, counseling/discussion: Long discussion regarding goals of care with the patient and her son at bedside. Very poor prognosis with limited interventions due to stage IV lung carcinoma, pain from bone metastases, severe aortic stenosis, current acute congestive heart failure, bilateral pleural effusions Her main goal is to be able to get home. Unfortunately with her oxygen requirement she was unable to be discharged from the emergency room. She is DNR/DNI, declines vasopressors, palliative thoracocentesis. She is amenable to a blood transfusion if necessary to get her home. If she is to progressively decline overnight and needing increased oxygen requirements we will transition to comfort care. Hold rosuvastatin. (2) Acute respiratory failure with hypoxemia: Multifactorial but most acutely in congestive heart failure. Aim O2 sats > 94%. (3) Acute exacerbation of CHF (congestive heart failure): Unfortunately I suspect she is both intravascularly deplete given dry mucous membranes, history of diarrhea NSS 500 mL bolus and Lasix 40 mg IV given in ER. I suspect she has limited interventions we can perform to help with this. (4) Hyponatremia: Suspect secondary to hypervolemic state. Should improve with diuresis. Serial BMP. (5) Aortic stenosis: Severe aortic stenosis with late opening murmur on exam. Suspect is the cause of the congestive heart failure. It was work up for this surgery which incidentally lead to cancer diagnosis and she never had the surgery. (6) Anemia: Hgb 8.0 from 9.4 in January. Diarrhea but no melena or abdominal pain per patient. Will trend H&H. Pantoprazole 40mg IV now. (7) Left hip pain: Main reason patient came to the ER. Nucynta and cymbalta not working. Already received radiation therapy without help. (8) Pain from bone metastases: (9) Bony metastasis: (10) Nausea: ?Secondary to starting Cymbalta however difficult to delineate. Hold Cymbalta. (11) Lung cancer metastatic to brain: Hold Osimertinib as patient elected to go more palliative. (12) Paroxysmal atrial fibrillation: Currently in NSR. Continue rhythm control with amiodarone. Anticoagulation on hold due to acute anemia r/o GI bleed. (13) Hypertension: Continue metoprolol with hold parameters. (14) DVT prophylaxis: Hold apixaban due to anemia as above. Need to r/o GI bleed prior to restarting. 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 She was seen by pain management 2 days ago for same pain. Previous treatments include ice, heat, tramadol, oxycodone. Tramadol and oxycodone for his drowsiness. Patient is currently on Tagrisso for chemotherapy. She finished radiation therapy to the left pelvis on 04/03/2020 which did not decrease the pelvic pain. She feels like her legs are weak from decreased mobility. She has a multitude of additional concerns of which it is difficult to establish her acute versus chronic problems. She has nausea today with a lot of dry heaving. No hematemesis. She reports an episode of diarrhea this morning around 4am and 2 days ago. No melena or bright red blood in stool. She also reports these diarrheal episodes have been coming and going for months with her chemotherapy treatment. She blames these symptoms acutely on starting the Cymbalta and Nucynta however. She also notes increased shortness of breath and leg swelling over the last week. Increased orthopnea. No PND. Occasional presyncope but no syncope. While in the ER she was noted to be hypoxic. Due to the diarrhea history she was initially given 500ml bolus of IV fluids but on further discussion she has been having worsening leg edema and shortness of breath for the last week. She became rapidly more short of breath and was given IV lasix 40mg and placed on oxymask. She removed the mask briefly to sip water and desaturated again and needed to sit up in bed. BiPAP was discussed with the ER physician and elected to trial this. Allergies Allergy/AdvReac Type Severity Reaction Status Date / Time bee venom protein (honey bee) Allergy Intermediate Verified 04/16/20 13:22 latex Allergy Unknown Verified 04/16/20 13:22 No Known Drug Allergies Allergy Verified 04/16/20 13:22 adhesive tape AdvReac Intermediate Verified 04/16/20 13:22 Home Medications Home Medications Medication Instructions Recorded Confirmed Type cholecalciferol (vitamin D3) 1,000 unit PO DAILY 04/11/18 04/16/20 History [Vitamin D3] multivitamin 1 tab PO DAILY 04/11/18 04/16/20 History potassium chloride [Klor-Con M20] 20 meq PO BID #60 tab 05/30/19 04/16/20 Rx ipratropium bromide 0.03 % nasal 1 sprays INTNAS DAILY ml 06/09/19 04/16/20 Hi story spray furosemide 40 mg tablet 40 mg PO DAILY #45 tab 06/29/19 04/16/20 Rx rosuvastatin 5 mg tablet 2.5 mg PO DAILY #30 tab 06/29/19 04/16/20 Rx ondansetron HCl 8 mg tablet 8 mg PO DAILY PRN tab 08/11/19 04/16/20 History osimertinib 40 mg tablet 40 mg PO DAILY 08/11/19 04/16/20 History apixaban 2.5 mg tablet 2.5 mg PO BID #180 tab 10/04/19 04/16/20 Rx metoprolol succinate 100 mg 100 mg PO DAILY #90 tab 11/24/19 04/16/20 Rx tablet,extended release 24 hr amiodarone 200 mg tablet 100 mg PO DAILY #90 tab 12/06/19 04/16/20 Rx vitamin A-vit C-vit E-zinc-Cu 2 tab PO BID 04/14/20 04/16/20 History tablet duloxetine [Cymbalta] 30 mg PO DIRECTED 04/16/20 04/16/20 History mirtazapine 15 mg PO DIRECTED 04/16/20 04/16/20 History ropinirole 0.5 mg PO DIRECTED 04/16/20 04/16/20 History tapentadol [Nucynta] 50 mg PO Q4 04/16/20 04/16/20 History Past Med/Surg History Medical History Atrial fibrillation DX 2012 - ORAL MEDS ONLY - FOLLOWS W/ DR. NEWTON AND DR. HOLDER AV reentrant tachycardia Basal cell carcinoma (BCC) Chronic otitis media with effusion, bilateral Mixed hearing loss, bilateral Surgical History History of appendectomy History of cardiac cath 09/2017 - WENT TO [facility] ER W/ RAPID HR - NO STENTS/ANGIOPLASTY - FOLLOWS W/ DR. NEWTON AND DR. 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 Beliefs That Will Affect Care: None marital status: / Current Living Situation: Alone current occupational status: retired Other Information That Helps Us Care for You: No Feels Safe at Home: Yes Safety Concerns: Feels Safe At This Time Assistive Devices: Cane, Denture - Upper, Denture - Lower, Glasses and Walker Review of Systems Review of Systems: All systems reviewed & are unremarkable except as noted in HPI & below Constitutional: + chills, + fatigue and + weakness; no fever Eyes: no problem reported Ear, Nose, Mouth, Throat: dry mouth Respiratory: + dyspnea and + dyspnea on exertion; no cough, no chest congestion, no hemoptysis and no pain on inspiration Cardiovascular: + orthopnea and + lightheadedness; no chest pain, no palpitations and no syncope Gastrointestinal: + nausea and + diarrhea/loose stools; no abdominal pain, no heartburn, no vomiting, no coffee ground emesis, no hematemesis, no constipation, no blood in stools and no melena Genitourinary: no problem reported Musculoskeletal: + joint pain (left hip); no radicular pain Integumentary: no problem reported Psychiatric: + depression and + anxiety Endocrine: + fatigue Physical Exam Constitutional: + acute distress (short of breath), + cachectic and + frail appearing; + not well nourished Eyes: PERRL, conjunctivae normal, anicteric sclerae ENMT: Ears: no external ear abnormality Nose: no external nose abnormality Mouth: + dry oral mucous membranes Neck: trachea midline; no tracheal deviation Respiratory: Auscultation: + diminished lung sounds (bibasal) and + crackles (to mid zone on back) Cardiovascular: Rate/Rhythm: regular rate and regular rhythm Heart Sounds: + murmur (LUSB ejection, late opening) Vessels: + JVD Extremities: normal capillary refill and + pedal edema; no calf tenderness Musculoskeletal: Head/Neck/Chest: normocephalic and head atraumatic Generalized b/l muscle wasting Skin: no rashes, warm and dry Neurologic: moves all extremities, awake and + confused Psychiatric: Orientation: alert and oriented x 3 Affect: + anxious affect Genitourinary: no CVA tenderness Results & Data Results & Data ([facility]) Vital Signs (Past 12 Hours) Vital Signs Temp Pulse Resp BP Pulse Ox 04/16/20 13:40 93 04/16/20 13:31 65 28 H 145/61 H 95 04/16/20 13:01 67 30 H 156/54 H 94 04/16/20 12:30 65 24 123/65 90 04/16/20 12:00 66 27 H 142/55 H 89 L 04/16/20 11:01 62 25 H 95 04/16/20 11:00 61 28 H 128/69 96 04/16/20 10:54 95 04/16/20 10:49 36.8 C 61 32 H 103/69 80 L 04/16/20 10:40 126 H 32 H 04/16/20 10:37 127 H 29 H 103/69 80 L Diagnostic Findings SINGLE VIEW CHEST IMPRESSION: 1. Cardiomegaly and emphysema with evidence of congestive failure. 2. Small pleural effusions with bibasilar consolidation CT ANGIOGRAM OF THE CHEST IMPRESSION: 1. Motion compromised examination. 2. There is no evidence of central pulmonary embolus in the main, lobar, or proximal segmental pulmonary arteries. Evaluation of the segmental and subsegm ental branches is severely compromised by motion artifact. 3. Cardiomegaly with evidence of congestive failure. 4. Moderate right and small left pleural effusions with associated bibasilar consolidation. This could represent atelectasis and/or pneumonia and clinical correlation will be required. 5. There is progressive mediastinal, hilar, and right supraclavicular adenopathy as compared to 11/26/2019. 6. A left lower lobe pulmonary lesion has increased in size from 11/26/2019. There are also new pulmonary metastases as compared to previous. 7. A right apical nodule has not appreciably changed from previous. 8. Additional findings as above. SINGLE VIEW PELVIS; 2 VIEWS LEFT HIP IMPRESSION: 1. No acute bony abnormality is seen involving the hips or pelvis. 2. A large sclerotic metastasis is again seen in the left ilium. 3. Soft tissue edema overlies the left hip. ECG Indication: other (Hypoxia) Rate (beats per minute): 61 Rhythm: normal sinus Findings: no acute ischemic change Comparison ECG Date: from (May 28, 2019) Change: no significant change Code Status & VTE Plan Code Status DNR/DNI VTE Prophylaxis Plan VTE Prophylaxis will be ordered: No Reason for no VTE drug order: Contraindicated PG Care Time/CCT Total # of Minutes Spent Total Time Spent with Patient: Total time spent is greater than 50% in coord ination of care (as documented) at patient's floor/unit and/or counseling patient: Coding Level of Care Code 19373 Initial Inpt Care Lvl 3 Diagnoses Goals of care, counseling/discussion Z71.89 Acute respiratory failure with hypoxemia J96.01 Acute exacerbation of CHF (congestive heart failure) I50.9 Hyponatremia E87.1 Aortic stenosis I35.0 Cardiac valve disease etiology: etiology unspecified Anemia D64.9 Left hip pain M25.552 Pain from bone metastases G89.3; C79.51 Bony metastasis C79.51 Nausea R11.0 Lung cancer metastatic to brain C34.90; C79.31 Paroxysmal atrial fibrillation I48.0 Hypertension I10 DVT prophylaxis Z29.9 (1) Aortic stenosis Cardiac valve disease etiology: etiology unspecified Qualified Code(s): I35.0 - Nonrheumatic aortic (valve) stenosis
[2020-04-16] MEDS ORDERED: PANTOprazole 40 MG in SYRINGE 0 ML IV STA (15:05)
--- NOTE | 2020-04-16 16:13 | XRay Report ---
SINGLE VIEW CHEST CLINICAL HISTORY: Hypoxia. FINDINGS: An AP, portable, upright chest radiograph is compared to chest x-ray and chest CT performed earlier the same day 04/16/2020. The heart is enlarged noting atherosclerotic calcification of the t horacic aorta. There is pulmonary vascular congestion. Emphysema and chronic interstitial thickening is similar to previous. There are small pleural effusions with bibasilar consolidation. There are inc reasing bilateral airspace opacities, most confluent in the left midlung. Pulmonary nodules were bett er assessed on prior chest CT scans. No pneumothorax is seen. The skeletal structures are osteopenic. The bony thorax is grossly intact. IMPRESSION: 1. Cardiomegaly and emphysema with evidence of worsening congestive failure. 2. There are worsening bilateral airspace opacities, most confluent in the left lung. This likely rep resents progressive interstitial edema. Correlate clinically for evidence of a superimposed infectiou s/inflammatory pneumonitis. 3. Small pleural effusions with bibasilar consolidation ACT 112: Negative or not required by law. Electronically signed by: Raheel Buckley M.D. 04/16/2020 4:12 PM
[2020-04-16] MEDS ORDERED: FUROSEMIDE 40 MG/4 ML VIAL IV ONE (18:40)
[2020-04-16] MEDS ORDERED: LORazepam 0.5 MG/1 ML VIAL IV STA (18:55)
[2020-04-16] MEDS ORDERED: FUROSEMIDE 40 MG in SYRINGE 0 ML IV ONE (19:00)
[2020-04-16 19:09] LABS: Hematocrit (blood only) 26.9 % (37-47); Hemoglobin 8.6 g/dL (12.0-16.0)
[2020-04-16 19:29] LABS: BUN Creatinine Ratio 23.1 (10-20); Calcium 8.6 mg/dl (8.5-10.1); Est GFR (African American) 60.9; Est GFR (Non-African American) 52.5; Potassium 4.1 mmol/L (3.5-5.1)
[2020-04-16 19:33] LABS: Troponin I 0.04 ng/ml (0-0.045)
[2020-04-16] MEDS: HYDROmorphone INJ 0.5 MG/0.5 ML SYR IV PRN (19:33)
[2020-04-16 19:42] LABS: Appearance Urine Clear (Clear); Bacteria Urine Automated 4+ (Negative); Bilirubin Urine Negative (Negative); Blood Urine Negative (Negative); Color Urine Yellow; Glucose Urine UA Negative (Negative); Ketones Urine Trace (Negative); Leukocyte Esterase Urine Trace (Negative); Nitrite Urine Positive (Negative); Protein Urine Trace (Negative); RBC Urine Automated 0-4 /hpf (0-4); Specific Gravity Urine > 1.045 (1.000-1.030); Urobilinogen Urine Negative (Negative); WBC Urine Automated >30 /hpf (0-5); pH Urine 5.5 (4.5-7.5)
[2020-04-16] MEDS: POTASSIUM CHLORIDE 20 MEQ TABCR PO SCH (19:59)
[2020-04-16] MEDS: AMIODARONE 200 MG TAB PO SCH (19:59)
[2020-04-16] MEDS: rOPINIRole HCL 0.25 MG TABLET PO SCH (20:00)
[2020-04-16] MEDS: MIRTAZAPINE TAB 15 MG TAB PO SCH (20:00)
[2020-04-16] MEDS ORDERED: APIXABAN 2.5 MG TAB PO SCH ×2 (21:00)
[2020-04-16] MEDS ORDERED: hydrALAZINE HCL 20 MG/ML VIAL IV PRN (21:14)
[2020-04-17 05:47] LABS: Basophils # (auto) 0.01 K/uL (0-0.2); Basophils % (auto) 0.1 %; Eosinophils # (auto) 0.02 K/uL (0-0.5); Eosinophils % (auto) 0.1 %; Hematocrit (blood only) 22.4 % (37-47); Hemoglobin 7.3 g/dL (12.0-16.0); Immature Granulocytes # (auto) 0.02 K/uL (0.00-0.02); Immature Granulocytes % (auto) 0.1 %; Lymphocytes # (auto) 0.57 K/uL (1.2-3.4); Mean Corpuscular Hemoglobin 28.3 pg (25-34); Mean Corpuscular Hgb Conc 32.6 g/dL (32-36); Mean Corpuscular Volume 86.8 fL (80-100); Mean Platelet Volume 9.3 fL (7.4-10.4); Monocytes # (auto) 0.69 K/uL (0.11-0.59); Monocytes % (auto) 4.9 %; Neutrophils % (auto) 90.8 %; Platelet Count 130 K/uL (130-400); RDW Coefficient of Variation 15.6 % (11.5-14.5); RDW Standard Deviation 49.6 fL (36.4-46.3); Red Blood Count 2.58 M/uL (4.2-5.4); White Blood Count 14.21 K/uL (4.8-10.8)
[2020-04-17 06:05] LABS: Ovalocytes 1+
[2020-04-17 06:12] LABS: Calcium 8.2 mg/dl (8.5-10.1); Creatinine Clr Calc Pharmacy 38.2 ml/min; Est GFR (African American) 63.1; Est GFR (Non-African American) 54.5; Potassium 3.6 mmol/L (3.5-5.1)
[2020-04-17] MEDS: ALBUMIN 25% 50 ML IV SCH ×2 (06:31→07:22)
[2020-04-17] MEDS: POTASSIUM CHLORIDE 20 MEQ TABCR PO SCH ×2 (08:11→21:22)
[2020-04-17] MEDS: AMIODARONE 200 MG TAB PO SCH (08:12)
[2020-04-17] MEDS ORDERED: PANTOPRAZOLE BOLUS/DRIP 1 EA IV STA (08:41)
[2020-04-17] MEDS ORDERED: PIPERACILL/TAZOBAC CONSULT ACTIVE PRN (08:42)
[2020-04-17] MEDS ORDERED: SODIUM CHLORIDE 0.9% 250 ML IV PRN (08:43)
[2020-04-17] MEDS ORDERED: GENTAMICIN CONSULT ACTIVE PRN (08:46)
--- NOTE | 2020-04-17 08:59 | Consultation Report ---
DATE OF CONSULTATION: 04/17/2020 REASON FOR CONSULTATION: An 79-year-old female with history of metastatic nonsmall cell lung cancer, currently under [facility] care. HISTORY OF PRESENT ILLNESS: The patient is a pleasant 79-year-old with stage IV nonsmall cell lung cancer with brain mets presents to the Emergency Room complaining of subacute onset lower extremity pain. The patient apparently has a relationship with pain management service and had seen them a couple of days prior. She is currently on oxycodone and tramadol with ice and heat application as necessary. She completed radiation therapy to the left pelvis on 04/03/2020 which did not result in decrease in pain. This lady was previously under Dr. Francis's care and more recently seen by our physician carton forming machine adjuster's and a wojciech valiente. She is presently on Tagrisso and clearly there is building radiographic evidence she is progressing despite our efforts. I have been asked to render opinion on where we are both clinically and therapeutically. PAST MEDICAL HISTORY: Significant for atrial fibrillation, basal cell carcinoma, metastatic nonsmall cell lung cancer, chronic otitis media and conductive hearing loss. PAST SURGICAL HISTORY: Includes cardiac catheterization, cataract surgery, colonoscopy, myringotomies, total abdominal hysterectomy, bilateral salpingo-oophorectomy and appendectomy. CURRENT MEDICATIONS: Nucynta 50 mg p.o. q. 4 hours, ropinirole 0.5 mg as directed, mirtazapine 15 mg p.o. as directed, Cymbalta 30 mg p.o. daily, multivitamin 2 tablets p.o. b.i.d., amiodarone 100 mg p.o. daily, metoprolol 100 mg p.o. daily, apixaban 2.5 mg p.o. b.i.d., Tagrisso 40 mg p.o. daily, Zofran 8 mg p.o. q. 8 hours p.r.n., Rosuvastatin 2.5 mg p.o. daily, furosemide 40 mg p.o. daily, ipratropium 1 spray inhaled daily, potassium chloride 20 mEq p.o. b.i.d., multivitamin 1 tablet p.o. daily, cholecalciferol 1000 units p.o. daily. ALLERGIES: BEE VENOM, LATEX AND ADHESIVE TAPE. FAMILY HISTORY: Noncontributory. SOCIAL HISTORY: The patient is a . She lives alone. She is a nonsmoker, nondrinker. REVIEW OF SYSTEMS: CONSTITUTIONAL: Most notably for intractable skeletal pain. She denies anorexia or weight loss. No fevers, chills or sweats. SKIN: No history of dermatosis. HEENT: Negative for headaches, lightheadedness or dizziness. No visual deficits Positive for hearing deficits, which are chronic. No dysphagia or sore throat. LYMPH: No history of lymphoproliferative disease. CARDIAC: No current angina or palpitations. PULMONARY: Positive for bilateral effusions. She utilizes BiPAP. She is not acutely dyspneic or short of breath. GASTROINTESTINAL: Negative for abdominal pain, nausea, vomiting, diarrhea or constipation. MUSCULOSKELETAL: Positive again for lower extremity skeletal pain. ENDOCRINE: Negative for diabetes or thyroid disease. NEUROLOGIC: Negative for seizure, stroke, or migraine headache. HEMATOLOGIC: Positive for leukocytosis and anemia, borderline thrombocytopenia. PHYSICAL EXAMINATION: GENERAL: Very pleasant 79-year-old female, awake, alert and appropriate, in no acute distress. VITAL SIGNS: Temperature 37.5, pulse 84, respiratory rate 20, blood pressure 90/38. SKIN: Warm, dry, noncyanotic without petechia, rash or ecchymosis. HEENT: Head is atraumatic, normocephalic. Eyes: PERRLA, EOMI. Sclerae nonicteric. Nares patent without rhinorrhea or discharge. Throat clear. Tongue dry. No buccal lesions or ulcerations. NECK: Supple. HEART: Regular rate and rhythm. LUNGS: Scattered rhonchi, diminished breath sounds in the right posterior base. ABDOMEN: Soft, nontender, nondistended, without palpable hepatosplenomegaly. EXTREMITIES: Musculoskeletal strength and pulses are equal in all 4 quadrants. No clubbing, cyanosis or edema. NEUROLOGICAL: The patient is awake, alert and oriented x3. Cranial nerves are grossly intact. LABORATORY DATA: WBC count 14,210, hemoglobin 7.3, platelet count 130,000. PT 13.4 seconds, PTT 34.2 seconds. Sodium 129, potassium 3.6, chloride 91, carbon dioxide 29, creatinine 0.98, BUN 23. BNP 8759. Albumin 2.9. IMPRESSION: 1. Acute respiratory failure with hypoxia. 2. Acute exacerbation of congestive heart failure. 3. Metastatic nonsmall cell lung cancer. 4. Hyponatremia. 5. Aortic stenosis. 6. Anemia, attributable to treatment. PLAN: I have been asked to render opinion in patient's case regarding prognosis and further therapeutics. Clearly, this lady has been heavily pretreated and is currently on Tagrisso, which she has been on for several months. Reviewed JAEL Kamara's note back in November, which also revealed mild progression. Nonetheless, the patient maintained therapy, but it would appear she is rapidly declining clinically. I am not overly familiar with the patient and will discuss further with Lay Pearl. The patient had also seen one of our locums who is no longer with us. Thus before engaging in discussion regarding care going forward like to have a better sense on where she is clinically. It would appear that she recently received palliative radiation therapy to the pelvis, which was modestly helpful. Would adjust her opioids as appropriate in house and again a serious discussion regarding hospice care moving forward needs to take place. We will continue to follow her periodically during her stay. Thank you again for allowing me to participate in her care.
[2020-04-17] MEDS ORDERED: PANTOprazole 80 MG in DEXTROSE 5% 100 ML IV ONE (09:00)
[2020-04-17] MEDS ORDERED: PIPERACILLIN/TAZOBACTAM 4.5 GM in DEXTROSE 5% 100 ML IV ONE (09:00)
[2020-04-17] MEDS ORDERED: IPRATROPIUM BROMIDE NASAL SPRAY 0.06% 15ML NAE SCH (09:00)
[2020-04-17 09:29] LABS: Reticulocyte % 2.9 % (0.5-2.0); Reticulocytes # 0.08 10^6/uL (0.02-0.10)
[2020-04-17] MEDS: PANTOprazole 40 MG in DEXTROSE 5% 100 ML IV SCH ×3 (09:42→19:52)
[2020-04-17 09:52] LABS: Ferritin 43.1 ng/ml (8-388)
[2020-04-17 10:00] LABS: Folate (Folic Acid) 16.84 ng/ml (>5.38); Vitamin B12 > 2000 pg/ml (211-911)
[2020-04-17] MEDS ORDERED: GENTAMICIN SULFATE 360 MG in DEXTROSE 5% 100 ML IV SCH (10:00)
[2020-04-17] MEDS ORDERED: FUROSEMIDE 20 MG in SYRINGE 0 ML IV ONE (12:30)
--- NOTE | 2020-04-17 12:31 | Electrocardiogram Report ---
Test Reason : Blood Pressure : / mmHG Vent. Rate : 061 BPM Atrial Rate : 061 BPM P-R Int : 190 ms QRS Dur : 082 ms QT Int : 462 ms P-R-T Axes : 066 -14 070 degrees QTc Int : 465 ms Normal sinus rhythm Left atrial enlargement Nonspecific ST abnormality Lateral leads Poor R wave progression, consider anterior KS vs. lead placement vs. LVH Abnormal ECG When compared with ECG of 28-MAY-2019 11:17, No significant change was found Confirmed by Raffy Ruiz ([id number]) on 04/17/2020 12:31:13 PM Referred By: REFERRED SELF Confirmed By:Raffy Ruiz
--- NOTE | 2020-04-17 12:37 | Pharmacy Report ---
Pharmacy Abx Initial Consult - Date of Service April 17, 2020 - Pharmacy Dosing Scope Date of Consult: 04/17 Consultation requested by: Dr. Thurman Pharmacy is consulted to initiate gentamicin and zosyn IV dosing therapy, order appropriate labs and adjust drug dose/frequency. - Subjective The patient is a 79 year old F admitted on 04/16/20 15:08. - Objective Height: 5 ft 5 in Weight: 52.4 kg Vital Signs (Past 12hrs): Vital Signs Temp Pulse Pulse Resp BP BP Pulse Ox 04/17/20 12:18 84 32 H 90 04/17/20 11:38 36.6 C 82 18 121/65 92 04/17/20 11:23 36.8 C 90 18 100/48 L 91 04/17/20 11:06 37.2 C 86 18 90/37 L 04/17/20 07:42 76 04/17/20 07:35 37.9 C H 80 16 95/34 L 97 04/17/20 07:11 84 20 97 04/17/20 04:00 37.5 C 78 20 90/38 L 97 04/17/20 03:10 74 20 98 04/17/20 00:40 70 Lab Results (24hrs): Laboratory Tests (24 Hours) 04/17/20 04/17/20 04/16/20 05:21 05:21 19:01 WBC 14.21 H Neut # (Auto) 12.90 H Creatinine 0.98 1.01 Est Cr Clr Drug Dosing 38.2 37.0 Procalcitonin 04/16/20 11:00 WBC Neut # (Auto) Creatinine Est Cr Clr Drug Dosing Procalcitonin < 0.05 Micro Results: 04/17/20 08:56 Aerobic Blood Culture - Pending Blood Anaerobic Blood Culture - Pending 04/17/20 09:03 Aerobic Blood Culture - Pending Blood Anaerobic Blood Culture - Pending - Risk Factors for Resistance * Immunocompromised (chronic steroid therapy, chemotherapy, immunomodulators) - Assessment & Plan Assessment 79 year old F admitted acute CHF exacerbation, increased oxygen requirements. Patient has history of stage IV lung carcinoma with mets, a fib, CHF. Urine culture currently growing gram negative bacilli, blood cultures pending, leukocytosis, currently afebrile, Procal <0.05. Starting zosyn + gentamicin for double pseudomonal coverage. Did discuss possible monotherapy with zosyn alone for now, provider would like to proceed with at least one dose of gentamicin until cultures result. Plan Piperacillin/tazobactam * 4.5 g bolus administered over 30 minutes, then 4.5 g IV extended infusion every 8 hours for CrCl greater than 20 mL/min . * Aggressive dosing selected due to critically ill status Gentamicin * Patient meets criteria for extended-interval aminoglycoside dosing per the Lisa nomogram * Dose: 360 mg IV every 48 hours * Dosage based on actual body weight * Random level ordered for 6-14 hours after the start of the infusion to ensure dosing interval is appropriate. Pharmacy will continue to follow and will adjust dose/frequency as necessary. Thank you.
--- NOTE | 2020-04-17 12:42 | XRay Report ---
XR chest 1V portable CLINICAL HISTORY: Shortness of breath, hypoxia COMPARISON STUDY: Chest CT and chest radiograph April 16, 2020. FINDINGS: The lung lesions shown on prior chest CT are not well depicted on this exam due to techniqu e. Bilateral pleural effusions are noted. Extensive interstitial thickening and bilateral opacities h ave progressed. There is no pneumothorax. Cardiomediastinal silhouette is stable. IMPRESSION: 1. Progression of interstitial thickening and bilateral opacities. The findings favor pulmonary edema . Superimposed pneumonia is considered less likely but cannot be excluded. 2. Persistent bilateral pleural effusions. ACT 112: Negative or not required by law. Electronically signed by: Dakota Dai M.D. 04/17/2020 12:41 PM
[2020-04-17] MEDS: ONDANSETRON INJ 2 MG/ML 2 ML VIAL IV PRN (13:17)
[2020-04-17] MEDS ORDERED: PIPERACILLIN/TAZOBACTAM 4.5 GM in DEXTROSE 5% 100 ML IV SCH (14:00)
[2020-04-17] MEDS ORDERED: ALBUMIN 25% 50 ML with FUROSEMIDE 40 MG IV ONE (16:00)
--- NOTE | 2020-04-17 17:47 | Hospitalist Progress Note ---
Date of Service April 17, 2020 Assessment & Plan (1) Goals of care, counseling/discussion: Again discussed goals of care with the patient and her son at bedside. She has improved considerably overnight with lasix after the IV fluids contributing towards pulmonary edema. Her prognosis remains poor with limited interventions due to stage IV lung carcinoma, pain from bone metastases, severe aortic stenosis, current acute congestive heart failure, bilateral pleural effusions, suspected GI bleed. Her main goal is to be able to get home, however remains too unstable for transport at the present time. She is DNR/DNI, declines vasopressors, palliative thoracocentesis. Stop rosuvastatin. (2) Acute respiratory failure with hypoxemia: Multifactorial but most acutely in congestive heart failure and anemia. Aim O2 sats > 94%. (3) Acute exacerbation of CHF (congestive heart failure): Responded well to IV lasix 40mg x2 given yesterday. Negative balance -800ml Daily weights Fluid restrict 1500 mL, low-sodium diet Unfortunately BP limiting higher lasix dosing. Give 20mg IV now. (4) Acute blood loss anemia: No hemoptysis to suggest pulmonary hemorrhage. Continued drop in hemoglobin concerning overnight. Hgb 8.0 -> 8.6 -> 7.3. Baseline 9.4. Most likely GI bleed. IV pantoprazole bolus and drip. With current respiratory stasis she is not a candidate for EGD and she also does not want this currently therefore will defer GI consult currently. Transfuse 1 unit and recheck Hgb. (5) UTI (urinary tract infection): Increased WBC on labs this morning. Procalcitonin negative on admission. Given low blood pressure concern she is bacteremic from gram-negative bacilli UTI in the setting of immunosuppression. Blood cultures, follow-up urine culture No fevers or specific UTI symptoms but she is also not reliable as a historian. Zosyn + gentamicin (6) Hyponatremia: Improving with diuresis. Continue to monitor. (7) Aortic stenosis: Severe aortic stenosis with late opening murmur on exam. Suspect is the cause of the congestive heart failure. It was work up for this surgery which incidentally lead to cancer diagnosis and she never had the surgery. (8) Left hip pain: Main reason patient came to the ER. Nucynta and cymbalta not working. Already received radiation therapy without help. Currently not her major issue. (9) Pain from bone metastases: (10) Bony metastasis: (11) Nausea: ?Secondary to starting Cymbalta however difficult to delineate. Hold Cymbalta. Ondansetron Q4H PRN (12) Lung cancer metastatic to brain: Hold Osimertinib as patient elected to go more palliative. Appreciate oncology consult for status of disease. (13) Paroxysmal atrial fibrillation: Currently in NSR. Continue rhythm control with amiodarone. Anticoagulation on hold due to acute anemia. (14) Hypertension: Continue metoprolol with hold parameters. Lasix as above. (15) DVT prophylaxis: Hold apixaban due to anemia as above. Admission and Anticipated Discharge Date Admission Date: April 16, 2020 Subjective Patient breathing much easier this morning with switch from BiPAP to oxygen mask. Able to eat a small amount of breakfast. Continue to orthopnea. No chest pain, presyncope or syncope. Gipson catheter in place. She denies any suprapubic pain. Prior to catheter placement she denies dysuria, urinary frequency, change in urine smell or color. She does report back pain although not acutely in the flanks. No fevers or chills. Review of Systems Review of Systems: All systems reviewed & are unremarkable except as noted in HPI & below Physical Exam Constitutional: + cachectic and + frail appearing; + not well nourished and no acute distress ENMT: Ears: no external ear abnormality Nose: no external nose abnormality Mouth: oral mucous membranes not dry Neck: trachea midline; no tracheal deviation Respiratory: + uses accessory muscles and able to speak in complete sentences; no retractions Auscultation: + diminished lung sounds (bibasal) and + crackles (to mid zone on back) Cardiovascular: Rate/Rhythm: regular rate and regular rhythm Heart Sounds: + murmur (LUSB ejection, late opening) Vessels: + JVD (decreased to 2cm above collar bone) Extremities: normal capillary refill and + pedal edema; no calf tenderness Gastrointestinal (Abdomen): Inspection/Auscultation: + abdomen distended and + hypoactive bowel sounds Percussion/Palpation: abdomen soft; abdomen nontender, no guarding and abdomen not rigid Musculoskeletal: Head/Neck/Chest: normocephalic and head atraumatic Skin: no rashes, warm and dry (no cellulitis areas) Neurologic: moves all extremities and awake; not confused Psychiatric: A+Ox3, euthymic affect Genitourinary: no CVA tenderness Results & Data Results & Data ([facility]) Vital Signs (Past 12 Hours) Vital Signs Temp Pulse Pulse Resp BP BP Pulse Ox 04/17/20 15:44 82 24 96 04/17/20 15:03 37.0 C 83 20 111/55 L 96 04/17/20 14:15 36.9 C 85 18 106/55 L 96 04/17/20 14:08 36.9 C 84 16 106/55 L 95 04/17/20 13:08 36.9 C 85 18 108/57 L 95 04/17/20 12:18 84 32 H 90 04/17/20 12:08 36.8 C 86 18 108/57 L 95 04/17/20 11:38 36.6 C 82 18 121/65 92 04/17/20 11:23 36.8 C 90 18 100/48 L 91 04/17/20 11:06 37.2 C 86 18 90/37 L 04/17/20 07:42 76 04/17/20 07:35 37.9 C H 80 16 95/34 L 97 04/17/20 07:11 84 20 97 PG Care Time/CCT Total # of Minutes Spent Total Time Spent with Patient: Total time spent is greater than 50% in coordination of care (as documented) at patient's floor/unit and/or counseling patient: Coding Level of Care Code 02885 Subseq Hosp Care Lvl 3 Diagnoses Goals of care, counseling/discussion Z71.89 Acute respiratory failure with hypoxemia J96.01 Acute exacerbation of CHF (congestive heart failure) I50.9 Acute blood loss anemia D62 UTI (urinary tract infection) N39.0 Hyponatremia E87.1 Aortic stenosis I35.0 Cardiac valve disease etiology: etiology unspecified Left hip pain M25.552 Pain from bone metastases G89.3; C79.51 Bony metastasis C79.51 Nausea R11.0 Lung cancer metastatic to brain C34.90; C79.31 Paroxysmal atrial fibrillation I48.0 Hypertension I10 DVT prophylaxis Z29.9 (1) Aortic stenosis Cardiac valve disease etiology: etiology unspecified Qualified Code(s): I35.0 - Nonrheumatic aortic (valve) stenosis
[2020-04-17 18:02] LABS: Hematocrit (blood only) 24.6 % (37-47); Hemoglobin 8.3 g/dL (12.0-16.0); Mean Corpuscular Hgb Conc 33.7 g/dL (32-36); Platelet Count 113 K/uL (130-400); RDW Coefficient of Variation 15.4 % (11.5-14.5); RDW Standard Deviation 48.5 fL (36.4-46.3); Red Blood Count 2.86 M/uL (4.2-5.4)
--- NOTE | 2020-04-17 18:29 | Palliative Care Consultation ---
Date of Consultation April 17, 2020 Assessment & Plan (1) Palliative care encounter: This female is an 79 year old who presented to the [facility] with LLE pain and hypoxia. The patient has had ongoing weakness and is overall deconditioned. She has been evaluated by pain management as an interim outpatient palliative care coverage and was last seen two days ago. Her pain, up to this point, has been managed with conservative non-medicinal treatment in addition to Tramadol, and Oxycodone. 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 She finished palliative radiation therapy to the left pelvis on 04/03/2020 which did not improve her pelvic pain. Additional PMH includes: HTN, HypoNa+, Aortic Stenosis, Anemia of Chronic Disease, and Afib. When she presented to the ED she was hypoxic with an SPO2 in the 60's. The patient does have some acute concerns on top of her chronic illness. She was having multiple episodes of liquid diarrhea (likely related to chemotherapy), so she was given half a liter of IV fluids, which, in turn, worsened her hypoxia. She responded well to Lasix, but since admission has been going back and forth between oxymask and BiPAP. There is a question of whether she has some gastric ulcers bleeding. She was since started on a Protonix drip. She has received a few units of PRBC's, which has not helped her breathing. Discussion has been held with the patient and family regarding extensive management of her acute conditions with an chronic underlying one. The patient does live alone in a one story home, but it has been expressed that going home is a goal. The family did decide no to pursue ICU care, inotropic support, thoracentesis, etc. Patient is a DNR/DNI. Palliative Care was consulted to discuss goals of care further. -I met with the patient in room 243. She was sitting upright in her bed with a BiPAP mask on, with her eyes closed. She was just placed on BiPAP a few hours prior. No family initially was at the bedside. -The patient woke to voice. She is AAOx3. Current BiPAP settings: PC/AC, FiO2 0.65, PEEP 8. SpO2 93%. -She was able to verbalize why she was in the hospital and was able to follow simple commands. -The patient was able to say she felt 'worn out' and 'tired'. Lengthy conversation was held regarding how she currently was feeling about her disease process. She did say she was not afraid of dying. -In the middle of our conversation, her son, Armaan, walked in and we continued discussing goals of care. He expressed that she looked well this morning, but other than that, feels she is declining rather 'rapidly'. -Patient did not eat any dinner this evening and did not have an appetite. -Pt reports 7/10 sharp constant pain in her RLE with movement. 2/10 pain at rest. -She does recognize that she may not leave the hospital. I did discuss comfort medications, stopping blood draws, vital signs, etc. -The patient and her son agree that they do not want any additional blood draws, vitals and want to focus on comfort. They are comfortable with continuing current medications for now, including the Protonix drip and see how much comfort medications are utilized over the next 24-48 hours, and then discontinue all non-essential medications. -For now, comfort medications will be available, but the patient is not full comfort measures. That being said, confirmation for no further blood draws, vital signs. -Will readdress in the morning on 04/18, how the patient does over night and decide about discontinuing Protonix drip and other meds. -The reasoning for keeping Protonix drip and Lasix is that the Lasix can help provide comfort for her breathing and if we could get her to a stable point for possible discharge home with hospice and / care, we would have a better idea of this possibility over the next day or two. This was discussed at length with the hospitalist, Dr. Thurman. -The patient does have another son, Lay, who lives in [place] and plans to come in the next few days. The patient wished for Armaan to reach out to Shania, her sister and last living sibling. -Some comfort medications were ordered. Ordering Morphine IV instead of Roxanol for ease of administration since she is on a BiPAP mask. Morphine 2 mg Q3 PRN. Considered a Fentanyl patch for pain management, but she is frail and does not have a lot of fatty absorption sites. Also, at this time, do not feel confident in her physical ability to use a [employer]GS[employer] pump. -Should a full transition to comfort measures be made tomorrow, patient likely will have hours to days of life. Right now, if patient does stabilize for being able to return home, likely days to a few weeks before she would decline. Pt is a confirmed DNR/DNI. -Will readdress in the morning. Update provided to the patients nurse, Suzan Thayer RN. Again, also discussed with the hospitalist -PPS: 20% (2) Lung cancer metastatic to brain: (3) Bony metastasis: (4) Acute exacerbation of CHF (congestive heart failure): History of Present Illness Reason for Consultation: Goals of care Requesting Physician: Dr. Thurman Attending Physician: Jj Thurman MD History of Present Illness This female is an 79 year old who presented to the [facility] with LLE pain and hypoxia. The patient has had ongoing weakness and is overall deconditioned. She has been evaluated by pain management as an interim outpatient palliative care coverage and was last seen two days ago. Her pain, up to this point, has been managed with conservative non-medicinal treatment in addition to Tramadol, and Oxycodone. 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 She finished palliative radiation therapy to the left pelvis on 04/03/2020 which did not improve her pelvic pain. Additional PMH includes: HTN, HypoNa+, Aortic Stenosis, Anemia of Chronic Disease, and Afib. When she presented to the ED she was hypoxic with an SPO2 in the 60's. The patient does have some acute concerns on top of her chronic illness. She was having multiple episodes of liquid diarrhea (likely related to chemotherapy), so she was given half a liter of IV fluids, which, in turn, worsened her hypoxia. She responded well to Lasix, but since admission has been going back and forth between oxymask and BiPAP. There is a question of whether she has some gastric ulcers bleeding. She was since started on a Protonix drip. She has received a few units of PRBC's, which has not helped her breathing. Discussion has been held with the patient and family regarding extensive management of her acute conditions with an chronic underlying one. The patient does live alone in a one story home, but it has been expressed that going home is a goal. The family did decide no to pursue ICU care, inotropic support, thoracentesis, etc. Patient is a DNR/DNI. Palliative Care was consulted to discuss goals of care further. Please see A/P for further details. Thank you kindly for involving the palliative care consultation service with this unfortunate patient. We will follow. Allergies Allergy/AdvReac Type Severity Reaction Status Date / Time bee venom protein (honey bee) Allergy Intermediate Verified 04/16/20 13:22 latex Allergy Unknown Verified 04/16/20 13:22 No Known Drug Allergies Allergy Verified 04/16/20 13:22 adhesive tape AdvReac Intermediate Verified 04/16/20 13:22 Home Medications Home Medications Medication Instructions Recorded Confirmed Type cholecalciferol (vitamin D3) 1,000 unit PO DAILY 04/11/18 04/16/20 History [Vitamin D3] multivitamin 1 tab PO DAILY 04/11/18 04/16/20 History potassium chloride [Klor-Con M20] 20 meq PO BID #60 tab 05/30/19 04/16/20 Rx ipratropium bromide 0.03 % nasal 1 sprays INTNAS DAILY ml 06/09/19 04/16/20 History spray furosemide 40 mg tablet 40 mg PO DAILY #45 tab 06/29/19 04/16/20 Rx rosuvastatin 5 mg tablet 2.5 mg PO DAILY #30 tab 06/29/19 04/16/20 Rx ondansetron HCl 8 mg tablet 8 mg PO DAILY PRN tab 08/11/19 04/16/20 History osimertinib 40 mg tablet 40 mg PO DAILY 08/11/19 04/16/20 History apixaban 2.5 mg tablet 2.5 mg PO BID #180 tab 10/04/19 04/16/20 Rx metoprolol succinate 100 mg 100 mg PO DAILY #90 tab 11/24/19 04/16/20 Rx tablet,extended release 24 hr amiodarone 200 mg tablet 100 mg PO DAILY #90 tab 12/06/19 04/16/20 Rx vitamin A-vit C-vit E-zinc-Cu 2 tab PO BID 04/14/20 04/16/20 History tablet duloxetine [Cymbalta] 30 mg PO DIRECTED 04/16/20 04/16/20 History mirtazapine 15 mg PO DIRECTED 04/16/20 04/16/20 History ropinirole 0.5 mg PO DIRECTED 04/16/20 04/16/20 History tapentadol [Nucynta] 50 mg PO Q4 04/16/20 04/16/20 History Patient History Medical History (Updated 04/17/20 @ 18:28 by JAEL Bueno) Atrial fibrillation DX 2012 - ORAL MEDS ONLY - FOLLOWS W/ DR. NEWTON AND DR. HOLDER AV reentrant tachycardia Basal cell carcinoma (BCC) Chronic otitis media with effusion, bilateral Mixed hearing loss, bilateral Palliative care encounter Surgical History History of appendectomy History of cardiac cath 09/2017 - WENT TO [facility] ER W/ RAPID HR - NO STENTS/ANGIOPLASTY - FOLLOWS W/ DR. NEWTON AND DR. 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 Pt reports diarrhea, no nausea Musculoskeletal: Pt reports 7/10 sharp constant pain in her RLE with movement. 2/10 pain at rest. Physical Exam Constitutional: + acute distress, + frail appearing and cooperative Respiratory: + respiratory distress, + labored breathing and symmetric chest movement Auscultation: + diminished lung sounds Cardiovascular: RRR, no murmur, no edema Gastrointestinal (Abdomen): normal bowel sounds, soft, nontender, no hepatosplenomegaly Skin: no rashes, warm and dry + dry skin, + ecchymosis and + pallor Psychiatric: A+Ox3, euthymic affect Genitourinary: indwelling urena catheter Lymphatic: no cervical or axillary lymphadenopathy Results & Data ([facility]) Vital Signs (Past 12 Hours) Vital Signs Temp Pulse Pulse Resp BP BP Pulse Ox 04/17/20 15:44 82 24 96 04/17/20 15:03 37.0 C 83 20 111/55 L 96 04/17/20 14:15 36.9 C 85 18 106/55 L 96 04/17/20 14:08 36.9 C 84 16 106/55 L 95 04/17/20 13:08 36.9 C 85 18 108/57 L 95 04/17/20 12:18 84 32 H 90 04/17/20 12:08 36.8 C 86 18 108/57 L 95 04/17/20 11:38 36.6 C 82 18 121/65 92 04/17/20 11:23 36.8 C 90 18 100/48 L 91 04/17/20 11:06 37.2 C 86 18 90/37 L 04/17/20 07:42 76 04/17/20 07:35 37.9 C H 80 16 95/34 L 97 04/17/20 07:11 84 20 97 PG Care Time/CCT Total # of Minutes Spent Total Time Spent with Patient: Total time spent is greater than 50% in coordination of care (as documented) at patient's floor/unit and/or counseling patient: 100 Coding Level of Care Code 35398 Inpt Consult Level 4 Diagnoses Palliative care encounter Z51.5 Lung cancer metastatic to brain C34.90; C79.31 Bony metastasis C79.51 Acute exacerbation of CHF (congestive heart failure) I50.9 Time Spent (min) 100 Time Spent Midlevel Total time spent 100 minutes with > 50% of that time spent assessing the patient, discussing goals of care with the patient and her son, along with discussing symptom management and collaborating with the IDT.
[2020-04-17 18:41] LABS: Calcium 8.3 mg/dl (8.5-10.1); Creatinine Clr Calc Pharmacy 35.3 ml/min; Est GFR (African American) 58.1; Est GFR (Non-African American) 50.1; Potassium 3.2 mmol/L (3.5-5.1)
[2020-04-17 19:11] LABS: Albumin Globulin Ratio 1.1 (0.9-2); Bilirubin,Total 1.8 mg/dl (0.2-1); Globulin 2.8 gm/dl (2.5-4.0); Total Protein 5.8 gm/dl (6.4-8.2); Troponin I 0.132 ng/ml (0-0.045)
[2020-04-17] MEDS ORDERED: ONDANSETRON 4 MG OD TAB SL PRN (19:12)
[2020-04-17] MEDS ORDERED: LORazepam 0.5 MG/1 ML VIAL IV PRN (19:12)
[2020-04-17] MEDS ORDERED: LORazepam 0.5 MG TAB PO PRN (19:12)
[2020-04-17] MEDS ORDERED: MoRPHine SULFATE 2 MG/ML CARP IV PRN ×2 (19:12→21:55)
[2020-04-17] MEDS ORDERED: IPRATROPIUM BROMIDE NASAL SPRAY 0.06% 15ML NAE PRN (19:18)
[2020-04-17] MEDS: rOPINIRole HCL 0.25 MG TABLET PO SCH (21:22)
[2020-04-17] MEDS: MIRTAZAPINE TAB 15 MG TAB PO SCH (21:22)
[2020-04-17] MEDS: HYDROmorphone INJ 0.5 MG/0.5 ML SYR IV PRN (21:25)
[2020-04-17] MEDS: CEFEPIME 2,000 MG in SYRINGE 0 ML IV SCH (22:10)
[2020-04-18] MEDS ORDERED: ALBUMIN 25% 50 ML with FUROSEMIDE 40 MG IV ONE
[2020-04-18] MEDS ORDERED: ALBUMIN 25% 50 ML IV ONE
[2020-04-18] MEDS: PANTOprazole 40 MG in DEXTROSE 5% 100 ML IV SCH ×3 (00:10→11:50)
[2020-04-18] MEDS ORDERED: FUROSEMIDE 40 MG in SYRINGE 0 ML IV ONE (01:00)
--- NOTE | 2020-04-18 08:24 | Progress Notes ---
DATE: 04/18/2020 DIAGNOSES: 1. Acute respiratory failure with hypoxia. 2. Acute exacerbation of congestive heart failure. 3. Metastatic nonsmall cell lung cancer. 4. Hyponatremia. 5. Aortic stenosis. 6. Anemia, attributable to treatment. SUBJECTIVE: Belem was seen and examined at bedside. Reviewed medical record before engaging in discussion this morning. Palliative care input is appreciated. Belem confirmed that she does not appear to want any further salvage therapy. Understands her prognosis and ultimately her goal is to return home with family on hospice. Her breathing appears to be a bit more comfortable. Pain reasonably well controlled. Nursing reports no overnight difficulties. OBJECTIVE: GENERAL: A very pleasant 79-year-old female, in no acute distress. VITAL SIGNS: Temperature 36.9, pulse 86, respiratory rate 16, blood pressure 120/54. SKIN: Without rash or lesion. HEENT: Deferred. NECK: Supple. HEART: Regular rate and rhythm. Holosystolic murmur, 3/6 heard in the left precordium. PULMONARY: Right posterior basilar crackles. ABDOMEN: Soft, nontender, nondistended. EXTREMITIES: No clubbing, cyanosis or edema. NEUROLOGIC: She is grossly intact. LABORATORY DATA: WBC count 14,100, hemoglobin 8.3, platelet count 113,000. Sodium 128, potassium 3.2, chloride 90, carbon dioxide 31, creatinine 1.05, BUN 20. Serum iron 16, albumin 3.0. IMPRESSION: 1. Respiratory failure with hypoxia. 2. Acute exacerbation of congestive heart failure. 3. Metastatic nonsmall cell lung cancer. 4. Iron deficiency. 5. Hyponatremia. 6. Hypokalemia. 7. Hypoalbuminemia. 8. Aortic stenosis. PLAN: I visited with Belem again at bedside just to confirm what I read in her medical record regarding palliative care moving forward. I do not disagree with her plan overall. I believe despite the fact she has not really had any other cytotoxic therapy she is not in favor of pursuing such treatment. Therefore, she desires to obtain a hospice consultation in preparation to send her home. I have asked her to maintain her [facility] appointment as an outpatient as we would be happy to assist in her palliative care moving forward. Agree with medical management otherwise and will officially sign off her case. Thank you very much for allowing me to participate in her care.
[2020-04-18] MEDS: MoRPHine SULFATE 5 MG/0.25 ML UDP PO PRN ×2 (08:53→14:10)
[2020-04-18] MEDS ORDERED: FUROSEMIDE 40 MG in SYRINGE 0 ML IV SCH ×2 (09:00→10:00)
[2020-04-18] MEDS ORDERED: ALBUMIN 25% 50 ML IV SCH (09:00)
[2020-04-18] MEDS ORDERED: ALBUMIN 25% 50 ML with FUROSEMIDE 40 MG IV SCH ×2 (09:00)
[2020-04-18] MEDS: POTASSIUM CHLORIDE 20 MEQ TABCR PO SCH (09:30)
[2020-04-18] MEDS: CEFEPIME 2,000 MG in SYRINGE 0 ML IV SCH (09:30)
[2020-04-18] MEDS: AMIODARONE 200 MG TAB PO SCH (09:30)
--- NOTE | 2020-04-18 11:38 | Hospitalist Progress Note ---
Date of Service April 18, 2020 Assessment & Plan (1) Acute respiratory failure with hypoxemia: 2nd to decompensated diastolic CHF +/- worsening effusions +/- worsening pulmonary metastatic disease. no evidence of PEs. cont oxygen support. diurese. (2) Acute exacerbation of CHF (congestive heart failure): ongoing. worse. increase IV lasix to TID dosing. (3) Aortic stenosis: severe on echo 05/2019. likely approaching critical. (4) Paroxysmal atrial fibrillation: noted remains on amiodarone (5) Lung cancer metastatic to brain: left leg radicular pain could be coming from the l-spine or the brain either way start on decadron 4mg BID IV and gabapentin 100mg BID agree with palliative care - start fentanyl patch 12mcg q72h for bone pain and generalized pain (6) Neuropathic pain of left lower extremity: concern for pain from l-spine radiculopathy (mets to spine) vs brain mets either way - gabapentin, decadron, fentanyl patch, morphine prn (7) CAD (coronary artery disease): (8) Hyponatremia: likely multifactorial - diuretics, SIADH from cancer, etc (9) GERD (gastroesophageal reflux disease): PPI (10) Hypertension: (11) Acute blood loss anemia: did have near 2-gram drop no overt BRBPR was on PPI drip will stop for now and simply monitor (12) UTI (urinary tract infection): was on antibiotics IV given we are transitioning to comfort and focusing on breathing/pain control will d/c antibiotics (13) Hypokalemia: 2nd diuresis (14) Pain from bone metastases: see above in lung cancer metastatic to brain care d/w palliative care team son/aabycaiq-ac-qii/sister all updated at bedside Admission and Anticipated Discharge Date Admission Date: April 16, 2020 Subjective patient c/o ongoing dyspnea and O2 requirement. she also c/o ongoing bone pain in left hip, and pain in mid-foot on left that "makes her left leg curl up." denies paresthesias of left leg, but she gets a sudden sharp stabbing pain that affects much of the left leg. appetite remains very poor. she remains very weak. her goal is still to return home - if possible - with hospice. son, daughter in law were at bedside during the visit. Review of Systems Constitutional: + fatigue and + anorexia; no fever and had no fever at home before admission Respiratory: + cough and + dyspnea Cardiovascular: no chest pain Gastrointestinal: no abdominal pain and no vomiting Physical Exam Constitutional: + acute distress, + ill appearing and + frail appearing; no altered mental status ENMT: external ear and nose normal, oropharynx normal Respiratory: Auscultation: + crackles (Diffuse - anteriorly & posteriorly most lung segments ) Cardiovascular: Rate/Rhythm: regular rate and regular rhythm Heart Sounds: normal S1, normal S2 and + murmur (3/6 holosystolic RUSB/apex) Vessels: + JVD, posterior tibial pulses present and dorsalis pedis pulses present Extremities: + edema (1+ b/l ) Gastrointestinal (Abdomen): normal bowel sounds, soft, nontender, no hepatosplenomegaly Psychiatric: Orientation: alert, oriented to person and oriented to place Results & Data Results & Data ([facility]) Vital Signs (Past 12 Hours) Vital Signs Temp Pulse Pulse Resp BP Pulse Ox Pulse Ox 04/18/20 07:43 36.9 C 86 16 120/54 L 96 04/18/20 07:30 79 20 97 04/18/20 00:50 93 Laboratory Results Laboratory Results - last 24 hr 04/16/20 04/17/20 04/17/20 19:01 17:51 17:51 WBC 14.10 H RBC 2.86 L Hgb 8.3 L Hct 24.6 L MCV 86.0 MCH 29.0 MCHC 33.7 RDW Std Deviation 48.5 H RDW Coeff of Andreas 15.4 H Plt Count 113 L MPV 9.0 Sodium 128 L Potassium 3.2 L Chloride 90 L Carbon Dioxide 31 Anion Gap 7.0 BUN 20 H Creatinine 1.05 Est Cr Clr Drug Dosing 35.3 Est GFR ( Amer) 58.1 Est GFR (Non-Af Amer) 50.1 BUN/Creatinine Ratio 19.0 Glucose 135 H Calcium 8.3 L Total Bilirubin 1.8 H D AST 28 ALT 15 Alkaline Phosphatase 72 Troponin I 0.132 H* Total Protein 5.8 L Albumin 3.0 L Globulin 2.8 Albumin/Globulin Ratio 1.1 Crossmatch See Detail PG Care Time/CCT Total # of Minutes Spent Total Time Spent with Patient: Total time spent is greater than 50% in coordination of care (as documented) at patient's floor/unit and/or counseling patient: Coding Level of Care Code 34185 Subseq Hosp Care Lvl 3 Diagnoses Acute respiratory failure with hypoxemia J96.01 Acute exacerbation of CHF (congestive heart failure) I50.33 Heart failure type: diastolic Aortic stenosis I35.0 Cardiac valve disease etiology: etiology unspecified Paroxysmal atrial fibrillation I48.0 Lung cancer metastatic to brain C34.90; C79.31 Neuropathic pain of left lower extremity M79.2 CAD (coronary artery disease) I25.10 Hyponatremia E87.1 GERD (gastroesophageal reflux disease) K21.9 Hypertension I10 Acute blood loss anemia D62 UTI (urinary tract infection) N39.0 Hypokalemia E87.6 Pain from bone metastases G89.3; C79.51 (1) Acute exacerbation of CHF (congestive heart failure) Heart failure type: diastolic Qualified Code(s): I50.33 - Acute on chronic diastolic (congestive) heart failure (2) Aortic stenosis Cardiac valve disease etiology: etiology unspecified Qualified Code(s): I35.0 - Nonrheumatic aortic (valve) stenosis
--- NOTE | 2020-04-18 12:03 | Palliative Care Progress Note ---
Date of Service April 18, 2020 Assessment & Plan (1) Palliative care encounter: -I met with the patient in room 362. She was transferred to a new room overnight as she no longer required telemetry monitoring. -She utilized one dose of Roxanol over the past 24 hours. She did remain on BiPA P overnight. -While she appears to look more comfortable today, she continues to state she feels so tired and exhausted. -Her sister Shania, and niece were visiting, along with her son Armaan. Her second son, Marva, is in route from [place] today. -It appears she is communicating her goodbyes with them She expressed how important it was for her to see her sister before she . -After confirmation of medications, all non essential meds have been discontinued. -Her left leg had a few spasms when I was in the room. She declines it being constant and states that it does not radiate to her back. -Will order low dose Neurontin to see if does help with any spasms. -Considered Fentanyl patch as well; however, due to her not having good absorption sites, will hold for now and encourage Morphine for comfort approach. -I anticipate patient may show signs of decline over the next 24-48 hours once she has time to say goodbye to her family/friends. -Patient was able to eat a few bites of apple pie today. -Patient receptive to go back on BiPAP tonight. Will follow up tomorrow. -PPS 20% (2) Lung cancer metastatic to brain: (3) Bony metastasis: (4) Acute exacerbation of CHF (congestive heart failure): Admission and Anticipated Discharge Date Admission Date: April 16, 2020 Subjective Pt appears more comfortable this morning. She was on BiPAP overnight. Se is now on 10 L oxymask. Able to eat a few bites of breakfast. Denies MORAN, dizziness, chest pain, syncopal episodes See A/ P for further details Review of Systems Review of Systems: General: Pt feels 'tired' and 'worn out' HEENT: Pt denies MORAN, dizziness, dysphagia CV: Pt denies chest pain Resp: Pt reports + SOB without activity GI: Pt denies abdominal pain. Pt reports diarrhea, no nausea Musculoskeletal: Pt reports 7/10 sharp constant pain in her RLE with movement. 2/10 pain at rest. Physical Exam Constitutional: + acute distress, + frail appearing and cooperative Respiratory: + respiratory distress, + labored breathing and symmetric chest movement Auscultation: + diminished lung sounds Cardiovascular: RRR, no murmur, no edema Gastrointestinal (Abdomen): normal bowel sounds, soft, nontender, no hepatosplenomegaly Skin: no rashes, warm and dry + dry skin, + ecchymosis and + pallor Psychiatric: A+Ox3, euthymic affect Lymphatic: no cervical or axillary lymphadenopathy Results & Data ([facility]) Vital Signs (Past 12 Hours) Vital Signs Temp Pulse Pulse Resp BP Pulse Ox Pulse Ox 04/18/20 07:43 36.9 C 86 16 120/54 L 96 04/18/20 07:30 79 20 97 04/18/20 00:50 93 PG Care Time/CCT Total # of Minutes Spent Total Time Spent with Patient: Total time spent is greater than 50% in coordination of care (as documented) at patient's floor/unit and/or counseling patient: 45 Coding Level of Care Code 79244 Subseq Hosp Care Lvl 3 Diagnoses Palliative care encounter Z51.5 Lung cancer metastatic to brain C34.90; C79.31 Bony metastasis C79.51 Acute exacerbation of CHF (congestive heart failure) I50.9 Time Spent (min) 45 Time Spent Midlevel Total time spent 45 minutes with > 50% of that time spent assessing the patient, discussing symptom management with the patient and family, along with collaborating with IDT.
[2020-04-18] MEDS: GABAPENTIN 100 MG CAP PO SCH ×2 (12:46→20:49)
[2020-04-18] MEDS: FUROSEMIDE 40 MG in SYRINGE 0 ML IV SCH ×2 (12:47→20:56)
[2020-04-18] MEDS: dexAMETHasone 4 MG in SYRINGE 0 ML IV SCH ×2 (12:47→20:48)
[2020-04-18] MEDS: ONDANSETRON INJ 2 MG/ML 2 ML VIAL IV PRN (17:20)
[2020-04-18] MEDS: rOPINIRole HCL 0.25 MG TABLET PO SCH (20:51)
[2020-04-18] MEDS: MIRTAZAPINE TAB 15 MG TAB PO SCH (20:51)
[2020-04-19] MEDS: ONDANSETRON INJ 2 MG/ML 2 ML VIAL IV PRN ×3 (07:15→21:12)
[2020-04-19] MEDS: FUROSEMIDE 40 MG in SYRINGE 0 ML IV SCH ×3 (08:39→21:19)
[2020-04-19] MEDS: dexAMETHasone 4 MG in SYRINGE 0 ML IV SCH ×2 (08:39→21:22)
[2020-04-19] MEDS: GABAPENTIN 100 MG CAP PO SCH ×2 (08:47→21:31)
--- NOTE | 2020-04-19 14:38 | Palliative Care Progress Note ---
Date of Service April 19, 2020 Assessment & Plan (1) Palliative care encounter: -I met with the patient in room 362. Pt son, Marva at her bedside. -Pt resting more today. More lethargic than yesterday, but AAOx3. -Pt utilized 4 doses of Roxanol over the past 24 hours, more than historically. -Marva arrived from [place]. Armaan and him talk daily. -Patient was crying out that she didn't want to leave the kids with 'all of this work' and said she "just wanted to make it inside the door of her house to " -Marva and I talked in the hallway regarding returning home with hospice services. Stated that she may have a window of opportunity to make this happen with equipment delivery, agency choice, etc. Advised that if we would wait another two days or so, she may decline to the point that she would not be stable for transfer. -Her BP is normotensive, normal heart rate, no signs of mottling. She is on 8L oxymask. She does continue to have urine output, less than a few days ago. -I discussed with Dr. Kennedy, the hospitalist and Armaan will get back to me after the two brother speak. -Anticipated life expectancy: days o a week or so. [place] SYMPTOM ASSESSMENT SYSTEM REVISED (ESAS-R): Scale 0-3. 3 is maximum and 0 is minimum PAIN: 2 TIREDNESS: 3 DROWSINESS: 2 APPETITE: 1 SHORTNESS OF BREATH: 2 DEPRESSION: 1 ANXIETY: 1 -Case management updated. Will continue to follow. -PPS 20% (2) Lung cancer metastatic to brain: (3) Bony metastasis: (4) Acute exacerbation of CHF (congestive heart failure): Admission and Anticipated Discharge Date Admission Date: April 16, 2020 Subjective Patient c/o SOB Pt c/o left leg spasms Pt reports poor appetite Review of Systems Review of Systems: [place] SYMPTOM ASSESSMENT SYSTEM: Scale 0-3. 3 is maximum and 0 is minimum PAIN: 2 TIREDNESS: 3 DROWSINESS: 2 APPETITE: 1 SHORTNESS OF BREATH: 2 DEPRESSION: 1 ANXIETY: 1 General: Pt feels 'tired' and 'worn out' HEENT: Pt denies MORAN, dizziness, dysphagia CV: Pt denies chest pain Resp: Pt reports + SOB without activity GI: Pt denies abdominal pain. Pt reports diarrhea, no nausea Musculoskeletal: Pt reports 6/10 sharp constant pain in her RLE with movement. 2/10 pain at rest. Physical Exam Constitutional: + acute distress, + frail appearing and cooperative Respiratory: + respiratory distress, + labored breathing and symmetric chest movement Auscultation: + diminished lung sounds Cardiovascular: RRR, no murmur, no edema Gastrointestinal (Abdomen): normal bowel sounds, soft, nontender, no hepatosplenomegaly Skin: no rashes, warm and dry + dry skin, + ecchymosis and + pallor Psychiatric: A+Ox3, euthymic affect Lymphatic: no cervical or axillary lymphadenopathy PG Care Time/CCT Total # of Minutes Spent Total Time Spent with Patient: Total time spent is greater than 50% in coordination of care (as documented) at patient's floor/unit and/or counseling patient: 45 Coding Level of Care Code 17458 Subseq Hosp Care Lvl 3 Diagnoses Palliative care encounter Z51.5 Lung cancer metastatic to brain C34.90; C79.31 Bony metastasis C79.51 Acute exacerbation of CHF (congestive heart failure) I50.33 Heart failure type: diastolic Time Spent (min) 45 Time Spent Midlevel Total time spent 45 minutes with > 50% of that time spent assessing the patient, discussing goals of care with the family and IDT. (1) Acute exacerbation of CHF (congestive heart failure) Heart failure type: diastolic Qualified Code(s): I50.33 - Acute on chronic diastolic (congestive) heart failure
[2020-04-19] MEDS: MIRTAZAPINE TAB 15 MG TAB PO SCH (21:31)
[2020-04-19] MEDS: rOPINIRole HCL 0.25 MG TABLET PO SCH (21:31)
--- NOTE | 2020-04-19 22:47 | Hospitalist Progress Note ---
Date of Service April 19, 2020 Assessment & Plan (1) Acute respiratory failure with hypoxemia: 2nd to decompensated diastolic CHF +/- worsening effusions +/- worsening pulmonary metastatic disease. no evidence of PEs. cont oxygen support. diurese. (2) Acute exacerbation of CHF (congestive heart failure): ongoing. worse. increase IV lasix to TID dosing. (3) Aortic stenosis: severe on echo 05/2019. likely approaching critical. (4) Paroxysmal atrial fibrillation: noted remains on amiodarone (5) Lung cancer metastatic to brain: left leg radicular pain could be coming from the l-spine or the brain either way start on decadron 4mg BID IV and gabapentin 100mg BID agree with palliative care - start fentanyl patch 12mcg q72h for bone pain and generalized pain (6) Neuropathic pain of left lower extremity: concern for pain from l-spine radiculopathy (mets to spine) vs brain mets either way - gabapentin, decadron, fentanyl patch, morphine prn (7) CAD (coronary artery disease): (8) Hyponatremia: likely multifactorial - diuretics, 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 Lasix as above. (11) Acute blood loss anemia: did have near 2-gram drop no overt BRBPR was on PPI drip will stop for now and simply monitor (12) UTI (urinary tract infection): was on antibiotics IV given we are transitioning to comfort and focusing on breathing/pain control will d/c antibiotics (13) Hypokalemia: 2nd diuresis (14) Pain from bone metastases: see above in lung cancer metastatic to brain care d/w palliative care team son/povhjziq-uo-tou/sister all updated at bedside Admission and Anticipated Discharge Date Admission Date: April 16, 2020 Physical Exam Constitutional: + acute distress, + ill appearing and + frail appearing; no altered mental status ENMT: external ear and nose normal, oropharynx normal Respiratory: Auscultation: + crackles (Diffuse - anteriorly & posteriorly most lung segments ) Cardiovascular: Rate/Rhythm: regular rate and regular rhythm Heart Sounds: normal S1, normal S2 and + murmur (3/6 holosystolic RUSB/apex) Vessels: + J VD, posterior tibial pulses present and dorsalis pedis pulses present Extremities: + edema (1+ b/l ) Gastrointestinal (Abdomen): normal bowel sounds, soft, nontender, no hepatosplenomegaly Psychiatric: Orientation: alert, oriented to person and oriented to place PG Care Time/CCT Total # of Minutes Spent Total Time Spent with Patient: Total time spent is greater than 50% in coordination of care (as documented) at patient's floor/unit and/or counseling patient: Coding Diagnoses Acute respiratory failure with hypoxemia J96.01 Acute exacerbation of CHF (congestive heart failure) I50.33 Heart failure type: diastolic Aortic stenosis I35.0 Cardiac valve disease etiology: etiology unspecified Paroxysmal atrial fibrillation I48.0 Lung cancer metastatic to brain C34.90; C79.31 Neuropathic pain of left lower extremity M79.2 CAD (coronary artery disease) I25.10 Hyponatremia E87.1 GERD (gastroesophageal reflux disease) K21.9 Hypertension I10 Acute blood loss anemia D62 UTI (urinary tract infection) N39.0 Hypokalemia E87.6 Pain from bone metastases G89.3; C79.51 (1) Acute exacerbation of CHF (congestive heart failure) Heart failure type: diastolic Qualified Code(s): I50.33 - Acute on chronic diastolic (congestive) heart failure (2) Aortic stenosis Cardiac valve disease etiology: etiology unspecified Qualified Code(s): I35.0 - Nonrheumatic aortic (valve) stenosis
[2020-04-20 08:05] VITALS: BP 116/64; PULSE 80; TEMP 98.6; O2SAT 94
[2020-04-20] MEDS: GABAPENTIN 100 MG CAP PO SCH (08:13)
[2020-04-20] MEDS: FUROSEMIDE 40 MG in SYRINGE 0 ML IV SCH ×2 (08:14→14:52)
[2020-04-20] MEDS: dexAMETHasone 4 MG in SYRINGE 0 ML IV SCH (08:14)
--- NOTE | 2020-04-20 11:41 | Palliative Care Progress Note ---
Date of Service April 20, 2020 Assessment & Plan Admission and Anticipated Discharge Date Admission Date: April 16, 2020 Results & Data ([facility]) Vital Signs (Past 12 Hours) Vital Signs Temp Pulse Resp BP Pulse Ox 04/20/20 08:00 37 C 80 18 116/64 94 PG Care Time/CCT Total # of Minutes Spent Total Time Spent with Patient: Total time spent is greater than 50% in coordination of care (as documented) at patient's floor/unit and/or counseling patient: Coding
[2020-04-20] MEDS: MoRPHine SULFATE 5 MG/0.25 ML UDP PO PRN ×2 (15:00→16:14)
--- NOTE | 2020-04-20 15:42 | Discharge Summary ---
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 She was seen by pain management 2 days ago for same pain. Previous treatments include ice, heat, tramadol, oxycodone. Tramadol and oxycodone for his drowsiness. Patient is currently on Tagrisso for chemotherapy. She finished radiation therapy to the left pelvis on 04/03/2020 which did not decrease the pelvic pain. She feels like her legs are weak from decreased mobility. She has a multitude of additional concerns of which it is difficult to establish her acute versus chronic problems. She has nausea today with a lot of dry heaving. No hematemesis. She reports an episode of diarrhea this morning around 4am and 2 days ago. No melena or bright red blood in stool. She also reports these diarrheal episodes have been coming and going for months with her chemotherapy treatment. She blames these symptoms acutely on starting the Cymbalta and Nucynta however. She also notes increased shortness of breath and leg swelling over the last week. Increased orthopnea. No PND. Occasional p resyncope but no syncope. While in the ER she was noted to be hypoxic. Due to the diarrhea history she was initially given 500ml bolus of IV fluids but on further discussion she has been having worsening leg edema and shortness of breath for the last week. She became rapidly more short of breath and was given IV lasix 40mg and placed on oxymask. She removed the mask briefly to sip water and desaturated again and needed to sit up in bed. BiPAP was discussed with the ER physician and elected to trial this. Principal Diagnosis 1. acute hypoxic respiratory failure 2nd to decompensated CHF 2. metastatic lung cancer Discharge Exam Constitutional + ill appearing and + thin; no acute distress and no altered mental status ENMT external ear and nose normal, oropharynx normal Respiratory no respiratory distress Auscultation: + crackles (bases) Cardiovascular Rate/Rhythm: regular rate and regular rhythm Heart Sounds: normal S1, normal S2 and + murmur (2/6 RUSB, systolic ) Vessels: posterior tibial pulses present and dorsalis pedis pulses present; no JVD Extremities: + edema Gastrointestinal (Abdomen) normal bowel sounds, soft, nontender, no hepatosplenomegaly Psychiatric Orientation: alert, oriented to person and oriented to place Affect: + depressed affect Discharge Data Allergies Allergy/AdvReac Type Severity Reaction Status Date / Time bee venom protein (honey bee) Allergy Intermediate Verified 04/16/20 13:22 latex Allergy Unknown Verified 04/16/20 13:22 No Known Drug Allergies Allergy Verified 04/16/20 13:22 adhesive tape AdvReac Intermediate Verified 04/16/20 13:22 Consultations Hematology/Oncology Palliative Care Procedures Performed PRBCs x 1 unit Ordered Studies 04/16/20 10:44 CT angio chest PE protocol Stat IMPRESSION: 1. Motion compromised examination. 2. There is no evidence of central pulmonary embolus in the main, lobar, or proximal segmental pulmonary arteries. Evaluation of the segmental and subsegmental branches is severely compromised by motion artifact. 3. Cardiomegaly with evidence of congestive failure. 4. Moderate right and small left pleural effusions with associated bibasilar consolidation. This could represent atelectasis and/or pneumonia and clinical correlation will be required. 5. There is progressive mediastinal, hilar, and right supraclavicular adenopathy as compared to 11/26/2019. 6. A left lower lobe pulmonary lesion has increased in size from 11/26/2019. There are also new pulmonary metastases as compared to previous. 7. A right apical nodule has not appreciably changed from previous. Hospital Course (1) Acute respiratory failure with hypoxemia: 2nd to decompensated diastolic CHF +/- worsening effusions (either 2nd to lung cancer or CHF) +/- worsening pulmonary metastatic disease. no evidence of PEs on CTA. despite diuresis she continued to require oxygen until her discharge. she will d/c to home with [facility] and will remain on oxygen. (2) Acute exacerbation of CHF (congestive heart failure): acute/chronic diastolic CHF. diuresed while here with improved respiratory distress. able to d/c BiPAP and transition to oxygen via NC or oxymask. will keep her on 40mg of oral lasix daily upon discharge home. (3) Pain from bone metastases: lung cancer with extensive metastatic disease to the bone. significant pelvic pain and left leg radicular pain. started on decadron, morphine elixir, gabapentin, and fentanyl patch (this was started at discharge). pain improved with above measures. (4) Lung cancer metastatic to brain: left leg radicular pain could be coming from the lumbar spine or the brain itself. pain improved with gabapentin and steroids along with narcotics. will continue all of the above at discharge. transitioning to hospice at home at discharge. all chemotherapy for cancer stopped. (5) Aortic stenosis: severe on echo 05/2019. likely approaching critical and contributing to CHF. (6) Paroxysmal atrial fibrillation: continue amiodarone (7) Neuropathic pain of left lower extremity: concern for pain from l-spine radiculopathy (mets to spine) vs brain mets either way - gabapentin, decadron, fentanyl patch, morphine prn (8) CAD (coronary artery disease): (9) Hyponatremia: likely multifactorial - diuretics, SIADH from cancer, etc Na 128 (10) GERD (gastroesophageal reflux disease): (11) Hypertension: all meds stopped except for lasix (12) Acute blood loss anemia: did have near 2-gram drop while hospitalized no overt BRBPR or melena was on PPI drip during the stay PPI was stopped fully at discharge (13) UTI (urinary tract infection): received IV antibiotics for citrobacter while here. was transitioned to hospice antibiotics were d/c. (14) Hypokalemia: 2nd diuresis and poor oral intake supplementation at discharge deferred due to hospice status (15) Chronic kidney disease, stage 3a: Total Time Total Time Spent Total Time Spent (In Minutes): 50 Total Time Includes: Examination of the Patient, Discharge Planning, Medication Reconciliation and Communication With Other Providers Discharge Plan Discharge Items Patient Disposition: Hospice - Home Reason For Visit: ANEMIA,CHF EXACERBATION,LUNG CANCER Discharge Diagnosis: 1. severe pain due to lung cancer in the bones 2. difficulty breathing due to fluid build-up in the lungs from congestive heart failure 3. anemia 4. aortic stenosis Activity: As commented below Activity Comment: activity as desired or tolerated Non-emergency contact: Primary Care Provider Call non-emergency contact if: you have any medication questions, your symptoms worsen, your pain is not controlled and your pain is worsening Follow-up/Referrals: Martinez Holcomb MD [Primary Care Provider] - 04/28/20 9:30 am Diet: Regular Addtl Attending Provider Instructions: Mrs Mathur, It was a pleasure caring for you! We are pleased that your pain and breathing are much more comfortable at this time. We treated you for the problems listed above in "discharge diagnoses." I have stopped multiple medications that likely would not bring you comfort or benefit. Medications such as vitamins, your blood thinner, etc have been discontinued. During your stay you met with our palliative care team. They have assisted you and your family in the decision process about returning home with hospice. Upon return home we have prescribed the following medications for you: 1. lorazepam -- 0.5mg every 4 hours as needed for anxiety, sleep, or agitation 2. morphine liquid -- 5mg every q6h as needed for pain or difficulty breathing. Please know that hospice can adjust this as necessary for optimal pain relief or for your breathing. 3. fentanyl patch -- if your pain is not controlled with morphine, the steroids, etc - please place a patch on your skin and leave it on for 72 hours. After 72 hours you will replace the patch with a new one. This patch is a time- released pain killer. It may make you sleepy but should offer you good pain relief. 4. dexamethasone steroid -- 4mg once daily. This will help your appetite and bone pain. 5. gabapentin 100mg twice daily. This will help your nerve pain especially of the left leg. 6. ondansetron 4mg -- every 6 hours as needed for nausea/vomiting. 7. please continue your oxygen for your breathing. 8. please continue the urena catheter. 9. if you have constipation troubles please take a combination of [id number] miralax +/- senna (senakot). If you have any questions, concerns, problems, uncontrolled pain, difficulty breathing - any needs - please contact the HOSPICE AGENCY FIRST. They will be able to address the majority of your concerns right within your home, sometimes by phone or in person during a visit at your home. Again please contact the HOSPICE agency first for any needs or concerns. Again it was my pleasure caring for you and getting to know you. Enjoy being at home. Dr Gilberto Foreman Pending Studies at Discharge: No Stand-Alone Forms: My [facility] Medications and DC Order Prescriptions: New lorazepam 0.5 mg Tablet 0.5 mg PO Q4H PRN (Reason: anxiety/agitation/sleep) Qty: 20 RF: 0 gabapentin 100 mg Capsule 100 mg PO BID Qty: 30 RF: 0 dexamethasone [Decadron] 4 mg tablet 4 mg PO DAILY Qty: 30 RF: 0 morphine 20 mg/5 mL (4 mg/mL) solution 5 mg PO Q6H PRN (Reason: pain or difficulty breathing) Qty: 100 RF: 0 fentanyl 12 mcg/hr patch 72 hour 1 patch transdermal Q72H Qty: 10 RF: 0 ondansetron 4 mg tablet,disintegrating 4 mg PO Q6H PRN (Reason: nausea and vomiting) Qty: 14 RF: 0 Continued amiodarone 200 mg tablet 100 mg PO DAILY Qty: 90 RF: 3 furosemide 40 mg tablet 40 mg PO DAILY Qty: 45 RF: 11 ropinirole 0.5 mg tablet 0.5 mg PO DIRECTED RF: 0 mirtazapine 15 mg tablet 15 mg PO DIRECTED RF: 0 duloxetine [Cymbalta] 30 mg capsule,delayed release(DR/EC) 30 mg PO DIRECTED RF: 0 Discontinued vitamin A-vit C-vit E-zinc-Cu Tablet 2 tab PO BID RF: 0 Eliquis 2.5 mg tablet 2.5 mg PO BID Qty: 180 RF: 3 metoprolol succinate 100 mg tablet extended release 24 hr 100 mg PO DAILY Qty: 90 RF: 3 rosuvastatin 5 mg tablet 2.5 mg PO DAILY Qty: 30 RF: 11 ipratropium bromide 0.03 % spray,non-aerosol 1 sprays INTNAS DAILY RF: 0 Tagrisso 40 mg tablet 40 mg PO DAILY RF: 0 ondansetron HCl 8 mg tablet 8 mg PO DAILY PRN (Reason: Nausea) RF: 0 Nucynta 50 mg tablet 50 mg PO Q4 RF: 0 multivitamin Tablet 1 tab PO DAILY RF: 0 cholecalciferol (vitamin D3) [Vitamin D3] 1,000 unit Tablet 1,000 unit PO DAILY RF: 0 potassium chloride [Klor-Con M20] 20 mEq Tablet,Er Particles/Crystals 20 meq PO BID Qty: 60 RF: 0 Discharge Orders: Discharge Order (Routine); Ordered 04/20/20 Ordered By: Jj Emerson/Other Patient Handouts: Managing Chronic Pain: Medicines Admission Data Admit Date/Time: 04/16/20 15:08 Attending Provider: Jj Macias Admit Provider: Jj Thurman Primary Care Provider: Martinez Holcomb Other Providers: Jj Thurman ; Jeovany Champagne V. ; Allie Wang Other Interventions: Discharge Summary Assessment (RN) Last Done: 04/20/20 16:36 Coding Level of Care Code D/C Day Management >30 mins Diagnoses Acute respiratory failure with hypoxemia J96.01 Acute exacerbation of CHF (congestive heart failure) I50.33 Heart failure type: diastolic Pain from bone metastases G89.3; C79.51 Lung cancer metastatic to brain C34.90; C79.31 Aortic stenosis I35.0 Cardiac valve disease etiology: etiology unspecified Paroxysmal atrial fibrillation I48.0 Neuropathic pain of left lower extremity M79.2 CAD (coronary artery disease) I25.10 Hyponatremia E87.1 GERD (gastroesophageal reflux disease) K21.9 Hypertension I10 Acute blood loss anemia D62 UTI (urinary tract infection) N39.0 Hypokalemia E87.6 Chronic kidney disease, stage 3a N18.31
== END 2020-04-20 05:10 | disposition hospice, home (50) | DRG 291 ==
LOC: ED 10:30 → SUATTDRO 15:08 → 2N 15:08 → 2S 04-17 11:23 → 3W 04-17 19:07